=== PATIENT | male | born 1950 | race Caucasian/White ===

== ENCOUNTER → 2024-02-13 12:52 | Outpatient (REF) | payer MEDICARE, SELFPAY | LOC: HWRAD 12:52 | PROVIDERS: ATTENDING PHYSICIAN Internal Medicine Critical Care Medicine; FAMILY PHYSICIAN Physician Assistant Medical | DX: R06.02 Shortness of breath (principal); Z87.01 Personal history of pneumonia (recurrent) | CPT/HCPCS: 71046; 71250 ==

== ENCOUNTER 2024-04-10 10:10 | Emergency (ER) | payer MEDICARE, SELFPAY ==
[2024-04-10 10:17] VITALS: BP 142/91
[2024-04-10 12:10] VITALS: BP 127/88
[2024-04-10] MEDS: ADACEL 0.5 ML IM (12:16)
[2024-04-10] MEDS: ANCEF 5 IV (12:17)
--- NOTE | 2024-04-10 12:47 | ED.GENMED ---
History of Present Illness
General
Chief Complaint: Skin Surface Trauma
Source: patient
Exam Limitations: none
Time Seen by Provider: 04/10/24 10:26
Nursing documentation reviewed up to this point in time: agreed with
Travel History
Have you had any contact with someone who has COVID-19?: No
Do you have any symptoms of coronavirus? Fever > 100 degrees, chills, cough, shortness of breath, sore throat, loss of taste or smell, muscle aches, or headache?: No
History of Present Illness
History of Present Illness:
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 This was caused by a wood saw the
piece of wood that kicked back just prior to arrival injuring the distal fingers. Difficulty extending his left index finger since the event.
Past History
Past History
ED Past Medical History: CAD, Cancer (Myelodysplastic Syndrome), CHF, COPD, HTN, Hypercholesterolemia, [place] and Other (PNA)
ED Past Surgical History: Cardiac, Orthopedic (laminectomy) and Tonsilectomy
Social History
Tobacco: Former smoker
Alcohol: Occasional
Drug: None
Personal:
Living: alone
Employment: Employed
Review of Systems
Review of Systems
Allergies reviewed?: Yes
All Other Systems: ROS reviewed and negative except as documented in HPI and ROS
Phy Exam
Physical Exam
Physical Exam:
GENERAL: Alert , in no apparent distress
EYE: pupils equal and reactive
NECK: Supple, no significant adenopathy.
ENT: o/p clr, mmm.
CARDIAC: Regular rate and rhythm .
LUNGS: Clear breath sounds bilaterally, no acute respiratory distress, no wheezes/rales/rhonchi
ABDOMEN: Soft, without focal tenderness, no r/g, no cvat
NEUROLOGICAL: Alert and oriented, no focal neuro deficits
SKIN: Raised maceration of the distal left index finger and laceration just below the distal nailbed of the left middle finger. Unable to fully extend the distal left index finger.
MUSCULOSKELETAL: No edema, well perfused.
PSYCH: Normal and appropriate interaction.
Course
Orders/Labs/Results
Orders:
Orders
04/10/24 10:21
Hand, Left 3 View [CR Hand - Left Min 3 Views] Urgent
Comment:
Reason For Exam: pain injury
04/10/24 11:05
Tetanus/Diphth/Acelpertussis [Adacel] 0.5 ml IM .ONCE ONE
04/10/24 11:22
CeFAZolin 1 GRAM [Ancef] 1 gram in 5 ml IV NOW
Vital Signs
Initial and Last Documented VS:
Initial Vital Signs
Temp Pulse Resp BP Pulse Ox
97.8 F 66 16 142/91 97
04/10/24 10:17 04/10/24 10:17 04/10/24 10:17 04/10/24 10:17 04/10/24 10:17
Last Documented Vital Signs
Temp Pulse Resp BP Pulse Ox
97.8 F 66 16 142/91 97
04/10/24 10:17 04/10/24 10:17 04/10/24 10:17 04/10/24 10:17 04/10/24 10:17
Procedures
Laceration Closure
Left Second Finger:
Status of Wound: clean
Size of Wound in cm: 2.5
Description of Wound Edges: ragged, surrounded by abrasion and macerated
Preparation: cleaned with saline
Anesthesia: 2% Lidocaine and Digital-Regional
Revision/Debridement: extensive revision and irrigate-direct pressure
Wound exploration: explored to base- no FB (Unable to extend at the DIP of the left index finger)
Type of Closure: single layer closure
Skin Closure Material: 4-0 chromic gut
Number of sutures: 7
Additional information:
2 [id number] stitches needed to control bleeding 5 additional simple interrupted stitches such as needed
Left Distal Dorsal Third Finger:
Status of Wound: clean
Size of Wound in cm: 1
Description of Wound Edges: ragged, surrounded by abrasion and macerated
Preparation: cleaned with saline
Anesthesia: 2% Lidocaine and Digital-Regional
Revision/Debridement: minor revision
Wound exploration: explored to base- no FB and no tendon involvement
Type of Closure: single layer closure
Skin Closure Material: 4-0 chromic gut
Number of sutures: 3
MDM/Problems Addressed
MDM/Problems Addressed:
73-year-old male presenting to the emergency department today with concerns of an injury to his left index and middle finger distally from a kicked back from cutting a piece of wood with a wood saw. No foreign body seen clean thoroughly digital
blocks used there is macerated complex injury to the left index finger that was debrided and closed as able and also [id number] stitch as needed to control bleeding. He also has a distal tendon injury unable to extend his distal finger. Also
has a laceration just below the distal nailbed of the left middle finger this was closed with 3 stitches otherwise normal tendon function normal neurologically. Patient was placed in a splint. Case was discussed with orthopedics. Patient was
given an IV dose of Ancef due to likely open fracture with a distal fingertip avulsion. Was written for Keflex and advised for close outpatient follow-up with hand surgery.
*Critical Care Note
Total Time (30-74mins, 75-104mins- exclusive of procedures): Not Applicable
ED Attending Note
-
Portions of this chart may have been created with voice recognition software.� Occasional wrong word or��sound alike� substitutions may have occurred due to the inherent limitations of voice recognition software.
Discharge Plan
Departure
Patient Disposition: Home (Routine Discharge)
Date of Disposition: 04/10/24
Time of Disposition: 12:53
Patient with high blood pressure during this ER visit?: No
Condition: Good
Covid-19: Not Applicable
Discharge Problem:
Open fracture of finger, Finger laceration involving tendon, Finger laceration
Instructions: Wound Care (DC), Laceration Repair With Stitches (DC)
Prescriptions:
New
cephalexin 500 mg capsule
500 mg PO QID 5 Days Qty: 20 0RF
No Action
pantoprazole 40 MG tablet,delayed release (DR/EC)
40 mg PO DAILY Qty: 30 3RF
losartan 50 mg Tablet
50 mg PO DAILY
azacitidine [Vidaza] 100 mg Recon Soln
100 mg IV Q6W Qty: 0
Patient Comments:
on hold per patient
Rx Instructions:
7 days on, 21 days off (28 day cycle)
apixaban 5 mg Tablet
5 mg PO BID
Venclexta 100 mg Tablet
400 mg PO . DIRECTED
Hold Instructions: Resume on 10/15/22. Hold until you finish your antibiotics
Patient Comments:
on hold per patient
Rx Instructions:
14 days on and 14 days off (28 day cycle)
Trelegy Ellipta 100-62.5-25 mcg Blister With Device
1 inh INHALATION R DAILY
vitamin B complex Tablet Extended Release
1 tab PO DAILY
magnesium oxide 400 mg magnesium Tablet
400 mg PO DAILY
ascorbic acid (vitamin C) [Vitamin C] 1,000 mg Tablet
2,000 mg PO BID
rosuvastatin 10 MG tablet
10 mg PO DAILY
oxycodone 5 mg Tablet
5 mg PO QIDPRN PRN (Reason: moderate pain)
Patient Comments:
09/24/2023: last filled 08/25/23, 120 tabs for 30 days from [facility]#[id number]
ondansetron 4 mg Tablet,Disintegrating
4 mg PO DAILYPRN PRN (Reason: before vidaza)
acetaminophen 325 mg Tablet
650 mg PO Q4HPRN PRN (Reason: Mild Pain / Temp > 101) Qty: 30 0RF
ipratropium-albuterol 0.5 mg-3 mg(2.5 mg base)/3 mL Solution For Nebulization
3 ml inhalation R Q4HPRN PRN (Reason: Sob or wheezing) Qty: 180 0RF
budesonide 0.5 mg/2 mL Suspension For Nebulization
0.5 mg inhalation R BID Qty: 60 0RF
folic acid 1 mg Tablet
1 mg PO DAILY Qty: 30 0RF
prednisone 10 mg tablet
10 mg PO DAILY
thiamine HCl (vitamin B1) 100 mg tablet
100 mg PO DAILY
cefdinir 300 mg Capsule
300 mg PO Q12 Qty: 10 0RF
furosemide [Lasix] 40 mg tablet
40 mg PO DAILY Qty: 30 0RF
Referrals:
Edison Light PA-C [Family Provider] -
Yaakov Peters MD [Active] - Follow up in 2-3 days
Activity Restrictions/Additional Instructions:
You came to the emergency department today with concerns of extensive injury to your your left index and middle finger. Please take Keflex 4 times daily and keep the area clean and elevated. Please follow closely with the hand surgeon on Saturday.
Please call today to make an appointment. Return to the emergency department for any worsening, new or concerning symptoms.
Interventions
Interventions:
*Risk Screen - Suicide Last Done: 04/10/24 10:17
*Neglect/Abuse Screening Last Done: 04/10/24 10:17
*ED COVID-19 Vaccine History Last Done: 04/10/24 10:17
Discharge Date and Time
Print Language: SWEDISH
[2024-04-10 14:12] VITALS: BP 134/69
== END 2024-04-10 14:14 | disposition home or self-care (01) ==
LOC: EMR 10:10
PROVIDERS: EMERGENCY PHYSICIAN Emergency Medicine; FAMILY PHYSICIAN Physician Assistant Medical
DX: S62.631B Displaced fracture of distal phalanx of left index finger, initial encounter for open fracture (principal); S66.321A Laceration of extensor muscle, fascia and tendon of left index finger at wrist and hand level, initial encounter; W31.2XXA Contact with powered woodworking and forming machines, initial encounter; D46.9 Myelodysplastic syndrome, unspecified; I11.0 Hypertensive heart disease with heart failure; I50.9 Heart failure, unspecified; I25.10 Atherosclerotic heart disease of native coronary artery without angina pectoris; E78.00 Pure hypercholesterolemia, unspecified; I48.91 Unspecified atrial fibrillation; J44.9 Chronic obstructive pulmonary disease, unspecified; I25.2 Old myocardial infarction; Z87.01 Personal history of pneumonia (recurrent); Z87.891 Personal history of nicotine dependence; Z79.01 Long term (current) use of anticoagulants; Z88.1 Allergy status to other antibiotic agents; Z88.7 Allergy status to serum and vaccine; Z88.8 Allergy status to other drugs, medicaments and biological substances
CPT/HCPCS: 64450; 99284; 96374; 13131; 12001; 90471; 73130; 90715

== ENCOUNTER → 2024-07-31 13:30 | Outpatient (REF) | payer MEDICARE, SELFPAY | LOC: HWRAD 13:30 | PROVIDERS: ATTENDING PHYSICIAN Physician Assistant Medical | DX: S16.1XXA Strain of muscle, fascia and tendon at neck level, initial encounter (principal) | CPT/HCPCS: 72050 ==

== ENCOUNTER 2024-09-21 11:53 | Emergency (ER) | payer MEDICARE, SELFPAY ==
[2024-09-21 11:59] VITALS: BP 124/79
[2024-09-21 12:30] VITALS: BMI 24.5
--- NOTE | 2024-09-21 12:45 | ED.GENMED ---
History of Present Illness
<DORIS Lyons - Last Filed: 09/23/24 09:03>
General
Chief Complaint: Change in Mental Status
Source: patient
Exam Limitations: none
Time Seen by Provider: 09/21/24 12:32
Nursing documentation reviewed up to this point in time: agreed with
History of Present Illness
History of Present Illness:
73 yr old male presents to the ER for evaluation. Patient reports he was sent by his family doctor. He called his family doctor on to get an appointment and tells me he saw her today and has memory issues and cannot remember why initially
he went to the doctors. He is a very vague historian.
He does mention that she thought he had a right-sided droop and patient was called in by DR Edison Light with concerns for this however patient denies. Patient does report he has had off and on blurriness in his left eye since for the past month
since and has seen an eye/retina specialist for this. He reports the blurriness in his left eye is intermittent and he currently denies. He is also scheduled for an MRI.
Presently he has no complaints he denies any headache he denies any difficulty with speech she denies any upper or lower extremity weakness.
Past History
<DORIS Lyons - Last Filed: 09/23/24 09:03>
Past History
ED Past Medical History: CAD, Cancer (Myelodysplastic Syndrome), CHF, COPD, HTN, Hypercholesterolemia, [place] and Other (PNA)
ED Past Surgical History: Cardiac, Orthopedic (laminectomy) and Tonsilectomy
Social History
Tobacco: Former smoker
Alcohol: Occasional
Drug: None
Personal:
Living: alone
Employment: Employed
Review of Systems
<DORIS Lyons - Last Filed: 09/23/24 09:03>
Review of Systems
Allergies reviewed?: Yes
All Other Systems: ROS reviewed and negative except as documented in HPI and ROS
Constitutional: Denies fever, fatigue or chills
Respiratory: Reports no symptoms
Cardiac: Reports no symptoms; Denies chest pain, palpitations or syncope
ABD/GI: Reports no symptoms
: Reports no symptoms
Musculoskeletal: Reports no symptoms
Skin: Reports no symptoms
Neurological: Reports other (Family doctor was concern for right-sided facial droop)
Psychiatric: Reports no symptoms
Phy Exam
<DORIS Lyons - Last Filed: 09/23/24 09:03>
General Physical Exam
General Presentation: no apparent distress
General age: appears stated age
General Skin: warm and dry
General Habitus: normal
General Mental: alert
Cardiovascular Exam
Cardiovascular Exam: regular rate/rhythm, no murmur and normal peripheral pulses
Pulmonary Exam
Pulmonary Exam: lungs clear and no respiratory distress
Neurological Exam
Neurological Exam: alert, oriented x3, no motor deficits and no sensory deficits
NIH Stroke Score
Level of Consciousness: 0 - Alert
LOC questions: 0-Answers both correctly
LOC Commands: 0-Performs both correctly
Best Gaze: 0-Normal
Visual Fagan: 0=Normal, no visual loss
Facial palsy: 0=Normal, symmetrical
Motor - Right Arm: 0=No drift 10 seconds
Motor - Left Arm: 0=No drift 10 seconds
Motor - Right Le-No drift 5 seconds
Motor - Left Le-No drift 5 seconds
Limb Ataxia: 0-Absent
Sensation: 0-Normal
Best Language: 0-No aphasia
Dysarthria: 0-Normal
Extinction and Inattention: 0-No abnormality
Total Score:: 0
Cerebellar
Cerebellar Function: normal finger to nose and normal heel to barriga
Musculoskeletal Exam
Musculoskeletal Exam: full ROM
Skin Exam
Skin Exam: normal color and warm/dry
Psychiatric Exam
Psychiatric Exam: normal mood/affect
Course
<DORIS Lyons - Last Filed: 09/23/24 09:03>
Orders/Labs/Results
Orders:
Orders
09/21/24 12:02
Electrocardiogram (*1) Urgent
Reason for Study: Fatigue / Weakness
CT Head W/o Iv Contrast Urgent
Comment:
Reason For Exam: HUSAIN and pt having diff with short term memory
09/21/24 12:03
EKG- Treatment ONCE
09/21/24 12:37
Complete Blood Count/With Diff Urgent
Comprehensive Metabolic Panel Urgent
Manual Differential Urgent
Abnormal Lab Results
09/21/24
12:37
WBC 2.9 L 10^3/uL
(4.8-10.8)
RBC 3.05 L 10^6/uL
(4.70-6.10)
Hgb 11.0 L g/dL
(13.0-18.0)
Hct 32.8 L %
(39.0-52.0)
MCV 107.5 H fL
(80.0-94.0)
MCH 36.1 H pg
(27.0-31.0)
RDW 17.4 H %
(11.5-14.5)
Plt Count 120 L 10^3/uL
(130-400)
MPV 12.5 H fL
(7.4-10.4)
Band Neutrophils 8 H %
(0-3)
Monocytes (Manual) 15 H %
(2-9)
Sodium 146 H mmol/L
(135-145)
BUN 25 H mg/dl
(9-20)
09/21/24 12:37
09/21/24 12:37
Vital Signs
Initial and Last Documented VS:
Initial Vital Signs
Temp Pulse Resp BP Pulse Ox
98.0 F 72 16 124/79 98
09/21/24 11:59 09/21/24 11:59 09/21/24 11:59 09/21/24 11:59 09/21/24 11:59
Last Documented Vital Signs
Temp Pulse Resp BP Pulse Ox
98.0 F 72 16 109/71 96
09/21/24 11:59 09/21/24 15:11 09/21/24 15:11 09/21/24 15:11 09/21/24 14:00
Wastewater Treatment Operator consulted with Physician
Wastewater Treatment Operator consulted with physician?: Yes
Name of Physician Consulted: yvonne
<Magda Last, DO - Last Filed: 09/21/24 14:29>
Orders/Labs/Results
Orders:
Orders
09/21/24 12:02
Electrocardiogram (*1) Urgent
Reason for Study: Fatigue / Weakness
CT Head W/o Iv Contrast Urgent
Comment:
Reason For Exam: HUSAIN and pt having diff with short term memory
09/21/24 12:03
EKG- Treatment ONCE
09/21/24 12:37
Complete Blood Count/With Diff Urgent
Comprehensive Metabolic Panel Urgent
Manual Differential Urgent
Abnormal Lab Results
09/21/24
12:37
WBC 2.9 L 10^3/uL
(4.8-10.8)
RBC 3.05 L 10^6/uL
(4.70-6.10)
Hgb 11.0 L g/dL
(13.0-18.0)
Hct 32.8 L %
(39.0-52.0)
MCV 107.5 H fL
(80.0-94.0)
MCH 36.1 H pg
(27.0-31.0)
RDW 17.4 H %
(11.5-14.5)
Plt Count 120 L 10^3/uL
(130-400)
MPV 12.5 H fL
(7.4-10.4)
Band Neutrophils 8 H %
(0-3)
Monocytes (Manual) 15 H %
(2-9)
Sodium 146 H mmol/L
(135-145)
BUN 25 H mg/dl
(9-20)
09/21/24 12:37
09/21/24 12:37
Vital Signs
Initial and Last Documented VS:
Initial Vital Signs
Temp Pulse Resp BP Pulse Ox
98.0 F 72 16 124/79 98
09/21/24 11:59 09/21/24 11:59 09/21/24 11:59 09/21/24 11:59 09/21/24 11:59
Last Documented Vital Signs
Temp Pulse Resp BP Pulse Ox
98.0 F 72 16 109/71 96
09/21/24 11:59 09/21/24 15:11 09/21/24 15:11 09/21/24 15:11 09/21/24 14:00
<DORIS Lyons - Last Filed: 09/23/24 09:03>
MDM/Problems Addressed
MDM/Problems Addressed:
Patient saw his family doctor today who sent him in for concern for possible right-sided facial drooping intermittent blurry vision and balance issues. Patient drove himself to his primary care office but was driven here to the ER by a friend.
Patient presents awake alert no acute distress he reports he has had intermittent blurriness in his left eye but has been seen by retina specialist and is scheduled for an MRI. He has no headache. He denies any difficulty speaking he is clear
speech. No obvious facial droop he has no strength deficit or sensation deficit in either upper or lower extremities bilaterally. His CAT scan is negative. He denied any recent fever chills. Visual disturbance in his left eye is intermittent for
the past month again this been worked up and he has no symptoms now.
He does have MDS and reports he has chronic fatigue this is not new. His white count is 2.9 which is at baseline from his last blood count in 2022 his hemoglobin is 11.0 which is improved from 2022; his BUN is minimally elevated but there are no
other electrolyte abnormalities.
Patient has no complaints of chest pain there are nonspecific ST findings however no chest pain.
Patient seen and eval by ED physician who agrees there is no focal neurological acute deficit. Case discussed with neurology Dr. West will DC home with outpatient follow-up.
Patient did ambulate slow with a steady gait no acute distress here.
<DORIS Lyons - Last Filed: 09/23/24 09:03>
*Radiology
Radiology exam reviewed: radiology read reviewed
*Pulse Oximetry
Patient hypoxic: no
*EKG
Interpreted by ED Provider?: Yes
Heart Rate: 68
Rate: normal
Rhythm: sinus
Ischemia: non-specific ST changes
*Critical Care Note
Total Time (30-74mins, 75-104mins- exclusive of procedures): Not Applicable
ED Attending Note
<DORIS Lyons - Last Filed: 09/23/24 09:03>
-
Portions of this chart may have been created with voice recognition software.� Occasional wrong word or��sound alike� substitutions may have occurred due to the inherent limitations of voice recognition software.
<Magda Last DO - Last Filed: 09/21/24 14:29>
ED Attending Note
Patient seen and examined by attending physician: Yes
I performed the substantive portion of visit, reviewed & personally made and approve the management plan that is documented in note by myself or VJ.: Yes
I performed a history and physical exam of patient and discussed management with resident, I reviewed resident's note and agree with documented findings and plan of care.: Yes
ED Attending Note:
Patient seen and evaluated at bedside, 73-year-old male with multiple comorbidities including CHF, COPD, MDS, anemia, hypertension, hyperlipidemia presenting to the emergency department from his primary care office. Patient was seeing his doctor,
noted that he has been having intermittent blurred vision to the left eye, and primary care doctor was concern for a right facial droop. Patient himself does not feel that his face is off. Denies any weakness or numbness to his extremities. He
reports that he 'feels like he is having a bad day '. Denies chest pain or difficulty breathing. Regarding the visual changes, notes that he has been following with an eye doctor, had an eye exam that was reportedly normal and is supposed to see a
retinal specialist next week. He also notes that he scheduled to have an MRI in the next few weeks due to auditory issues. Vital signs on arrival are normal.
On exam patient is in no acute distress, nontoxic. Unremarkable neurologic exam, NIH stroke scale of 0. At this time do not suspect acute CVA, no obvious facial drooping. Given ocular symptoms with subjective concern for facial droop, decision
made to proceed with CT brain imaging and laboratory analysis. CT brain without acute intracranial abnormality and labs are thus far unremarkable. Will discuss with neurology with likely plan for continued outpatient follow-up. Patient ambulated
steadily.
Discharge Plan
Departure
Patient Disposition: Home (Routine Discharge)
Date of Disposition: 09/21/24
Time of Disposition: 14:50
Patient with high blood pressure during this ER visit?: No
Covid-19: Not Applicable
Discharge Problem:
Encounter for medical assessment
Prescriptions:
No Action
pantoprazole 40 MG tablet,delayed release (DR/EC)
40 mg PO DAILY Qty: 30 3RF
losartan 50 mg Tablet
50 mg PO DAILY
azacitidine [Vidaza] 100 mg Recon Soln
100 mg IV Q6W Qty: 0
Patient Comments:
on hold per patient
Rx Instructions:
7 days on, 21 days off (28 day cycle)
apixaban 5 mg Tablet
5 mg PO BID
Venclexta 100 mg Tablet
400 mg PO . DIRECTED
Patient Comments:
on hold per patient
Rx Instructions:
14 days on and 14 days off (28 day cycle)
Trelegy Ellipta 100-62.5-25 mcg Blister With Device
1 inh INHALATION R DAILY
vitamin B complex Tablet Extended Release
1 tab PO DAILY
magnesium oxide 400 mg magnesium Tablet
400 mg PO DAILY
ascorbic acid (vitamin C) [Vitamin C] 1,000 mg Tablet
2,000 mg PO BID
rosuvastatin 10 MG tablet
10 mg PO DAILY
oxycodone 5 mg Tablet
5 mg PO QIDPRN PRN (Reason: moderate pain)
Patient Comments:
09/24/2023: last filled 08/25/23, 120 tabs for 30 days from [facility]#[id number]
ondansetron 4 mg Tablet,Disintegrating
4 mg PO DAILYPRN PRN (Reason: before vidaza)
acetaminophen 325 mg Tablet
650 mg PO Q4HPRN PRN (Reason: Mild Pain / Temp > 101) Qty: 30 0RF
ipratropium-albuterol 0.5 mg-3 mg(2.5 mg base)/3 mL Solution For Nebulization
3 ml inhalation R Q4HPRN PRN (Reason: Sob or wheezing) Qty: 180 0RF
budesonide 0.5 mg/2 mL Suspension For Nebulization
0.5 mg inhalation R BID Qty: 60 0RF
folic acid 1 mg Tablet
1 mg PO DAILY Qty: 30 0RF
prednisone 10 mg tablet
10 mg PO DAILY
thiamine HCl (vitamin B1) 100 mg tablet
100 mg PO DAILY
cefdinir 300 mg Capsule
300 mg PO Q12 Qty: 10 0RF
furosemide [Lasix] 40 mg tablet
40 mg PO DAILY Qty: 30 0RF
cephalexin 500 mg capsule
500 mg PO QID 5 Days Qty: 20 0RF
Referrals:
Edison Light PA-C [Family Provider] -
Activity Restrictions/Additional Instructions:
Follow-up with your family doctor the next several days for reevaluation return if any worsening of symptoms follow-up with your outpatient MRI as discussed as previously recommended
Interventions
Interventions:
*Risk Screen - Suicide Last Done: 09/21/24 11:59
*Neglect/Abuse Screening Last Done: 09/21/24 11:59
*Nursing Disposition Last Done: 09/21/24 15:40
ED- Neurological Assessment Last Done: 09/21/24 12:30
Discharge Date and Time
Discharge Date/Time: 09/21/24 15:40
Print Language: CENTRAL AFRICAN
[2024-09-21 12:54] LABS: Hematocrit 32.8 % (39.0-52.0); Mean Corp Hgb Conc. 33.5 g/dL (33.0-37.0); Mean Corpuscular Hgb 36.1 pg (27.0-31.0); Mean Corpuscular Volume 107.5 fL (80.0-94.0); Mean Platelet Volume 12.5 fL (7.4-10.4); Platelet Count 120 10^3/uL (130-400); Red Blood Cell Count 3.05 10^6/uL (4.70-6.10); Red Cell Dist. Width 17.4 % (11.5-14.5); White Blood Cell Count 2.9 10^3/uL (4.8-10.8)
[2024-09-21 13:18] LABS: ALT (SGPT) 16 U/L (0-50); AST (SGOT) 53 U/L (17-59); Albumin 4.7 g/dl (3.5-5.0); Alkaline Phosphatase 54 U/L (38-126); Blood Urea Nitrogen 25 mg/dl (9-20); Calcium 9.3 mg/dl (8.4-10.2); Carbon Dioxide 27 mmol/L (22-30); Chloride 103 mmol/L (98-107); Estimated Creatinine Clearance 76 ml/min; Glucose 82 mg/dl (70-99); Potassium 4.2 mmol/L (3.5-5.1); Sodium 146 mmol/L (135-145); Total Bilirubin 0.8 mg/dl (0.2-1.3); Total Protein 7.3 g/dl (6.3-8.2); eGFR > 60.00
[2024-09-21 13:26] LABS: Absolute Neutrophils -Man Diff 1.5 10^3/uL (1.4-6.5); Band Neutrophils 8 % (0-3); Lymphocytes 28 % (20-51); Metamyelocytes 2 % (-); Monocytes 15 % (2-9); Myelocytes 2 % (-); Segmented Neutrophils 45 % (42-75)
[2024-09-21 13:27] LABS: Anisocytosis 1+; Normal RBC Morphology No; Platelets Checked Yes
[2024-09-21 13:28] LABS: Hypochromasia Slight; Ovalocytes 1+; Polychromasia Slight; Total Cells Counted 100
[2024-09-21 13:38] VITALS: BP 122/76
[2024-09-21 14:00] VITALS: BP 109/57
[2024-09-21 15:11] VITALS: BP 109/71
== END 2024-09-21 15:40 | disposition home or self-care (01) ==
LOC: EMR 11:53
PROVIDERS: Emergency Medicine; EMERGENCY PHYSICIAN Student in an Organized Health Care Education/Training Program; FAMILY PHYSICIAN Physician Assistant Medical
DX: Z00.00 Encounter for general adult medical examination without abnormal findings (principal); H53.8 Other visual disturbances; I11.0 Hypertensive heart disease with heart failure; I50.9 Heart failure, unspecified; E78.00 Pure hypercholesterolemia, unspecified; J44.9 Chronic obstructive pulmonary disease, unspecified; D46.9 Myelodysplastic syndrome, unspecified
CPT/HCPCS: 99285; 70450; 80053; 85025; 93005

== ENCOUNTER → 2024-09-30 19:15 | Outpatient (REF) | payer MEDICARE, SELFPAY | LOC: MRI 3T 19:15 | PROVIDERS: ATTENDING PHYSICIAN Physician Assistant; FAMILY PHYSICIAN Physician Assistant Medical; REFERRING PHYSICIAN Anesthesiology Pain Medicine | DX: H90.A21 Sensorineural hearing loss, unilateral, right ear, with restricted hearing on the contralateral side (principal) | CPT/HCPCS: 70553; 72148; A9575 ==

== ENCOUNTER → 2024-10-13 15:01 | Outpatient (REF) | payer MEDICARE, SELFPAY | LOC: RAD 15:01 | PROVIDERS: ATTENDING PHYSICIAN Ophthalmology; FAMILY PHYSICIAN Family Medicine | DX: G45.3 Amaurosis fugax (principal); H02.834 Dermatochalasis of left upper eyelid; H59.81 Chorioretinal scars after surgery for detachment; Z86.69 Personal history of other diseases of the nervous system and sense organs | CPT/HCPCS: 93880 ==

== ENCOUNTER → 2024-10-30 12:49 | Outpatient (REF) | payer MEDICARE, SELFPAY | LOC: RCS 12:49 | PROVIDERS: ATTENDING PHYSICIAN Internal Medicine; FAMILY PHYSICIAN Physician Assistant Medical | DX: I35.1 Nonrheumatic aortic (valve) insufficiency (principal); I34.0 Nonrheumatic mitral (valve) insufficiency; I50.32 Chronic diastolic (congestive) heart failure | CPT/HCPCS: 93306; 93356 ==

== ENCOUNTER 2024-11-07 15:00 | Inpatient (IN) | payer MEDICARE, SELFPAY ==
[2024-11-07] VITALS (13 sets, daily range): BP systolic 114–164; BP diastolic 71–92; BMI 26.5; BMI 25.6
--- NOTE | 2024-11-07 09:17 | ED.GENMED ---
History of Present Illness
General
Chief Complaint: Weakness
Source: patient
Exam Limitations: none
Time Seen by Provider: 11/07/24 09:16
Nursing documentation reviewed up to this point in time: agreed with
History of Present Illness
History of Present Illness:
The patient is a very pleasant 74-year-old man with past medical history of COPD, CHF, pulmonary fibrosis, A-fib and myelodysplastic syndrome who arrives with complaints of generalized weakness. Patient reports that he noticed yesterday that both
of his lower legs became swollen, which she states is unusual for him. He reports that the swelling has never been this bad before. Patient reports that he has had a worsening cough and shortness of breath. He denies chest pain and fever.
Patient reports that the only thing new going on is that he recently started back up with chemotherapy injections last week. He reports he had a total of 4 injections of chemotherapy last week but skipped his injection yesterday because he reports
he did not feel well. Patient reports he is still taking Eliquis twice a day. Patient states that at baseline he frequently does not need to use any oxygen but lately he has had to use 3 to 4 L of nasal oxygen
Past History
Past History
ED Past Medical History: Arrthythmia, CAD, Cancer (Myelodysplastic Syndrome), CHF, COPD, HTN, Hypercholesterolemia, OH and Other (PNA)
ED Past Surgical History: Cardiac, Orthopedic (laminectomy) and Tonsilectomy
Social History
Tobacco: Former smoker
Alcohol: Occasional
Drug: None
Personal:
Living: alone
Employment: Employed
Family History
Family History: Other
Review of Systems
Review of Systems
Allergies reviewed?: Yes
All Other Systems: ROS reviewed and negative except as documented in HPI and ROS
Constitutional: Reports fatigue
EENT: Reports no symptoms
Respiratory: Reports cough and trouble breathing
Cardiac: Reports no symptoms
ABD/GI: Reports no symptoms
: Reports no symptoms
Musculoskeletal: Reports edema
Skin: Reports no symptoms
Neurological: Reports no symptoms
Endocrine: Reports no symptoms
Hematologic/Lymphatic: Reports no symptoms
Psychiatric: Reports no symptoms
Phy Exam
Physical Exam
Physical Exam:
Physical Exam
General: Patient appears chronically ill but is conversational. Mildly short of breath when speaking
Neck: supple.
Heart: s1/s2 regular rate and rhythm,
Lungs: Mild tachypnea. Frequently coughing. Rhonchus breath sounds. Decreased breath sounds bilaterally
Abdomen: normal bowel sounds. not tender. no CVAT
Neuro: alert and oriented. no focal neurological deficits
Skin: no rash
Psychiatric: well kept. interactive and cooperative
Extremities: 3+ pitting edema in bilateral feet up to proximal lower legs. Negative Homans' sign bilaterally
Course
Orders/Labs/Results
Orders:
Orders
11/07/24 09:07
Electrocardiogram (*1) Urgent
Reason for Study: Fatigue / Weakness
EKG- Treatment ONCE
11/07/24 09:41
Oxycodone [Roxicodone] 10 mg PO NOW STA
11/07/24 09:48
Complete Blood Count/With Diff Urgent
Comprehensive Metabolic Panel Urgent
Manual Differential Urgent
NT-proBNP Urgent
Troponin I Urgent
11/07/24 10:51
CR Chest - 2 Views Urgent
Comment:
Reason For Exam: SOB
11/07/24 11:05
Furosemide [Lasix] 40 mg IV NOW STA
Abnormal Lab Results
11/07/24
09:48
WBC 11.0 H 10^3/uL
(4.8-10.8)
RBC 2.35 L 10^6/uL
(4.70-6.10)
Hgb 8.9 L g/dL
(13.0-18.0)
Hct 26.7 L %
(39.0-52.0)
MCV 113.6 H fL
(80.0-94.0)
MCH 37.9 H pg
(27.0-31.0)
RDW 15.5 H %
(11.5-14.5)
Plt Count 62 L 10^3/uL
(130-400)
MPV 12.5 H fL
(7.4-10.4)
Band Neutrophils 4 H %
(0-3)
Lymphocytes (Manual) 11 L %
(20-51)
Monocytes (Manual) 42 H %
(2-9)
BUN 65 H mg/dl
(9-20)
Creatinine 1.4 H mg/dL
(0.7-1.3)
AST 107 H U/L
(17-59)
Troponin I 1.980 H* ng/ml
11/07/24 09:48
11/07/24 09:48
Vital Signs
Initial and Last Documented VS:
Initial Vital Signs
Temp Pulse Resp BP Pulse Ox
97.8 F 84 16 122/80 87
11/07/24 09:02 11/07/24 09:02 11/07/24 09:02 11/07/24 09:02 11/07/24 09:02
Last Documented Vital Signs
Temp Pulse Resp BP Pulse Ox
97.8 F 69 16 114/71 97
11/07/24 09:02 11/07/24 12:02 11/07/24 11:45 11/07/24 11:40 11/07/24 12:02
MDM/Problems Addressed
Differential Diagnosis Includes:
Acute on chronic CHF, acute on chronic COPD, pneumonia, acute coronary syndrome
MDM/Problems Addressed:
Patient presents with acute bilateral lower leg edema and shortness of breath
Chronic conditions affecting care: Cardiomyopathy
Acute Exacerbation and/or Progression of Chronic Illness:
Patient likely has acute exacerbation of chronic CHF
*Radiology
Radiology exam reviewed: preliminary read by ED provider (Increased vascular congestion. Chest x-ray checked by me) and radiology read reviewed
*Pulse Oximetry
Patient hypoxic: no
Comment: On 4 L of nasal oxygen
*EKG
Interpreted by ED Provider?: Yes
Interpretation: abnormal
Comparison EKG: no changes
Rate: normal
Rhythm: sinus
[place]: normal axis
Interval: normal interval
QRS Pattern: normal QRS
Ischemia: non-specific ST changes
*Back Tender Interpretation
Rate: normal
Interpretation: normal
Rhythm: sinus
*Critical Care Note
Total Time (30-74mins, 75-104mins- exclusive of procedures): 45 minutes of critical ca
comment:
45 minutes of critical care given to the patient including reassessing him for any chest pain or worsening shortness of breath, as well as reviewing his chest x-ray, EKG and speaking to hospitalist and cardiology.
Data Reviewed
Review of Other/Old Records Reveals: Discharge Summary (Discharge summary reviewed from November 2023 when patient was admitted for left-sided pneumonia)
Source: patient
Patient Management
Social determinants of health affecting care: Living situation (Lives alone)
Discussion with other providers: Hospitalist and Other (Callender text sent to [facility] cardiology to let them know that patient did have an elevated troponin and they agreed to see the patient.)
Escalation/DeEscalation of care consider admission/obs:
Patient will be admitted for acute on chronic respiratory failure, elevated troponin, elevated proBNP and likely CHF exacerbation
Update Note
Update Note:
Patient adamantly denies chest pain, is not diaphoretic or in any significant acute distress. EKG does not show specific ischemic changes.
ED Attending Note
-
Portions of this chart may have been created with voice recognition software.� Occasional wrong word or��sound alike� substitutions may have occurred due to the inherent limitations of voice recognition software.
Discharge Plan
Departure
Patient Disposition: Admit
Date of Disposition: 11/07/24
Time of Disposition: 11:11
Admit to: Telemetry
Presentation/result/management discussed w/ accepting MD/DO: Hospitalist
Patient with high blood pressure during this ER visit?: Yes
Condition: Fair
Discharge Problem:
Acute and chronic respiratory failure, Acute on chronic CHF, Acute bilateral leg edema, Elevated troponin, Acute on chronic anemia
Prescriptions:
No Action
pantoprazole 40 MG tablet,delayed release (DR/EC)
40 mg PO DAILY Qty: 30 3RF
losartan 50 mg Tablet
50 mg PO DAILY
azacitidine [Vidaza] 100 mg Recon Soln
100 mg IV Q6W Qty: 0
Patient Comments:
on hold per patient
Rx Instructions:
7 days on, 21 days off (28 day cycle)
apixaban 5 mg Tablet
5 mg PO BID
vitamin B complex Tablet Extended Release
1 tab PO DAILY
magnesium oxide 400 mg magnesium Tablet
400 mg PO DAILY
ascorbic acid (vitamin C) [Vitamin C] 1,000 mg Tablet
1,000 mg PO BID
rosuvastatin 10 MG tablet
10 mg PO DAILY
ondansetron 4 mg Tablet,Disintegrating
4 mg PO DAILYPRN PRN (Reason: before vidaza)
acetaminophen 325 mg Tablet
650 mg PO Q4HPRN PRN (Reason: Mild Pain / Temp > 101) Qty: 30 0RF
ipratropium-albuterol 0.5 mg-3 mg(2.5 mg base)/3 mL Solution For Nebulization
3 ml inhalation R Q4HPRN PRN (Reason: Sob or wheezing) Qty: 180 0RF
budesonide 0.5 mg/2 mL Suspension For Nebulization
0.5 mg inhalation R BID Qty: 60 0RF
prednisone 10 mg tablet
10 mg PO DAILY
Patient Comments:
pt takes 10 mg once a day then alternates with 20mg once a day
thiamine HCl (vitamin B1) 100 mg tablet
100 mg PO DAILY
oxycodone 10 mg Tablet
10 mg TID PRN (Reason: pain )
furosemide [Lasix] 40 mg tablet
40 mg PO BID
Referrals:
UNKNOWN - PT NOT,INTERVIEWE [Family Provider] -
Interventions
Interventions:
*Risk Screen - Suicide Last Done: 11/07/24 09:06
*General Assessment Last Done: 11/07/24 10:27
*Neglect/Abuse Screening Last Done: 11/07/24 09:06
*ED COVID-19 Vaccine History Last Done: 11/07/24 09:06
ED- Cardiac Assessment Last Done: 11/07/24 09:26
ED- Neurological Assessment Last Done: 11/07/24 09:26
ED- Pulmonary Assessment Last Done: 11/07/24 09:26
Discharge Date and Time
Print Language: UKRAINIAN
[2024-11-07] MEDS: ROXICODONE 10 MG PO (10:03)
[2024-11-07 10:23] LABS: ALT (SGPT) 41 U/L (0-50); AST (SGOT) 107 U/L (17-59); Albumin 4.2 g/dl (3.5-5.0); Alkaline Phosphatase 73 U/L (38-126); Blood Urea Nitrogen 65 mg/dl (9-20); Calcium 9.3 mg/dl (8.4-10.2); Carbon Dioxide 28 mmol/L (22-30); Chloride 102 mmol/L (98-107); Estimated Creatinine Clearance 44 ml/min; Glucose 98 mg/dl (70-99); Potassium 3.9 mmol/L (3.5-5.1); Sodium 140 mmol/L (135-145); Total Bilirubin 0.5 mg/dl (0.2-1.3); Total Protein 6.3 g/dl (6.3-8.2); eGFR 52.41
[2024-11-07 10:32] LABS: NT-proBNP 12100 pg/ml
[2024-11-07 11:05] LABS: Hematocrit 26.7 % (39.0-52.0); Hemoglobin 8.9 g/dL (13.0-18.0); Mean Corp Hgb Conc. 33.3 g/dL (33.0-37.0); Mean Corpuscular Hgb 37.9 pg (27.0-31.0); Mean Corpuscular Volume 113.6 fL (80.0-94.0); Mean Platelet Volume 12.5 fL (7.4-10.4); Platelet Count 62 10^3/uL (130-400); Red Blood Cell Count 2.35 10^6/uL (4.70-6.10); Red Cell Dist. Width 15.5 % (11.5-14.5)
[2024-11-07] MEDS: LASIX 40 MG IV ×2 (11:07→20:42)
[2024-11-07 12:14] LABS: Absolute Neutrophils -Man Diff 5.1 10^3/uL (1.4-6.5); Band Neutrophils 4 % (0-3); Lymphocytes 11 % (20-51); Monocytes 42 % (2-9); Segmented Neutrophils 43 % (42-75)
[2024-11-07 12:15] LABS: Normal RBC Morphology No; Nucleated Red Blood Cells 1 (-); Platelets Checked YES
[2024-11-07 12:16] LABS: Hypochromasia Slight; Ovalocytes FEW; Stomatocytes FEW; Total Cells Counted 100
[2024-11-07] MEDS: ASPIRIN 325 MG PO (14:42)
--- NOTE | 2024-11-07 14:47 | HPS.HSE ---
Family Physician
-
Family Physician: INTERVIEWE UNKNOWN - PT NOT
Chief Complaint
-
weakness
History of Present Illness
74-year-old man with past medical history of COPD, pulmonary fibrosis intermittently uses 4 L oxygen, paroxysmal atrial fibrillation, CAD, CHF, myelodysplastic syndrome, hypertension, hypercholesterolemia, body cramping unknown etiology, presenting
with weakness and fatigue. Patient noticed symptoms yesterday along with associated lower extremity swelling which is unusual for him. Further associated symptoms include cough and shortness of breath, although no fevers or chest pain. Has
intermittently used 3 to 4 L nasal cannula now, although does not frequently use. Importantly, started back on chemotherapy last week but skipped his dose yesterday due to feeling unwell. Last echocardiogram was EF of 55 to 60%, severe pulmonary
hypertension. Pulse 65, respirate 17, blood pressure 123/75, saturating 100% on 4 L. Remains afebrile. White count 11, hemoglobin 8.9, platelets 62. Creatinine 1.4 (0.8 on 09/21/2024); troponin 1.98, proBNP 12,100. EKG with possible ST and T
wave abnormality although no chest pain. X-ray with possible fibrotic chronic changes, pulmonary vasculature top normal. Was given pain control and furosemide in the ED.
Medical History
Past Medical History
Past Medical History: Reports Other (COPD, pulmonary fibrosis intermittently uses 4 L oxygen, paroxysmal atrial fibrillation, CAD, CHF, myelodysplastic syndrome, hypertension, hypercholesterolemia, body cramping unknown etiology)
Past Surgical History: Reports Other (Cardiac, Orthopedic (laminectomy) and Tonsilectomy)
Social History
Tobacco: Former Smoker
Alcohol: Former
Drug: None
Family History
Family History: Not pertinent
Allergies / Home Medications
Allergies reflects when Allergies were last updated in [facility].
Home Medications with original date entered in [facility]
Allergy/Medication List:
Allergies
Allergy/AdvReac Type Severity Reaction Status Date / Time
amoxicillin Allergy Unknown Verified 09/21/24 12:01
carvedilol Allergy Hives Verified 09/21/24 12:01
clavulanic acid Allergy Unknown Verified 09/21/24 12:01
[From Augmentin]
diltiazem Allergy rash, all Verified 09/21/24 12:01
over body
itching
gabapentin Allergy Unknown Verified 09/21/24 12:01
propoxyphene Allergy Unknown Verified 09/21/24 12:01
[From Darvocet-N]
Tetanus Vaccines and Toxoid Allergy at age 4 Verified 09/21/24 12:01
[Tetanus] pt became
'sick with
fever'.
ALEXIS Inhibitors AdvReac Cough Verified 09/21/24 12:01
hydrochlorothiazide AdvReac Cramping Verified 09/21/24 12:01
Home Medications
pantoprazole 40 mg tablet,delayed release 40 mg PO DAILY #30 tabs 05/29/22
azacitidine 100 mg solution for injection (Vidaza) 100 mg IV Q6W Cancer ##0 07/19/22
losartan 50 mg tablet 50 mg PO DAILY Blood pressure 07/19/22
apixaban 5 mg tablet 5 mg PO BID Blood clot prevention/tx 09/22/22
magnesium oxide 400 mg PO DAILY Electrolyte Repletion 10/09/22
vitamin B complex 1 tab PO DAILY Supplement 10/09/22
ascorbic acid (vitamin C) 1,000 mg tablet (Vitamin C) 1,000 mg PO BID Supplement 11/19/22
rosuvastatin 10 mg tablet 10 mg PO QPM High cholesterol 11/19/22
ondansetron 4 mg disintegrating tablet 4 mg PO DAILYPRN PRN before vidaza 05/19/23
budesonide 0.5 mg/2 mL suspension for nebulization 0.5 mg (2 mL) inhalation R BID #60 mL 09/28/23
prednisone 10 mg tablet 10 mg PO Q48H Anti-Inflammatory 11/07/23
thiamine HCl (vitamin B1) 100 mg tablet 100 mg PO DAILY Supplement 11/07/23
furosemide 40 mg tablet (Lasix) 40 mg PO BID 11/07/24
gabapentin 300 mg capsule 300 mg PO BID 11/07/24
oxycodone-acetaminophen 10 mg-325 mg tablet 1 tab PO TID 11/07/24
prednisone 5 mg tablet 5 mg PO Q48H 11/07/24
tizanidine 2 mg tablet 2 mg PO DAILY 11/07/24
Review of Systems
-
History Source: Patient
A 12 point ROS was completed and negative except as noted: Yes
Physical Exam
Vital Signs
Vital Signs
Temp Pulse Resp BP Pulse Ox
97.8 F 65 17 123/75 100
11/07/24 09:02 11/07/24 14:00 11/07/24 14:00 11/07/24 14:00 11/07/24 13:45
Physical Exam
General: Well Developed, Well Nourished and No Apparent Distress
HEENT: NormoCephalic, Moist mucous membranes and Atraumatic
Respiratory: Clear
Cardiac: S1/S2, Regular Rhythm and Peripheral Edema; No Murmur or Rub
GI: Soft, Non Tender, Non Distended and Normal Bowel Sounds; No Organomegaly
Rectal: Deferred by Provider
Musculoskeletal: No Clubbing, No Cyanosis and No Edema (3+ pitting edema in bilateral feet up to proximal lower legs.)
Neuro: Nonfocal/grossly intact
Laboratory Results
-
11/07/24 09:48
11/07/24 09:48
Laboratory Results
Total Bilirubin 0.5 mg/dl (0.2-1.3) 11/07/24 09:48
AST 107 U/L (17-59) H 11/07/24 09:48
ALT 41 U/L (0-50) 11/07/24 09:48
Alkaline Phosphatase 73 U/L (38-126) 11/07/24 09:48
Troponin I 1.980 ng/ml H* 12/07/24 09:48
Data Reviewed
-
Diagnostic Radiology: Image Personally Visualized and interpreted and Report Reviewed by me
Lab Data: Labs Reviewed by me
Impression/Plan
-
IMPRESSION:
74-year-old man with past medical history of COPD, pulmonary fibrosis intermittently uses 4 L oxygen, paroxysmal atrial fibrillation, CAD, CHF, myelodysplastic syndrome, hypertension, hypercholesterolemia, body cramping unknown etiology, presenting
with weakness and fatigue. Patient noticed symptoms yesterday along with associated lower extremity swelling which is unusual for him. Patient elevated proBNP as well as elevated troponin.
PLAN:
#Elevated troponin/NSTEMI
#CHF, unknown type
� No chest pain
� May be secondary to chemotherapy
� Continue IV diuretics, 40 mg IV Lasix twice daily
� Trend troponins
� Start low-dose aspirin, 325 mg stat
� Transition Eliquis to heparin drip for possible intervention
� Follow-up echocardiogram
� Possible catheterization by cardiology
� Lipid panel, continue statin
#LEBRON
� I suspect cardiorenal
� Monitor with diuresis
� Follow-up urine analysis
�Hold losartan
#Weakness, lethargy
� Possibly secondary to underlying infectious etiology although not totally clear versus CHF
�Elevated leukocytosis for him
� Follow-up urinalysis
� Remains afebrile, panculture if spikes temperature
� Follow-up COVID, flu
#Anemia, chronic
#Thrombocytopenia, chronic
� Monitor
� No obvious bleeding
#Acute on chronic chronic HFpEF
#Lower extremity swelling
# Suspect combined HFpEF and HFrEF with elevated proBNP
� Continue to monitor with diuresis
� Monitor I's and O's, daily weights
� Follow-up BMP
#Paroxysmal atrial fibrillation
� Transition Eliquis to heparin drip for possible procedure
#History of pulmonary fibrosis on 4 L at nighttime/intermittently
#COPD
-Continue inhalers, budesonide
-Continue prednisone
Myelodysplastic syndrome
- Vidaza
Chronic thrombocytopenia secondary to MDS
Chronic anemia
-Hemoglobin stable
Essential hypertension
-Hold losartan due to LEBRON
Hypercholesterolemia
-Continue statin
Former alcohol use disorder
-No longer drinks alcohol
Former smoker
Full code
DVT prophylaxis�heparin drip
[2024-11-07 15:22] LABS: Urine Albumin Negative (Neg - Trace); Urine Bilirubin Negative (Negative); Urine Character Clear (Clear); Urine Color Straw; Urine Glucose Negative (Negative); Urine Ketone Negative (Negative); Urine Leukocyte Negative (Negative); Urine Nitrite Negative (Negative); Urine Occult Blood Negative (Negative); Urine Urobilinogen Negative (Neg - 1+); Urine pH 6.5 (5.0-9.0)
[2024-11-07 15:24] LABS: COVID-19 Antigen Negative (Negative)
[2024-11-07] MEDS: PULMICORT 0.5 MG INH (19:27)
[2024-11-07 20:16] LABS: Hematocrit 28.8 % (39.0-52.0); Hemoglobin 9.3 g/dL (13.0-18.0); Mean Corp Hgb Conc. 32.3 g/dL (33.0-37.0); Mean Corpuscular Hgb 37.2 pg (27.0-31.0); Mean Corpuscular Volume 115.2 fL (80.0-94.0); Mean Platelet Volume 13.1 fL (7.4-10.4); Platelet Count 74 10^3/uL (130-400); Red Cell Dist. Width 15.4 % (11.5-14.5)
[2024-11-07 20:18] LABS: APTT 50.9 Sec (23.4-35.0)
[2024-11-07] MEDS: CRESTOR 10 MG PO (20:42)
[2024-11-07] MEDS: VITAMIN C 1000 MG PO (20:43)
[2024-11-07] MEDS: HEPARIN 25000 UNITS/250 ML IV (21:27)
[2024-11-07] MEDS: PERCOCET 5/325 2 TABLET PO (21:34)
[2024-11-08] VITALS (8 sets, daily range): BP systolic 107–160; BP diastolic 63–92; PULSE 64–70; O2SAT 98–100; BMI 24.8
--- NOTE | 2024-11-08 01:07 | PTCARENOTE ---
Pt admitted to the floor from ER. Pt alert oriented X3, [place], in no distress. Pt denies chest pain, palpitations, but some dyspnea with exertion. Pt oriented to the room, call caceres within reach. Pt on NSR on telemonitor. SQ=316/92, HR=80,
T=98.4,SpO2=97% on 3L O2 NC. Pt complains about lower back and left shoulder pain, which is chronic. Baseline PTT, CBC, and Trop drawn. EKG shows ST and T wave abnormalities. Hep gtt started as per order at initial rate of 950 units (9.5mL/hr). Will
continue to monitor the pt.
[2024-11-08 04:33] LABS: APTT 81.3 Sec (23.4-35.0)
[2024-11-08 06:16] LABS: Hematocrit 26.3 % (39.0-52.0); Hemoglobin 8.5 g/dL (13.0-18.0); Mean Corp Hgb Conc. 32.3 g/dL (33.0-37.0); Mean Corpuscular Hgb 37.1 pg (27.0-31.0); Mean Corpuscular Volume 114.8 fL (80.0-94.0); Mean Platelet Volume 11.8 fL (7.4-10.4); Platelet Count 57 10^3/uL (130-400); Red Blood Cell Count 2.29 10^6/uL (4.70-6.10); Red Cell Dist. Width 15.3 % (11.5-14.5); White Blood Cell Count 5.4 10^3/uL (4.8-10.8)
[2024-11-08] MEDS: PULMICORT 0.5 MG INH ×2 (07:26→19:10)
[2024-11-08 08:00] LABS: ALT (SGPT) 32 U/L (0-50); AST (SGOT) 70 U/L (17-59); Albumin 3.7 g/dl (3.5-5.0); Alkaline Phosphatase 60 U/L (38-126); Blood Urea Nitrogen 50 mg/dl (9-20); Calcium 8.6 mg/dl (8.4-10.2); Carbon Dioxide 30 mmol/L (22-30); Chloride 104 mmol/L (98-107); Estimated Creatinine Clearance 62 ml/min; Glucose 85 mg/dl (70-99); HDL Cholesterol 63 mg/dl; LDL Cholesterol, Calculated 28 mg/dl; Magnesium 1.6 mg/dl (1.6-2.3); Potassium 3.2 mmol/L (3.5-5.1); Sodium 142 mmol/L (135-145); Total Bilirubin 0.6 mg/dl (0.2-1.3); Total Cholesterol 104 mg/dl (50-199); Total Protein 5.6 g/dl (6.3-8.2); Triglyceride 67 mg/dl (10-149); Very Low Density Lipoprotein 13 mg/dl (0-30); eGFR > 60.00
[2024-11-08] MEDS: ASPIR LOW (ENTERIC COATED) 81 MG PO (08:26)
[2024-11-08] MEDS: DELTASONE 10 MG PO (08:26)
[2024-11-08] MEDS: LASIX 40 MG IV ×2 (08:26→15:44)
[2024-11-08] MEDS: B COMPLEX w/VITAMIN C 1 CAPLET PO (08:26)
[2024-11-08] MEDS: VITAMIN B1 100 MG PO (08:27)
[2024-11-08] MEDS: VITAMIN C 1000 MG PO ×2 (08:27→20:04)
[2024-11-08] MEDS: MAGNESIUM OXIDE 500 MG PO (08:27)
[2024-11-08] MEDS: PROTONIX 40 MG PO (08:27)
[2024-11-08] MEDS: PERCOCET 5/325 2 TABLET PO ×3 (08:27→21:47)
[2024-11-08] MEDS: ZANAFLEX 2 MG PO (08:27)
[2024-11-08 08:29] LABS: TSH Reflex To Free T4 1.27 uIU/ml (0.47-4.68)
[2024-11-08] MEDS: KCL ELIXIR 40 MEQ PO (10:40)
[2024-11-08 10:53] LABS: APTT 89.2 Sec (23.4-35.0)
--- NOTE | 2024-11-08 12:09 | CON.CAR ---
Consultation
Consultation Request
Date/Time Consultation Requested: 11/07/2024
Date/Time Consultation Performed: 11/08/2024
Reason for Consultation: Troponin leak
Medical History
-
Chief Complaint: Weakness
History of Present Illness:
74-year-old man with past medical history of CAD s/p inferior STEMI 05/2022 unable to PCI RCA, med management, A-fib status post A-fib ablation on 11/19/2022 (True PVI), chronic HFpEF, mild/mod MR, mild AR, HTN, hyperlipidemia, COPD/pulmonary
fibrosis 4L NC oxygen, severe pulmonary hypertension, former smoker (quit 2005), and MDS with anemia, is admitted with history of shortness of breath.
.
Patient reports that he noticed yesterday that both of his lower legs became swollen, which she states is unusual for him. He reports that the swelling has never been this bad before. Patient reports that he has had a worsening cough and shortness
of breath. He denies chest pain and fever. Patient reports that the only thing new going on is that he recently started back up with chemotherapy injections last week. He reports he had a total of 4 injections of chemotherapy last week but
skipped his injection yesterday because he reports he did not feel well. Patient reports he is still taking Eliquis twice a day. Patient states that at baseline he frequently does not need to use any oxygen but lately he has had to use 3 to 4 L of
nasal oxygen
Patient is initial troponin was 1.98. Troponin peaked to 3.2 and has started coming down and 1.7 this morning.
Patient is EKG shows normal sinus rhythm with possible lateral ischemia.
Echo 10/30/2024:
Normal left ventricular size, wall thickness and systolic function.
Hypokinesis of the basal inferior wall. LV ejection fraction is 55-60% by
Renee's method of discs.
Dilated right ventricle with preserved systolic function.
Mild to moderate mitral regurgitation.
Mild to moderate aortic regurgitation.
Mild to moderate tricuspid regurgitation.
Severe pulmonary hypertension. Estimated pulmonary artery pressure of 70 mmHg,
assuming a right atrial pressure of 3 mmHg.
Compared to the prior images on 09/25/2023, the pulmonary pressure has
increased from 38 mmHg to 70 mmHg.
Past Medical History
Past Medical History: Arrhythmias (PAF status post PVI 2021.), CAD (CAD-unable to intervene RCA-medical management.), Cancer (MDS-recent chemotherapy started last week.), CHF (Severe right-sided heart failure with severe pulmonary hypertension),
COPD (Pulmonary fibrosis on oxygen with 4 L oxygen), HTN and Hypercholesterolemia
Past Surgical History: Cardiac
Social History
Tobacco: Former Smoker
Alcohol: Former
Drug: None
Family History
Family History: Reviewed & Not Pertinent
Allergies / Home Medications
Allergy/AdvReac Type Severity Reaction Status Date / Time
amoxicillin Allergy Unknown Verified 09/21/24 12:01
carvedilol Allergy Hives Verified 09/21/24 12:01
clavulanic acid Allergy Unknown Verified 09/21/24 12:01
[From Augmentin]
diltiazem Allergy rash, all Verified 09/21/24 12:01
over body
itching
gabapentin Allergy Unknown Verified 09/21/24 12:01
propoxyphene Allergy Unknown Verified 09/21/24 12:01
[From Darvocet-N]
Tetanus Vaccines and Toxoid Allergy at age 4 Verified 09/21/24 12:01
[Tetanus] pt became
'sick with
fever'.
ALEXIS Inhibitors AdvReac Cough Verified 09/21/24 12:01
hydrochlorothiazide AdvReac Cramping Verified 09/21/24 12:01
�Medication �Instructions �Recorded �Confirmed �Type
pantoprazole 40 mg tablet,delayed 40 mg PO DAILY #30 tabs 05/29/22 11/07/24 Rx
release
azacitidine 100 mg solution for 100 mg IV Q6W Cancer ##0 07/19/22 11/07/24 History
injection (Vidaza)
losartan 50 mg tablet 50 mg PO DAILY Blood pressure 07/19/22 11/07/24 History
apixaban 5 mg tablet 5 mg PO BID Blood clot 09/22/22 11/07/24 History
prevention/tx
magnesium oxide 400 mg PO DAILY Electrolyte 10/09/22 11/07/24 History
Repletion
vitamin B complex 1 tab PO DAILY Supplement 10/09/22 11/07/24 History
ascorbic acid (vitamin C) 1,000 mg 1,000 mg PO BID Supplement 11/19/22 11/07/24 History
tablet (Vitamin C)
rosuvastatin 10 mg tablet 10 mg PO QPM High cholesterol 11/19/22 11/07/24 History
ondansetron 4 mg disintegrating 4 mg PO DAILYPRN PRN before vidaza 05/19/23 11/07/24 History
tablet
budesonide 0.5 mg/2 mL suspension 0.5 mg (2 mL) inhalation R BID #60 09/28/23 11/07/24 Rx
for nebulization mL
prednisone 10 mg tablet 10 mg PO Q48H Anti-Inflammatory 11/07/23 11/07/24 History
thiamine HCl (vitamin B1) 100 mg 100 mg PO DAILY Supplement 11/07/23 11/07/24 History
tablet
furosemide 40 mg tablet (Lasix) 40 mg PO BID 11/07/24 11/07/24 History
gabapentin 300 mg capsule 300 mg PO BID 11/07/24 11/07/24 History
oxycodone-acetaminophen 10 mg-325 1 tab PO TID 11/07/24 11/07/24 History
mg tablet
prednisone 5 mg tablet 5 mg PO Q48H 11/07/24 11/07/24 History
tizanidine 2 mg tablet 2 mg PO DAILY 11/07/24 11/07/24 History
Review of Systems
-
All other systems: Negative unless noted
Physical Exam
Vital Signs
Temp Pulse Resp BP Pulse Ox
98 F 67 18 160/92 100
11/08/24 08:01 11/08/24 08:26 11/08/24 08:01 11/08/24 08:26 11/08/24 09:00
Lab Results
11/08/24 05:51
11/08/24 05:51
Troponin I 1.710 ng/ml H* 11/08/24 05:51
Hnf-N-Thqrghfxehl Pept 87141 pg/ml 11/07/24 09:48
Physical Exam
General: Well Developed, Well Nourished, No Apparent Distress and Other (Hard of hearing)
HEENT: Normocephalic and Anicteric
Respiratory: Rhonchi and Non Labored Respirations
Cardiac: S1/S2, Regular Rhythm and JVD; Negative Peripheral Edema
GI: Soft, Non Tender and Non Distended
Musculoskeletal: No Clubbing, No Cyanosis and No Edema
Skin: Warm and Dry
Neuro: Awake, Alert, Oriented and AO x 3
Psych: Calm
Impression / Plan
-
74-year-old man with past medical history of CAD s/p inferior STEMI 05/2022 unable to PCI RCA, med management, A-fib status post A-fib ablation on 11/19/2022 (True PVI), chronic HFpEF, mild/mod MR, mild AR, HTN, hyperlipidemia, COPD/pulmonary
fibrosis 4L NC oxygen, severe pulmonary hypertension, former smoker (quit 2005), and MDS with anemia, is admitted with history of shortness of breath and is noted to have troponin leak.
.
Troponin leak
-No sign of acute coronary syndrome.
-Chest pain-free. Troponin peaked at 3.2 at the time of admission with shortness of breath and severe pulm hypertension
-On aspirin and heparin.
-EKG shows inferolateral ischemia
-History of inferior STEMI in 2021 with unable to do PCI to RCA
-Medical management.
-Likely related to his severe pulmonary fibrosis and recent identification of severe pulmonary hypertension.
-Echo on 10/30/2024 shows PA pressure in the 70s mmHg.
-Patient received 5 out of 7 days of chemotherapy before starting shortness of breath
-Will continue to manage conservatively with aspirin and nitrates
- continue heparin till tomorrow. If no new wall motion abnormalities noted, we can discontinue heparin.
-Will obtain echo in a.m. to see for any significant wall motion abnormalities. Patient did have hypokinesis of the basal inferior wall consistent with his CAD.
-Continue medical management.
- Increase Crestor to 20 mg nightly
Pulmonary hypertension
- Continue oxygen, diuresis.
- Steroids as per primary team
- Will start Isordil 20 mg 3 times daily
-
CAD - stable w/o angina.
- s/p inferior STEMI 05/2022.
- unable to PCI RCA, med management. Did not tolerate metoprolol (extreme fatigue).
- Continue losartan 50mg daily.
-Patient was not on ASA since on Eliquis for A fib. With troponin leak, aspirin given in the ER.
-Continue baby aspirin for now.
Afib - paroxysmal.
- stable in NSR with PACs.
- CHADS2-VASC = 5. Continue Eliquis 5mg bid. If platelets trend below 50, we will hold.
MDS - s/p Venclexta and Vidaza.
- followed by Oncology: Anthony Gongora, also Dr Ramirez at [facility].
HFpEF - acute on chronic.
- last week had increased LE edema so called our office and Lasix was doubled (40mg BID) since Saturday with improvement of LE edema.
- BP soft this am, will hold Lasix this and monitor.
HTN -
Elevated.
Will start Isordil
HLD - stable on Crestor, continue.
Data Reviewed
-
EKG: Tracing Personally Visualized and interpreted
Radiology: Report Reviewed by me
CT Scan: Report Reviewed by me
Medical Tests (Nuc Med, Echo etc): Image Personally Visualized and interpreted
Labs: Discussed with Physician and Discussed with Patient
Old Records: Reviewed
Critical Care Time (in minutes): 80
--- NOTE | 2024-11-08 12:29 | W.PN.HOSP.TC ---
Today's Communication/Plan
-
Cont Diuresis
asa, statin
Hep ggt
Cards recs
ECHO
Assessment / Plan
Assessment / Plan
Physical Exam
General: Well Developed, Well Nourished and No Apparent Distress
HEENT: NormoCephalic, Moist mucous membranes and Atraumatic
Respiratory: Clear
Cardiac: S1/S2, Regular Rhythm and Peripheral Edema; No Murmur or Rub; Crackles b/l lower bases
GI: Soft, Non Tender, Non Distended and Normal Bowel Sounds; No Organomegaly
Rectal: Deferred by Provider
Musculoskeletal: No Clubbing, No Cyanosis and No Edema (3+ pitting edema in bilateral feet up to proximal lower legs.)
Neuro: Nonfocal/grossly intact
74-year-old man with past medical history of COPD, pulmonary fibrosis intermittently uses 4 L oxygen, paroxysmal atrial fibrillation, CAD, CHF, myelodysplastic syndrome, hypertension, hypercholesterolemia, body cramping unknown etiology, presenting
with weakness and fatigue. Patient noticed symptoms yesterday along with associated lower extremity swelling which is unusual for him. Patient elevated proBNP as well as elevated troponin.
PLAN:
#Elevated troponin/NSTEMI
-possibly 2/2 to CHF, unknown type
� No chest pain
� May be secondary to chemotherapy
� Trend troponins
� Start low-dose aspirin, 325 mg stat
� Transition Eliquis to heparin drip for possible intervention
� Follow-up echocardiogram
� Possible catheterization by cardiology
� Lipid panel, continue statin
#Acute on chronic HFpEF
#Lower extremity swelling
# Suspect combined HFpEF and HFrEF with elevated proBNP
� Continue to monitor with diuresis
� Monitor I's and O's, daily weights
� Follow-up BMP
-Anticipate will need to be on GDMT
#LEBRON ,improving
� I suspect cardiorenal
� Monitor with diuresis
-Monitor renal function with lasix
�Hold losartan
#Weakness, lethargy
� Possibly secondary to underlying infectious etiology although not totally clear versus CHF
�Elevated leukocytosis for him
�UA neg
-monitor fever curve, WBC
� Remains afebrile, panculture if spikes temperature
� Follow-up COVID, flu
#Anemia, chronic
#Thrombocytopenia, chronic
#Myelodysplastic syndrome
- Vidaza
� Monitor
� No obvious bleeding
#Hypokalemia
� Monitor replete
#Paroxysmal atrial fibrillation
� Transition Eliquis to heparin drip for possible procedure
#History of pulmonary fibrosis on 4 L at nighttime/intermittently
#COPD
-Continue inhalers, budesonide
-Continue prednisone
Chronic anemia
-Hemoglobin stable
Essential hypertension
-Hold losartan due to LEBRON - can restart soon if Scr stable
Hypercholesterolemia
-Continue statin
Former alcohol use disorder
-No longer drinks alcohol
Former smoker
Full code
DVT prophylaxis�heparin drip
Total time spent on today's encounter was 51 minutes which included time spent in counseling the patient/family regarding diagnosis and treatment plan as listed above, goals of care, and symptom management. Case was discussed with nursing staff,
specialists, and care coordinators/case management. All labs and imaging personally reviewed by me. Remainder the time spent in detailed review of previous records, lab data, imaging, and other medical provider documentation.
Anticipated Discharge: > 48 hours
Subjective/Interval History
-
Date of Service: November 08, 2024
No acute events overnight, peak troponin of 2.9, no chest pain
Objective Data
-
Labs:
Laboratory Results
11/08/24 11/08/24 11/08/24
03:48 05:51 10:23
WBC 5.4
Hgb 8.5 L
Hct 26.3 L
Plt Count 57 L D
APTT 81.3 H 89.2 H
Sodium 142
Potassium 3.2 L
Chloride 104
Carbon Dioxide 30
BUN 50 H
Creatinine 1.0
Glucose 85
Calcium 8.6
Total Bilirubin 0.6
AST 70 H
ALT 32
Alkaline Phosphatase 60
Vital Signs:
Vital Signs
Temp Pulse Resp BP Pulse Ox
97.7 F 59 18 107/67 98
11/08/24 12:23 11/08/24 12:23 11/08/24 12:23 11/08/24 12:23 11/08/24 12:23
I&O
11/07/24 11/08/24 11/09/24
06:59 06:59 06:59
Intake Total 74 / 74
Output Total 3300 / 3300 250 / 250
Balance -3226 / -3226 -250 / -250
Review of Systems
-
History Source: Patient
All other systems: Not reviewed unless documented
Data Reviewed
-
Diagnostic Radiology: Image personally visualized and interpreted and Report Reviewed by me
Medical Tests (Nuc Med, Echo etc): Report Reviewed by me (EKG)
Labs: Labs Reviewed by me
--- NOTE | 2024-11-08 13:04 | CM ---
Chart reviewed. Patient is here for elevated trops and NSTEMI. CM introduced self and role. Patient lives in an apt alone. It was a barn that was turn into a home. He has a loft bedroom. He is [place]. He drove himself to the hospital. He is
independent. Does not use or own any DME. He shared that he has 4L of oxygen at home, but doesn't use it often, until this incident. He is a FT [employer]. He has an active PCP and pharmacy. He denies any +SDOHs.
ANTICIPATED DISCHARGE PLAN: Will drive himself home, once he is medically discharged.
[2024-11-08] MEDS: SENOKOT-S 2 TABLET PO (15:44)
[2024-11-08] MEDS: CRESTOR 20 MG PO (18:33)
[2024-11-08] MEDS: ISORDIL 20 MG PO ×2 (18:33→21:45)
--- NOTE | 2024-11-08 19:07 | PTCARENOTE ---
Pt only able to void 50ml after receiving Lasix 40mg IV and having bladder distention and pain. Bladder scanned pt for > 1,000ml. Made Dr. Griggs aware and obtained order for straight cath. Completed a straight cath x 1 without difficulty, 1275ml
of clear yellow urine obtained from straight cath. Pt tolerated catheterization well, will monitor.
[2024-11-08] MEDS: MIRALAX 17 GRAMS PO (20:09)
[2024-11-08] MEDS: HEPARIN 25000 UNITS/250 ML IV (23:04)
[2024-11-09 03:29] VITALS: BP 121/70
--- NOTE | 2024-11-09 03:54 | PTCARENOTE ---
Pt continues having urinary retention. Bladder scan shows 1160cc. Pt was also incontinent of a large bowel movement. Pt was given Miralax last night for constipation. Pt was straight cath for 1200 cc of yellow clear urine. Urine analysis with reflex
to cx sent.
[2024-11-09 03:57] LABS: Urine Albumin Negative (Neg - Trace); Urine Bilirubin Negative (Negative); Urine Character Clear (Clear); Urine Color Yellow; Urine Glucose Negative (Negative); Urine Ketone Negative (Negative); Urine Leukocyte Negative (Negative); Urine Nitrite Negative (Negative); Urine Occult Blood Negative (Negative); Urine Specific Gravity 1.005 (<1.030); Urine Urobilinogen Negative (Neg - 1+); Urine pH 6.5 (5.0-9.0)
[2024-11-09 06:00] VITALS: BMI 24.1
[2024-11-09 06:57] LABS: APTT 74.2 Sec (23.4-35.0)
[2024-11-09 07:05] LABS: Hematocrit 25.4 % (39.0-52.0); Hemoglobin 8.4 g/dL (13.0-18.0); Mean Corp Hgb Conc. 33.1 g/dL (33.0-37.0); Mean Corpuscular Hgb 37.5 pg (27.0-31.0); Mean Corpuscular Volume 113.4 fL (80.0-94.0); Red Blood Cell Count 2.24 10^6/uL (4.70-6.10); Red Cell Dist. Width 15.1 % (11.5-14.5); White Blood Cell Count 7.4 10^3/uL (4.8-10.8)
[2024-11-09 07:08] VITALS: BP 134/74
[2024-11-09 07:27] LABS: ALT (SGPT) 26 U/L (0-50); AST (SGOT) 51 U/L (17-59); Albumin 3.7 g/dl (3.5-5.0); Alkaline Phosphatase 71 U/L (38-126); Blood Urea Nitrogen 35 mg/dl (9-20); Calcium 8.9 mg/dl (8.4-10.2); Carbon Dioxide 35 mmol/L (22-30); Chloride 98 mmol/L (98-107); Estimated Creatinine Clearance 62 ml/min; Glucose 106 mg/dl (70-99); Potassium 3.3 mmol/L (3.5-5.1); Sodium 140 mmol/L (135-145); Total Bilirubin 0.6 mg/dl (0.2-1.3); Total Protein 5.7 g/dl (6.3-8.2); eGFR > 60.00
[2024-11-09 07:59] LABS: Mean Platelet Volume 13.2 fL (7.4-10.4); Platelet Count 56 10^3/uL (130-400)
--- NOTE | 2024-11-09 07:59 | W.PN.HOSP.TC ---
Today's Communication/Plan
-
Await echocardiogram
Replete potassium
Check magnesium
Assessment / Plan
Assessment / Plan
Gen-AAOx3, NAD
HEENT-NC, AT, anicteric, clear oral mm
Neck-supple
CV-reg, no M, +S1/S2
Lungs-decreased breath sounds bilaterally with rhonchi
Abd-soft, NT, ND
Ext-bilateral lower extremity edema
Musculoskeletal-no cyanosis, clubbing
Skin-warm and dry
Neuro-grossly non-focal
Psych-calm, cooperative
Acute on chronic hypoxic respiratory failure -due to acute pulmonary edema due to acute on chronic heart failure exacerbation. Baseline uses 4 L nasal cannula oxygen at home at nighttime and intermittently during the day. Currently on 3 L nasal
cannula oxygen.
Elevated troponin -possible acute nonischemic myocardial injury.
-possibly 2/2 to CHF, unknown type
� No chest pain
� May be secondary to chemotherapy
� Troponin trending down. Await echocardiogram. Cardiology following. Continue IV heparin.
Acute on chronic HFpEF - Suspect combined HFpEF and HFrEF with elevated proBNP 12,100. Getting IV Lasix 40 mg twice daily. Weight down 7 kg since admission.
� Continue to monitor with diuresis
� Monitor I's and O's, daily weights
� Follow-up BMP
-Anticipate will need to be on GDMT
LEBRON ,improving
� I suspect cardiorenal
� Monitor with diuresis
-Monitor renal function with lasix
�Hold losartan
Weakness, lethargy -onset of symptoms after resuming Vidaza for myelodysplastic syndrome last week. He received 4 doses last week. Strong suspicion that Vidaza is causing most of his complaints that brought him to the hospital including weakness
fatigue and lower extremity swelling.
Anemia, chronic
#Thrombocytopenia, chronic
#Myelodysplastic syndrome
- Vidaza
� Monitor
� No obvious bleeding
Hypokalemia -continue repletion. Check magnesium.
Paroxysmal atrial fibrillation
� Transition Eliquis to heparin drip for possible procedure
#History of pulmonary fibrosis on 4 L at nighttime/intermittently
#COPD without exacerbation -does have a chronic cough.
-Continue inhalers, budesonide
-Continue prednisone
Chronic anemia
-Hemoglobin stable
Essential hypertension
-Hold losartan due to LEBRON - can restart soon if Scr stable
Hypercholesterolemia
-Continue statin
Former alcohol use disorder
-No longer drinks alcohol
Former smoker
Full code
DVT prophylaxis�heparin drip
Anticipated Discharge: > 48 hours
Subjective/Interval History
-
Date of Service: November 09, 2024
Patient seen and examined. No new complaints.
Objective Data
-
Labs:
Laboratory Results
11/09/24
06:17
WBC 7.4
Hgb 8.4 L
Hct 25.4 L
Plt Count Pending
APTT 74.2 H
Sodium 140
Potassium 3.3 L
Chloride 98
Carbon Dioxide 35 H
BUN 35 H
Creatinine 1.0
Glucose 106 H
Calcium 8.9
Total Bilirubin 0.6
AST 51
ALT 26
Alkaline Phosphatase 71
Vital Signs:
Vital Signs
Temp Pulse Resp BP Pulse Ox
99.2 F 69 21 134/74 97
11/09/24 07:08 11/09/24 07:08 11/09/24 07:08 11/09/24 07:08 11/09/24 07:08
I&O
11/08/24 11/09/24 11/10/24
06:59 06:59 06:59
Intake Total 74 / 74 768 / 768
Output Total 3300 / 3300 4875 / 4875
Balance -3226 / -3226 -4107 / -3702
Review of Systems
-
History Source: Patient
All other systems: Reviewed and negative
[2024-11-09] MEDS: PERCOCET 5/325 2 TABLET PO (08:00)
[2024-11-09] MEDS: PROTONIX 40 MG PO (08:00)
[2024-11-09] MEDS: MAGNESIUM OXIDE 500 MG PO (08:00)
[2024-11-09] MEDS: VITAMIN C 1000 MG PO ×2 (08:00→20:19)
[2024-11-09] MEDS: VITAMIN B1 100 MG PO (08:00)
[2024-11-09] MEDS: ASPIR LOW (ENTERIC COATED) 81 MG PO (08:00)
[2024-11-09] MEDS: ZANAFLEX 2 MG PO (08:01)
[2024-11-09] MEDS: FLUSH (NSS) 1 FLUSH IV ×2 (08:01→15:44)
[2024-11-09] MEDS: ISORDIL 20 MG PO (08:01)
[2024-11-09] MEDS: B COMPLEX w/VITAMIN C 1 CAPLET PO (08:01)
[2024-11-09] MEDS: LASIX 40 MG IV ×2 (08:01→15:44)
[2024-11-09] MEDS: PULMICORT 0.5 MG INH ×2 (08:02→19:51)
[2024-11-09 08:23] LABS: Magnesium 1.6 mg/dl (1.6-2.3)
[2024-11-09] MEDS: KCL ELIXIR 40 MEQ PO (09:54)
[2024-11-09] MEDS: DELTASONE 5 MG PO (09:54)
--- NOTE | 2024-11-09 10:32 | PTCARENOTE ---
Pt voided 100 ml clear yellow urine with dribbling; bladder scanned for [address] Seay notified; # 16 F Collins placed without difficulty; drained 800 ml clear yellow urine. Stat minda applied to Lt thigh. Will continue to monitor.
[2024-11-09 10:59] VITALS: BMI 24.1
[2024-11-09 11:41] VITALS: BP 111/72
[2024-11-09] MEDS: FLOMAX 0.4 MG PO (11:50)
--- NOTE | 2024-11-09 12:01 | W.PN.CD ---
Today's Communication / Plan
-
No new wall motion abnormalities on echo. Can stop treating for ACS.
Stop heparin.
Stop aspirin due to systemic anticoagulation.
Resume home Eliquis.
Start spironolactone for HFpEF and ask case management to [facility] SGLT2 inhibitors.
Impression / Plan
-
74-year-old man with past medical history of CAD s/p inferior STEMI 05/2022 unable to PCI RCA, med management, A-fib status post A-fib ablation on 11/19/2022 (True PVI), chronic HFpEF, mild/mod MR, mild AR, HTN, hyperlipidemia, COPD/pulmonary
fibrosis 4L NC oxygen, severe pulmonary hypertension, former smoker (quit 2005), and MDS with anemia, is admitted with history of shortness of breath and is noted to have troponin leak.
Troponin due to nonischemic myocardial injury vs. type II NSTEMI
-No sign of acute coronary syndrome. Denies chest pain.
-Troponin peaked at 3.2 at the time of admission. Possible demand in the setting of HF exacerbation, recent chemotherapy, tachycardic on admission
-Stable wall motion abnormalities on echo
-OK to stop heparin given low concern for ACS
-No ASA due to systemic anticoagulation; no BB due to extreme fatigue
-Continue Rosuvastatin 20mg qHS
Acute on chronic HFpEF
- last week had increased LE edema so called our office and Lasix was doubled (40mg BID) since Saturday with improvement of LE edema.
- proBNP elevated on admission
- Continue Lasix 40 mg IV twice daily. May be able to transition to p.o. tomorrow.
- Start spironolactone 25 mg daily
- Will ask case management to [facility] SGLT2 inhibitors
Pulmonary hypertension, type III, due to IPF
- Continue oxygen, diuresis.
- Steroids as per primary team
Afib - paroxysmal.
- stable in NSR with PACs.
- CHADS2-VASC = 5. Continue Eliquis 5mg bid. If platelets trend below 50, we will hold.
MDS - s/p Venclexta and Vidaza.
- followed by Oncology: Anthony Gongora, also Dr Ramirez at [place].
HTN -
Elevated.
Will start Spironolactone as above
HLD - stable on Crestor, continue.
Subjective: Patient complaining of musculoskeletal pain today. Denies chest pain. He received Lasix 40 mg IV twice daily yesterday. Creatinine today is 1.0. Weight is 71.7 kg from 73.9 kg.
Physical Exam
Vital Signs/Labs
Vital Signs
Temp Pulse Resp BP Pulse Ox
97.9 F 76 20 111/72 99
11/09/24 11:41 11/09/24 11:41 11/09/24 11:41 11/09/24 11:41 11/09/24 11:41
11/08/24 11/09/24 11/10/24
06:59 06:59 06:59
Actual Weight 73.936 kg 71.781 kg
11/09/24 06:17
11/09/24 06:17
APTT 74.2 Sec (23.4-35.0) H 11/09/24 06:17
Magnesium 1.6 mg/dl (1.6-2.3) 11/09/24 06:17
Triglycerides 67 mg/dl (10-149) 11/08/24 05:51
LDL Cholesterol, Calc 28 mg/dl 11/08/24 05:51
VLDL Cholesterol, Calc 13 mg/dl (0-30) 11/08/24 05:51
HDL Cholesterol 63 mg/dl 11/08/24 05:51
11/07/24
09:48
Ups-M-Jcycvslehmd Pept 03166
LAB Results
11/07/24 11/07/24 11/07/24
09:48 14:59 20:00
Troponin I 1.980 H* 3.240 H* D 2.940 H*
11/08/24 11/08/24
03:48 05:51
Troponin I 2.080 H* D 1.710 H*
Physical Exam
Constitutional: No acute distress and Comfortable
Cardiovascular: Rhythm & rate is regular, Pedal edema present, S1S2 is normal and Murmur/rub/gallop absent
Respiratory: Respiratory effort normal and Lungs clear to auscul.
Data Reviewed
-
Date of Service: November 09, 2024
Medical Decision Making: Reviewed Test Results, Independent Historian Assessment, Test Interpretation and Review of Case with other Provider
EKG: Tracing Personally Visualized and interpreted
Echo: Tracing Personally Visualized and interpreted
Labs: Labs Reviewed by me
[2024-11-09 15:25] VITALS: BP 141/76
--- NOTE | 2024-11-09 15:46 | PTCARENOTE ---
Pt AAO x3, [facility]; OOB to BR/BSC with assist x1, bairon well, sl unsteady w/OOB activity. VSS. Telemetry: NSR. On n c 3 lpm- pulse ox 96%, pt with (+) slight EVANS, denies SOB. Abd soft, rounded, bairon PO well. Incont at times small amts soft/loose brown
BM; also had formed BM x1. Collins P/I large amts clear yellow urine. Heparin drip @ 950 units hr (9.5 ml/hr) infusing via Lt forearm site without sx of infiltration. Resting in bed at present, no c/o. Will continue to monitor.
--- NOTE | 2024-11-09 17:01 | CM ---
requested [facility] which was $153.73.
Pt said he spoke with his pharmacist at home.
Pt said he does not want SNF nor VN . He said he will go back to work after dc.
Pt has home oxygen. POx 99% on 3 liter 99%.
Will continue to assess and assist.
PLAN Home no needs
[2024-11-09] MEDS: CRESTOR 20 MG PO (18:04)
[2024-11-09] MEDS: PERCOCET 5/325 1 TABLET PO (18:04)
--- NOTE | 2024-11-09 18:49 | PTCARENOTE ---
Heparin hammad dc'd; pt to start Eliquis @ 20:00.
[2024-11-09 19:28] VITALS: BP 125/72
[2024-11-09] MEDS: ELIQUIS 5 MG PO (20:19)
[2024-11-09 23:47] VITALS: BP 120/69
[2024-11-10] VITALS (7 sets, daily range): BP systolic 106–132; BP diastolic 66–80; PULSE 76; O2SAT 96; BMI 22.5
[2024-11-10] MEDS: PERCOCET 5/325 1 TABLET PO ×4 (05:44→20:54)
[2024-11-10 07:10] LABS: APTT 44.2 Sec (23.4-35.0)
[2024-11-10] MEDS: PULMICORT 0.5 MG INH ×2 (07:13→20:25)
[2024-11-10 07:24] LABS: Blood Urea Nitrogen 25 mg/dl (9-20); Calcium 9.4 mg/dl (8.4-10.2); Chloride 93 mmol/L (98-107); Estimated Creatinine Clearance 67 ml/min; Glucose 94 mg/dl (70-99); Potassium 3.6 mmol/L (3.5-5.1); Sodium 139 mmol/L (135-145); eGFR > 60.00
--- NOTE | 2024-11-10 07:34 | W.PN.HOSP.TC ---
Addendum entered and electronically signed by Christopher Seay DO 11/10/24 15:32:
I spoke with ruiz Montero for discharge today. Outpatient follow up.
Addendum entered and electronically signed by Christopher Seay DO 11/10/24 14:48:
Correction: Acute on chronic heart failure with preserved EF exacerbation.
Addendum entered and electronically signed by Christopher Seay DO 11/10/24 08:13:
Acute urinary retention -Collins catheter inserted 11/09. Continue tamsulosin. Follow-up with urology after discharge. Set up visiting nurse to assist with Collins management at home.
Original Note:
Today's Communication/Plan
-
Await cardiology input
Assessment / Plan
Assessment / Plan
Gen-AAOx3, NAD
HEENT-NC, AT, anicteric, clear oral mm
Neck-supple
CV-reg, no M, +S1/S2
Lungs-decreased breath sounds bilaterally with less rhonchi
Abd-soft, NT, ND
Ext-bilateral lower extremity edema
Musculoskeletal-no cyanosis, clubbing
Skin-warm and dry
Neuro-grossly non-focal
Psych-calm, cooperative
Acute on chronic hypoxic respiratory failure -due to acute pulmonary edema due to acute on chronic heart failure exacerbation. Baseline uses 4 L nasal cannula oxygen at home at nighttime and intermittently during the day. Currently on 3 L nasal
cannula oxygen.
Elevated troponin -possible acute nonischemic myocardial injury. Heparin discontinued by cardiology.
-possibly 2/2 to CHF, unknown type
� No chest pain
� May be secondary to chemotherapy
� Troponin trending down. Echocardiogram without significant change compared to previous. No new wall motion abnormalities according to cardiology.
Acute on chronic HFpEF - Suspect combined HFpEF and HFrEF with elevated proBNP 12,100. Getting IV Lasix 40 mg twice daily. Weight down 9 kg since admission.
� Continue to monitor with diuresis
� Monitor I's and O's, daily weights
� Follow-up BMP
-Anticipate will need to be on GDMT
LEBRON ,improving
� I suspect cardiorenal
� Monitor with diuresis
-Monitor renal function with lasix
�Hold losartan
Weakness, lethargy -onset of symptoms after resuming Vidaza for myelodysplastic syndrome last week. He received 4 doses last week. Strong suspicion that Vidaza is causing most of his complaints that brought him to the hospital including weakness
fatigue and lower extremity swelling.
Anemia, chronic
#Thrombocytopenia, chronic
#Myelodysplastic syndrome
- Vidaza
� Monitor
� No obvious bleeding
Hypokalemia -improved.
Paroxysmal atrial fibrillation -Eliquis resumed.
History of pulmonary fibrosis on 4 L at nighttime/intermittently
COPD without exacerbation -does have a chronic cough.
-Continue inhalers, budesonide
-Continue prednisone
Chronic anemia
-Hemoglobin stable
Essential hypertension
-Hold losartan due to LEBRON - can restart soon if Scr stable
Hypercholesterolemia
-Continue statin
Former alcohol use disorder
-No longer drinks alcohol
Former smoker
Full code
Dispo -possible discharge today if okay with cardiology. Outpatient follow-up.
Anticipated Discharge: Today
Subjective/Interval History
-
Date of Service: November 10, 2024
Patient seen and examined. Feeling better. No complaints.
Objective Data
-
Labs:
Laboratory Results
11/10/24
06:07
APTT 44.2 H
Sodium 139
Potassium 3.6
Chloride 93 L
Carbon Dioxide Pending
BUN 25 H
Creatinine 0.9
Glucose 94
Calcium 9.4
Vital Signs:
Vital Signs
Temp Pulse Resp BP Pulse Ox
98.5 F 86 18 108/80 97
11/10/24 03:08 12/10/24 07:19 11/10/24 07:19 11/10/24 03:08 11/10/24 07:19
I&O
11/09/24 11/10/24 11/11/24
06:59 06:59 06:59
Intake Total 768 / 768 1014 / 1014
Output Total 4875 / 4875 4350 / 4350
Balance -4107 / -4107 -3336 / -3336
Review of Systems
-
History Source: Patient
All other systems: Reviewed and negative
[2024-11-10 07:35] LABS: Carbon Dioxide 35 mmol/L (22-30)
[2024-11-10] MEDS: PROTONIX 40 MG PO (08:43)
[2024-11-10] MEDS: VITAMIN B1 100 MG PO (08:43)
[2024-11-10] MEDS: MAGNESIUM OXIDE 500 MG PO (08:43)
[2024-11-10] MEDS: VITAMIN C 1000 MG PO ×2 (08:43→20:47)
[2024-11-10] MEDS: KCL ELIXIR 40 MEQ PO (08:43)
[2024-11-10] MEDS: DELTASONE 10 MG PO (08:43)
[2024-11-10] MEDS: ZANAFLEX 2 MG PO (08:43)
[2024-11-10] MEDS: FLOMAX 0.4 MG PO (08:44)
[2024-11-10] MEDS: LASIX 40 MG IV ×2 (08:44→16:54)
[2024-11-10] MEDS: B COMPLEX w/VITAMIN C 1 CAPLET PO (08:44)
[2024-11-10] MEDS: ALDACTONE 25 MG PO (08:44)
[2024-11-10] MEDS: ELIQUIS 5 MG PO ×2 (08:44→20:47)
[2024-11-10] MEDS: FLUSH (NSS) 2 FLUSH IV ×2 (08:45→16:54)
--- NOTE | 2024-11-10 09:00 | W.PN.CD ---
Addendum entered and electronically signed by Travis Jin MD 11/10/24 09:10:
monitor potassium and supplementation closely with the trasition to oral diuretic and addition of spironolactone
Original Note:
Today's Communication / Plan
-
on O2 PRN at home. now on 4 liters . wean as tolerated
trasition to oral diuretic
.
Impression / Plan
-
74-year-old man with past medical history of CAD s/p inferior STEMI 05/2022 unable to PCI RCA, med management, A-fib status post A-fib ablation on 11/19/2022 (True PVI), chronic HFpEF, mild/mod MR, mild AR, HTN, hyperlipidemia, COPD/pulmonary
fibrosis 4L NC oxygen, severe pulmonary hypertension, former smoker (quit 2005), and MDS with anemia, is admitted with history of shortness of breath and is noted to have troponin leak.
Troponin due to nonischemic myocardial injury vs. type II NSTEMI (contributing factors, HF, anemia, chemo)
- Denies chest pain.
-Troponin peaked at 3.2 at the time of admission. Possible demand in the setting of HF exacerbation, recent chemotherapy, tachycardic on admission
-Stable wall motion abnormalities on echo
-OK to stop heparin given low concern for ACS
-No ASA, patient on Apixiban
-Continue Rosuvastatin 20mg qHS
Acute on chronic HFpEF
- last week had increased LE edema so called our office and Lasix was doubled (40mg BID) since Saturday with improvement of LE edema.
- proBNP elevated on admission
- Continue Lasix 40 mg IV twice daily. May be able to transition to p.o. tomorrow.
- spironolactone 25 mg daily started this admit
- Case management to [facility] SGLT2 inhibitors
Pulmonary hypertension, type III, due to IPF
- Continue oxygen, diuresis.
- Steroids as per primary team
- on O2 PRN at home. now on 4 liters . wean as tolerated
Afib - paroxysmal.
- stable in NSR with PACs.
- CHADS2-VASC = 5. Continue Eliquis 5mg bid. If platelets trend below 50, we will hold.
MDS - s/p Venclexta and Vidaza.
- followed by Oncology: Anthony Gongora, also Dr Ramirez at [place].
- monitor HB 8.4
HTN -monitor with addition of
Spironolactone as above
HLD - Crestor,
11/10/24 He had over ther counter pills for leg cramps in his bedding. he says he was goingto take but has not. Nursing at bedside as we made it clear heis not to take any meds that are not distributed by nursing.
Subjective:comfortable .denies SOB. 11/10/24 He had over ther counter pills for leg cramps in his bedding. he says he was goingto take but has not. Nursing at bedside as we made it clear heis not to take any meds that are not distributed by
nursing.
Physical Exam
Vital Signs/Labs
Vital Signs
Temp Pulse Resp BP Pulse Ox
99.3 F 86 18 126/75 97
11/10/24 07:15 11/10/24 07:19 11/10/24 07:19 11/10/24 07:15 11/10/24 07:19
11/09/24 11/10/24 11/11/24
06:59 06:59 06:59
Actual Weight 71.781 kg 67.245 kg
11/09/24 06:17
11/10/24 06:07
APTT 44.2 Sec (23.4-35.0) H 11/10/24 06:07
Magnesium 1.6 mg/dl (1.6-2.3) 11/09/24 06:17
Triglycerides 67 mg/dl (10-149) 11/08/24 05:51
LDL Cholesterol, Calc 28 mg/dl 11/08/24 05:51
VLDL Cholesterol, Calc 13 mg/dl (0-30) 11/08/24 05:51
HDL Cholesterol 63 mg/dl 11/08/24 05:51
11/07/24
09:48
[id number] Pept 18227
LAB Results
11/07/24 11/07/24 11/07/24
09:48 14:59 20:00
Troponin I 1.980 H* 3.240 H* D 2.940 H*
11/08/24 11/08/24
03:48 05:51
Troponin I 2.080 H* D 1.710 H*
Physical Exam
Constitutional: No acute distress
Cardiovascular: Rhythm & rate is regular
Respiratory: Other (fine crackles left base)
GI: Soft
Neuro/Psych: Alert
Data Reviewed
-
Date of Service: November 10, 2024
Medical Decision Making: Reviewed Test Results
Echo: Report Reviewed by me
Medical Tests (PFT, Pathology etc): Report Reviewed by me
Labs: Labs Reviewed by me
--- NOTE | 2024-11-10 11:40 | PN.CDI ---
CDI
- -
CDI:
Physician Documentation Request
Admit Date: 11/07/24 15:00
Dear Doctor Dawood,
Please review the following and provide your response in the progress notes.
Clinical Indicators:
Pt admitted with acute on chronic CHF exacerbation /LEBRON/ Acute on Chronic Hypoxic respiratory Failure
There is potentially conflicting documentation in the record regarding the type of CHF.
Documented per cardiology note 11/09,'Acute on chronic HFpEF...'
Progress note 11/10, ' Acute on chronic HFpEF - Suspect combined HFpEF and HFrEF with elevated proBNP 12,100. Getting IV Lasix 40 mg twice daily. Weight down 9 kg since admission....'
ECHO 11/09, ' LVEF 55-60%.....'
Please provide further specificity regarding the most likely type of CHF you are evaluating, treating or monitoring.
Acute on Chronic Diastolic CHF
Acute on Chronic combined CHF ( no change in documentation)
Other ( please specify)
Use of terms such as suspected, likely, concern for, or probable (associated with a specific diagnosis that is being evaluated, monitored, or treated as if it exists) are acceptable and can be coded in the inpatient setting, when documented at the
time of discharge.
Thank you,
Chela Mullins RN
CDI Specialist
[facility]
Please use your independent medical judgment in providing your response.
--- NOTE | 2024-11-10 15:36 | W.PN.UPDATE ---
Update Note
Progress Note Update
Patient safe to be discharged from a cardiovascular perspective. Discharge medication regimen is as follows:
Apixaban 5 mg twice daily
Furosemide 40 mg twice daily (dry weight 160-165 pounds)
Spironolactone 25 mg daily
Potassium 40 mEq daily
He should have BMP checked in 1 week for potassium monitoring. Our office will call him to schedule follow-up.
--- NOTE | 2024-11-10 15:58 | W.DS.TRANS ---
DC Summary - Snipper
-
Discharge Instructions:
Sleep Apnea Risk Intermediate
Discharge Diagnosis/Procedures Acute heart failure exacerbation, hypokalemia,
acute kidney injury
Diet Diabetic, Carb Controlled,2 Gram Sodium
Activity As tolerated
Driving Restrictions As prior to admission
Bathing Restrictions None
Blood Work CBC next week with your primary care doctor
Please get a BMP late this week or early next
week. A prescription has been provided.
Other Services [facility]
Instructions: *CBC Heart Failure Instructions
Stand-Alone Forms:
Changes to Home Medications: No
Discharge Medications:
DC Medications w/original date entered in [facility]
pantoprazole 40 mg tablet,delayed release 40 mg PO DAILY #30 tabs 05/29/22
apixaban 5 mg tablet 5 mg PO BID Blood clot prevention/tx 09/22/22
magnesium oxide 400 mg PO DAILY Electrolyte Repletion 10/09/22
vitamin B complex 1 tab PO DAILY Supplement 10/09/22
ascorbic acid (vitamin C) 1,000 mg tablet (Vitamin C) 1,000 mg PO BID Supplement 11/19/22
ondansetron 4 mg disintegrating tablet 4 mg PO DAILYPRN PRN before vidaza 05/19/23
budesonide 0.5 mg/2 mL suspension for nebulization 0.5 mg (2 mL) inhalation R BID #60 mL 09/28/23
prednisone 10 mg tablet 10 mg PO Q48H Anti-Inflammatory 11/07/23
thiamine HCl (vitamin B1) 100 mg tablet 100 mg PO DAILY Supplement 11/07/23
furosemide 40 mg tablet (Lasix) 40 mg PO BID 11/07/24
gabapentin 300 mg capsule 300 mg PO BID 11/07/24
prednisone 5 mg tablet 5 mg PO Q48H 11/07/24
tizanidine 2 mg tablet 2 mg PO DAILY 11/07/24
oxycodone-acetaminophen 5 mg-325 mg tablet 1 tab PO Q4HPRN PRN shoulder pain #0 tabs 11/10/24
polyethylene glycol 3350 17 gram oral powder packet 17 g PO DAILYPRN PRN constipation #0 ea 11/10/24
potassium chloride 20 mEq tablet,extended release 20 meq PO BID #20 tabs 11/10/24
rosuvastatin 20 mg tablet 20 mg PO QPM #30 tabs 11/10/24
spironolactone 25 mg tablet 25 mg PO DAILY #30 tabs 11/10/24
tamsulosin 0.4 mg capsule 0.4 mg PO DAILY #30 caps 11/10/24
Home Medication Changes
Pending Results: No
--- NOTE | 2024-11-10 16:28 | VNURNOTE ---
Home Health Liaison spoke with patient to discuss [facility] nurse/therapy, visits, schedule and homebound status. Patient is agreeable and understands that visits at home will be 2-3 x per week to assess and teach medical and stoner cath management.
Patient is aware that [facility] will contact them for start of care in 1-2 days after discharge from . [facility] referral completed in [facility].
[2024-11-10] MEDS: CRESTOR 20 MG PO (16:54)
--- NOTE | 2024-11-10 17:01 | CM ---
Pt is MD requested [facility] which was $153.73.
Pt said he spoke with his pharmacist at home.
Pt said he does not want SNF nor [facility] . He said he will go back to work after dc.
Pt has home oxygen. POx 99% on 3 liter 99%.
Will continue to assess and assist.
PLAN Home no needs
--- NOTE | 2024-11-10 17:06 | CM ---
Pt is to be discharge with a [facility]. Pt consented to [facility] at [facility] . Mary Gutierrez Liaison [facility] notified.
Pt has home oxygen with [employer]. Pt has portable oxygen in his truck. POx 97% on 1 liter.
Pt said he will find someone to drive him home tomorrow.
PLAN Home with [facility] and [facility]
[2024-11-11 03:55] VITALS: BP 145/73
[2024-11-11] MEDS: PERCOCET 5/325 1 TABLET PO ×2 (05:25→10:01)
[2024-11-11 06:00] VITALS: BMI 22.3
[2024-11-11 07:17] VITALS: BP 114/69; BP 133/76
[2024-11-11 07:37] LABS: Hematocrit 30.9 % (39.0-52.0); Hemoglobin 10.4 g/dL (13.0-18.0); Mean Corp Hgb Conc. 33.7 g/dL (33.0-37.0); Mean Corpuscular Volume 112.8 fL (80.0-94.0); Platelet Count 61 10^3/uL (130-400); Red Blood Cell Count 2.74 10^6/uL (4.70-6.10); Red Cell Dist. Width 15.1 % (11.5-14.5); White Blood Cell Count 10.3 10^3/uL (4.8-10.8)
[2024-11-11 07:50] LABS: Blood Urea Nitrogen 25 mg/dl (9-20); Calcium 9.5 mg/dl (8.4-10.2); Carbon Dioxide 37 mmol/L (22-30); Chloride 92 mmol/L (98-107); Estimated Creatinine Clearance 75 ml/min; Glucose 104 mg/dl (70-99); Potassium 3.7 mmol/L (3.5-5.1); Sodium 137 mmol/L (135-145); eGFR > 60.00
[2024-11-11] MEDS: PULMICORT 0.5 MG INH (07:54)
[2024-11-11] MEDS: VITAMIN C 1000 MG PO (08:53)
[2024-11-11] MEDS: ALDACTONE 25 MG PO (08:53)
[2024-11-11] MEDS: MAGNESIUM OXIDE 500 MG PO (08:53)
[2024-11-11] MEDS: B COMPLEX w/VITAMIN C 1 CAPLET PO (08:53)
[2024-11-11] MEDS: KCL ELIXIR 40 MEQ PO (08:53)
[2024-11-11] MEDS: ELIQUIS 5 MG PO (08:53)
[2024-11-11] MEDS: LASIX 40 MG PO (08:53)
[2024-11-11] MEDS: ZANAFLEX 2 MG PO (08:54)
[2024-11-11] MEDS: DELTASONE 5 MG PO (08:54)
[2024-11-11] MEDS: FLOMAX 0.4 MG PO (08:54)
--- NOTE | 2024-11-11 09:37 | CM ---
entered order for discharge.
Pt is to be discharge with a [facility].
[facility] up by [facility]
Pt has home oxygen with [employer]. Pt has portable oxygen in his truck.
POx 96% on 2 liter.
Pt said he will find someone to drive him home.
PLAN Home with [facility] with [facility]
[2024-11-11] MEDS: VITAMIN B1 100 MG PO (10:20)
[2024-11-11] MEDS: PROTONIX 40 MG PO (10:21)
[2024-11-11 11:53] VITALS: BP 113/82
--- NOTE | 2024-11-11 12:26 | W.PN.HOSP.TC ---
Today's Communication/Plan
-
Discharge
Assessment / Plan
Assessment / Plan
Gen-AAOx3, NAD
HEENT-NC, AT, anicteric, clear oral mm
Neck-supple
CV-reg, no M, +S1/S2
Lungs-decreased breath sounds bilaterally with less rhonchi
Abd-soft, NT, ND
Ext-bilateral lower extremity edema
Musculoskeletal-no cyanosis, clubbing
Skin-warm and dry
Neuro-grossly non-focal
Psych-calm, cooperative
Acute on chronic hypoxic respiratory failure -due to acute pulmonary edema due to acute on chronic heart failure exacerbation. Baseline uses 4 L nasal cannula oxygen at home at nighttime and intermittently during the day. Currently on 3 L nasal
cannula oxygen.
Elevated troponin -possible acute nonischemic myocardial injury. Heparin discontinued by cardiology.
-possibly 2/2 to CHF, unknown type
� No chest pain
� May be secondary to chemotherapy
� Troponin trending down. Echocardiogram without significant change compared to previous. No new wall motion abnormalities according to cardiology.
Acute on chronic HFpEF - Suspect combined HFpEF and HFrEF with elevated proBNP 12,100. Getting IV Lasix 40 mg twice daily. Weight down 9 kg since admission.
� Continue to monitor with diuresis
� Monitor I's and O's, daily weights
� Follow-up BMP
-Anticipate will need to be on GDMT
LEBRON ,improving
� I suspect cardiorenal
� Monitor with diuresis
-Monitor renal function with lasix
�Hold losartan
Weakness, lethargy -onset of symptoms after resuming Vidaza for myelodysplastic syndrome last week. He received 4 doses last week. Strong suspicion that Vidaza is causing most of his complaints that brought him to the hospital including weakness
fatigue and lower extremity swelling.
Anemia, chronic
#Thrombocytopenia, chronic
#Myelodysplastic syndrome
- Vidaza
� Monitor
� No obvious bleeding
Hypokalemia -improved.
Paroxysmal atrial fibrillation -Eliquis resumed.
History of pulmonary fibrosis on 4 L at nighttime/intermittently
COPD without exacerbation -does have a chronic cough.
-Continue inhalers, budesonide
-Continue prednisone
Chronic anemia
-Hemoglobin stable
Essential hypertension
-Hold losartan due to LEBRON - can restart soon if Scr stable
Hypercholesterolemia
-Continue statin
Former alcohol use disorder
-No longer drinks alcohol
Former smoker
Full code
Dispo -medically stable for discharge. Outpatient follow-up.
Anticipated Discharge: Today
Subjective/Interval History
-
Date of Service: November 11, 2024
Patient seen and examined. No complaints.
Objective Data
-
Labs:
Laboratory Results
11/11/24
06:58
WBC 10.3
Hgb 10.4 L D
Hct 30.9 L
Plt Count 61 L
Sodium 137
Potassium 3.7
Chloride 92 L
Carbon Dioxide 37 H
BUN 25 H
Creatinine 0.8
Glucose 104 H
Calcium 9.5
Vital Signs:
Vital Signs
Temp Pulse Resp BP Pulse Ox
98.8 F 91 20 113/82 96
11/11/24 11:53 11/11/24 11:53 11/11/24 11:53 11/11/24 11:53 11/11/24 11:53
I&O
11/10/24 11/11/24 11/12/24
06:59 06:59 06:59
Intake Total 1014 / 1014 1380 / 1380
Output Total 4350 / 4350 3125 / 3125
Balance -3336 / -3336 -1745 / -1745
Review of Systems
-
History Source: Patient
All other systems: Reviewed and negative
--- NOTE | 2024-11-12 10:21 | W.HF.CON ---
Heart Failure
- LV Function
Left ventricular function study result: LV Ejection fraction >/= 50%
Ejection Fraction Percentage: 55-60
- ARNI
Patient already on ARNI: No
Heart Failure ARNI Not Indicated: LV Ejection Fraction >/= 40%
- ACEI/ARB
Patient already on ACEI/ARB: No
Heart Failure ACEI/ARB Not Indicated: LV Ejection Fraction > 40%
- Beta Lavelle
Patient already on Evidence Based Beta Lavelle: No
Heart Failure Evidence Based Beta Lavelle Not Indicated: LV Ejection Fraction > 40%
- Mineralocorticord Receptor Antagonist
Patient already on MRA: Yes
- SGLT-2 Inhibitor
Patient already on SGLT-2 Inhibitor: No
Heart Failure SGLT-2 Inhibitor Contraindication: Patient Refusal
- Afib Anticoagulation
Patient already on Anticoagulation for Afib: Yes
- NYHA CHF Classification
NYHA CHF Classification Level: Class III - Symptoms w/ min exertion, interferes w/ nml daily activity (COPD, uses home oxygen PRN)
- ACC/AHA Stage
ACC/AHA Stage: Stage C: Symptomatic Heart Failure
== END 2024-11-11 14:09 | disposition home health service (06) | DRG 291 ==
LOC: 4 EAST ACU 15:00
PROVIDERS: Nurse Practitioner Gerontology; ADMITTING PHYSICIAN Internal Medicine; ATTENDING PHYSICIAN Hospitalist; CONSULT PHYSICIAN Internal Medicine Cardiovascular Disease; EMERGENCY PHYSICIAN Emergency Medicine
DX: I11.0 Hypertensive heart disease with heart failure (principal); I50.33 Acute on chronic diastolic (congestive) heart failure; J96.21 Acute and chronic respiratory failure with hypoxia; N17.9 Acute kidney failure, unspecified; I25.10 Atherosclerotic heart disease of native coronary artery without angina pectoris; I48.0 Paroxysmal atrial fibrillation; I5A Non-ischemic myocardial injury (non-traumatic); D46.9 Myelodysplastic syndrome, unspecified; D69.59 Other secondary thrombocytopenia; E78.00 Pure hypercholesterolemia, unspecified; I25.2 Old myocardial infarction; I27.29 Other secondary pulmonary hypertension; D63.8 Anemia in other chronic diseases classified elsewhere; I08.3 Combined rheumatic disorders of mitral, aortic and tricuspid valves; J44.9 Chronic obstructive pulmonary disease, unspecified; J84.10 Pulmonary fibrosis, unspecified; E87.6 Hypokalemia; R33.8 Other retention of urine; Z88.0 Allergy status to penicillin; Z79.01 Long term (current) use of anticoagulants; Z79.51 Long term (current) use of inhaled steroids; Z79.52 Long term (current) use of systemic steroids; Z79.899 Other long term (current) drug therapy; Z99.81 Dependence on supplemental oxygen; Z87.891 Personal history of nicotine dependence; Z11.52 Encounter for screening for COVID-19
CPT/HCPCS: 93308; 71046; 80048; 80053; 80061; 81003; 83735; 83880; 84443; 84484; 85025; 85027; 85730; 87502; 87811; 93005; 93321; 93325; 94640; 96374; 97163; 97167; 97530; 99291

== ENCOUNTER 2025-03-22 19:53 | Inpatient (IN) | payer MEDICARE, SELFPAY ==
[2025-03-22] VITALS (10 sets, daily range): BP systolic 107–181; BP diastolic 75–120; BMI 26.0; BMI 24.2
[2025-03-22 15:08] LABS: Hematocrit 23.7 % (39.0-52.0); Hemoglobin 7.6 g/dL (13.0-18.0); Mean Corp Hgb Conc. 32.1 g/dL (33.0-37.0); Mean Corpuscular Hgb 34.2 pg (27.0-31.0); Mean Corpuscular Volume 106.8 fL (80.0-94.0); Mean Platelet Volume 12.6 fL (7.4-10.4); Platelet Count 65 10^3/uL (130-400); Red Blood Cell Count 2.22 10^6/uL (4.70-6.10); Red Cell Dist. Width 16.4 % (11.5-14.5); White Blood Cell Count 5.6 10^3/uL (4.8-10.8)
[2025-03-22 15:25] LABS: ALT (SGPT) 28 U/L (0-50); AST (SGOT) 69 U/L (17-59); Albumin 4.1 g/dl (3.5-5.0); Alkaline Phosphatase 137 U/L (38-126); Blood Urea Nitrogen 26 mg/dl (9-20); Calcium 9.1 mg/dl (8.4-10.2); Carbon Dioxide 30 mmol/L (22-30); Chloride 99 mmol/L (98-107); Glucose 111 mg/dl (70-99); Potassium 3.8 mmol/L (3.5-5.1); Sodium 138 mmol/L (135-145); Total Bilirubin 0.9 mg/dl (0.2-1.3); Total Protein 6.6 g/dl (6.3-8.2); eGFR > 60.00
[2025-03-22 15:32] LABS: NT-proBNP 15800 pg/ml
[2025-03-22 16:07] LABS: Absolute Neutrophils -Man Diff 2.6 10^3/uL (1.4-6.5); Anisocytosis 1+; Band Neutrophils 1 % (0-3); Lymphocytes 15 % (20-51); Macrocytosis 1+; Monocytes 37 % (2-9); Normal RBC Morphology No; Platelets Checked Yes; Segmented Neutrophils 47 % (42-75)
[2025-03-22 16:08] LABS: Hypochromasia 3+; Total Cells Counted 100
--- NOTE | 2025-03-22 16:52 | ED.GENMED ---
History of Present Illness
General
Chief Complaint: Breathing Problem
Source: patient and records
Exam Limitations: none
Time Seen by Provider: 03/22/25 16:23
Nursing documentation reviewed up to this point in time: agreed with
History of Present Illness
History of Present Illness:
Very pleasant 74-year-old male multiple chronic medical conditions CAD PAF followed by Dr. Toussaint he is on anticoagulation, MDS no chemo for 5 years recently restart[facility] also chronic lung disease, unclear if he is on oxygen chronically
referred to the ER by his oncologist due to increased shortness of breath leg edema despite furosemide twice daily is also anemic denies any rectal bleeding or hematuria no fever has had lower extremity edema
Past History
Past History
ED Past Medical History: Arrthythmia, CAD, Cancer (Myelodysplastic Syndrome), CHF, COPD, HTN, Hypercholesterolemia, AR and Other (PNA)
ED Past Surgical History: Cardiac, Orthopedic (laminectomy) and Tonsilectomy
Social History
Tobacco: Former smoker
Alcohol: Occasional
Drug: None
Personal:
Living: alone
Employment: Employed
Family History
Family History: Other
Review of Systems
Review of Systems
All Other Systems: Not applicable
Constitutional: Reports weight gain and fatigue; Denies fever
Respiratory: Reports cough and trouble breathing
Cardiac: Denies chest pain
ABD/GI: Denies bloody stools or black stools
: Denies bleeding
Musculoskeletal: Reports edema
Neurological: Reports weakness
Endocrine: Reports no symptoms
Hematologic/Lymphatic: Denies bleeding or bruising
Psychiatric: Reports no symptoms
Phy Exam
Physical Exam
Physical Exam:
Physical Exam
General: 74-year-old male dyspneic appearing
Neck: No jaundice
Heart: Regular
Lungs: Tachypneic with crackeles
Abdomen: Nontender
Neuro: alert and oriented. no focal neurological deficits
Skin: no rash
Psychiatric: well kept. interactive and cooperative
Extremities: 2-3 edema
Scores
Heart Failure Risk
Heart Failure Risk Score: Yes
History of Stroke or TIA: No
History of intubation for respiratory distress: No
Heart rate on ED arrival >/= 110: No
SaO2 <90% on arrival on room air: Yes
HR >/=110 during 3min walk test (or too ill to perform test): Yes
ECG has acute ischemic changes: No
Urea >/=12mmol/L (BUN 33.6mg/dL): No
Serum CO2>/=35mmol/L: No
Troponin I or T elevated to AR Level (0.4mg/dL): No
NT-proBNP >/=5,000ng/L (5,000pg/ml): Yes
HF Risk Score: 4
Admission Status: HIGH RISK 26.1% Consider SNF treatment or admission to hospital
Course
Orders/Labs/Results
Orders:
Orders
03/22/25 14:34
Electrocardiogram (*1) Urgent
Reason for Study: Shortness of Breath
03/22/25 14:35
EKG- Treatment ONCE
03/22/25 14:56
Complete Blood Count/With Diff Urgent
Comprehensive Metabolic Panel Urgent
Manual Differential Urgent
NT-proBNP Urgent
Troponin I Urgent
03/22/25 Dinner
Cholesterol Lowering
At Your Request: Full Participation
Does patient need a safe tray?: No
Cholesterol Lowering: Sodium, 2 Gram
03/22/25 16:23
CR Chest Portable - 1 View Urgent
Comment:
Reason For Exam: SOB [place]
Reason Study Needs to be Portable: Patient Unstable
03/22/25 16:58
Furosemide [Lasix] 60 mg IV NOW STA
03/22/25 17:04
Type+Screen Urgent
03/22/25 18:42
Admit/Transfer Patient As Directed
Co-Sign Provider:
Level of Care: Inpatient admission
Assign to:: Telemetry
Physician / Group: Jer Aj
Diagnosis: acute on chronic CHF, hypoxic respiratory insufficiency
Reason for Telemetry: Acute Heart Failure
Date to Stop Telemetry: 03/25/25
Time to Stop Telemetry: 11:00
Reason for Hospitalization: acute on chronic CHF, hypoxic respiratory insufficiency
Expected length of stay greater than two midnights?: Yes
ELOS- Estimated Length of Stay in days: 3
I certify the patient meets the requirements for IP care: Yes
PRN Pain Medication Management As Directed
May give lesser potent ordered pain med per pt: Yes
preference::
Protocol:: Medication orders for pain may be administered in a
manner that supports deferring to patient preference
when the pt is:
- Requesting an ordered lesser potent pain medication.
Least to most potent pain medications are defined
as: acetaminophen < NSAID < tramadol < opioids
(morphine, oxycodone, hydromorphone).
- Requesting a lesser dose of the same medication IF
ORDERED.
- Requesting a less intrusive route of administration
if both routes are prescribed by the provider (PO <
IV).
03/22/25 18:44
Code Status As Directed
Resuscitation Status: Full Code
03/22/25 21:27
Troponin I Q6H
Comment: at admission & every 6 hours x 2 (3 total), ECG to be done with each level
Apixaban [Eliquis] 5 mg PO BID
Potassium Chloride [KCl] 20 meq PO BID
03/22/25 21:27
CARDIOLOGY CONSULT Routine
Consulting Provider: Travis Jin
Was physician already notified: Yes
Reason for consult: CHF
HF DIETARY CONSULT Routine
HF EDUCATOR CONSULT Routine
Comment:
Activity As Directed
Activity Level: Out of Bed-Early Mobility
Collins Catheter [Catheter- Indwelling] As Directed
Reason for insertion: Chronic Collins on Admit
Intake/ Output As Directed
Frequency: Per unit guidelines
Patient Education As Directed
Type: CHF folder
Comment: give on admission. Document in Interdisciplinary Education record
Sleep Apnea Assessment by RN As Directed
Comment:
Physician Instructions:
Vital Signs As Directed
Frequency: Other
Additional Instructions:: Q12 or per unit guidelines if more frequent.
Weight As Directed
Frequency: Daily
Type of Scale: Standing Scale
Comment: Daily morning weight. If unable to stand, use balanced bed scale.
Weight As Directed
Frequency: Once
Type of Scale: Standing Scale
Comment: Upon Admission. If unable to stand, use balanced bed scale.
O2 Therapy [RESP] Routine
Titrate/Wean O2 to maintain O2 sat greater than (%): 93
Special Instructions: wean as tolerated
Pulse Ox/cont/shift [RESP] Routine
Quantity: 1
Special Instructions: Daily pulse oximetry at rest. If greater than 92% at rest also obtain pulse oximetry
while ambulating as tolerated.
Pt Eval And Treat Routine
Activity Level: Out of Bed-Early Mobility
03/22/25 22:00
Docusate W/Senna [Senokot-S] 1 tablet PO HS
Gabapentin [Neurontin] 300 mg PO TID
03/23/25 03:27
Troponin I Q6H
Comment: at admission & every 6 hours x 2 (3 total), ECG to be done with each level
03/23/25 06:00
B12 [Vitamin B12] IN AM
Basic Metabolic Panel IN AM
Cardiovascular Evaluation IN AM
Complete Blood Count/No Diff IN AM
Ferritin IN AM
Folate IN AM
Iron IN AM
Magnesium IN AM
Total Iron Binding IN AM
03/23/25 08:00
Budesonide [Pulmicort] 0.5 mg INH R DAILY
Furosemide [Lasix] 40 mg PO BID AT 0800,1600
Ipratropium/Albuterol Sulfate [Duoneb] 3 ml INH R DAILY
Oxycodone [Roxicodone] 10 mg PO TID
Pantoprazole [Protonix] 40 mg PO DAILY
Polyethylene Glycol Powder [Miralax] 17 grams PO DAILY
Rosuvastatin Calcium [Crestor] 20 mg PO DAILY
Tamsulosin [Flomax] 0.4 mg PO DAILY
Thiamine HCl [Vitamin B1] 100 mg PO DAILY
03/23/25 09:27
Troponin I Q6H
Comment: at admission & every 6 hours x 2 (3 total), ECG to be done with each level
03/24/25 06:00
Basic Metabolic Panel IN AM
03/25/25 06:00
Basic Metabolic Panel IN AM
03/25/25 11:00
DC Protocol for Telemetry ONCE
Abnormal Lab Results
03/22/25
14:56
RBC 2.22 L 10^6/uL
(4.70-6.10)
Hgb 7.6 L g/dL
(13.0-18.0)
Hct 23.7 L %
(39.0-52.0)
MCV 106.8 H fL
(80.0-94.0)
MCH 34.2 H pg
(27.0-31.0)
MCHC 32.1 L g/dL
(33.0-37.0)
RDW 16.4 H %
(11.5-14.5)
Plt Count 65 L 10^3/uL
(130-400)
MPV 12.6 H fL
(7.4-10.4)
Lymphocytes (Manual) 15 L %
(20-51)
Monocytes (Manual) 37 H %
(2-9)
BUN 26 H mg/dl
(9-20)
Glucose 111 H mg/dl
(70-99)
AST 69 H U/L
(17-59)
Alkaline Phosphatase 137 H U/L
(38-126)
Troponin I 0.100 H* ng/ml
03/22/25 14:56
03/22/25 14:56
Vital Signs
Initial and Last Documented VS:
Initial Vital Signs
Temp Pulse Resp BP Pulse Ox
97.7 F 71 20 181/78 95
03/22/25 14:31 03/22/25 14:31 03/22/25 14:31 03/22/25 14:31 03/22/25 14:31
Last Documented Vital Signs
Temp Pulse Resp BP Pulse Ox
97.8 F 78 18 139/84 97
03/22/25 21:44 03/22/25 21:44 03/22/25 21:44 03/22/25 21:44 03/22/25 21:44
MDM/Problems Addressed
Differential Diagnosis Includes:
Congestive heart failure interstitial fibrosis high-output heart failure symptomatic anemia
MDM/Problems Addressed:
Shortness of breath anemia heart failure
Chronic conditions affecting care:
Anemia heart failure ACS arrhythmia anticoagulation
Chronic conditions affecting care: CAD, Cardiomyopathy, COPD and Cancer
Acute Exacerbation and/or Progression of Chronic Illness: CAD, Cardiomyopathy, COPD and Cancer
*Radiology
Radiology exam reviewed: preliminary read by ED provider
*Pulse Oximetry
Patient hypoxic: yes
Comment: 88
*Critical Care Note
Total Time (30-74mins, 75-104mins- exclusive of procedures): Not Applicable
Update Note
Update Note:
Update labs noted proBNP noted exams with volume overloaded chest x-ray noted
Plan will be supplemental oxygen diuretics admission consideration for transfusion specialty consulted
ED Attending Note
-
Portions of this chart may have been created with voice recognition software.� Occasional wrong word or��sound alike� substitutions may have occurred due to the inherent limitations of voice recognition software.
Discharge Plan
Departure
Patient Disposition: Admit
Date of Disposition: 03/22/25
Time of Disposition: 16:57
Admit to: Telemetry
Presentation/result/management discussed w/ accepting MD/DO: Hospitalist
Patient with high blood pressure during this ER visit?: Yes
Condition: Fair
Covid-19: Not Applicable
Discharge Problem:
Myelodysplastic disease, Pulmonary fibrosis, Chronic heart failure with preserved ejection fraction (HFpEF), Interstitial pulmonary fibrosis, COPD (chronic obstructive pulmonary disease), Acute on chronic anemia, Hypertensive heart disease with
heart failure, Acute and chronic respiratory failure with hypoxia, Diastolic CHF
Interventions
Interventions:
*Risk Screen - Suicide Last Done: 03/22/25 16:28
*General Assessment Last Done: 03/22/25 14:31
*Neglect/Abuse Screening Last Done: 03/22/25 16:28
*ED- Fall Risk Assessment Last Done: 03/22/25 16:28
*ED COVID-19 Vaccine History Last Done: 03/22/25 16:28
*Nursing Disposition Last Done: 03/22/25 21:15
ED- Cardiac Assessment Last Done: 03/22/25 16:28
ED- Pulmonary Assessment Last Done: 03/22/25 16:28
Discharge Date and Time
Discharge Date/Time: 03/22/25 21:15
[2025-03-22] MEDS: LASIX 60 MG IV (17:43)
--- NOTE | 2025-03-22 17:51 | HPS.HSE ---
Family Physician
-
Family Physician: Edison Light PA-C
Chief Complaint
-
shortness of breath and bilateral leg edema
History of Present Illness
Patient is a 74-year-old male with past medical history significant for hypertension, hypercholesterolemia, paroxysmal atrial fibrillation, HFpEF, MDS and COPD who presented to [facility] ED for evaluation of shortness of breath and bilateral leg edema at
recommendation of oncology. Patient states that he started chemo again for MDS last week for first time in several years, he reports that he has been feeling fatigued and shortness of breath since about Saturday. He reports oxygen at home PRN and this
is first time he has needed it in a while. He had an appointment for labs at [facility] today following chemo and nurse was concerned with breathing and noticed he was hypoxic in low 80s, reviewed with doctor and recommended he go to ED for evaluation
and treatment. Patient reports taking daily weights and they have been consistent within 5 pounds consistently. Denies any chest pains, bleeding, diaphoresis, nausea, vomiting, constipation or diarrhea.
Medical History
Past Medical History
Past Medical History: Reports Other
Additional Past Medical History:
COPD
pulmonary fibrosis intermittently uses 4 L oxygen
paroxysmal atrial fibrillation
CAD
CHF
myelodysplastic syndrome
hypertension
hypercholesterolemia
body cramping unknown etiology
Past Surgical History: Reports Other
Additional Past Surgical History:
Cardiac
laminectomy
Tonsillectomy
Social History
Tobacco: Former Smoker (has approximately 59 pack year history, quit 19 years ago)
Alcohol: Former
Drug: None
Living: Alone
Employment: Employed
Family History
Family History: Not pertinent
Allergies / Home Medications
Allergies reflects when Allergies were last updated in [facility].
Home Medications with original date entered in Cycle
Allergy/Medication List:
Allergies
Allergy/AdvReac Type Severity Reaction Status Date / Time
amoxicillin Allergy Unknown Verified 04/21/25 14:30
carvedilol Allergy Hives Verified 03/22/25 14:30
clavulanic acid Allergy Unknown Verified 03/22/25 14:30
[From Augmentin]
diltiazem Allergy rash, all Verified 03/22/25 14:30
over body
itching
gabapentin Allergy Unknown Verified 03/22/25 14:30
propoxyphene Allergy Unknown Verified 03/22/25 14:30
[From Darvocet-N]
Tetanus Vaccines and Toxoid Allergy at age 4 Verified 03/22/25 14:30
[Tetanus] pt became
'sick with
fever'.
ALEXIS Inhibitors AdvReac Cough Verified 03/22/25 14:30
hydrochlorothiazide AdvReac Cramping Verified 03/22/25 14:30
Home Medications
pantoprazole 40 mg tablet,delayed release 40 mg PO DAILY #30 tabs 05/29/22
apixaban 5 mg tablet 5 mg PO BID Blood clot prevention/tx 09/22/22
ascorbic acid (vitamin C) 1,000 mg tablet (Vitamin C) 1,000 mg PO DAILY Supplement 11/19/22
thiamine HCl (vitamin B1) 100 mg tablet 100 mg PO DAILY Supplement 11/07/23
gabapentin 300 mg capsule 300 mg PO TID 11/07/24
potassium chloride 20 mEq tablet,extended release 20 meq PO BID #20 tabs 11/10/24
tamsulosin 0.4 mg capsule 0.4 mg PO DAILY #30 caps 11/10/24
budesonide 0.5 mg/2 mL suspension for nebulization 0.5 mg inhalation R DAILY 03/22/25
ipratropium 0.5 mg-albuterol 3 mg (2.5 mg base)/3 mL nebulization soln 3 ml inhalation R DAILY 03/22/25
ondansetron HCl 8 mg tablet 8 mg PO [id number] PRN take before treatment 03/22/25
oxycodone-acetaminophen 10 mg-325 mg tablet 1 tab PO TID 03/22/25
polyethylene glycol 3350 17 gram oral powder packet 17 g PO DAILY 03/22/25
rosuvastatin 20 mg tablet 20 mg PO DAILY 03/22/25
sennosides 8.6 mg-docusate sodium 50 mg tablet (Senna-S) 1 tab-cap PO HS 03/22/25
torsemide 20 mg tablet 40 mg PO BID 03/22/25
Review of Systems
-
History Source: Patient
Constitutional: Reports Fatigue
EENT: Reports No Symptoms
Respiratory: Reports Trouble Breathing (shortness of breath )
Cardiac: Reports No Symptoms
Abdomen/GI: Reports No Symptoms
: Reports No Symptoms
Musculoskeletal: Reports No Symptoms
Skin: Reports No Symptoms
Neurological: Reports No Symptoms
Endocrine: Reports No Symptoms
Hematologic/Lymphatic: Reports No Symptoms
Psych: Reports No Symptoms
Physical Exam
Vital Signs
Vital Signs
Temp Pulse Resp BP Pulse Ox
97.6 F 70 20 134/120 99
03/22/25 16:28 03/22/25 17:43 03/22/25 16:45 03/22/25 17:43 03/22/25 17:01
Physical Exam
General: Well Developed, Well Nourished, No Apparent Distress and Conversant
HEENT: NormoCephalic, Moist mucous membranes, Atraumatic, [place] Conjunctivae, Nose Appears Normal and Ears Appear Normal
Respiratory: Clear and Non Labored Respirations
Cardiac: S1/S2 and Regular Rhythm
Breast: Deferred by me
GI: Soft, Non Tender, Non Distended and Normal Bowel Sounds; No Organomegaly
Rectal: Deferred by Provider
Genito-urinary: Clear Urine and Collins
Musculoskeletal: No Clubbing, No Cyanosis, Edema, Left Lower Extremity and Edema, Right Lower Extremity
Skin: Warm and IV/Catheter Site
Neuro: Awake, Alert, AO x 3 and Nonfocal/grossly intact
Psych: Calm and Intact Judgment/Insight
Laboratory Results
-
03/22/25 14:56
03/22/25 14:56
Laboratory Results
Total Bilirubin 0.9 mg/dl (0.2-1.3) 03/22/25 14:56
AST 69 U/L (17-59) H 03/22/25 14:56
ALT 28 U/L (0-50) 03/22/25 14:56
Alkaline Phosphatase 137 U/L (38-126) H 03/22/25 14:56
Troponin I 0.100 ng/ml H* 03/22/25 14:56
Data Reviewed
-
Diagnostic Radiology: Report Reviewed by me (CXR: 1. MODERATE COMBINED EMPHYSEMA and INTERSTITIAL PULMONARY FIBROSIS. 2. Severe calcific atherosclerotic plaque in the coronary arteries and thoracic aorta. 3. Severe bilateral osteoarthritis of
the glenohumeral joints.)
Medical Tests (Nuc Med, Echo, EKG etc): Report Reviewed by me (EKG: NORMAL SINUS RHYTHM ST and T WAVE ABNORMALITY, CONSIDER INFERIOR ISCHEMIA ST and T WAVE ABNORMALITY, CONSIDER ANTEROLATERAL ISCHEMIA)
Lab Data: Labs Reviewed by me (hgb 7.6, hct 23.7, trop 0.100, BNP 13737)
Impression/Plan
-
IMPRESSION/PLAN:
#acute on chronic HFpEF
BNP 24460
Trop 0.100 (appears to be nonischemic myocardial injury)
CXR: 1. MODERATE COMBINED EMPHYSEMA and INTERSTITIAL PULMONARY FIBROSIS.
2. Severe calcific atherosclerotic plaque in the coronary arteries and thoracic aorta.
3. 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
EKG: NORMAL SINUS RHYTHM
ST and T WAVE ABNORMALITY, CONSIDER INFERIOR ISCHEMIA
ST and T WAVE ABNORMALITY, CONSIDER ANTEROLATERAL ISCHEMIA
ECHO (11/09/2024): Normal left ventricular size and systolic function. LVEF 55-60%.
Hypokinesis of the inferior, inferoseptal, and inferolateral gallegos.
Mildly enlarged right ventricle with mildly reduced systolic function.
Top normal pulmonary artery pressures (PASP 36 mmHg).
Compared to prior echocardiogram on 10/30/2024, the endocardium is not as well-visualized on today's study, however on [id number] comparison wall motion
appears relatively stable. Degree of valvular regurgitation has decreased.
PASP has decreased from 70 mmHg to 36 mmHg.
- Admit to telemetry
- Consult Cardiology
- trend troponin
- IV Lasix 40mg BID
#anemia
hgb 7.6, hct 23.7
patient denies any bleeding
- trend h/h
- transfuse for hgb <7.0
- iron studies
#hypertension
- hold torsemide
- IV Lasix 40mg BID
#hypercholesterolemia
- continue rosuvastatin
#paroxysmal atrial fibrillation
- continue apixaban
#BPH
chronic Collins in place for retention
- continue tamsulosin
#MDS
just restarted chemo after 5 years, following with [facility]
- continue to follow up out patient
#COPD
- continue budesonide and DuoNeb
Code status: full code
DVT Prophylaxis: apixaban
--- NOTE | 2025-03-22 18:53 | W.PN.UPDATE ---
Update Note
Progress Note Update
This is an addendum to the H&P written by Alena Poole on 03/22/2025. Patient seen and examined independently with [facility].
74-year-old male past medical history of chronic HFpEF, paroxysmal atrial fibrillation on Eliquis, hypertension, hypercholesteremia, pulmonary fibrosis on 4 L oxygen, COPD, anemia, thrombocytopenia, myelodysplastic syndrome, former alcohol use,
former smoker, presenting with increased shortness of breath, leg edema.
Vital signs normal.
Chest x-ray shows moderate combined emphysema and additional pulmonary fibrosis.
Cardiac BNP of 15,000. Troponin of 0.1.
Hemoglobin of 7.6. Macrocytic anemia.
Presentation consistent with acute CHF exacerbation with nonischemic myocardial injury. Also with worsening anemia secondary to myelodysplastic syndrome/chemotherapy.
40 IV twice daily Lasix. Trend troponins. Cardiology consulted. Check iron studies, B12 and folate.
[2025-03-22] MEDS: ROXICODONE 10 MG PO (20:58)
[2025-03-22] MEDS: ELIQUIS 5 MG PO (22:08)
[2025-03-22] MEDS: NEURONTIN 300 MG PO (22:08)
[2025-03-22] MEDS: SENOKOT-S 1 TABLET PO (22:08)
[2025-03-22] MEDS: KCL 20 MEQ PO (22:08)
[2025-03-22 22:59] LABS: Troponin I 0.067 ng/ml
--- NOTE | 2025-03-23 02:09 | PTCARENOTE ---
Rec'd pt from ER at 2200. transferred to bed. placed on telemetry. Complains of chronic back and left shoulder pain, Rec'd pain medication and hour prior to arrival to unit. Reviewed home medications. troponin and ekg performed per order. Pt aware
that he will have another blood draw at 0330. Chronic Collins in place. oriented to room. Call caceres in reach.
[2025-03-23 03:30] VITALS: BP 114/72
[2025-03-23] MEDS: ROXICODONE 10 MG PO ×4 (04:05→21:41)
[2025-03-23 04:18] LABS: Hemoglobin 8.4 g/dL (13.0-18.0); Mean Corp Hgb Conc. 33.6 g/dL (33.0-37.0); Mean Corpuscular Hgb 34.3 pg (27.0-31.0); Platelet Count 62 10^3/uL (130-400); Red Blood Cell Count 2.45 10^6/uL (4.70-6.10); Red Cell Dist. Width 15.9 % (11.5-14.5); White Blood Cell Count 5.3 10^3/uL (4.8-10.8)
[2025-03-23 04:26] LABS: Blood Urea Nitrogen 24 mg/dl (9-20); Carbon Dioxide 29 mmol/L (22-30); Chloride 101 mmol/L (98-107); Estimated Creatinine Clearance 54 ml/min; Glucose 88 mg/dl (70-99); Magnesium 1.8 mg/dl (1.6-2.3); Potassium 3.3 mmol/L (3.5-5.1); Sodium 138 mmol/L (135-145); eGFR > 60.00
[2025-03-23 04:28] LABS: HDL Cholesterol 84 mg/dl; Iron 53 ug/dl (49-181); LDL Cholesterol, Calculated 24 mg/dl; Total Cholesterol 122 mg/dl (50-199); Triglyceride 72 mg/dl (10-149); Very Low Density Lipoprotein 14 mg/dl (0-30)
[2025-03-23 04:33] LABS: Troponin I 0.076 ng/ml
[2025-03-23 04:37] LABS: Percent Saturation 12 % (20-50); Total Iron Binding Capacity 408 ug/dl (261-462)
[2025-03-23 05:05] LABS: Ferritin 74.4 ng/ml (17.9-464.0)
[2025-03-23 05:37] LABS: Folate > 20.0 ng/ml (2.76-20); Vitamin B12 963 pg/ml (239-931)
[2025-03-23 06:00] VITALS: BMI 23.9
[2025-03-23 07:00] VITALS: BP 113/69
[2025-03-23] MEDS: DUONEB 3 ML INH (07:39)
[2025-03-23] MEDS: PULMICORT 0.5 MG INH (07:39)
[2025-03-23 09:33] VITALS: BMI 24.2
[2025-03-23] MEDS: LASIX 40 MG IV ×2 (09:42→17:05)
[2025-03-23] MEDS: MIRALAX 17 GRAMS PO (09:42)
[2025-03-23] MEDS: VITAMIN B1 100 MG PO (09:51)
[2025-03-23] MEDS: NEURONTIN 300 MG PO ×3 (09:51→20:07)
[2025-03-23] MEDS: PROTONIX 40 MG PO (09:51)
[2025-03-23] MEDS: FLOMAX 0.4 MG PO (09:52)
[2025-03-23] MEDS: TYLENOL 325 MG PO ×3 (09:52→20:07)
[2025-03-23] MEDS: CRESTOR 20 MG PO (09:52)
[2025-03-23] MEDS: ELIQUIS 5 MG PO ×2 (09:53→20:07)
[2025-03-23] MEDS: KCL 20 MEQ PO ×2 (09:54→20:07)
[2025-03-23 09:56] LABS: Troponin I 0.078 ng/ml
--- NOTE | 2025-03-23 09:56 | CON.CAR ---
Addendum entered and electronically signed by El Perez MD 03/23/25 16:51:
I saw and examined the patient.
The DIGITAL MEDIA COORDINATOR's note was reviewed and I agree with the note.
Comment: 74-year-old man (known to Dr. Toussaint, his primary drain technician), with CAD s/p inferior STEMI 05/2022 unable to PCI RCA (med management), paroxysmal atrial fibrillation status post ablation (2021), chronic HFpEF, mild/mod MR, mild AR,
HTN, hyperlipidemia, COPD/pulmonary fibrosis 4L NC oxygen, severe pulmonary hypertension, former smoker (quit 2005), and MDS with chronic anemia, is admitted with history of shortness of breath.
- IV diuresis likely PO tomorrow
Original Note:
Consultation
Consultation Request
Date/Time Consultation Requested: 03/22/2025 21:30
Date/Time Consultation Performed: 03/23/2025 08:45
Requesting Provider: DORIS Nguyen
Performing Provider: DORIS Smith for Dr. Perez
Reason for Consultation: Acute on chronic HF
Medical History
-
Chief Complaint: Weakness
History of Present Illness:
Hunter Hernandez is a 74-year-old man (known to Dr. Toussaint, his primary drain technician), with CAD s/p inferior STEMI 05/2022 unable to PCI RCA (med management), paroxysmal atrial fibrillation status post ablation (2021), chronic HFpEF, mild/mod
MR, mild AR, HTN, hyperlipidemia, COPD/pulmonary fibrosis 4L NC oxygen, severe pulmonary hypertension, former smoker (quit 2005), and MDS with chronic anemia, is admitted with history of shortness of breath. He endorses associated bilateral lower
extremity edema. He was referred to the emergency department after having outpatient hematology/oncology evaluation. He was found to be tachypneic and hypoxic. He reports his weight has been fairly stable but on 03/19/2025 it 'shot up'. He
thinks he is up approximately 5 pounds. He denies chest pain.
Past Medical History
Past Medical History: Arrhythmias (Paroxysmal atrial fibrillation [PVI 2021]), CAD (CAD-unable to intervene RCA-medical management.), Cancer (MDS), CHF (Severe right-sided heart failure with severe pulmonary hypertension), COPD (With pulmonary
fibrosis on oxygen), HTN, Hypercholesterolemia, Valvular Disease (MR, AR) and Other (Severe pulmonary hypertension)
Past Surgical History: Cardiac
Social History
Tobacco: Former Smoker
Alcohol: Former
Drug: None
Employment: Retired
Family History
Family History: Reviewed & Not Pertinent
Allergies / Home Medications
Allergy/AdvReac Type Severity Reaction Status Date / Time
ALEXIS Inhibitors Allergy Cough Verified 03/22/25 20:46
amoxicillin Allergy Unknown Verified 03/22/25 14:30
carvedilol Allergy Hives Verified 03/22/25 14:30
clavulanic acid Allergy Unknown Verified 03/22/25 14:30
[From Augmentin]
diltiazem Allergy rash, all Verified 03/22/25 14:30
over body
itching
gabapentin Allergy Unknown Verified 03/22/25 14:30
hydrochlorothiazide Allergy Cramping Verified 03/22/25 20:46
propoxyphene Allergy Unknown Verified 03/22/25 14:30
[From Darvocet-N]
Tetanus Vaccines and Toxoid Allergy at age 4 Verified 03/22/25 14:30
[Tetanus] pt became
'sick with
fever'.
�Medication �Instructions �Recorded �Confirmed �Type
pantoprazole 40 mg tablet,delayed 40 mg PO DAILY #30 tabs 05/29/22 03/22/25 Rx
release
apixaban 5 mg tablet 5 mg PO BID Blood clot 09/22/22 03/22/25 History
prevention/tx
ascorbic acid (vitamin C) 1,000 mg 1,000 mg PO DAILY Supplement 11/19/22 03/22/25 History
tablet (Vitamin C)
thiamine HCl (vitamin B1) 100 mg 100 mg PO DAILY Supplement 11/07/23 03/22/25 History
tablet
gabapentin 300 mg capsule 300 mg PO TID Neurological 11/07/24 03/22/25 History
Condition
potassium chloride 20 mEq 20 meq PO BID #20 tabs 11/10/24 03/22/25 Rx
tablet,extended release
tamsulosin 0.4 mg capsule 0.4 mg PO DAILY #30 caps 11/10/24 03/22/25 Rx
budesonide 0.5 mg/2 mL suspension 0.5 mg inhalation R DAILY 03/22/25 03/22/25 History
for nebulization
ipratropium 0.5 mg-albuterol 3 mg 3 ml inhalation R DAILY 03/22/25 03/22/25 History
(2.5 mg base)/3 mL nebulization Lung/Breathing Issues
soln
ondansetron HCl 8 mg tablet 8 mg PO [id number] PRN take before 03/22/25 03/22/25 History
treatment
oxycodone-acetaminophen 10 mg-325 1 tab PO TID Pain 03/22/25 03/22/25 History
mg tablet
polyethylene glycol 3350 17 gram 17 g PO DAILY Constipation 03/22/25 03/22/25 History
oral powder packet
rosuvastatin 20 mg tablet 20 mg PO DAILY High Cholesterol 03/22/25 03/22/25 History
sennosides 8.6 mg-docusate sodium 1 tab-cap PO HS Constipation 03/22/25 03/22/25 History
50 mg tablet (Senna-S)
torsemide 20 mg tablet 40 mg PO BID Fluid 03/22/25 03/22/25 History
Retention/Swelling
Review of Systems
-
History Source: Patient
All other systems: Negative unless noted
Constitutional: Weight Gain
EENT: No Symptoms
Respiratory: Trouble Breathing
Cardiac: No Symptoms
Abdomen/GI: No Symptoms
: No Symptoms
Musculoskeletal: Edema
Skin: No Symptoms
Neurological: No Symptoms
Endocrine: No Symptoms
Hematologic/Lymphatic: No Symptoms
Physical Exam
Vital Signs
Temp Pulse Resp BP Pulse Ox
98.3 F 70 16 113/69 97
03/23/25 07:00 03/23/25 07:40 03/23/25 07:40 03/23/25 07:00 03/23/25 07:40
Lab Results
03/23/25 03:55
03/23/25 03:55
Troponin I 0.076 ng/ml H* 03/23/25 03:55
Xqw-L-Cbsfekfaxsl Pept 52578 pg/ml 03/22/25 14:56
Physical Exam
General: Well Developed, Well Nourished, No Apparent Distress and Comfortable
HEENT: Normocephalic, Anicteric and Moist Mucous Membranes
Respiratory: Crackles and Rhonchi
Cardiac: S1/S2, Regular Rhythm and Peripheral Edema (+2 BL LE)
Breast: Deferred by me
GI: Soft, Non Tender, Non Distended and Normal Bowel Sounds
Rectal: Deferred by Provider
Genito-urinary: No Costovertebral Tender
Musculoskeletal: No Clubbing and No Cyanosis
Skin: Warm and Dry
Neuro: AO x 3
Hematologic/Lymphatic: No Lymphadenopathy
Psych: Calm
Impression / Plan
-
I/P: 74M with CAD s/p inferior STEMI 05/2022 unable to PCI RCA (med management), paroxysmal atrial fibrillation status post ablation (True, 2021), chronic HFpEF, mild/mod MR, mild AR, HTN, hyperlipidemia, COPD/pulmonary fibrosis 4L NC oxygen,
severe pulmonary hypertension, former smoker (quit 2005), and MDS with chronic anemia, is admitted with history of shortness of breath.
Outpatient drain technician: Dr. Toussaint
HFpEF, acute on chronic, severe requiring hospitalization
- Diuresed well with furosemide 60 mg IV (3 L) in ER, start furosemide 40 mg IV twice daily, this requires intensive monitoring
- Orthopnea and lower extremity edema are improving
- He was started on spironolactone during his last admission in November, he self discontinued, consider resumption and stopping potassium supplementation
- SGLT2 because prohibitive
- Trend daily weight, I/O, and BMP with diuresis - will determine new dry weight
- Follow up TTE to re-assess LVEF
- Heart failure education
Abnormal troponin, likely nonischemic myocardial injury in the setting of acute on chronic heart failure
- Peak 0.100 on arrival, now flat
- Chest pain-free
CAD
- Stable without chest pain
- Inferior STEMI 05/2022, unable to PCI RCA, medical management
- Not on ASA, on apixaban for paroxysmal atrial fibrillation
Paroxysmal atrial fibrillation
- In sinus rhythm on telemetry
- Oral anticoagulation: Apixaban 5 mg twice daily, will hold if platelets trend below 50
- [id number] score of 5
MDS, on Venclexta and Vidaza, followed by [facility] and Dr. Ramirez ([place])
Anemia of chronic disease
Pulmonary hypertension, type III, due to IPF, on continuous oxygen
COPD
Former smoker
Dyslipidemia, on rosuvastatin
SUBJECTIVE:
As above.
DATA:
Transthoracic echocardiogram, 11/09/2024:
CONCLUSIONS
Normal left ventricular size and systolic function. LVEF 55-60%.
Hypokinesis of the inferior, inferoseptal, and inferolateral gallegos.
Mildly enlarged right ventricle with mildly reduced systolic function.
Top normal pulmonary artery pressures (PASP 36 mmHg).
Compared to prior echocardiogram on 10/30/2024, the endocardium is not as well-
visualized on today's study, however on [id number]-ga-[id number] comparison wall motion
appears relatively stable. Degree of valvular regurgitation has decreased.
PASP has decreased from 70 mmHg to 36 mmHg.
Data Reviewed
-
EKG: Report Reviewed by me
Radiology: Report Reviewed by me
Medical Tests (Nuc Med, Echo etc): Report Reviewed by me
Labs: Labs Reviewed by me
Old Records: Reviewed
[2025-03-23 11:00] VITALS: BP 117/69
--- NOTE | 2025-03-23 12:01 | CM ---
Patient seen bedside, initial assessment completed. Patient is a 74-year-old male with past medical history significant for hypertension, hypercholesterolemia, paroxysmal atrial fibrillation, HFpEF, MDS and COPD who presented to [facility] ED for
evaluation of shortness of breath and bilateral leg edema at recommendation of oncology.
Patient reports that he resides alone in an apartment attached to a barn- 24 steps to get to apartment. Patient is independent w/ ambulating, no device required. Independent w/ ADLs. Patient has home O2 and concentrator. Patient stated he doesn't
use O2 and hasn't needed it until last week. Patient shared he sees weight loss sales consultant regularly. Denies SNF/HC hx.
Address, points of contact and insurance verified. Patient's physical address is [address], [place] [address]. Only [address] is listed
PCP: [facility]
Pharmacy: [facility] [place]
PT eval ordered, will watch for recommendations
Plan: CM will cont to follow for d/c planning
[2025-03-23 15:15] VITALS: BP 116/72
--- NOTE | 2025-03-23 15:47 | W.PN.HOSP.TC ---
Today's Communication/Plan
-
Continue IV diuresis
Wean off oxygen to baseline
Assessment / Plan
Assessment / Plan
Impression
Acute on chronic hypoxic respiratory failure secondary to
Acute CHF preserved EF.
Non-OR troponin elevation
Other conditions
CAD.
Paroxysmal atrial fibrillation
Anticoagulation with apixaban
MDS currently on Vidaza previously on Venclexta
Pulmonary hypertension
IPF.
COPD.
Former smoker
Dyslipidemia
Chronic pain syndrome with opiate dependence
Plan:
Acute CHF preserved EF
Updated echo 03/23/2025 LVEF 55-60%. Mild MR, mild AR. Pulmonary artery pressure 39 mmHg. No significant changes since 08/25
Patient reported recently initiated on the Vidaza potentially precipitating CHF
Continue diuresis with Lasix 40 mg twice daily monitor creatinine.
Acute on chronic respiratory failure/hypoxia
Patient is on home O2 prior to presentation
This is likely multifactorial due to decompensated CHF as well as underlying pulmonary hypertension/IPF/COPD
Non-OR troponin elevation.
Chest pain-free.
ECG with no ischemia.
CAD with history of STEMI 05/23.
Echo as above.
Continue medical management.
Paroxysmal atrial fibrillation.
Not on AVN or arrhythmics
Currently in sinus rhythm.
Continue anticoagulation with apixaban
MDS
Followed by caustic loader at [facility].
Currently on Vidaza.
Has chronic macrocytic anemia and thrombocytopenia
Follow CBC
Chronic pain with opiate dependency
Continue oxycodone/Neurontin
Bowel regimen
Anticipated Discharge: 24 - 48 hours
Subjective/Interval History
-
Date of Service: March 23, 2025
Objective Data
-
Labs:
Laboratory Results
03/23/25
03:55
WBC 5.3
Hgb 8.4 L
Hct 25.0 L
Plt Count 62 L
Sodium 138
Potassium 3.3 L
Chloride 101
Carbon Dioxide 29
BUN 24 H
Creatinine 1.1
Glucose 88
Calcium 9.0
Vital Signs:
Vital Signs
Temp Pulse Resp BP Pulse Ox
98.3 F 72 18 117/69 98
03/23/25 11:00 03/23/25 11:00 03/23/25 11:00 03/23/25 11:00 03/23/25 11:00
I&O
03/22/25 03/23/25 03/24/25
06:59 06:59 06:59
Intake Total 480 / 480
Output Total 3500 / 3500
Balance -3020 / -3020
Physical Exam
-
General: Well Developed and No Apparent Distress
HEENT: Normocephalic, Atraumatic and Moist Mucous Membranes
Respiratory: Clear to Auscultation
Cardiac: Regular Rhythm and S1/S2; Negative Murmur, Rub or Gallop
GI: Soft, Nontender, Nondistended and Normal Bowel Sounds; Negative Organomegaly
Rectal: Deferred by Provider
Musculoskeletal: No Clubbing, No Cyanosis and No Edema
Skin: Negative Rash
Neuro: Nonfocal/Grossly Intact
[2025-03-23 19:45] VITALS: BP 97/62
[2025-03-23] MEDS: SENOKOT-S 2 TABLET PO (20:07)
--- NOTE | 2025-03-23 23:00 | PTCARENOTE ---
Received pt on RA sating 97%. When asleep pt o2 78%. Placed 4LNC now 95%
[2025-03-23 23:08] VITALS: BP 99/56
[2025-03-24 02:56] VITALS: BP 126/61
[2025-03-24 06:00] VITALS: BMI 23.6
[2025-03-24 07:00] VITALS: BP 105/71
[2025-03-24 07:07] LABS: % Basophils 0.4 % (0-2); % Eosinophils 0.4 % (0-6); % Immature Granulocytes 1.8 % (0-0.5); % Lymphocytes 16.2 % (20.5-51.1); % Monocytes 42.1 % (1.7-9.3); % Neutrophils 39.1 % (42.2-75.2); Absolute Immature Granulocytes 0.1 10^3/uL (0-0.05); Absolute Lymphocytes 0.8 10^3/uL (1.2-3.4); Absolute Monocytes 2.1 10^3/uL (0.1-0.6); Hematocrit 25.5 % (39.0-52.0); Hemoglobin 8.3 g/dL (13.0-18.0); Mean Corp Hgb Conc. 32.5 g/dL (33.0-37.0); Mean Corpuscular Hgb 33.9 pg (27.0-31.0); Mean Corpuscular Volume 104.1 fL (80.0-94.0); Mean Platelet Volume 11.7 fL (7.4-10.4); Nucleated Red Blood Cells % 0 % (-); Platelet Count 54 10^3/uL (130-400); Red Blood Cell Count 2.45 10^6/uL (4.70-6.10); Red Cell Dist. Width 16.2 % (11.5-14.5)
[2025-03-24] MEDS: DUONEB 3 ML INH (07:11)
[2025-03-24] MEDS: PULMICORT 0.5 MG INH (07:11)
[2025-03-24 07:21] LABS: Troponin I 0.046 ng/ml
[2025-03-24 07:55] LABS: Absolute Neutrophils -Man Diff 2.6 10^3/uL (1.4-6.5); Anisocytosis 1+; Band Neutrophils 0 % (0-3); Eosinophils 2 % (0-6); Lymphocytes 22 % (20-51); Macrocytosis Slight; Monocytes 24 % (2-9); Normal RBC Morphology No; Platelets Checked Yes; Segmented Neutrophils 52 % (42-75); Total Cells Counted 100
[2025-03-24] MEDS: KCL 20 MEQ PO (07:59)
[2025-03-24] MEDS: VITAMIN B1 100 MG PO (07:59)
[2025-03-24] MEDS: CRESTOR 20 MG PO (08:00)
[2025-03-24] MEDS: NEURONTIN 300 MG PO (08:00)
[2025-03-24] MEDS: MIRALAX 17 GRAMS PO (08:00)
[2025-03-24] MEDS: FLOMAX 0.4 MG PO (08:00)
[2025-03-24] MEDS: ROXICODONE 10 MG PO (08:00)
[2025-03-24] MEDS: ELIQUIS 5 MG PO (08:00)
[2025-03-24] MEDS: PROTONIX 40 MG PO (08:00)
[2025-03-24] MEDS: TYLENOL 325 MG PO (08:00)
[2025-03-24 08:12] LABS: Blood Urea Nitrogen 19 mg/dl (9-20); Carbon Dioxide 36 mmol/L (22-30); Chloride 94 mmol/L (98-107); Estimated Creatinine Clearance 60 ml/min; Glucose 98 mg/dl (70-99); Potassium 3.5 mmol/L (3.5-5.1); Sodium 136 mmol/L (135-145); eGFR > 60.00
--- NOTE | 2025-03-24 08:31 | W.PN.CD ---
Today's Communication / Plan
-
Replete K
Safe for discharge today from CV perspective
Resume spironolactone
Continue torsemide 40 mg twice daily
Exacerbation seems to be triggered by chemo. He is due for chemo again in 3 weeks. I advised him to monitor his weight closely around that time and call us if it is increasing. No change to daily diuretics.
Impression / Plan
-
I/P: 74M with CAD s/p inferior STEMI 05/2022 unable to PCI RCA (med management), paroxysmal atrial fibrillation status post ablation (True, 2021), chronic HFpEF, mild/mod MR, mild AR, HTN, hyperlipidemia, COPD/pulmonary fibrosis 4L NC oxygen,
severe pulmonary hypertension, former smoker (quit 2005), and MDS with chronic anemia, is admitted with history of shortness of breath.
Outpatient body press operator: Dr. Toussaint
HFpEF, acute on chronic, severe requiring hospitalization
- TTE unchanged this admission
- Now euvolemic after IV diuresis. Dry weight today is 150 pounds. Resume torsemide 40 mg twice daily.
- Exacerbation seems to be triggered by chemo. He is due for chemo again in 3 weeks. I advised him to monitor his weight closely around that time and call us if it is increasing. No change to daily diuretics.
- Resume spironolactone
- SGLT2 is cost prohibitive
- Heart failure education
Abnormal troponin, likely nonischemic myocardial injury in the setting of acute on chronic heart failure
- Peak 0.100 on arrival, now flat
- Chest pain-free
CAD
- Stable without chest pain
- Inferior STEMI 05/2022, unable to PCI RCA, medical management
- Not on ASA, on apixaban for paroxysmal atrial fibrillation
Paroxysmal atrial fibrillation
- In sinus rhythm on telemetry
- Oral anticoagulation: Apixaban 5 mg twice daily, will hold if platelets trend below 50
- [id number] score of 5
MDS, on Venclexta and Vidaza, followed by [facility] and Dr. Ramirez ([place])
Anemia of chronic disease
Pulmonary hypertension, type III, due to IPF, on continuous oxygen
COPD
Former smoker
Dyslipidemia, on rosuvastatin
SUBJECTIVE:
Has some pain this morning, but ankle edema and shortness of breath vastly improved.
Telemetry: [facility]
DATA:
Transthoracic echocardiogram, 11/09/2024:
CONCLUSIONS
Normal left ventricular size and systolic function. LVEF 55-60%.
Hypokinesis of the inferior, inferoseptal, and inferolateral gallegos.
Mildly enlarged right ventricle with mildly reduced systolic function.
Top normal pulmonary artery pressures (PASP 36 mmHg).
Compared to prior echocardiogram on 10/30/2024, the endocardium is not as well-
visualized on today's study, however on ehjt-ds-hkmk comparison wall motion
appears relatively stable. Degree of valvular regurgitation has decreased.
PASP has decreased from 70 mmHg to 36 mmHg.
Physical Exam
Vital Signs/Labs
Vital Signs
Temp Pulse Resp BP Pulse Ox
98.5 F 72 16 126/61 97
03/24/25 02:56 03/24/25 07:11 03/24/25 07:11 03/24/25 02:56 03/24/25 07:11
03/23/25 03/24/25 03/25/25
06:59 06:59 06:59
Actual Weight 152 lb 6 oz 150 lb 4 oz
03/24/25 06:42
03/24/25 06:42
Magnesium 1.8 mg/dl (1.6-2.3) 03/23/25 03:55
Triglycerides Cancelled 03/23/25 03:55
LDL Cholesterol, Calc Cancelled 03/23/25 03:55
VLDL Cholesterol, Calc Cancelled 03/23/25 03:55
HDL Cholesterol Cancelled 03/23/25 03:55
03/22/25
14:56
Ioh-Z-Abfdsuynfny Pept 51020
LAB Results
03/22/25 03/22/25 03/23/25
14:56 22:25 03:55
Troponin I 0.100 H* 0.067 H* D 0.076 H*
03/23/25 03/24/25
09:18 06:42
Troponin I 0.078 H* 0.046 H*
Physical Exam
Constitutional: No acute distress and Comfortable
Cardiovascular: Rhythm & rate is regular, Pedal edema is absent, S1S2 is normal and Murmur/rub/gallop absent
Respiratory: Respiratory effort normal and Lungs clear to auscul.
Neuro/Psych: AO x 3
Data Reviewed
-
Date of Service: March 24, 2025
Medical Decision Making: Reviewed Test Results, Independent Historian Assessment, Test Interpretation and Review of Case with other Provider
EKG: Tracing Personally Visualized and interpreted
Echo: Report Reviewed by me
X-Ray/CT/US/MRI/NUC/PET: Report Reviewed by me
Labs: Labs Reviewed by me
[2025-03-24 08:50] VITALS: BP 102/71; PULSE 80; O2SAT 98
[2025-03-24] MEDS: ALDACTONE 25 MG PO (10:12)
[2025-03-24 11:00] VITALS: BP 107/69
--- NOTE | 2025-03-24 12:46 | W.DS.TRANS ---
DC Summary - Transitional Nurse
-
Discharge Instructions:
Sleep Apnea Risk Intermediate
Discharge Diagnosis/Procedures Acute CHF
Diet 2 Gram Sodium
Instructions: *[facility] Heart Failure Instructions
Stand-Alone Forms:
Changes to Home Medications: Yes
Discharge Medications:
DC Medications w/original date entered in [facility]
pantoprazole 40 mg tablet,delayed release 40 mg PO DAILY #30 tabs 05/29/22
apixaban 5 mg tablet 5 mg PO BID Blood clot prevention/tx 09/22/22
ascorbic acid (vitamin C) 1,000 mg tablet (Vitamin C) 1,000 mg PO DAILY Supplement 11/19/22
thiamine HCl (vitamin B1) 100 mg tablet 100 mg PO DAILY Supplement 11/07/23
gabapentin 300 mg capsule 300 mg PO TID Neurological Condition 11/07/24
potassium chloride 20 mEq tablet,extended release 20 meq PO BID #20 tabs 11/10/24
tamsulosin 0.4 mg capsule 0.4 mg PO DAILY #30 caps 11/10/24
budesonide 0.5 mg/2 mL suspension for nebulization 0.5 mg inhalation R DAILY 03/22/25
ipratropium 0.5 mg-albuterol 3 mg (2.5 mg base)/3 mL nebulization soln 3 ml inhalation R DAILY Lung/Breathing Issues 03/22/25
ondansetron HCl 8 mg tablet 8 mg PO [id number] PRN take before treatment 03/22/25
oxycodone-acetaminophen 10 mg-325 mg tablet 1 tab PO TID Pain 03/22/25
polyethylene glycol 3350 17 gram oral powder packet 17 g PO DAILY Constipation 03/22/25
rosuvastatin 20 mg tablet 20 mg PO DAILY High Cholesterol 03/22/25
sennosides 8.6 mg-docusate sodium 50 mg tablet (Senna-S) 1 tab-cap PO HS Constipation 03/22/25
torsemide 20 mg tablet 40 mg PO BID Fluid Retention/Swelling 03/22/25
spironolactone 25 mg tablet 25 mg PO DAILY #30 tabs 03/24/25
Home Medication Changes
Aldactone initiated
Pending Results: No
--- NOTE | 2025-03-24 13:19 | CM ---
Patient is stable for d/c today.
Therapy assessed- recommending home PT likely. Discussed w/ patient who shared he doesn't want this service right now, shared he wants to get settled and will follow up w/ his PCP to set this up. Patient shared he was looking into home therapy prior
to hospitalization because he agrees that he needs it.
Patient stated he drove himself to hospital and is comfortable driving home.
IMM verbally reviewed, patient declined copy, copy placed on chart
Plan: Home; no needs
[2025-03-24 15:18] VITALS: BP 105/61
--- NOTE | 2025-03-25 10:01 | PN.CDI ---
CDI
- -
CDI:
Physician Documentation Request
Admit Date: 03/22/25 19:53
Dear Doctor Isaak,
Patient admitted with heart failure. History of pulmonary fibrosis.
H&P states patient intermittently uses 4L oxygen
03/23 progress note includes 'Acute on chronic hypoxic respiratory failure ...patient is on home o2 prior to presentation'
Documented vital signs show patient anywhere from 4 to 2 L of oxygen use during hospitalization.
Please clarify the patients respiratory status:
Hypoxia -On 4 L intermittently
Acute on Chronic hypoxia respiratory failure - patient uses ___ L at home continuously and this use was increased during hospitalization.
Chronic hypoxic respiratory failure- pt uses ____ liters at home continuously, no increase use since hospitalization
Other
Use of terms such as suspected, likely, concern for, or probable (associated with a specific diagnosis that is being evaluated, monitored, or treated as if it exists) are acceptable and can be coded in the inpatient setting, when documented at the
time of discharge.
Thank you,
Alayna Rodriguez RN, BSN
CDI Specialist
tiger text
Please use your independent medical judgment in providing your response.
--- NOTE | 2025-03-25 10:22 | PN.CDI ---
CDI
- -
CDI:
Physician Documentation Request
Admit Date: 03/22/25 19:53
Dear Doctor Isaak,
Patient admitted for management of heart failure.
Troponin noted to be elevated.
Hospitalist note states 'Non-ME troponin elevation'
Cardiology note states 'Abnormal troponin, likely nonischemic myocardial injury in the setting of acute on chronic heart failure'
In an attempt to clarify potentially conflicting documentation, please clarify the diagnosis associated with the elevated troponin:
non ischemic myocardial injury
Non-myocardial infarction troponin elevation.
Other
Use of terms such as suspected, likely, concern for, or probable (associated with a specific diagnosis that is being evaluated, monitored, or treated as if it exists) are acceptable and can be coded in the inpatient setting, when documented at the
time of discharge.
Thank you,
Alayna Rodriguez RN, BSN
CDI Specialist
tiger text
Please use your independent medical judgment in providing your response.
--- NOTE | 2025-03-26 10:22 | W.HF.CON ---
Heart Failure
- LV Function
Left ventricular function study result: LV Ejection fraction >/= 50%
Ejection Fraction Percentage: 55-60
- ARNI
Patient already on ARNI: No
Heart Failure ARNI Not Indicated: LV Ejection Fraction >/= 40%
- ACEI/ARB
Patient already on ACEI/ARB: No
Heart Failure ACEI/ARB Not Indicated: LV Ejection Fraction > 40%
- Beta Lavelle
Patient already on Evidence Based Beta Lavelle: No
Heart Failure Evidence Based Beta Lavelle Not Indicated: LV Ejection Fraction > 40%
- Mineralocorticord Receptor Antagonist
Patient already on MRA: Yes
- SGLT-2 Inhibitor
Patient already on SGLT-2 Inhibitor: No
Heart Failure SGLT-2 Inhibitor Contraindication: Patient Refusal
- Afib Anticoagulation
Patient already on Anticoagulation for Afib: Yes
- NYHA CHF Classification
NYHA CHF Classification Level: Class III - Symptoms w/ min exertion, interferes w/ nml daily activity
- ACC/AHA Stage
ACC/AHA Stage: Stage C: Symptomatic Heart Failure
--- NOTE | 2025-03-30 14:58 | HFEDUCATE ---
Pt had F/U appt on 03/25/25 at 1:[address] Domo Ni MD.
== END 2025-03-24 16:42 | disposition home or self-care (01) | DRG 291 ==
LOC: 4 WEST ACU 19:53
PROVIDERS: Emergency Medicine; Nurse Practitioner Family; ADMITTING PHYSICIAN Hospitalist; ATTENDING PHYSICIAN Internal Medicine; CONSULT PHYSICIAN Internal Medicine Cardiovascular Disease; EMERGENCY PHYSICIAN Emergency Medicine; FAMILY PHYSICIAN Physician Assistant Medical
DX: I11.0 Hypertensive heart disease with heart failure (principal); I50.33 Acute on chronic diastolic (congestive) heart failure; J96.21 Acute and chronic respiratory failure with hypoxia; F11.20 Opioid dependence, uncomplicated; I25.10 Atherosclerotic heart disease of native coronary artery without angina pectoris; I48.0 Paroxysmal atrial fibrillation; D46.9 Myelodysplastic syndrome, unspecified; I27.29 Other secondary pulmonary hypertension; J84.112 Idiopathic pulmonary fibrosis; G89.4 Chronic pain syndrome; J44.9 Chronic obstructive pulmonary disease, unspecified; Z87.891 Personal history of nicotine dependence; Z79.51 Long term (current) use of inhaled steroids; Z79.01 Long term (current) use of anticoagulants
CPT/HCPCS: 93308; 71045; 80048; 80053; 80061; 82607; 82728; 82746; 83540; 83550; 83735; 83880; 84484; 85025; 85027; 86850; 86900; 86901; 93005; 94640; 96374; 97163; 99285

== ENCOUNTER 2025-05-07 10:18 | Emergency (ER) | payer MEDICARE, SELFPAY ==
[2025-05-07 10:20] VITALS: BP 112/71
[2025-05-07 11:09] VITALS: BMI 25.1
[2025-05-07 11:17] LABS: Hematocrit 23.6 % (39.0-52.0); Hemoglobin 7.6 g/dL (13.0-18.0); Mean Corp Hgb Conc. 32.2 g/dL (33.0-37.0); Mean Corpuscular Hgb 32.6 pg (27.0-31.0); Mean Corpuscular Volume 101.3 fL (80.0-94.0); Red Blood Cell Count 2.33 10^6/uL (4.70-6.10); Red Cell Dist. Width 16.8 % (11.5-14.5); White Blood Cell Count 3.7 10^3/uL (4.8-10.8)
[2025-05-07 11:41] LABS: Troponin I 0.019 ng/ml
--- NOTE | 2025-05-07 11:44 | ED.GENMED ---
History of Present Illness
General
Chief Complaint: Abnormal Lab Value
Source: patient
Exam Limitations: none
Time Seen by Provider: 05/07/25 10:48
Nursing documentation reviewed up to this point in time: agreed with
History of Present Illness
History of Present Illness:
Patient with history of myelodysplastic syndrome, with ongoing anemia, who has required blood transfusion in the past, presents to ED after outpatient blood work ordered by his primary care physician 2 days ago revealed recurrent anemia. Patient
states that he did receive a new medication via injection at [facility] office on Saturday, to boost his anemia. Since then he feels as though he feels a bit improved overall. However, patient does still report intermittent episodes of fatigue and
weakness. Denies shortness of breath. Denies fever or chills. Denies chest pain. Denies headache or dizziness. Denies nausea or vomiting. Denies increased weight gain. Denies recent change in diet.
Past History
Past History
ED Past Medical History: Arrthythmia, CAD, Cancer (Myelodysplastic Syndrome), CHF, COPD, HTN, Hypercholesterolemia, [place] and Other (PNA)
ED Past Surgical History: Cardiac, Orthopedic (laminectomy) and Tonsilectomy
Social History
Tobacco: Former smoker
Alcohol: Occasional
Drug: None
Personal:
Living: alone
Employment: Employed
Family History
Family History: Other
Review of Systems
Review of Systems
Allergies reviewed?: Yes
All Other Systems: ROS reviewed and negative except as documented in HPI and ROS
Constitutional: Reports fatigue; Denies fever
Respiratory: Reports no symptoms; Denies trouble breathing
Cardiac: Reports no symptoms; Denies chest pain
ABD/GI: Reports no symptoms
Musculoskeletal: Reports no symptoms; Denies edema
Skin: Reports no symptoms
Neurological: Reports weakness; Denies dizzy or headache
Phy Exam
Physical Exam
Physical Exam:
Physical Exam
General: no apparent distress, not acutely ill. afebrile. weak appearing
Head: nc/at. eomi
Neck: supple. no meningeal signs.
Lungs: no acute respiratory distress. mild crackles bilaterally
Abdomen: normal bowel sounds. not tender.
Neuro: alert and oriented x 3. no focal neurological deficits
Skin: no rash
Psychiatric: well kept. interactive and cooperative
Extremities: no edema. no calf tenderness.
Course
Orders/Labs/Results
Orders:
Orders
05/07/25 10:50
IV Insert/Care/Rem.- Treatment PRN
05/07/25 11:05
Type+Screen Urgent
Basic Metabolic Panel Urgent
Complete Blood Count/With Diff Urgent
Manual Differential Urgent
05/07/25 11:06
Electrocardiogram (*1) Urgent
Reason for Study: Chest Pain
EKG- Treatment ONCE
05/07/25 11:07
Troponin I Urgent
05/07/25 12:12
Furosemide [Lasix] 20 mg IV NOW STA
05/07/25 12:13
* Blood Bank Products Urgent
Blood Bank Products: *Packed RBC Leuko(PRBC's)
Quantity: 1
Transfuse Today: Yes
Reason: Anemia
IV Insert/Care/Rem.- Treatment PRN
05/07/25 13:20
Oxycodone [Roxicodone] 10 mg PO NOW STA
Abnormal Lab Results
05/07/25
11:05
WBC 3.7 L 10^3/uL
(4.8-10.8)
RBC 2.33 L 10^6/uL
(4.70-6.10)
Hgb 7.6 L g/dL
(13.0-18.0)
Hct 23.6 L %
(39.0-52.0)
MCV 101.3 H fL
(80.0-94.0)
MCH 32.6 H pg
(27.0-31.0)
MCHC 32.2 L g/dL
(33.0-37.0)
RDW 16.8 H %
(11.5-14.5)
Plt Count 64 L 10^3/uL
(130-400)
Lymphocytes (Manual) 12 L %
(20-51)
Monocytes (Manual) 32 H %
(2-9)
BUN 37 H mg/dl
(9-20)
Glucose 106 H mg/dl
(70-99)
Crossmatch IS Only See Detail
05/07/25 11:05
05/07/25 11:05
Vital Signs
Initial and Last Documented VS:
Initial Vital Signs
Temp Pulse Resp BP Pulse Ox
98.4 F 77 16 112/71 98
05/07/25 10:20 05/07/25 10:20 05/07/25 10:20 05/07/25 10:20 05/07/25 10:20
Last Documented Vital Signs
Temp Pulse Resp BP Pulse Ox
98.2 F 61 15 122/77 93
05/07/25 15:35 05/07/25 15:35 05/07/25 15:35 05/07/25 15:35 05/07/25 15:35
MDM/Problems Addressed
MDM/Problems Addressed:
Blood work reviewed, significant for recurrent anemia. After discussion with patient, decision made to offer blood transfusion. Afterwards, patient will follow-up with his equity research associate at [facility] for continual evaluation and treatment.
In light of patient's congestive heart failure history along with crackles noted on exam, patient will be given 20 mg Lasix IV prior to blood transfusion.
1 L of urine output noted prior to initiation of blood transfusion.
Blood transfusion consent on the chart. Patient tolerated blood transfusion without any complications. Patient remains hemodynamically stable.
*EKG
EKG Intrepretation Date: 05/07/25
Heart Rate: 64
Rate: normal
Rhythm: sinus and sinus arrhythmia
[place]: normal axis
Interval: normal interval
*Critical Care Note
Total Time (30-74mins, 75-104mins- exclusive of procedures): Not Applicable
ED Attending Note
-
Portions of this chart may have been created with voice recognition software.� Occasional wrong word or��sound alike� substitutions may have occurred due to the inherent limitations of voice recognition software.
Discharge Plan
Departure
Patient Disposition: Home (Routine Discharge)
Date of Disposition: 05/07/25
Time of Disposition: 15:13
Patient with high blood pressure during this ER visit?: No
Condition: Good
Discharge Problem:
Anemia
Instructions: Myelodysplastic syndromes (MDS)
Prescriptions:
No Action
pantoprazole 40 MG tablet,delayed release (DR/EC)
40 mg PO DAILY Qty: 30 3RF
apixaban 5 mg Tablet
5 mg PO BID
ascorbic acid (vitamin C) [Vitamin C] 1,000 mg Tablet
1,000 mg PO DAILY
thiamine HCl (vitamin B1) 100 mg tablet
100 mg PO DAILY
gabapentin 300 mg Capsule
300 mg PO TID
potassium chloride 20 mEq tablet extended release
20 meq PO BID Qty: 20 0RF
torsemide 20 mg Tablet
40 mg PO BID
oxycodone-acetaminophen 10-325 mg Tablet
1 tab PO TID
polyethylene glycol 3350 17 gram powder in packet
17 g PO DAILY
budesonide 0.5 mg/2 mL suspension for nebulization
0.5 mg inhalation R DAILY
rosuvastatin 20 mg tablet
20 mg PO DAILY
sennosides-docusate sodium [Senna-S] 8.6-50 mg Tablet
1 tab-cap PO HS
ipratropium-albuterol 0.5 mg-3 mg(2.5 mg base)/3 mL Solution For Nebulization
3 ml INHALATION R DAILY
ondansetron HCl 8 mg Tablet
8 mg PO [id number] PRN (Reason: take before treatment)
spironolactone 25 mg Tablet
25 mg PO DAILY Qty: 30 0RF
tamsulosin 0.4 mg Capsule
0.4 mg PO DAILY Qty: 30 0RF
Referrals:
Edison Light PA-C [Family Provider, Family Practice]
Activity Restrictions/Additional Instructions:
As discussed, please follow-up with your equity research associate for continual evaluation and treatment. In ED, you received 20 mg Lasix IV, followed by 1 unit of blood transfusion, secondary to worsening anemia with intermittent fatigue and weakness.
Interventions
Interventions:
*Risk Screen - Suicide Last Done: 05/07/25 10:20
*Neglect/Abuse Screening Last Done: 05/07/25 10:20
*Nursing Disposition Last Done: 05/07/25 16:01
Discharge Date and Time
Discharge Date/Time: 05/07/25 16:02
Print Language: CZECH
[2025-05-07 11:46] LABS: Blood Urea Nitrogen 37 mg/dl (9-20); Calcium 9.1 mg/dl (8.4-10.2); Carbon Dioxide 27 mmol/L (22-30); Chloride 99 mmol/L (98-107); Estimated Creatinine Clearance 52 ml/min; Glucose 106 mg/dl (70-99); Potassium 3.7 mmol/L (3.5-5.1); Sodium 135 mmol/L (135-145); eGFR > 60.00
[2025-05-07 12:10] LABS: Platelet Count 64 10^3/uL (130-400)
[2025-05-07 12:11] LABS: Band Neutrophils 2 % (0-3); Lymphocytes 12 % (20-51); Monocytes 32 % (2-9); Normal RBC Morphology Yes; Platelets Checked Yes; Segmented Neutrophils 54 % (42-75); Total Cells Counted 100
[2025-05-07] MEDS: LASIX 20 MG IV (12:16)
[2025-05-07 13:08] VITALS: BP 117/72
[2025-05-07 13:25] VITALS: BP 112/67
[2025-05-07] MEDS: ROXICODONE 10 MG PO (13:29)
[2025-05-07 15:35] VITALS: BP 122/77
== END 2025-05-07 16:02 | disposition home or self-care (01) ==
LOC: EMR 10:18
PROVIDERS: EMERGENCY PHYSICIAN Emergency Medicine; FAMILY PHYSICIAN Physician Assistant Medical
DX: D46.9 Myelodysplastic syndrome, unspecified (principal); I25.10 Atherosclerotic heart disease of native coronary artery without angina pectoris; E78.00 Pure hypercholesterolemia, unspecified; I11.0 Hypertensive heart disease with heart failure; I50.9 Heart failure, unspecified; J44.9 Chronic obstructive pulmonary disease, unspecified; Z87.01 Personal history of pneumonia (recurrent); Z87.891 Personal history of nicotine dependence
CPT/HCPCS: 99283; 36430; 96374; 80048; 84484; 85025; 86850; 86900; 86901; 86920; 93005; P9016

== ENCOUNTER 2025-08-07 14:11 | Inpatient (IN) | payer MEDICARE, SELFPAY ==
[2025-08-07] VITALS (11 sets, daily range): BP systolic 90–125; BP diastolic 59–95; PULSE 70–74; O2SAT 91
--- NOTE | 2025-08-07 09:09 | ED.GENMED ---
History of Present Illness
General
Chief Complaint: Weakness
Source: patient
Exam Limitations: none
Time Seen by Provider: 08/07/25 08:53
History of Present Illness
History of Present Illness:
74yoM with a history of atrial fibrillation, coronary artery disease, CHF, COPD, hypertension, hyperlipidemia, myelodysplastic syndrome, chronic pain on oxycodone, and chronic Collins catheter presenting for evaluation of generalized weakness.
Patient reports a gradual decline in health over the past month or so. He has 24 steps to get into his apartment and is now having to take a break while going up the steps. He has lost approximately 12 pounds throughout the past month. He also
reports some blurry vision and feels that something is 'clouding his vitreous.' He has been seen by his rules examiner for this and eye exam was reportedly normal. He reports that his dyspnea is mildly worse than normal. He was at the grocery
store yesterday and had to sit down due to feeling weak and off balance. He denies any dizziness, syncope, falls, chest pain, fevers, vomiting, diarrhea. He lives alone in an apartment and ambulates independently. 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
Past History
Past History
ED Past Medical History: Arrthythmia, CAD, Cancer (Myelodysplastic Syndrome), CHF, COPD, HTN, Hypercholesterolemia, [place] and Other (PNA)
ED Past Surgical History: Cardiac, Orthopedic (laminectomy) and Tonsilectomy
Social History
Tobacco: Former smoker
Alcohol: Occasional
Drug: None
Personal:
Living: alone
Employment: Employed
Family History
Family History: Other
Phy Exam
General Physical Exam
General Presentation: well appearing and no apparent distress
General Skin: warm and dry
General Habitus: elderly and frail
General Mental: alert
ENT Exam
ENT Exam: normocephalic
Cardiovascular Exam
Cardiovascular Exam: regular rate/rhythm, no edema and systolic murmur
Pulmonary Exam
Pulmonary Exam: no respiratory distress, no crackles, no stridor and other (Scant wheezes and cough noted. No signs of respiratory distress. )
Gastrointestinal Exam
Gastrointestinal Exam: non tender, soft and non distended
Genitourinary Exam Male
Exam Male: other (Collins catheter draining clear yellow urine)
Neurological Exam
Neurological Exam: alert
[place] Coma Scale
Eye Opening: Spontaneous
Verbal Response: Oriented
Motor Response: Obeys Commands
GCS Total Score: 15
Skin Exam
Skin Exam: normal color and warm/dry
Psychiatric Exam
Psychiatric Exam: normal mood/affect
Course
Orders/Labs/Results
Orders:
Orders
08/07/25 08:51
EKG [Electrocardiogram (*1)] Urgent
Reason for Study: Chest Pain
EKG- Treatment ONCE
08/07/25 09:09
CT Head W/o Iv Contrast Urgent
Comment:
Reason For Exam: balance problems
CR Chest - 2 Views Urgent
Comment:
Reason For Exam: SOB
08/07/25 09:13
Comprehensive Metabolic Panel Urgent
08/07/25 09:14
Complete Blood Count/With Diff Urgent
Manual Differential Urgent
NT-proBNP Urgent
TSH Reflex To Free T4 Urgent
Troponin I Urgent
08/07/25 10:39
0.9% Sodium Chloride 500 ml [Nss] 500 ml IV BOLUS
Potassium Chloride [KCl] 40 meq PO NOW STA
08/07/25 11:38
Case Management Consult ONCE
Case Management Consult: Discharge Planning
Pt Eval And Treat Urgent
Treatment: eval for rehab needs
Activity Level: Out of Bed- Ad Shira
08/07/25 11:45
OT Consult [Ot Eval And Treat] Urgent
08/07/25 13:07
Oxycodone/Acetaminophen [Percocet 5/325] 2 tablet PO NOW STA
08/07/25 13:33
Admit/Transfer Patient As Directed
Co-Sign Provider:
Level of Care: Inpatient admission
Assign to:: Telemetry
Physician / Group: adam
Diagnosis: hypovolemia , le[place]
Reason for Telemetry: Arrhythmia
Date to Stop Telemetry: 08/10/25
Time to Stop Telemetry: 11:00
Reason for Hospitalization: hypovolemia, lebron
Expected length of stay greater than two midnights?: Yes
ELOS- Estimated Length of Stay in days: 2
I certify the patient meets the requirements for IP care: Yes
PRN Pain Medication Management As Directed
May give lesser potent ordered pain med per pt: Yes
preference::
Protocol:: Medication orders for pain may be administered in a
manner that supports deferring to patient preference
when the pt is:
- Requesting an ordered lesser potent pain medication.
Least to most potent pain medications are defined
as: acetaminophen < NSAID < tramadol < opioids
(morphine, oxycodone, hydromorphone).
- Requesting a lesser dose of the same medication IF
ORDERED.
- Requesting a less intrusive route of administration
if both routes are prescribed by the provider (PO <
IV).
08/07/25 13:34
Code Status As Directed
Resuscitation Status: Full Code
08/07/25 13:45
Magnesium Routine
08/07/25 Dinner
Cholesterol Lowering
At Your Request: Limited Participation
Does patient need a safe tray?: No
Cholesterol Lowering: Sodium, 2 Gram
08/07/25 15:32
0.9% Sodium Chloride 1000 ml [Nss] 1,000 ml IV 100 mls/hr
Ipratropium/Albuterol Sulfate [Duoneb] 3 ml INH R Q4HPRN PRN
08/07/25 15:32
VTE Contraindication Routine
VTE Mechanical Device Contraindication: Medical Contraindication
Pharmocologic Contraindication: Medical Contraindication
Urinalysis Reflex To Culture Routine
Activity As Directed
Activity Level: As Tolerated
Vital Signs As Directed
Frequency: Per unit guidelines
08/08/25 06:00
Complete Blood Count/With Diff IN AM
Comprehensive Metabolic Panel IN AM
08/10/25 11:00
DC Protocol for Telemetry ONCE
Abnormal Lab Results
08/07/25 08/07/25
09:13 09:14
WBC 4.3 L 10^3/uL
(4.8-10.8)
RBC 2.40 L 10^6/uL
(4.70-6.10)
Hgb 8.3 L g/dL
(13.0-18.0)
Hct 26.4 L %
(39.0-52.0)
MCV 110.0 H fL
(80.0-94.0)
MCH 34.6 H pg
(27.0-31.0)
MCHC 31.4 L g/dL
(33.0-37.0)
RDW 21.9 H %
(11.5-14.5)
Plt Count 54 L 10^3/uL
(130-400)
MPV 12.5 H fL
(7.4-10.4)
Band Neutrophils 6 H %
(0-3)
Lymphocytes (Manual) 14 L %
(20-51)
Monocytes (Manual) 31 H %
(2-9)
Potassium 3.3 L mmol/L
(3.5-5.1)
Chloride 95 L mmol/L
(98-107)
Carbon Dioxide 32 H mmol/L
(22-30)
BUN 36 H mg/dl
(9-20)
Creatinine 1.5 H mg/dL
(0.7-1.3)
Glucose 104 H mg/dl
(70-99)
08/07/25 09:14
08/07/25 09:13
Vital Signs
Initial and Last Documented VS:
Initial Vital Signs
Temp Pulse Resp Pulse Ox
97.6 F 75 18 94
08/07/25 08:36 08/07/25 08:36 08/07/25 08:36 08/07/25 08:36
Last Documented Vital Signs
Temp Pulse Resp BP Pulse Ox
97.6 F 77 16 92/66 96
08/07/25 15:25 08/07/25 15:25 08/07/25 15:25 08/07/25 15:25 08/07/25 15:25
MDM/Problems Addressed
Differential Diagnosis Includes:
74yoM here with a gradual decline in health x 1-2 months with malaise, weight loss, and difficulty ambulating. Multiple medical comorbidities including COPD, MDS, CHF. VSS. He is frail on exam but non-toxic. Differential diagnosis includes but is
not limited to: failure to thrive, LEBRON, electrolyte abnormality, symptomatic anemia
Initial ED plan: Check cardiac labs, TSH, EKG, CXR, and CT head.
*Pulse Oximetry
SaO2: 94
Patient hypoxic: no (94%)
*EKG
Interpreted by ED Provider?: Yes
EKG Intrepretation Date: 08/07/25
Heart Rate: 66
Rate: normal
Rhythm: sinus
[place]: normal axis
Interval: normal interval
QRS Pattern: normal QRS
Ischemia: no ischemia
*Critical Care Note
Total Time (30-74mins, 75-104mins- exclusive of procedures): Not Applicable
Update Note
Update Note:
Labs reveal a creatinine of 1.5, up from baseline around 1. Potassium 3.3 which was replaced. Pancytopenia noted which is consistent with prior labs. EKG shows normal sinus rhythm without ischemic changes and both troponin and BNP are within
normal limits. Chest x-ray clear and CT head negative for acute findings. Patient was evaluated by physical therapy. He did become orthostatic during the PT session and blood pressure dropped to 90/59 while standing. Oxygen saturations 86 to 88%
with ambulation for PT although are normal while resting. PT recommending SNF. 500cc IV fluid bolus ordered and patient admitted for further management.
ED Attending Note
-
Portions of this chart may have been created with voice recognition software.� Occasional wrong word or��sound alike� substitutions may have occurred due to the inherent limitations of voice recognition software.
Discharge Plan
Departure
Patient Disposition: Admit
Date of Disposition: 08/07/25
Time of Disposition: 13:11
Presentation/result/management discussed w/ accepting MD/DO: Hospitalist
Discharge Problem:
Ambulatory dysfunction, Acute kidney injury
Interventions
Interventions:
*Risk Screen - Suicide Last Done: 08/07/25 08:37
*General Assessment Last Done: 08/07/25 10:00
*Neglect/Abuse Screening Last Done: 08/07/25 10:00
*ED- Fall Risk Assessment Last Done: 08/07/25 10:00
*ED COVID-19 Vaccine History Last Done: 08/07/25 15:51
*Nursing Disposition Last Done: 08/07/25 15:28
ED- Cardiac Assessment Last Done: 08/07/25 10:00
ED- Neurological Assessment Last Done: 08/07/25 10:00
ED- Pulmonary Assessment Last Done: 08/07/25 10:00
Discharge Date and Time
Discharge Date/Time: 08/07/25 15:28
[2025-08-07 10:35] LABS: Hematocrit 26.4 % (39.0-52.0); Hemoglobin 8.3 g/dL (13.0-18.0); Mean Corp Hgb Conc. 31.4 g/dL (33.0-37.0); Mean Corpuscular Volume 110.0 fL (80.0-94.0); Platelet Count 54 10^3/uL (130-400); Red Cell Dist. Width 21.9 % (11.5-14.5)
[2025-08-07 10:36] LABS: ALT (SGPT) < 10 U/L (0-50); AST (SGOT) 28 U/L (17-59); Albumin 4.4 g/dl (3.5-5.0); Alkaline Phosphatase 72 U/L (38-126); Blood Urea Nitrogen 36 mg/dl (9-20); Calcium 9.0 mg/dl (8.4-10.2); Carbon Dioxide 32 mmol/L (22-30); Chloride 95 mmol/L (98-107); Glucose 104 mg/dl (70-99); Potassium 3.3 mmol/L (3.5-5.1); Sodium 136 mmol/L (135-145); Total Protein 7.1 g/dl (6.3-8.2); eGFR 48.25
[2025-08-07 10:40] LABS: Troponin I 0.030 ng/ml
[2025-08-07] MEDS: NSS 500 IV (11:41)
[2025-08-07] MEDS: KCL 40 MEQ PO (11:47)
[2025-08-07 11:59] LABS: Absolute Neutrophils -Man Diff 2.2 10^3/uL (1.4-6.5)
[2025-08-07 12:00] LABS: Platelets Checked YES
[2025-08-07 12:01] LABS: Normal RBC Morphology No
[2025-08-07 12:02] LABS: Anisocytosis +1; Macrocytosis +1
[2025-08-07 12:03] LABS: Target Cells FEW
[2025-08-07 12:04] LABS: Microcytosis Slight
[2025-08-07 12:05] LABS: Total Cells Counted 100
--- NOTE | 2025-08-07 12:31 | CM ---
CM received consult, reviewed chart and met with pt bedside in ED. Pt lives alone in second floor apartment, 24 steps to enter.
Independent in ADLs, personal care and ambulation at baseline. No assistive devices.
Still drives, he drove to the hospital. 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
Pt has home O2 he uses as needed, has been wearing 3L over past several days.
He does have a friend (Veronica) who assists him, no local family, sister lives in [facility].
hx VN in past, no hx SNF, home PT was recommended during last admission in March but he declined.
PCP: Celia Archer
Pharmacy: [facility]
CM will continue to follow for all discharge planning needs.
[2025-08-07] MEDS: PERCOCET 5/325 2 TABLET PO ×3 (13:15→21:04)
--- NOTE | 2025-08-07 13:36 | HPS.HSE ---
Family Physician
-
Family Physician: Celia Jewell
Chief Complaint
-
weakness
History of Present Illness
74-year-old male past medical history of CAD, paroxysmal atrial fibrillation on Eliquis, CHF, myelodysplastic syndrome on Vidaza, pulmonary hypertension, idiopathic pulmonary fibrosis, COPD, former smoker, hyperlipidemia, chronic pain with opiate
dependence, chronic Collins catheter presenting with generalized weakness. He has had a gradual decline in health over the past month. He has to take a break while going up the steps with shortness of breath worse than normal. He has lost 12 pounds
in the past month. Also has blurry vision. He has seen his fur comber and eye exam was normal. Denies dizziness syncope, falls, chest pain, fever vomiting or diarrhea. He was working as [employer] until 1 to 2 months ago. He lives in his
apartment on his own.
He was recently started on dapagliflozin 5 days ago. Torsemide was increased a month ago.
His cough is worse than normal because he has not been using his nebulizer in the morning. He has been using oxygen for the past few days.
He is a former smoker. He denies alcohol use.
Medical History
Past Medical History
Past Medical History: Reports Other ( CAD, paroxysmal atrial fibrillation on Eliquis, CHF, myelodysplastic syndrome on Vidaza, pulmonary hypertension, idiopathic pulmonary fibrosis, COPD, former smoker, hyperlipidemia, chronic pain with opiate
dependence, chronic Collins catheter )
Past Surgical History: Reports None
Social History
Tobacco: Former Smoker
Alcohol: None
Drug: None
Family History
Family History: Not pertinent
Allergies / Home Medications
Allergies reflects when Allergies were last updated in [facility].
Home Medications with original date entered in [facility]
Allergy/Medication List:
Allergies
Allergy/AdvReac Type Severity Reaction Status Date / Time
ALEXIS Inhibitors Allergy Cough Verified 05/07/25 10:22
amoxicillin Allergy Unknown Verified 05/07/25 10:22
carvedilol Allergy Hives Verified 05/07/25 10:22
clavulanic acid (From Allergy Unknown Verified 05/07/25 10:22
Augmentin)
diltiazem Allergy rash, all Verified 05/07/25 10:22
over body
itching
gabapentin Allergy Unknown Verified 05/07/25 10:22
hydrochlorothiazide Allergy Cramping Verified 05/07/25 10:22
propoxyphene (From Allergy Unknown Verified 05/07/25 10:22
Darvocet-N)
Tetanus Vaccines and Toxoid Allergy at age 4 Verified 05/07/25 10:22
(Tetanus) pt became
'sick with
fever'.
Home Medications
pantoprazole 40 mg tablet,delayed release 40 mg PO DAILY #30 tabs 05/29/22
apixaban 5 mg tablet 5 mg PO BID Blood clot prevention/tx 09/22/22
ascorbic acid (vitamin C) 1,000 mg tablet (Vitamin C) 1,000 mg PO DAILY Supplement 11/19/22
thiamine HCl (vitamin B1) 100 mg tablet 100 mg PO DAILY Supplement 11/07/23
gabapentin 300 mg capsule 300 mg PO TID Neurological Condition 11/07/24
potassium chloride 20 mEq tablet,extended release 20 meq PO BID #20 tabs 11/10/24
budesonide 0.5 mg/2 mL suspension for nebulization 0.5 mg inhalation R DAILY 03/22/25
ipratropium 0.5 mg-albuterol 3 mg (2.5 mg base)/3 mL nebulization soln 3 ml inhalation R DAILY Lung/Breathing Issues 03/22/25
ondansetron HCl 8 mg tablet 8 mg PO [id number] PRN take before treatment 03/22/25
oxycodone-acetaminophen 10 mg-325 mg tablet 1 tab PO TID Pain 03/22/25
polyethylene glycol 3350 17 gram oral powder packet 17 g PO DAILY Constipation 03/22/25
rosuvastatin 20 mg tablet 20 mg PO DAILY High Cholesterol 03/22/25
sennosides 8.6 mg-docusate sodium 50 mg tablet (Senna-S) 1 tab-cap PO HS Constipation 03/22/25
torsemide 20 mg tablet 40 mg PO BID Fluid Retention/Swelling 03/22/25
spironolactone 25 mg tablet 25 mg PO DAILY #30 tabs 03/24/25
tamsulosin 0.4 mg capsule 0.4 mg PO DAILY #30 caps 03/24/25
Review of Systems
-
History Source: Patient
A 12 point ROS was completed and negative except as noted: Yes
Constitutional: Reports No Symptoms
EENT: Reports No Symptoms
Respiratory: Reports See HPI
Cardiac: Reports See HPI
Abdomen/GI: Reports No Symptoms
: Reports No Symptoms
Musculoskeletal: Reports No Symptoms
Skin: Reports No Symptoms
Neurological: Reports No Symptoms
Endocrine: Reports No Symptoms
Hematologic/Lymphatic: Reports No Symptoms
Psych: Reports No Symptoms
Physical Exam
Vital Signs
Vital Signs
Temp Pulse Resp BP Pulse Ox
97.6 F 71 18 124/74 91
08/07/25 08:36 08/07/25 12:15 08/07/25 12:15 08/07/25 12:00 08/07/25 12:15
Physical Exam
General: Well Developed, Well Nourished and No Apparent Distress
HEENT: NormoCephalic, Moist mucous membranes and Atraumatic
Respiratory: Rhonchi (left lung )
Cardiac: S1/S2 and Regular Rhythm; No Murmur or Rub
GI: Soft, Non Tender, Non Distended and Normal Bowel Sounds; No Organomegaly
Rectal: Deferred by Provider
Musculoskeletal: No Clubbing, No Cyanosis and No Edema
Skin: No Rash
Neuro: Nonfocal/grossly intact
Laboratory Results
-
08/07/25 09:14
08/07/25 09:13
Laboratory Results
Total Bilirubin 0.6 mg/dl (0.2-1.3) 08/07/25 09:13
AST 28 U/L (17-59) 08/07/25 09:13
ALT < 10 U/L (0-50) 08/07/25 09:13
Alkaline Phosphatase 72 U/L (38-126) 08/07/25 09:13
Troponin I 0.030 ng/ml 08/07/25 09:14
Data Reviewed
-
Lab Data: Labs Reviewed by me
Old Records: Reviewed
Impression/Plan
-
IMPRESSION:
PLAN:
# Orthostatic hypotension likely from overdiuresis and addition of dapagliflozin
- Blood pressure dropped to 90/58 sitting up
- CT head shows no acute abnormality
# Acute kidney injury likely from overdiuresis
- Creatinine 1.5 from baseline 1
- IV fluids
- Hold spironolactone
# Hypokalemia secondary to torsemide
- Replete potassium
- Check magnesium
# Dyspnea/hypoxemia with exertion secondary to noncompliance with inhaler/underlying pulmonary fibrosis/COPD
-Increased rhonchi of left lung
-Desaturating to 86 to 88% with ambulation
- Cardiac BNP 370 from 15,000 in March
- Chest x-ray shows no acute pulmonary process, interstitial pulmonary fibrosis and emphysema similar to previously
- DuoNebs every 6 hours PRN
- Hold off steroids for now
# Elevated bands
- Check urinalysis
- No difficulties with Collins catheter, supposed to be exchanged this week
CAD
- Continue statin
Paroxysmal atrial fibrillation
- Continue Eliquis
Chronic heart failure
- Not currently in heart failure
Myelodysplastic syndrome
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
- Counts are stable
Pulmonary hypertension
Idiopathic pulmonary fibrosis
COPD
- Continue inhalers, budesonide
Former smoker
Hyperlipidemia
Chronic pain with opiate dependence
- Continue Percocet
Chronic Collins catheter
- Hold tamsulosin
Full code
DVT prophylaxis�Eliquis
Cardiac diet
[2025-08-07 14:21] LABS: Magnesium 1.9 mg/dl (1.6-2.3)
--- NOTE | 2025-08-07 16:00 | PTCARENOTE ---
Received patient from ED via stretcher. AAOX3. Ambulated to bed with x2 assist. Unsteady gait. Assessed and oriented to room. IVF initiated as ordered. laboratory monitor reading NSR. Call caceres in close reach.
[2025-08-07] MEDS: NSS 1000 IV (16:20)
[2025-08-07] MEDS: NEURONTIN 300 MG PO ×2 (17:10→21:03)
[2025-08-07 18:15] LABS: Urine Character Clear (Clear)
[2025-08-07 18:28] LABS: Urine Red Blood Cell 0-2 /HPF (0-2); Urine Squamous Cell 0-2 /LPF (Few)
[2025-08-07 18:29] LABS: Urine White Cell 21-25 /HPF (0-5)
[2025-08-07] MEDS: VITAMIN C 1000 MG PO (19:44)
[2025-08-07] MEDS: KCL 20 MEQ PO (19:44)
[2025-08-07] MEDS: ELIQUIS 5 MG PO (19:44)
[2025-08-07] MEDS: SENOKOT-S 2 TABLET PO (21:03)
[2025-08-08] VITALS (13 sets, daily range): BP systolic 84–160; BP diastolic 58–89; BMI 20.4
[2025-08-08] MEDS: NSS 1000 IV (01:30)
[2025-08-08] MEDS: ELIQUIS 5 MG PO (07:25)
[2025-08-08] MEDS: PERCOCET 5/325 2 TABLET PO ×3 (07:25→21:02)
[2025-08-08] MEDS: KCL 20 MEQ PO ×2 (07:25→21:03)
[2025-08-08] MEDS: VITAMIN C 1000 MG PO ×2 (07:25→21:03)
[2025-08-08] MEDS: MIRALAX PO (07:25)
[2025-08-08] MEDS: NEURONTIN 300 MG PO ×3 (07:25→21:03)
[2025-08-08] MEDS: PROTONIX 40 MG PO (07:25)
[2025-08-08] MEDS: CRESTOR 20 MG PO (07:25)
[2025-08-08] MEDS: PULMICORT 0.5 MG INH (07:44)
[2025-08-08] MEDS: DUONEB 3 ML INH ×2 (07:44→19:50)
--- NOTE | 2025-08-08 08:37 | W.PN.HOSP.TC ---
Addendum entered and electronically signed by Terence Cleveland MD 08/08/25 18:04:
addendum
Discussed with cardiology, recommend to transfuse 1 unit of blood transfusion to help with hypotension and treat anemia. Consent signed
End
Original Note:
Today's Communication/Plan
-
.
Assessment / Plan
Assessment / Plan
Physical exam:
General: not in distress
HEENT-NC, AT, anicteric, clear oral mm. Hard hearing
Neck-supple, no JVD
CV-reg, no M, +S1/S2
Lungs-decreased breath sounds bilaterally. I did not hear basal rales.
Abd-soft, NT, ND
Ext- no ankle edema.
Musculoskeletal-no cyanosis, clubbing
Skin-warm and dry
Neuro-grossly non-focal. AAOX3.
Psych-calm, cooperative
A/P:
# Exertional SOB
History of pulmonary fibrosis
COPD without exacerbation -chronic cough.
Dyspnea/hypoxemia with exertion secondary to noncompliance with inhaler/underlying pulmonary fibrosis/COPD
No hypoxia while resting
Chest x-ray shows no acute pulmonary process, interstitial pulmonary fibrosis and emphysema similar to previously
- Add DuoNeb . c/w Pulmicort
-Stop IVF
- Hold off steroids for now
No fever, no leukocytosis.
Consulted pulmonary
# Orthostatic hypotension likely from overdiuresis and addition of dapagliflozin
-Blood pressure still soft but no symptoms while resting
- CT head shows no acute abnormality
Will consult cardiology as it seems pt's has known complex volume status and starting newly on Farxiga. Exam not c/w volume overload
# Acute kidney injury likely from overdiuresis, possible use of Farxiga
- Creatinine 1.5 from baseline 1
- can stop IV fluids
- Hold spironolactone and Torsemide/ Farxiga
chronic HFpEF -
Hypokalemia, replace
History of Weakness, lethargy -
Seems recurrent issue
PT/OT
Anemia, chronic
#Thrombocytopenia, chronic
#Myelodysplastic syndrome
- Vidaza
� Monitor
� No obvious bleeding
#Paroxysmal atrial fibrillation -Eliquis resumed.
Essential hypertension
Hypercholesterolemia
Former alcohol use disorder
-No longer drinks alcohol
Former smoker
Full code
Total time spent to see the patient, examine the patient, review data and lab result, discuss treatment plan with patient, nursing staff around 55 minutes
Anticipated Discharge: > 48 hours
Subjective/Interval History
-
Date of Service: August 08, 2025
He denies chest pain
Objective Data
-
Labs:
Laboratory Results
08/08/25
06:07
WBC Pending
Hgb Pending
Hct Pending
Plt Count Pending
Sodium Pending
Potassium Pending
Chloride Pending
Carbon Dioxide Pending
BUN Pending
Creatinine Pending
Glucose Pending
Calcium Pending
Total Bilirubin Pending
AST Pending
ALT Pending
Alkaline Phosphatase Pending
Vital Signs:
Vital Signs
Temp Pulse Resp BP Pulse Ox
98.7 F 74 15 89/61 100
08/08/25 03:27 08/08/25 07:45 08/08/25 07:45 08/08/25 03:27 08/08/25 07:45
I&O
08/07/25 08/08/25 08/09/25
06:59 06:59 06:59
Intake Total 1340 / 1340
Output Total 2975 / 2975
Balance -1635 / -1635
[2025-08-08 08:45] LABS: ALT (SGPT) < 10 U/L (0-50); AST (SGOT) 25 U/L (17-59); Albumin 3.6 g/dl (3.5-5.0); Alkaline Phosphatase 65 U/L (38-126); Blood Urea Nitrogen 22 mg/dl (9-20); Calcium 8.4 mg/dl (8.4-10.2); Carbon Dioxide 29 mmol/L (22-30); Chloride 102 mmol/L (98-107); Estimated Creatinine Clearance 55 ml/min; Glucose 86 mg/dl (70-99); Potassium 4.0 mmol/L (3.5-5.1); Sodium 136 mmol/L (135-145); Total Protein 5.9 g/dl (6.3-8.2); eGFR > 60.00
--- NOTE | 2025-08-08 09:21 | CON.CAR ---
Addendum entered and electronically signed by Jorge Muniz MD 08/08/25 14:02:
I saw and evaluated the patient with the resident. I was present for the bates portions of the history and exam and personally performed the MDM, including reviewing labs, assessing data, and directing management plan. I agree with the residents note
with my comments/adjustments below:
74-year-old gentleman with past medical history of PAF on Eliquis, CAD that is medically managed after MN in 22, HFpEF, hypertension, COPD, IPF, and MDS who presents for progressive shortness of breath with exertion. Patient was recently seen in
the office by Dr. Toussaint and had diuretics transitioned from furosemide to torsemide. Farxiga was also started. He has been compliant with these medications and his lower extremity edema improved. Unfortunately, he is unable to tolerate
chemotherapy for his MDS and has struggled with some anemia. Recently received 1 pack of red blood cells 1 month ago and 5 iron infusions. He denies any chest pain or pressure. He does have some phlegm at times. On exam, he is well-appearing in
no apparent distress with a regular rate and rhythm normal S1-S2, lungs had diffuse end expiratory wheeze and rhonchi. Abdomen was soft nontender nondistended. Lower extremities were without any swelling cyanosis or edema.
Data:
EKG tracing showed sinus rhythm. Pertinent labs are platelets 42 hemoglobin 7.9 initial creatinine on admission was 1.5 now 1.0 after IV fluid resuscitation.
Impression and plan:
Shortness of breath: Multifactorial likely COPD exacerbation/IPF and anemia. He does not appear volume overloaded in fact presented with findings concerning for volume depletion. Treatment as per pulmonary medicine. Likely would feel better with
1 more unit of PRBCs given his history of heart failure, medically managed CAD and COPD.
HFpEF: Hypovolemic on arrival, continue holding torsemide, spironolactone given LEBRON and Farxiga given LEBRON. Monitor for improvement and add back as able.
PAF: On chronic Eliquis however platelets now less than 50 would hold Eliquis. Continue to monitor on telemetry.
LEBRON: Seems to have been prerenal he mediated, improved with IV fluids and holding spironolactone, torsemide and Farxiga. Will add back as able.
CAD: No chest pain thankfully
MDS: Thrombocytopenic and anemic, no signs of symptoms of active bleeding. As per medicine.
IPF/COPD: As per medicine and pulmonary
Will follow
Original Note:
Consultation
Consultation Request
Date/Time Consultation Requested: 08/08/2025, 0653
Date/Time Consultation Performed: 08/08/2025, 10
Requesting Provider: Dr. Cleveland
Performing Provider: Dr. Muniz, Dr. La
Reason for Consultation: Dyspnea
Medical History
-
Chief Complaint: Shortness of breath
History of Present Illness:
74-year-old male, Mr. Hernandez with paroxysmal A-fib on Eliquis s/p PVI 11/2022, coronary artery disease on medical management, s/p inferior STEMI 05/2022 (unable to PCI RCA), chronic HFpEF, hypertension hyperlipidemia, COPD, idiopathic pulmonary
fibrosis, mild�moderate MR, mild AR, MDS with anemia s/p chemotherapy with Vidaza/Venclexta, s/p IV iron and 1 PRBC.
Patient reports having dyspnea NYHA class III and generalized weakness from the past few months which has worsened since 3 days. He since 3 days. Also started being on 3 L oxygen at night. Patient was seen by Dr. Toussaint on 07/27/2025, had lower
extremity edema at that time, he he was transitioned to torsemide 40 mg twice daily from Lasix, was started on dapagliflozin 10 mg. He reports that his swelling has improved a lot after being started on torsemide, but it did not help with his
dyspnea. Patient does not report any orthopnea, chest pain, palpitations, lightheadedness.
Patient reports that he received 1 PRBC a month ago and 5 IV iron infusions for his anemia.
In the ER, hemoglobin�8.3, no elevated white count, platelets 54, potassium�3.3, BUN/creatinine�36/1.5 patient was found to be in LEBRON, was started on fluids, spironolactone/ dapagliflozin/torsemide were held. EKG with NSR, chest x-ray with
pulmonary fibrosis/emphysema, no interstitial edema.
Past Medical History
Past Medical History: Arrhythmias, CAD, COPD, HTN, Hypercholesterolemia and Other (MDS, chronic anemia)
Social History
Tobacco: Former Smoker (Creatinine 2005)
Alcohol: None
Drug: None
Personal: Single
Living: Alone
Family History
Family History: Reviewed & Not Pertinent
Allergies / Home Medications
Allergy/AdvReac Type Severity Reaction Status Date / Time
ALEXIS Inhibitors Allergy Cough Verified 05/07/25 10:22
amoxicillin Allergy Unknown Verified 05/07/25 10:22
carvedilol Allergy Hives Verified 05/07/25 10:22
clavulanic acid (From Allergy Unknown Verified 05/07/25 10:22
Augmentin)
diltiazem Allergy rash, all Verified 05/07/25 10:22
over body
itching
gabapentin Allergy Unknown Verified 05/07/25 10:22
hydrochlorothiazide Allergy Cramping Verified 05/07/25 10:22
propoxyphene (From Allergy Unknown Verified 05/07/25 10:22
Darvocet-N)
Tetanus Vaccines and Toxoid Allergy at age 4 Verified 05/07/25 10:22
(Tetanus) pt became
'sick with
fever'.
�Medication �Instructions �Recorded �Confirmed �Type
apixaban 5 mg tablet 5 mg PO BID Blood clot 09/22/22 08/07/25 History
prevention/tx
ascorbic acid (vitamin C) 1,000 mg 1,000 mg PO BID Supplement 11/19/22 08/07/25 History
tablet (Vitamin C)
gabapentin 300 mg capsule 300 mg PO TID Neurological 11/07/24 08/07/25 History
Condition
budesonide 0.5 mg/2 mL suspension 0.5 mg inhalation R DAILY 03/22/25 08/07/25 History
for nebulization Lung/Breathing Issues
ipratropium 0.5 mg-albuterol 3 mg 3 ml inhalation R DAILY 03/22/25 08/07/25 History
(2.5 mg base)/3 mL nebulization Lung/Breathing Issues
soln
oxycodone-acetaminophen 10 mg-325 1 tab PO TID Pain 03/22/25 08/07/25 History
mg tablet
polyethylene glycol 3350 17 gram 17 g PO DAILY Constipation 03/22/25 08/07/25 History
oral powder packet
rosuvastatin 20 mg tablet 20 mg PO DAILY High Cholesterol 03/22/25 08/07/25 History
sennosides 8.6 mg-docusate sodium 3 tab-cap PO HS Constipation 03/22/25 08/07/25 History
50 mg tablet (Senna-S)
torsemide 20 mg tablet 40 mg PO BID Fluid 03/22/25 08/07/25 History
Retention/Swelling
albuterol sulfate 90 mcg/actuation 2 puff inhalation R Q4HPRN PRN sob 08/07/25 08/07/25 History
aerosol inhaler
dapagliflozin propanediol 10 mg 10 mg PO DAILY Heart Failure 08/07/25 08/07/25 History
tablet (Farxiga)
pantoprazole 40 mg tablet,delayed 40 mg PO DAILY Gastrointestinal 08/07/25 08/07/25 History
release Issue
potassium chloride 20 mEq 20 meq PO BID Supplement 08/07/25 08/07/25 History
tablet,extended release
spironolactone 25 mg tablet 25 mg PO DAILY Heart Failure 08/07/25 08/07/25 History
tamsulosin 0.4 mg capsule 0.4 mg PO DAILY Urinary Issue 08/07/25 08/07/25 History
Review of Systems
-
All other systems: Negative unless noted
Physical Exam
Vital Signs
Temp Pulse Resp BP Pulse Ox
98.8 F 74 15 98/62 100
08/08/25 06:54 08/08/25 07:45 08/08/25 07:45 08/08/25 06:54 08/08/25 07:45
Lab Results
08/08/25 06:07
Troponin I 0.030 ng/ml 08/07/25 09:14
Xgn-A-Ockcmyapeum Pept 371 pg/ml 08/07/25 09:14
Physical Exam
General: No Apparent Distress and Other (Appears frail)
Respiratory: Rhonchi
Cardiac: S1/S2 and Regular Rhythm; Negative Peripheral Edema or JVD
GI: Soft, Non Tender, Non Distended and Normal Bowel Sounds
Genito-urinary: Other (Collins)
Skin: Warm and Dry
Neuro: Awake, Alert, Oriented and AO x 3
Impression / Plan
-
Impression
74-year-old with paroxysmal A-fib on Eliquis s/p PVI 11/2022, coronary artery disease on medical management, s/p inferior STEMI 05/2022 (unable to PCI RCA), chronic HFpEF, hypertension hyperlipidemia, COPD, idiopathic pulmonary fibrosis,
mild�moderate MR, mild AR, MDS with anemia s/p chemotherapy with Vidaza/Venclexta, s/p IV iron and 1 PRBC presenting to the ER with shortness of breath.
Plan
#Dyspnea on exertion
Multifactorial�likely secondary to chronic anemia due to MDS versus pulmonary fibrosis versus COPD exacerbation
Hemoglobin 8.4 > 7.9
chest x-ray with pulmonary fibrosis/emphysema, no interstitial edema.
Patient is s/p 1 PRBC 1 month ago, IV iron infusions.
Recommend 1 PRBC transfusion
Patient was not compliant with his home inhalers
Continue DuoNebs
#HFpEF
Patient appears euvolemic
BNP�370 (patient was admitted in March, for CHF exacerbation with BNP�15,800)
chest x-ray with pulmonary fibrosis/emphysema, no interstitial edema.
Latest echo on 03/2024 with EF of 50 to 60%.
Patient is having soft blood pressures
Spironolactone, torsemide, Farxiga were held at admission due to LEBRON
Will continue holding the medications
Patient has been feeding well.
Will restart when able
Monitor I/os, weights, electrolytes.
#Paroxysmal A-fib
Patient is in sinus rhythm
EKG with NSR
Telemetry reviewed
Avinash Vas score�5
Eliquis to be held as platelets dropped down to 42 from 54.
Monitor telemetry
#CAD
No symptoms
Continue Crestor
Continue other chronic condition management per the primary team.
[2025-08-08 10:40] LABS: Hematocrit 24.7 % (39.0-52.0); Hemoglobin 7.9 g/dL (13.0-18.0); Mean Corp Hgb Conc. 32.0 g/dL (33.0-37.0); Mean Corpuscular Volume 111.8 fL (80.0-94.0); Platelet Count 42 10^3/uL (130-400); Red Cell Dist. Width 21.1 % (11.5-14.5)
[2025-08-08 10:42] LABS: Absolute Neutrophils -Man Diff 1.6 10^3/uL (1.4-6.5)
[2025-08-08 10:47] LABS: Normal RBC Morphology No; Platelets Checked YES
[2025-08-08 10:49] LABS: Anisocytosis +1; Hypochromasia +1; Macrocytosis FEW
[2025-08-08 10:50] LABS: Target Cells FEW
[2025-08-08 10:51] LABS: Stomatocytes FEW; Total Cells Counted 100
--- NOTE | 2025-08-08 11:16 | CON.PUL ---
Consultation
Consultation Request
Date/Time Consultation Requested: 08/08/2025-7:30 AM
Date/Time Consultation Performed: 08/08/2025-8:30 AM
Requesting Provider: Hospitalist
Performing Provider: Dr. Yo
Reason for Consultation: Shortness of breath
Medical History
-
Chief Complaint: Shortness of breath
History of Present Illness:
74-year-old former smoking male with a history of COPD, pulmonary fibrosis, CAD, PAF on Eliquis, CHF, myelodysplastic syndrome on Vidaza who has chronic pain with opioid dependence who is noticed progressive dyspnea and presented with orthostatic
hypotension and LEBRON-pulmonary consulted for shortness of breath 08/08/2025. Patient has had progressive dyspnea on exertion. There may be some noncompliance with his inhalers. He denies any chest pain, chest tightness, chest congestion, productive
cough, fevers, chills, pleurisy, hemoptysis, abdominal pain, nausea, or focal weakness or leg swelling.
Past Medical History
Past Medical History: None (CAD. CHF. Hypertension. PAF/Eliquis. COPD/pulmonary fibrosis overlap. Pulmonary hypertension. Myelodysplasia on Vidaza. Hyperlipidemia. Chronic pain/opioid dependence. Chronic Collins catheter. Cataract.
Laminectomy. Tonsillectomy. Cardiac ablation 2021.)
Social History
Tobacco: Former Smoker ([id number] smoker quit 19 years ago)
Alcohol: None
Drug: None
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
Environmental Exposures: No known tuberculosis exposure
Family History
Family History: Reviewed & Not Pertinent (Father-dissecting aorta. Mother-COPD. Siblings hypertension.)
Allergies / Home Medications
Allergies
Allergy/AdvReac Type Severity Reaction Status Date / Time
ALEXIS Inhibitors Allergy Cough Verified 05/07/25 10:22
amoxicillin Allergy Unknown Verified 05/07/25 10:22
carvedilol Allergy Hives Verified 05/07/25 10:22
clavulanic acid (From Allergy Unknown Verified 05/07/25 10:22
Augmentin)
diltiazem Allergy rash, all Verified 05/07/25 10:22
over body
itching
gabapentin Allergy Unknown Verified 05/07/25 10:22
hydrochlorothiazide Allergy Cramping Verified 05/07/25 10:22
propoxyphene (From Allergy Unknown Verified 05/07/25 10:22
Darvocet-N)
Tetanus Vaccines and Toxoid Allergy at age 4 Verified 05/07/25 10:22
(Tetanus) pt became
'sick with
fever'.
Home Medications
�Medication �Instructions �Recorded �Confirmed �Last Taken �Type
apixaban 5 mg tablet 5 mg PO BID Blood clot 09/22/22 08/07/25 08/07/25 History
prevention/tx
ascorbic acid (vitamin C) 1,000 mg 1,000 mg PO BID Supplement 11/19/22 08/07/25 08/07/25 History
tablet (Vitamin C)
gabapentin 300 mg capsule 300 mg PO TID Neurological 11/07/24 08/07/25 08/07/25 History
Condition
budesonide 0.5 mg/2 mL suspension 0.5 mg inhalation R DAILY 03/22/25 08/07/25 03/22/25 History
for nebulization Lung/Breathing Issues
ipratropium 0.5 mg-albuterol 3 mg 3 ml inhalation R DAILY 03/22/25 08/07/25 03/22/25 History
(2.5 mg base)/3 mL nebulization Lung/Breathing Issues
soln
oxycodone-acetaminophen 10 mg-325 1 tab PO TID Pain 03/22/25 08/07/25 08/07/25 History
mg tablet
polyethylene glycol 3350 17 gram 17 g PO DAILY Constipation 03/22/25 08/07/25 08/07/25 History
oral powder packet
rosuvastatin 20 mg tablet 20 mg PO DAILY High Cholesterol 03/22/25 08/07/25 08/07/25 History
sennosides 8.6 mg-docusate sodium 3 tab-cap PO HS Constipation 03/22/25 08/07/25 08/06/25 History
50 mg tablet (Senna-S)
torsemide 20 mg tablet 40 mg PO BID Fluid 03/22/25 08/07/25 08/07/25 History
Retention/Swelling
albuterol sulfate 90 mcg/actuation 2 puff inhalation R Q4HPRN PRN sob 08/07/25 08/07/25 08/06/25 History
aerosol inhaler
dapagliflozin propanediol 10 mg 10 mg PO DAILY Heart Failure 08/07/25 08/07/25 08/07/25 History
tablet (Farxiga)
pantoprazole 40 mg tablet,delayed 40 mg PO DAILY Gastrointestinal 08/07/25 08/07/25 08/07/25 History
release Issue
potassium chloride 20 mEq 20 meq PO BID Supplement 08/07/25 08/07/25 08/07/25 History
tablet,extended release
spironolactone 25 mg tablet 25 mg PO DAILY Heart Failure 08/07/25 08/07/25 08/07/25 History
tamsulosin 0.4 mg capsule 0.4 mg PO DAILY Urinary Issue 08/07/25 08/07/25 08/07/25 History
Review of Systems
-
Unable to Obtain full review of systems at this time due to: Other (Per HPI)
Vitals / Labs / Diagnostic Testing
Vital Signs
Temp Pulse Resp BP Pulse Ox
98.8 F 74 15 98/62 100
08/08/25 06:54 08/08/25 07:45 08/08/25 07:45 08/08/25 06:54 08/08/25 07:45
Lab Data
08/08/25 06:07
08/08/25 06:07
Diagnostic Testing:
Physical Exam
-
Exam:
Well-nourished and well-developed in no apparent distress
HEENT-atraumatic, normocephalic
Neck-supple, no JVD, no bruit
Heart irregular with murmur
Chest with diminished breath sounds, prolonged expiratory time, no wheezes and rare basilar crackles
Back-no tenderness
Abdomen-soft, nontender, nondistended, no hepatosplenomegaly
Extremities-no cyanosis, clubbing, edema and good peripheral pulses
Integument-intact, no rashes, lesions or ecchymosis
Neurology-alert and oriented, nonfocal motor and sensory exam
Assessment
-
74-year-old former smoking male with a history of COPD, pulmonary fibrosis, CAD, PAF on Eliquis, CHF, myelodysplastic syndrome on Vidaza who has chronic pain with opioid dependence who is noticed progressive dyspnea and presented with orthostatic
hypotension and LEBRON-pulmonary consulted for shortness of breath 08/08/2025.
Shortness of breath multifactorial-do not believe significant COPD exacerbation
COPD/pulmonary fibrosis overlap without acute exacerbation
Orthostatic hypotension likely from overdiuresis
LEBRON
Leukopenia/anemia/thrombocytopenia from myelodysplasia
Conditions present prior to admission:
CAD.
CHF.
Hypertension.
PAF/Eliquis.
COPD/pulmonary fibrosis overlap-was maintained on Trelegy and recently changed to DuoNebs and Pulmicort nebulizers in addition to prednisone 5 mg daily
Mediastinal lymphadenopathy status post bronchoscopy which was negative, PET scan borderline SUV 2.8 and 3.3
Recurrent pneumonia
Significant decreased diffusing capacity
Pulmonary hypertension.
History of pulmonary nodule
Myelodysplasia on Vidaza.
Hyperlipidemia.
Chronic pain/opioid dependence.
Chronic Collins catheter.
GERD
Weight loss-unintentional
Cataract. Laminectomy. Tonsillectomy. Cardiac ablation 2021.
Plan
History, exam, and office records as well as chest x-ray, CTs of the chest, PET scan, CT head, echocardiogram, cardiac catheterization, stress test, and PFT data were personally reviewed and summarized below
Patient was last seen in June in the pulmonary office and he was changed from Trelegy to DuoNebs and Pulmicort-unclear if he was doing this consistently
Shortness of breath is likely multifactorial including cardiac, anemia, and pulmonary issues
Supplemental oxygen as needed
Assess discharge supplemental oxygen needs prior to discharge
Hold on steroid initiation
Continue DuoNebs
Continue Pulmicort nebulizers
Aspiration precautions
Cardiology evaluation ongoing-correspondence reviewed
Diuresis on hold
Monitor renal function, electrolytes, intake/output, lower extremity edema and weight
Replace electrolytes as needed
DVT prophylaxis recommended
Nutrition
Early mobilization
The patient was last seen by Dr. Toledo on 06/23/2025 and has an appointment 09/22/2025 at 3:30 PM
Reviewed with nursing
Diagnostic data:
Chest x-ray/-combined COPD and pulmonary fibrosis
Chest x-ray 08/07/2025-NAD, interstitial fibrosis and emphysema similar to prior
CT head 08/07/2025-no acute intracranial abnormalities
CT chest PE study 02/26/23: No PE. Mild to moderate centrilobular emphysema. Scattered enlarged mediastinal lymph nodes are noted measuring up to 2.1 cm in the precarinal region, increased from prior. Bilateral lower lobe dependent atelectasis.
Probable component of pneumonia in the left lower lobe.
CT chest 11/07/23: negative PE but there is motion artifact and mild interstitial changes. There is consolidation of the left upper lobe and left lower lobe consistent with pneumonia. There is mediastinal adenopathy, stable.
Echocardiogram 03/23/25: normal biventricular function, mild MR/AR, PA pressure 39.� Stable
LHC 05/26/22: unsuccessful attempted PCI of RCA lesion
Stress test 03/30/22: abnormal, inferior/inferolateral ischemia
PFT 11/29/23: FVC 2.64/73%, FEV1 1.36/52%, ratio 52. There is a 16% improvement in FEV1 which is likely significant. TLC 4.68/74%, DLCO 2.43/11%. Moderate obstruction, mild restriction and severe gas exchange defect with bronchodilator response.
Compared to 2021, this has worsened
PFT 12/01/24: FVC 3.25/93%, FEV1 1.96/79%, ratio 60.� There is an 11% improvement in FEV1 following bronchodilator.� TLC 4.69/75%, DLCO 6.34/28%.� Mild obstruction, restriction and severe gas exchange defect. C/t prior study, FEV1 has improved, TLC
and DLCO is stable
6MWT 03/09/25: Patient ambulated 1050 feet, stopped after the fourth minute because of back pain.� 90% on room air, heart rate 106, dyspnea scale 2/10.� Resting saturation pre-ambulation 97%
6MWT 02/12/24: Ambulated 900 feet, desaturated to 85% on room air, heart rate 103, dyspnea scale 3/10. Required 2 L of oxygen to maintain saturation 90%, heart rate 111, dyspnea scale 2.5/10
Data Reviewed
-
PFT: Report reviewed by me
EKG: Report reviewed by me
Radiology: Report reviewed by me
CT Scan: Report reviewed by me
Medical Tests (Nuc Med, Echo etc): Report reviewed by me
Labs: Labs reviewed by me
Old Records: Reviewed
Total Time Spent with Patient (in minutes): 65
[2025-08-08] MEDS: NSS IV (11:52)
[2025-08-08] MEDS: SENOKOT-S 2 TABLET PO (21:02)
[2025-08-09] VITALS (7 sets, daily range): BP systolic 96–127; BP diastolic 65–75; PULSE 72–78; O2SAT 95; BMI 21.3
[2025-08-09] MEDS: PULMICORT 0.5 MG INH ×2 (07:40→19:22)
[2025-08-09] MEDS: DUONEB 3 ML INH ×2 (07:40→19:22)
[2025-08-09] MEDS: VITAMIN C 1000 MG PO ×2 (08:07→21:00)
[2025-08-09] MEDS: NEURONTIN 300 MG PO ×3 (08:07→21:11)
[2025-08-09] MEDS: KCL 20 MEQ PO ×2 (08:07→21:00)
[2025-08-09] MEDS: PERCOCET 5/325 2 TABLET PO ×3 (08:07→21:11)
[2025-08-09] MEDS: PROTONIX 40 MG PO (08:07)
[2025-08-09] MEDS: CRESTOR 20 MG PO (08:08)
[2025-08-09] MEDS: MIRALAX PO (08:10)
[2025-08-09 08:21] LABS: Hematocrit 30.0 % (39.0-52.0); Hemoglobin 9.7 g/dL (13.0-18.0); Mean Corp Hgb Conc. 32.3 g/dL (33.0-37.0); Mean Corpuscular Volume 106.0 fL (80.0-94.0); Platelet Count 40 10^3/uL (130-400); Red Cell Dist. Width 22.5 % (11.5-14.5)
--- NOTE | 2025-08-09 08:40 | W.PN.CD ---
Addendum entered and electronically signed by El Perez MD 08/09/25 12:04:
I saw and examined the patient.
The resident's note was reviewed and I agree with the note. I saw and evaluated the patient, and I provided the substantive portion of the medical decision making.
I personally performed the medical decision making of the this encounter and my assessment and plan is below:
Labs are improved.
Restart farxiga
Torsemide tomorrow --> home wihgt he tells em is about 150 lbs
Eliquis resume once safe from Plt perspective typically > 50
Original Note:
Today's Communication / Plan
-
Farxiga restarted
Eliquis on hold, resume if platelets >50
Torsemide on hold for today, restart tomorrow
Impression / Plan
-
Impression
74-year-old with paroxysmal A-fib on Eliquis s/p PVI 11/2022, coronary artery disease on medical management, s/p inferior STEMI 05/2022 (unable to PCI RCA), chronic HFpEF, hypertension hyperlipidemia, COPD, idiopathic pulmonary fibrosis,
mild�moderate MR, mild AR, MDS with anemia s/p chemotherapy with Vidaza/Venclexta, s/p IV iron and 1 PRBC presenting to the ER with shortness of breath.
Plan
#Dyspnea on exertion
Multifactorial�likely secondary to chronic anemia due to MDS versus pulmonary fibrosis versus COPD exacerbation
chest x-ray with pulmonary fibrosis/emphysema, no interstitial edema.
Patient is s/p 1 PRBC 08/08/2025
Hemoglobin 8.4 > 7.9 >9.7
Continue DuoNebs
Wean oxygen as tolerated
#HFpEF
Patient appears euvolemic
BNP�370 (patient was admitted in March, for CHF exacerbation with BNP�15,800)
chest x-ray with pulmonary fibrosis/emphysema, no interstitial edema.
Latest echo on 03/2024 with EF of 50 to 60%.
Hemoglobin�9.7 s/p 1 PRBC on 08/08/2025
Spironolactone, torsemide, Farxiga were held at admission due to LEBRON
LEBRON resolved, good renal function�creatinine 0.8
Blood pressures look good
Will restart Farxiga today
Plan on starting torsemide 40 mg daily, from tomorrow pending labs.
Plan to start spironolactone as outpatient after cardiology follow-up.
Monitor I/os, weights, electrolytes.
#Paroxysmal A-fib
Patient is in sinus rhythm on telemetry
EKG with NSR
Telemetry reviewed
Avinash Vas score�5
Eliquis to be held as platelets dropped down to 40, resume if platelets >50
Not on any rate control meds
Monitor telemetry
#CAD
No symptoms
Continue Crestor
Continue other chronic condition management per the primary team.
Physical Exam
Vital Signs/Labs
Vital Signs
Temp Pulse Resp BP Pulse Ox
98.2 F 73 16 127/74 97
08/09/25 03:00 08/09/25 07:44 08/09/25 07:44 08/09/25 03:00 08/09/25 07:44
08/08/25 08/09/25 08/10/25
06:59 06:59 06:59
Actual Weight 134 lb 7 oz 140 lb 2 oz
08/09/25 08:02
Magnesium 1.9 mg/dl (1.6-2.3) 08/07/25 13:45
08/07/25
09:14
Gwq-P-Fkiyhrmanrz Pept 371
LAB Results
08/07/25
09:14
Troponin I 0.030
Physical Exam
Constitutional: No acute distress
Cardiovascular: Rhythm & rate is regular and Pedal edema is absent
Respiratory: Rhonchi Present
GI: Soft, Distention absent, Non tender and Normal bowel sounds
Neuro/Psych: Alert, Oriented and AO x 3
Data Reviewed
-
Date of Service: August 09, 2025
[2025-08-09 10:21] LABS: Blood Urea Nitrogen 17 mg/dl (9-20); Calcium 8.7 mg/dl (8.4-10.2); Carbon Dioxide 24 mmol/L (22-30); Chloride 104 mmol/L (98-107); Estimated Creatinine Clearance 72 ml/min; Glucose 124 mg/dl (70-99); Potassium 4.5 mmol/L (3.5-5.1); Sodium 133 mmol/L (135-145); eGFR > 60.00
[2025-08-09] MEDS: FARXIGA 10 MG PO (10:21)
--- NOTE | 2025-08-09 13:39 | CM ---
Spoke with patient bedside.
PT recommending skilled rehab.
Patient lives alone.
Referrals sent.
Patient would prefer outpatient therapy, said HC is not an option.
Patient drives and works.
Plan: skilled rehab once bed found, will require insurance auth.
[facility] does not accept insurance.
--- NOTE | 2025-08-09 15:24 | W.PN.HOSP.TC ---
Today's Communication/Plan
-
Monitor hemoglobin.
Increase activity/PT evaluation.
Plan is to restart diuretics in AM.
Monitor for recurrent orthostasis.
[facility]
Assessment / Plan
Assessment / Plan
Impression
Presented with exertional dyspnea likely multifactorial.
MDS with pancytopenia�anemia chronic and worsening anemia requiring transfusion
LEBRON likely secondary to anemia and loop diuretics
Hypokalemia improved
Orthostatic hypotension in settings of low volume/dehydration and anemia
Other conditions
CAD.
Chronic CHF preserved EF.
Essential hypertension
Paroxysmal atrial fibrillation baseline anticoagulation with Eliquis.
COPD
ILD/pulmonary fibrosis
Chronic mediastinal lymphadenopathy.
Prior history of pneumonia
Chronic pain syndrome with opiate dependence
Chronic bladder outlet obstruction with indwelling Collins catheter
GERD
History of alcohol use disorder
Plan:
Exertional dyspnea likely multifactorial in the settings of overall deconditioning, worsening anemia
While presenting with dehydration and LEBRON has no evidence of decompensated heart failure. No evidence of COPD/pulmonary fibrosis flareup.
Overall improved with transfusion.
COPD/ILD/pulmonary fibrosis
Chest x-ray with no acute cardiopulmonary process. Chronic changes consistent with interstitial pulmonary fibrosis and emphysema similar to prior findings.
Stable respiratory status with no requirements for supplemental oxygen.
Continue nebulizers.
Continue Pulmicort
Cardiovascular
Chronic CHF preserved EF
Paroxysmal atrial fibrillation
With improved renal function, plan is to resume torsemide on 08/10.
Continue Farxiga
Not on any AV steve blocking agents prior to presentation.
MDS
On Vidaza
Noted with chronic pancytopenia and worsening anemia requiring transfusion
Follow CBC baseline transfuse if hemoglobin falls consistently below 8�8.5
Chronic bladder outlet obstruction
Collins in place baseline
With consider not to resume tamsulosin given soft BP
Anticipated Discharge: 24 - 48 hours
Subjective/Interval History
-
Date of Service: August 09, 2025
Objective Data
-
Labs:
Laboratory Results
08/09/25 08/09/25
08:02 08:59
WBC 4.1 L
Hgb 9.7 L D
Hct 30.0 L
Plt Count 40 L
Sodium Cancelled 133 L
Potassium Cancelled 4.5
Chloride Cancelled 104
Carbon Dioxide Cancelled 24
BUN Cancelled 17
Creatinine Cancelled 0.8
Glucose Cancelled 124 H
Calcium Cancelled 8.7
Vital Signs:
Vital Signs
Temp Pulse Resp BP Pulse Ox
98.4 F 78 16 96/73 95
08/09/25 15:23 08/09/25 15:23 08/09/25 15:23 08/09/25 15:23 08/09/25 15:23
I&O
08/08/25 08/09/25 08/10/25
06:59 06:59 06:59
Intake Total 1340 / 1340 1280 / 1280
Output Total 2975 / 2975 2250 / 2250
Balance -1635 / -1635 -970 / -970
Physical Exam
-
General: Well Developed and No Apparent Distress
HEENT: Normocephalic, Atraumatic and Moist Mucous Membranes
Respiratory: Clear to Auscultation; Negative Wheezes
Cardiac: Regular Rhythm and S1/S2; Negative Murmur, Rub or Gallop
GI: Soft, Nontender, Nondistended and Normal Bowel Sounds; Negative Organomegaly
Rectal: Deferred by Provider
Genito-urinary: Collins
Musculoskeletal: No Clubbing, No Cyanosis and No Edema
Skin: Negative Rash
Neuro: Nonfocal/Grossly Intact
--- NOTE | 2025-08-09 16:02 | W.PN.PUL3 ---
Today's Communication / Plan
-
- Pulmonary process appears to be at baseline
- Continue DuoNeb, change Pulmicort to twice a day
- Discharge planning per primary team
- No indication for steroids or antibiotics
- Assess for home oxygen need prior to discharge
Assessment
-
74-year-old former smoking male with a history of COPD, pulmonary fibrosis, CAD, PAF on Eliquis, CHF, myelodysplastic syndrome on Vidaza who has chronic pain with opioid dependence who is noticed progressive dyspnea and presented with orthostatic
hypotension and LEBRON-pulmonary consulted for shortness of breath 08/08/2025.
Shortness of breath multifactorial-do not believe significant COPD exacerbation
COPD/pulmonary fibrosis overlap without acute exacerbation
Orthostatic hypotension likely from overdiuresis
LEBRON
Leukopenia/anemia/thrombocytopenia from myelodysplasia
Conditions present prior to admission:
CAD.
CHF.
Hypertension.
PAF/Eliquis.
COPD/pulmonary fibrosis overlap-was maintained on Trelegy and recently changed to DuoNebs and Pulmicort nebulizers in addition to prednisone 5 mg daily
Mediastinal lymphadenopathy status post bronchoscopy which was negative, PET scan borderline SUV 2.8 and 3.3
Recurrent pneumonia
Significant decreased diffusing capacity
Pulmonary hypertension.
History of pulmonary nodule
Myelodysplasia on Vidaza.
Hyperlipidemia.
Chronic pain/opioid dependence.
Chronic Collins catheter.
GERD
Weight loss-unintentional
Cataract. Laminectomy. Tonsillectomy. Cardiac ablation 2021.
Plan
History, exam, and office records as well as chest x-ray, CTs of the chest, PET scan, CT head, echocardiogram, cardiac catheterization, stress test, and PFT data were personally reviewed and summarized below
Patient was last seen in June in the pulmonary office and he was changed from Trelegy to DuoNebs and Pulmicort-unclear if he was doing this consistently
Shortness of breath is likely multifactorial including cardiac, anemia, and pulmonary issues
Supplemental oxygen as needed
Assess discharge supplemental oxygen needs prior to discharge
Hold on steroid initiation
Continue DuoNebs
Continue Pulmicort nebulizers, switch to twice daily. Current presentation not suggestive of COPD exacerbation
Aspiration precautions
Cardiology evaluation ongoing-correspondence reviewed
Monitor renal function, electrolytes, intake/output, lower extremity edema and weight
Replace electrolytes as needed
DVT prophylaxis recommended
Nutrition
Early mobilization
The patient was last seen by Dr. Toledo on 06/23/2025 and has an appointment 09/22/2025 at 3:30 PM
Diagnostic data:
Chest x-ray-combined COPD and pulmonary fibrosis
Chest x-ray 08/07/2025-NAD, interstitial fibrosis and emphysema similar to prior
CT head 08/07/2025-no acute intracranial abnormalities
CT chest PE study 02/26/23: No PE. Mild to moderate centrilobular emphysema. Scattered enlarged mediastinal lymph nodes are noted measuring up to 2.1 cm in the precarinal region, increased from prior. Bilateral lower lobe dependent atelectasis.
Probable component of pneumonia in the left lower lobe.
CT chest 11/07/23: negative PE but there is motion artifact and mild interstitial changes. There is consolidation of the left upper lobe and left lower lobe consistent with pneumonia. There is mediastinal adenopathy, stable.
Echocardiogram 03/23/25: normal biventricular function, mild MR/AR, PA pressure 39.� Stable
LHC 05/26/22: unsuccessful attempted PCI of RCA lesion
Stress test 03/30/22: abnormal, inferior/inferolateral ischemia
PFT 11/29/23: FVC 2.64/73%, FEV1 1.36/52%, ratio 52. There is a 16% improvement in FEV1 which is likely significant. TLC 4.68/74%, DLCO 2.43/11%. Moderate obstruction, mild restriction and severe gas exchange defect with bronchodilator response.
Compared to 2021, this has worsened
PFT 12/01/24: FVC 3.25/93%, FEV1 1.96/79%, ratio 60.� There is an 11% improvement in FEV1 following bronchodilator.� TLC 4.69/75%, DLCO 6.34/28%.� Mild obstruction, restriction and severe gas exchange defect. C/t prior study, FEV1 has improved, TLC
and DLCO is stable
6MWT 03/09/25: Patient ambulated 1050 feet, stopped after the fourth minute because of back pain.� 90% on room air, heart rate 106, dyspnea scale 2/10.� Resting saturation pre-ambulation 97%
6MWT 02/12/24: Ambulated 900 feet, desaturated to 85% on room air, heart rate 103, dyspnea scale 3/10. Required 2 L of oxygen to maintain saturation 90%, heart rate 111, dyspnea scale 2.5/10
Subjective Data
-
Date of Service:
Date of Service: August 09, 2025
Subjective:
Patient comfortably sitting in bed in no acute distress. No cough or congestion.
Review of Systems
Genitourinary: Other (No new pulmonary symptoms reported.)
Objective Data
Data Reviewed
Vital Signs / I&O / Oxygen:
Vital Signs
Temp Pulse Resp BP Pulse Ox
98.4 F 78 16 96/73 95
08/09/25 15:23 08/09/25 15:23 08/09/25 15:23 08/09/25 15:23 08/09/25 15:23
Intake and Output
08/08/25 08/09/25 08/10/25
06:59 06:59 06:59
Intake Total 1340 / 1340 1280 / 1280
Output Total 2975 / 2975 2250 / 2250
Balance -1635 / -1635 -970 / -970
SaO2 95
Physical Exam
General: Comfortable
HEENT: Normocephalic and Other (Pale conjunctiva)
Cardiovascular: S1-S2
Respiratory: Clear and Non-Labored Respirations
GI: Soft and Non Distended
Neurology: Awake and Alert
Skin: Warm
Labs/Micro/Reports
Lab Data
08/09/25 08:02
08/09/25 08:59
Microbiology
08/07/25 18:04 Urine Urine Culture - Preliminary
[2025-08-09] MEDS: SENOKOT-S 2 TABLET PO (21:11)
[2025-08-10] VITALS (20 sets, daily range): BP systolic 60–142; BP diastolic 45–83; PULSE 96; O2SAT 91; BMI 21.6; BMI 21.1
[2025-08-10] MEDS: DUONEB 3 ML INH ×2 (08:04→20:14)
[2025-08-10] MEDS: PULMICORT 0.5 MG INH ×2 (08:04→20:14)
[2025-08-10] MEDS: CRESTOR 20 MG PO (09:06)
[2025-08-10] MEDS: PROTONIX 40 MG PO (09:06)
[2025-08-10] MEDS: VITAMIN C 1000 MG PO ×2 (09:06→21:27)
[2025-08-10] MEDS: MIRALAX PO (09:06)
[2025-08-10] MEDS: FARXIGA 10 MG PO (09:06)
[2025-08-10] MEDS: KCL 20 MEQ PO (09:07)
[2025-08-10] MEDS: NEURONTIN 300 MG PO ×3 (09:07→21:27)
[2025-08-10] MEDS: PERCOCET 5/325 2 TABLET PO ×3 (09:07→21:27)
--- NOTE | 2025-08-10 09:37 | W.PN.CD ---
Today's Communication / Plan
-
farxiga resumed 08/09
resume torsemide 40mg once daily (reduced dose) today, and trend Cr
will plan to hold aldactone, and re-assess as outpatient
continue to hold eliquis as long as plts remain under 50
Impression / Plan
-
Impression
74-year-old with paroxysmal A-fib on Eliquis s/p PVI 11/2022, coronary artery disease on medical management, s/p inferior STEMI 05/2022 (unable to PCI RCA), chronic HFpEF, hypertension hyperlipidemia, COPD, idiopathic pulmonary fibrosis,
mild�moderate MR, mild AR, MDS with anemia s/p chemotherapy with Vidaza/Venclexta, s/p IV iron and 1 PRBC presenting to the ER with shortness of breath.
Plan
#Dyspnea on exertion
-Multifactorial�likely secondary to chronic anemia due to MDS versus pulmonary fibrosis versus COPD exacerbation
-does not appear to be acute HF, and presentation was consistent with pre-renal LEBRON
-Patient is s/p 1 PRBC 08/08/2025
#HFpEF, chronic
-Patient appears euvolemic
-Latest echo on 03/2025 with EF of 50 to 60%, mild AR
-Spironolactone, torsemide 40mg bid, Farxiga were held at admission due to LEBRON
-farxiga resumed 08/09
-resume torsemide 40mg once daily (reduced dose) today, and trend Cr
-high risk situation with LEBRON on admission
-will plan to hold aldactone, and re-assess as outpatient
#Paroxysmal A-fib
Patient is in sinus rhythm on telemetry
EKG with NSR
Telemetry reviewed
Avinash Vas score�5
Eliquis held for plt <50; resume when >50
Not on any rate control meds
Monitor telemetry
#CAD
No symptoms
Continue Crestor
Physical Exam
Vital Signs/Labs
Vital Signs
Temp Pulse Resp BP Pulse Ox
98.1 F 73 16 110/65 94
08/10/25 07:25 08/10/25 08:08 08/10/25 08:08 08/10/25 07:25 08/10/25 08:08
08/09/25 08/10/25 08/11/25
06:59 06:59 06:59
Actual Weight 63.56 kg 64.41 kg
Magnesium 1.9 mg/dl (1.6-2.3) 08/07/25 13:45
08/07/25
09:14
Ofy-[id number] Pept 371
LAB Results
08/07/25
09:14
Troponin I 0.030
Physical Exam
Constitutional: No acute distress and Comfortable
EENT: Moist mucous membranes
Cardiovascular: Rhythm & rate is regular, Pedal edema is absent, JVD pressure is normal and Systolic murmur absent
Respiratory: Respiratory effort normal and Lungs clear to auscul.
Neuro/Psych: AO x 3
Data Reviewed
-
Date of Service: August 10, 2025
EKG: Other (Tele: SR 60s, brief SVT)
Labs: Labs Reviewed by me
[2025-08-10 09:56] LABS: Hematocrit 27.9 % (39.0-52.0); Hemoglobin 8.9 g/dL (13.0-18.0); Mean Corp Hgb Conc. 31.9 g/dL (33.0-37.0); Mean Corpuscular Volume 108.6 fL (80.0-94.0); Platelet Count 44 10^3/uL (130-400); Red Cell Dist. Width 22.1 % (11.5-14.5)
[2025-08-10] MEDS: DEMADEX 40 MG PO (10:34)
[2025-08-10 10:51] LABS: Blood Urea Nitrogen 15 mg/dl (9-20); Calcium 8.3 mg/dl (8.4-10.2); Carbon Dioxide 21 mmol/L (22-30); Chloride 108 mmol/L (98-107); Estimated Creatinine Clearance 73 ml/min; Glucose 110 mg/dl (70-99); Potassium 4.6 mmol/L (3.5-5.1); Sodium 135 mmol/L (135-145); eGFR > 60.00
--- NOTE | 2025-08-10 11:37 | CM ---
Per hospitalist, patient is stable for d/c. PT rec SNF due to weakness, fatigue and patient's home set up. Patient prefers to go home, per chart, refuses HC services.
Spoke w/ patient bedside, informed that [facility] accepted and hospitalist is deeming him stable. Patient requesting to see PT again today as he would like to go home and stating this this hospitalization is better than his previous ones so he feels
confident to be able to go home. Patient agreed that if PT cont to rec SNF today, he will go
CM reached out to therapy asking if patient can be seen per his request
Updated hospitalist
--- NOTE | 2025-08-10 12:31 | W.PN.PUL3 ---
Today's Communication / Plan
-
- Continue Pulmicort and budesonide at discharge
- Assess for home oxygen need prior to discharge
- No indication for steroids or antibiotics from pulmonary standpoint
- Pulmonary team will sign off, please call as needed. Outpatient follow-up with [facility] clinic
Assessment
-
74-year-old former smoking male with a history of COPD, pulmonary fibrosis, CAD, PAF on Eliquis, CHF, myelodysplastic syndrome on Vidaza who has chronic pain with opioid dependence who is noticed progressive dyspnea and presented with orthostatic
hypotension and LEBRON-pulmonary consulted for shortness of breath 08/08/2025.
Shortness of breath multifactorial-do not believe significant COPD exacerbation
COPD/pulmonary fibrosis overlap without acute exacerbation
Orthostatic hypotension likely from overdiuresis
LEBRON
Leukopenia/anemia/thrombocytopenia from myelodysplasia
Conditions present prior to admission:
CAD.
CHF.
Hypertension.
PAF/Eliquis.
COPD/pulmonary fibrosis overlap-was maintained on Trelegy and recently changed to DuoNebs and Pulmicort nebulizers in addition to prednisone 5 mg daily
Mediastinal lymphadenopathy status post bronchoscopy which was negative, PET scan borderline SUV 2.8 and 3.3
Recurrent pneumonia
Significant decreased diffusing capacity
Pulmonary hypertension.
History of pulmonary nodule
Myelodysplasia on Vidaza.
Hyperlipidemia.
Chronic pain/opioid dependence.
Chronic Collins catheter.
GERD
Weight loss-unintentional
Cataract. Laminectomy. Tonsillectomy. Cardiac ablation 2021.
Plan
History, exam, and office records as well as chest x-ray, CTs of the chest, PET scan, CT head, echocardiogram, cardiac catheterization, stress test, and PFT data were personally reviewed and summarized below
Patient was last seen in June in the pulmonary office and he was changed from Trelegy to DuoNebs and Pulmicort-unclear if he was doing this consistently
Shortness of breath is likely multifactorial including cardiac, anemia, and pulmonary issues
Supplemental oxygen as needed
Assess discharge supplemental oxygen needs prior to discharge
Hold on steroid initiation
Continue DuoNebs
Continue Pulmicort nebulizers, switched to twice daily. Current presentation not suggestive of COPD exacerbation
Aspiration precautions
Pulmonary team will sign off, resume DuoNeb and Pulmicort at discharge. Will arrange outpatient follow-up.
The patient was last seen by Dr. Toledo on 06/23/2025 and has an appointment 09/22/2025 at 3:30 PM
Diagnostic data:
Chest x-ray/-combined COPD and pulmonary fibrosis
Chest x-ray 08/07/2025-NAD, interstitial fibrosis and emphysema similar to prior
CT head 08/07/2025-no acute intracranial abnormalities
CT chest PE study 02/26/23: No PE. Mild to moderate centrilobular emphysema. Scattered enlarged mediastinal lymph nodes are noted measuring up to 2.1 cm in the precarinal region, increased from prior. Bilateral lower lobe dependent atelectasis.
Probable component of pneumonia in the left lower lobe.
CT chest 11/07/23: negative PE but there is motion artifact and mild interstitial changes. There is consolidation of the left upper lobe and left lower lobe consistent with pneumonia. There is mediastinal adenopathy, stable.
Echocardiogram 03/23/25: normal biventricular function, mild MR/AR, PA pressure 39.� Stable
LHC 05/26/22: unsuccessful attempted PCI of RCA lesion
Stress test 03/30/22: abnormal, inferior/inferolateral ischemia
PFT 11/29/23: FVC 2.64/73%, FEV1 1.36/52%, ratio 52. There is a 16% improvement in FEV1 which is likely significant. TLC 4.68/74%, DLCO 2.43/11%. Moderate obstruction, mild restriction and severe gas exchange defect with bronchodilator response.
Compared to 2021, this has worsened
PFT 12/01/24: FVC 3.25/93%, FEV1 1.96/79%, ratio 60.� There is an 11% improvement in FEV1 following bronchodilator.� TLC 4.69/75%, DLCO 6.34/28%.� Mild obstruction, restriction and severe gas exchange defect. C/t prior study, FEV1 has improved, TLC
and DLCO is stable
6MWT 03/09/25: Patient ambulated 1050 feet, stopped after the fourth minute because of back pain.� 90% on room air, heart rate 106, dyspnea scale 2/10.� Resting saturation pre-ambulation 97%
6MWT 02/12/24: Ambulated 900 feet, desaturated to 85% on room air, heart rate 103, dyspnea scale 3/10. Required 2 L of oxygen to maintain saturation 90%, heart rate 111, dyspnea scale 2.5/10
Subjective Data
-
Date of Service:
Date of Service: August 10, 2025
Subjective:
Comfortably sitting in bed in no acute distress. No new pulmonary symptoms.
Review of Systems
Genitourinary: Other (No new pulmonary symptoms reported)
Objective Data
Data Reviewed
Vital Signs / I&O / Oxygen:
Vital Signs
Temp Pulse Resp BP Pulse Ox
98.1 F 73 16 110/65 94
08/10/25 07:25 08/10/25 08:08 08/10/25 08:08 08/10/25 07:25 08/10/25 08:08
Intake and Output
08/09/25 08/10/25 08/11/25
06:59 06:59 06:59
Intake Total 1280 / 1280 480 / 480
Output Total 2250 / 2250 1625 / 1625
Balance -970 / -970 -1145 / -1145
SaO2 94
Physical Exam
General: Comfortable
HEENT: Normocephalic and Other (Pale conjunctiva)
Cardiovascular: S1-S2
Respiratory: Clear and Non-Labored Respirations
GI: Soft and Non Distended
Neurology: Awake and Alert
Skin: Warm
Labs/Micro/Reports
Lab Data
08/10/25 08:17
08/10/25 08:17
Microbiology
08/07/25 18:04 Urine Urine Culture - Preliminary
Gram negative bacilli
Escherichia coli
[2025-08-10 13:03] LABS: Platelets Checked Yes
[2025-08-10 13:04] LABS: Anisocytosis 1+; Microcytosis Slight; Normal RBC Morphology No; Total Cells Counted 100
[2025-08-10 13:06] LABS: Absolute Neutrophils -Man Diff 0.9 10^3/uL (1.4-6.5)
--- NOTE | 2025-08-10 15:02 | W.PN.HOSP.TC ---
Today's Communication/Plan
-
Basically optimized for discharge
Seen by PT with SNF recommendation, although declined and requesting additional evaluation leaning for home discharge.
Assessment / Plan
Assessment / Plan
Impression
Presented with exertional dyspnea likely multifactorial.
MDS with pancytopenia�anemia chronic and worsening anemia requiring transfusion
LEBRON likely secondary to anemia and loop diuretics
Hypokalemia improved
Orthostatic hypotension in settings of low volume/dehydration and anemia
Other conditions
CAD.
Chronic CHF preserved EF.
Essential hypertension
Paroxysmal atrial fibrillation baseline anticoagulation with Eliquis.
COPD
ILD/pulmonary fibrosis
Chronic mediastinal lymphadenopathy.
Prior history of pneumonia
Chronic pain syndrome with opiate dependence
Chronic bladder outlet obstruction with indwelling Collins catheter
GERD
History of alcohol use disorder
Plan:
Exertional dyspnea likely multifactorial in the settings of overall deconditioning, worsening anemia
While presenting with dehydration and LEBRON has no evidence of decompensated heart failure. No evidence of COPD/pulmonary fibrosis flareup.
Overall improved with transfusion.
COPD/ILD/pulmonary fibrosis
Chest x-ray with no acute cardiopulmonary process. Chronic changes consistent with interstitial pulmonary fibrosis and emphysema similar to prior findings.
Stable respiratory status with no requirements for supplemental oxygen.
Continue nebulizers.
Continue Pulmicort
Cardiovascular
Chronic CHF preserved EF
Paroxysmal atrial fibrillation
With improved renal function, plan is to resume torsemide on 08/10.
Continue Farxiga
Not on any AV steve blocking agents prior to presentation.
MDS
On Vidaza
Noted with chronic pancytopenia and worsening anemia requiring transfusion
Follow CBC baseline transfuse if hemoglobin falls consistently below 8�8.5
Chronic bladder outlet obstruction
Collins in place baseline
With consider not to resume tamsulosin given soft BP
Anticipated Discharge: Within 24 hours
Subjective/Interval History
-
Date of Service: August 10, 2025
Objective Data
-
Labs:
Laboratory Results
08/10/25
08:17
WBC 3.6 L
Hgb 8.9 L
Hct 27.9 L
Plt Count 44 L
Sodium 135
Potassium 4.6
Chloride 108 H
Carbon Dioxide 21 L
BUN 15
Creatinine 0.8
Glucose 110 H
Calcium 8.3 L
Vital Signs:
Vital Signs
Temp Pulse Resp BP Pulse Ox
98.1 F 67 18 107/66 94
08/10/25 11:15 08/10/25 11:15 08/10/25 11:15 08/10/25 11:15 08/10/25 11:15
I&O
08/09/25 08/10/25 08/11/25
06:59 06:59 06:59
Intake Total 1280 / 1280 480 / 480
Output Total 2250 / 2250 1625 / 1625
Balance -970 / -970 -1145 / -1145
Physical Exam
-
General: Well Developed and No Apparent Distress
HEENT: Normocephalic, Atraumatic and Moist Mucous Membranes
Respiratory: Clear to Auscultation; Negative Wheezes
Cardiac: Regular Rhythm and S1/S2; Negative Murmur, Rub or Gallop
GI: Soft, Nontender, Nondistended and Normal Bowel Sounds; Negative Organomegaly
Rectal: Deferred by Provider
Genito-urinary: Collins
Musculoskeletal: No Clubbing, No Cyanosis and No Edema
Skin: Negative Rash
Neuro: Nonfocal/Grossly Intact
[2025-08-10] MEDS: LOPRESSOR 5 MG IV ×2 (16:06→16:26)
[2025-08-10 16:18] LABS: Glucose - Point of Care 100 mg/dl (70-99)
[2025-08-10 16:55] LABS: Hematocrit 37.5 % (39.0-52.0); Hemoglobin 11.7 g/dL (13.0-18.0); Mean Corp Hgb Conc. 31.2 g/dL (33.0-37.0); Mean Corpuscular Volume 110.0 fL (80.0-94.0); Platelet Count 72 10^3/uL (130-400); Red Cell Dist. Width 22.5 % (11.5-14.5)
[2025-08-10 17:05] LABS: Troponin I < 0.012 ng/ml
[2025-08-10 17:13] LABS: Glucose - Point of Care 80 mg/dl (70-99)
--- NOTE | 2025-08-10 17:21 | PTCARENOTE ---
1540 Pt went into AFIB with RVR. HR range 130-160. DrMichoacano B/P 120-140 range systolic and 60-80 range diastolic. Pt given Lopressor 5mg IV as ordered. HR dropped to 130. Pt's pulse OX 88 % on RA. Pulse 94 on O-2 L via N/C. Pt then became very SOB. Pulse
ox dropped in to the 60's. O2 increased to 3 L. Pulse ox increased to 70's. Simple mask placed. sat 94%. 1615 Rapid response called. Pt then transferred to ICU. Report called to Elina.
[2025-08-10] MEDS: LASIX 40 MG IV (17:29)
--- NOTE | 2025-08-10 17:29 | RR ---
1610 A Rapid Response was called on this patient, please see Rapid Response form.
--- NOTE | 2025-08-10 17:43 | W.PN.UPDATE ---
Update Note
Progress Note Update
Called to the patient bedside along with rapid response team.
Patient found to be in rapid A-fib with heart rate around 170s, normotensive and hypoxic requiring oxygen supplementation via simple mask up to 10-12 L
ECG with rapid A-fib.
Attempted to control rate with IV Lopressor with some improvement rates down to 110.
Attempted to treat acute hypoxia with IV Lasix.
Oral Lopressor ordered to 25 mg every 6 hours (not on any AV steve blocking agents or arrhythmics for paroxysmal A-fib prior to presentation
Later patient complained of severe chills and rigors and found to be febrile
Remains hemodynamically stable.
Follow-up lab work relevant for now increased white count at 12.9 (3.6 earlier today). Hemoglobin up to 11.7 likely hemoconcentrated with from recent diuresis including oral torsemide
Lactic acidosis lactic acid level 5.9
Suspect evolving sepsis.
Transferred to ICU.
Exchange Collins catheter and send UA and cultures.
Blood cultures.
Chest x-ray.
Empiric antibiotics: Cefepime.
Hold further diuretics.
Isotonic solution ordered with concern for evolving sepsis and anticipating hypotension
Discussed with ICU team
[2025-08-10] MEDS: LR 1000 IV (17:55)
[2025-08-10] MEDS: MAXIPIME 1000 MG IV (17:56)
[2025-08-10] MEDS: STERILE WATER FOR INJECTION 10 ML IV (17:56)
[2025-08-10 18:14] LABS: Urine Character Clear (Clear)
[2025-08-10 18:19] LABS: APTT 32.4 Sec (23.4-35.0); INR 1.29; PT 16.4 Sec (11.4-14.6)
[2025-08-10 18:24] LABS: Blood Urea Nitrogen 24 mg/dl (9-20); Calcium 9.3 mg/dl (8.4-10.2); Carbon Dioxide 28 mmol/L (22-30); Chloride 99 mmol/L (98-107); Estimated Creatinine Clearance 52 ml/min; Glucose 90 mg/dl (70-99); Potassium 4.9 mmol/L (3.5-5.1); Sodium 138 mmol/L (135-145); eGFR > 60.00
[2025-08-10] MEDS: OFIRMEV 65 MG IV (18:24)
[2025-08-10 18:30] LABS: Magnesium 1.6 mg/dl (1.6-2.3)
[2025-08-10] MEDS: LEVOPHED 250 IV (18:38)
[2025-08-10 18:54] LABS: Urine White Cell 0-2 /HPF (0-5)
--- NOTE | 2025-08-10 19:48 | PTCARENOTE ---
Rec'd patient from 4E s/p rapid response around 1700. Patient confused. Anxious and restless in bed. Tachypneic. RR in the 30-40's. Labored breathing. Shallow, diminished/coarse throughout. Pulse ox 97-99% on NRB. HR in the 120-130's; ST. BP
120-140/60-80's. Axillary temp 102.9. Orders for rectal Tylenol obtained. Chronic stoner interchanged per MD order. 16Fr indwelling stoner placed. UA sent. Blood cx's, coags and BMP sent. Lactic 5.9. Radiology Technologist notified. Repeat lactic due at 2029.
ABX administered as ordered. IV access limited; #20 in right thumb. Peripheral site placed in left wrist. IVFs initiated. Patient above max dose of Acetaminophen. Pharmacist notified. 650mg Ofirmev ordered and administered. Tmax 104.5 (core).
Around 1830, patient resting calmly. Back to baseline mentation. NSR on tele. Rate in the 80-90's. Hypotension worsening. Levophed initiated for MAP>65. Weaned off NRB to 10L MF. Pulse ox 98%.
--- NOTE | 2025-08-10 20:34 | PTCARENOTE ---
on assessment pt AAOx3, c/o chronic pain, SR on the monitor, BP soft started on levo gtt, 10L midflow, chol lowering diet, chronic stoner, call caceres in reach
--- NOTE | 2025-08-10 20:35 | PTCARENOTE ---
LEVO and LR gtt running through IV in L forearm, on assessment appeared to be infiltrated, medication was placed on hold, HVAC TECH, pharmacy, and VAT team notified, pt states no pain or discomfort to that IV site at this time, call caceres in reach
[2025-08-10] MEDS: SENOKOT-S PO (21:28)
[2025-08-11] VITALS (94 sets, daily range): BP systolic 77–120; BP diastolic 53–96; BMI 21.1
[2025-08-11] MEDS: STERILE WATER FOR INJECTION 10 ML IV ×4 (00:33→19:32)
[2025-08-11] MEDS: MAXIPIME 1000 MG IV ×4 (00:33→19:32)
[2025-08-11] MEDS: LR 1000 IV (03:44)
[2025-08-11] MEDS: LEVOPHED 250 IV ×3 (03:47→22:41)
--- NOTE | 2025-08-11 04:01 | PTCARENOTE ---
VAT team placed RUE PICC last evening, levo and IVF continued per orders, pt AAOx3, denies pain and SOB at this time, call caceres in reach
[2025-08-11 04:08] LABS: Hematocrit 29.2 % (39.0-52.0); Hemoglobin 9.4 g/dL (13.0-18.0); Mean Corp Hgb Conc. 32.2 g/dL (33.0-37.0); Mean Corpuscular Volume 107.7 fL (80.0-94.0); Platelet Count 66 10^3/uL (130-400); Red Cell Dist. Width 21.4 % (11.5-14.5)
[2025-08-11 04:14] LABS: Blood Urea Nitrogen 31 mg/dl (9-20); Calcium 8.7 mg/dl (8.4-10.2); Carbon Dioxide 26 mmol/L (22-30); Chloride 100 mmol/L (98-107); Estimated Creatinine Clearance 47 ml/min; Glucose 116 mg/dl (70-99); Potassium 4.2 mmol/L (3.5-5.1); Sodium 133 mmol/L (135-145); eGFR > 60.00
[2025-08-11 06:16] LABS: Hematocrit 29.1 % (39.0-52.0); Hemoglobin 9.2 g/dL (13.0-18.0); Mean Corp Hgb Conc. 31.6 g/dL (33.0-37.0); Mean Corpuscular Volume 107.8 fL (80.0-94.0); Platelet Count 68 10^3/uL (130-400); Red Cell Dist. Width 21.4 % (11.5-14.5)
[2025-08-11 06:58] LABS: Absolute Neutrophils -Man Diff 35.1 10^3/uL (1.4-6.5); Normal RBC Morphology No; Platelets Checked Yes
[2025-08-11 06:59] LABS: Anisocytosis 2+; Macrocytosis 3+; Total Cells Counted 100
[2025-08-11] MEDS: PULMICORT 0.5 MG INH ×2 (07:32→19:20)
[2025-08-11] MEDS: DUONEB 3 ML INH ×2 (07:32→19:21)
--- NOTE | 2025-08-11 08:00 | PTCARENOTE ---
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 patient is pleasant and cooperative, AAOx4, extremely hard of hearing. He is on 10L midflow at 100%. Patient is on levophed gtt for MAP>65. He is ordered cholesterol lowering diet. Has chronic stoner , draining
yellow urine. Will review orders, full shift assessment as charted.
--- NOTE | 2025-08-11 08:56 | CON.ONC ---
Consultation
-
Date Consultation Requested: 08/11/25
Date Consultation Performed: 08/11/25
Requesting Provider: Isaak
Performing Provider: YOVANY
Reason for Consultation: MDS
Impression
Impression
MDS
Leukemoid reaction
A. Fib RVR - resolved
Multifactorial dyspnea
weakness/anemia
Plan
Plan
Patient for discharge.
WBC smear reviewed.
Elevated WBC c/w leukemoid reaction.
Follows with Dr. Galvan with frequent CBC testing.
Follow up scheduled 08/20 with [facility] and will have CBC then.
Patient History
History of Present Illness
CC: weakness, dyspnea
HPI:
74-year-old male with MDS follows with [facility] ([facility] in [place]) past medical history of CAD, paroxysmal atrial fibrillation on Eliquis, CHF, myelodysplastic syndrome on luspatercept & Retacrit, s/p IV iron recently, pulmonary hypertension,
idiopathic pulmonary fibrosis, COPD, former smoker, hyperlipidemia, chronic pain with opiate dependence, chronic Collins catheter presenting with generalized weakness and multifactorial dyspnea. He has had a gradual decline in health over the past
month. Went into rapid A. Fib. Had dramatic leukocytosis propting heme consuult. Likely a leukomoid reaction.
Past-Medical/Surgical History
Myelodysplastic syndrome, unspecified on luspatercept & Retacrit
Vitamin B12 deficiency anemia due to intrinsic factor deficiency
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
Malignant neoplasm of lymphoid, hematopoietic and related tissue, unspecified
Iron deficiency anemia, unspecified
Refractory anemia with excess of blasts, unspecified
Agranulocytosis secondary to cancer chemotherapy
CAD
paroxysmal atrial fibrillation on Eliquis
CHF
pulmonary hypertension
idiopathic pulmonary fibrosis
COPD
Surgical History
No relevant surgeries.
Social History
Former Smoker. Year Quit 2005. Approximate years smoked 38.
Patient advises social use of alcohol. beer. Patient reports on average 4-6 drinks per week. Denies any illicit drug use.
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
Patient has not had any occupational exposure.
Marital Status: Patient is with no children.
Patient Medication
�Medication �Instructions �Recorded �Confirmed �Last Taken �Type
apixaban 5 mg tablet 5 mg PO BID Blood clot 09/22/22 08/07/25 08/07/25 History
prevention/tx
ascorbic acid (vitamin C) 1,000 mg 1,000 mg PO BID Supplement 11/19/22 08/07/25 08/07/25 History
tablet (Vitamin C)
gabapentin 300 mg capsule 300 mg PO TID Neurological 11/07/24 08/07/25 08/07/25 History
Condition
budesonide 0.5 mg/2 mL suspension 0.5 mg inhalation R DAILY 03/22/25 08/07/25 03/22/25 History
for nebulization Lung/Breathing Issues
ipratropium 0.5 mg-albuterol 3 mg 3 ml inhalation R DAILY 03/22/25 08/07/25 03/22/25 History
(2.5 mg base)/3 mL nebulization Lung/Breathing Issues
soln
oxycodone-acetaminophen 10 mg-325 1 tab PO TID Pain 03/22/25 08/07/25 08/07/25 History
mg tablet
polyethylene glycol 3350 17 gram 17 g PO DAILY Constipation 03/22/25 08/07/25 08/07/25 History
oral powder packet
rosuvastatin 20 mg tablet 20 mg PO DAILY High Cholesterol 03/22/25 08/07/25 08/07/25 History
sennosides 8.6 mg-docusate sodium 3 tab-cap PO HS Constipation 03/22/25 08/07/25 08/06/25 History
50 mg tablet (Senna-S)
torsemide 20 mg tablet 40 mg PO BID Fluid 03/22/25 08/07/25 08/07/25 History
Retention/Swelling
albuterol sulfate 90 mcg/actuation 2 puff inhalation R Q4HPRN PRN sob 08/07/25 08/07/25 08/06/25 History
aerosol inhaler
dapagliflozin propanediol 10 mg 10 mg PO DAILY Heart Failure 08/07/25 08/07/25 08/07/25 History
tablet (Farxiga)
pantoprazole 40 mg tablet,delayed 40 mg PO DAILY Gastrointestinal 08/07/25 08/07/25 08/07/25 History
release Issue
potassium chloride 20 mEq 20 meq PO BID Supplement 08/07/25 08/07/25 08/07/25 History
tablet,extended release
spironolactone 25 mg tablet 25 mg PO DAILY Heart Failure 08/07/25 08/07/25 08/07/25 History
tamsulosin 0.4 mg capsule 0.4 mg PO DAILY Urinary Issue 08/07/25 08/07/25 08/07/25 History
nitroglycerin 0.4 mg sublingual 0.4 mg sublingual Q5-15M PRN chest 08/10/25 08/10/25 Unknown History
tablet pain
Active Medications
Generic Name Dose Route Start Last Admin
Trade Name Freq PRN Reason Stop Dose Admin
Albuterol/Ipratropium 3 ml 08/07/25 15:32 08/08/25 07:44
Ipratropium 0.5/Albuterol 3 Mg (3 Ml Ampul) INH 3 ml
R Q4HPRN PRN Administration
Wheezing/SOB
Protocol
Albuterol/Ipratropium 3 ml 08/08/25 20:00 08/11/25 07:32
Ipratropium 0.5/Albuterol 3 Mg (3 Ml Ampul) INH 3 ml
R BID WILIAM Administration
Protocol
Apixaban 5 mg 08/07/25 20:00 08/08/25 07:25
Apixaban (Eliquis) 5 Mg Tablet PO 09/04/25 19:59 5 mg
On Hold: 08/08/25 11:17 BID WILIAM Administration
Ascorbic Acid 1,000 mg 08/07/25 20:00 08/10/25 21:27
Ascorbic Acid 500 Mg Tablet PO 09/04/25 19:59 1,000 mg
BID WILIAM Administration
Budesonide 0.5 mg 08/09/25 20:00 08/11/25 07:32
Budesonide (Pulmicort Respules) 0.5 Mg/2 Ml INH 0.5 mg
R BID WILIAM Administration
Protocol
Cefepime HCl 1,000 mg 08/10/25 18:00 08/11/25 05:37
Cefepime Hcl 1,000 Mg/11.3 Ml Vial IV 1,000 mg
Q6 WILIAM Administration
Dapagliflozin 10 mg 08/09/25 09:30 08/10/25 09:06
Dapagliflozin (Farxiga) 10 Mg Tablet PO 09/06/25 09:29 10 mg
DAILY WILIAM Administration
Gabapentin 300 mg 08/07/25 16:00 08/10/25 21:27
Gabapentin 300 Mg Capsule PO 09/04/25 15:59 300 mg
TID WILIAM Administration
Lactated Ringer's 1,000 mls @ 100 mls/hr 08/10/25 18:00 08/11/25 03:44
Lr IV 1,000 mls
.Q10H WILIAM Administration
Norepinephrine Bitartrate 4 mg in 250 mls @ 0 mls/hr 08/10/25 18:15 08/11/25 03:47
Levophed IV 250 mls
PER PROTOCOL WILIAM Administration
Protocol
Per Protocol
Metoprolol Tartrate 5 mg 08/10/25 15:53 08/10/25 16:26
Metoprolol 5 Mg/5 Ml Vial IV 09/07/25 15:52 5 mg
Q4HPRN PRN Administration
Hr>120
Metoprolol Tartrate 25 mg 08/10/25 18:00 08/11/25 05:15
Metoprolol 25 Mg Regular Release Tablet PO 09/07/25 17:59 Not Given
Q6 WILIAM
Oxycodone/Acetaminophen 2 tablet 08/07/25 22:00 08/10/25 21:27
Oxycodone 5 Mg/Apap 325 Mg (Percocet) PO 08/21/25 21:59 2 tablet
TID WILIAM Administration
Pantoprazole Sodium 40 mg 08/08/25 08:00 08/10/25 09:06
Pantoprazole 40 Mg Delayed Release Tablet PO 09/05/25 07:59 40 mg
DAILY WILIAM Administration
Polyethylene Glycol 17 grams 08/08/25 08:00 08/10/25 09:06
Polyethylene Glycol Powder 17 Grams Packet PO 09/05/25 07:59 Not Given
DAILY WILIAM
Potassium Chloride 20 meq 08/07/25 20:00 08/10/25 09:07
Potassium Chloride 20 Meq Extended Release Tablet PO 09/04/25 19:59 20 meq
On Hold: 08/10/25 19:18 BID WILIAM Administration
Rosuvastatin Calcium 20 mg 08/08/25 08:00 08/10/25 09:06
Rosuvastatin (Crestor) 20 Mg Tablet PO 09/05/25 07:59 20 mg
DAILY WILIAM Administration
Senna/Docusate Sodium 2 tablet 08/07/25 22:00 08/10/25 21:28
Docusate W/Senna (Luz Elena-Colace) Tablet PO 09/04/25 21:59 Not Given
HS WILIAM
Sodium Chloride 0 flush 08/07/25 17:00
Sodium Chloride 0.9% (Flush) Syringe IV 09/04/25 16:59
PER PROTOCOL WILIAM
Sterile Water 10 ml 08/10/25 18:00 08/11/25 05:37
Sterile Water For Injection 10 Ml Vial IV 09/07/25 17:59 10 ml
Q6 WILIAM Administration
Torsemide 40 mg 08/10/25 10:00 08/10/25 10:34
Torsemide 20 Mg Tablet PO 09/07/25 09:59 40 mg
On Hold: 08/10/25 17:49 DAILY WILIAM Administration
Physical Exam
-
General: Well Developed, Well Nourished and No Apparent Distress
HEENT: Other (hearing loss)
Cardiology: S1 and S2
Pulmonary: Clear
GI: Soft
Musculoskeletal: No Edema
Extremities: No C/C/E
Neurology: Non Focal
Labs
Lab Results
WBC 46.5 10^3/uL (4.8-10.8) H* 08/11/25 05:24
RBC 2.70 10^6/uL (4.70-6.10) L 08/11/25 05:24
Hgb 9.2 g/dL (13.0-18.0) L 08/11/25 05:24
Hct 29.1 % (39.0-52.0) L 08/11/25 05:24
MCV 107.8 fL (80.0-94.0) H 08/11/25 05:24
MCH 34.1 pg (27.0-31.0) H 08/11/25 05:24
MCHC 31.6 g/dL (33.0-37.0) L 08/11/25 05:24
RDW 21.4 % (11.5-14.5) H 08/11/25 05:24
Plt Count 68 10^3/uL (130-400) L 08/11/25 05:24
MPV 12.8 fL (7.4-10.4) H 08/11/25 05:24
Creatinine 1.2 mg/dL (0.7-1.3) 08/11/25 03:43
Vital Signs
Vital Signs
Temp Pulse Resp BP Pulse Ox
99.3 F 71 21 99/61 100
08/11/25 07:16 08/11/25 07:34 08/11/25 07:34 08/11/25 06:30 08/11/25 07:34
[2025-08-11] MEDS: CRESTOR 20 MG PO (09:08)
[2025-08-11] MEDS: PROTONIX 40 MG PO (09:08)
[2025-08-11] MEDS: PERCOCET 5/325 2 TABLET PO ×3 (09:09→21:02)
[2025-08-11] MEDS: FARXIGA 10 MG PO (09:09)
[2025-08-11] MEDS: NEURONTIN 300 MG PO ×3 (09:09→21:02)
[2025-08-11] MEDS: VITAMIN C 1000 MG PO ×2 (09:09→19:33)
[2025-08-11] MEDS: MIRALAX PO (09:16)
--- NOTE | 2025-08-11 09:29 | W.PN.INTV ---
Today's Communication / Plan
Recommendations
Plan reviewed with attending.
Wean pressors.
Continue cefepime. BC pending.
Assessment
-
74-year-old former smoking male with a history of COPD, pulmonary fibrosis, CAD, PAF on Eliquis, CHF, myelodysplastic syndrome on Vidaza who has chronic pain with opioid dependence who is noticed progressive dyspnea and presented with orthostatic
hypotension and LEBRON-pulmonary consulted for shortness of breath 08/08/2025 doing well yesterday with acute change in AMS, afib RVR, sepsis in the afternoon.
Pt became hypotensive requiring pressors Tmax 104. Leukocytosis to 46.5 bands 9. On NC 8L. Lactic 5.9 down to 1.6. This morning, pt is feeling significantly better with no SOB, abdominal pain. Alert and oriented.
Shortness of breath multifactorial-do not believe significant COPD exacerbation
COPD/pulmonary fibrosis overlap without acute exacerbation
Orthostatic hypotension likely from overdiuresis
LEBRON
Leukopenia/anemia/thrombocytopenia from myelodysplasia
Conditions present prior to admission:
CAD.
CHF.
Hypertension.
PAF/Eliquis.
COPD/pulmonary fibrosis overlap-was maintained on Trelegy and recently changed to DuoNebs and Pulmicort nebulizers in addition to prednisone 5 mg daily
Mediastinal lymphadenopathy status post bronchoscopy which was negative, PET scan borderline SUV 2.8 and 3.3
Recurrent pneumonia
Significant decreased diffusing capacity
Pulmonary hypertension.
History of pulmonary nodule
Myelodysplasia on Vidaza.
Hyperlipidemia.
Chronic pain/opioid dependence.
Chronic Collins catheter.
GERD
Weight loss-unintentional
Cataract. Laminectomy. Tonsillectomy. Cardiac ablation 2021.
Plan
Neuro:
Alert and oriented this morning.
Continue to monitor for changes,
Pulm:
Supplemental oxygen as needed
Hold on steroid initiation in setting of sepsis.
Continue DuoNebs
Continue Pulmicort nebulizers, switched to twice daily. Current presentation not suggestive of COPD exacerbation
Aspiration precautions
Cardio:
Afib with RVR on presentation to ICU resolved. PAF on eliquis at baseline
Continue home eliquis, spironolactone, statin, SGLT2
Wean pressors as tolerated.
GI:
Regular diet. If tolerating PO, plan to stop IVF.
PPI. Bowel regimen
:
Urine grew klebsiella, e coli, gram negative bacilli.
ID:
Urine grew klebsiella, e coli, gram negative bacilli.
BC pending.
Continue cefepime
Endo:
No hx DM or thyroid dx
Heme/onc:
Oncology following.
Home Vidaza was stopped by outpt provider for CHF exacerbation in July. Takes luspatercept at home for increasing Hgb.
DVT prophylaxis: SCDs
Diet: regular
pain: home percoset
Subjective Dataa
Subjective Data
Date of Service:
Date of Service: August 11, 2025
Subjective:
74yoM PMH COPD, pulmonary fibrosis, CAD, PAF on eliquis, CHF, MDS on vidaza presented with dyspnea and orthostatic hypotension about to be sent home yesterday with acute change in mental status, afib RVR, and fever. Pt begna having extreme chills
and spiked a fever Tmax 104.
This morning, pt reports feeling a lot better. He had poor recollection of the events that brought him to the ICU. Denies SOB, pain, swelling.
Objective Data
Data Reviewed
Vital Signs / I&O / Oxygen:
Vital Signs
Temp Pulse Resp BP Pulse Ox
99.3 F 79 24 110/78 93
08/11/25 07:16 08/11/25 09:20 08/11/25 09:20 08/11/25 09:15 08/11/25 09:10
Intake and Output
08/10/25 08/11/25 08/12/25
06:59 06:59 06:59
Intake Total 480 / 480 1646.3 / 1783.8 465.0 / 465.0
Output Total 1625 / 1625 975 / 1150 350 / 350
Balance -1145 / -1145 671.3 / 633.8 115.0 / 115.0
SaO2 93
Nasal Cannula flow liters per 10
minute
Physical Exam
General: Comfortable and T Max (104)
HEENT: Normocephalic, Anicteric and Moist Mucous Membranes
Cardiovascular: S1-S2 and Regular Rhythm
Respiratory: Clear
GI: Soft, Non Distended and Non Tender
Neurology: AO x 3 and No Motor Deficits (stable, reduced L arm mobility secondary to shoulder pain)
Skin: Warm and Dry
Labs/Micro/Reports
Lab Data
08/11/25 05:24
08/11/25 03:43
Laboratory Results
08/10/25
17:39
PT 16.4 H
INR 1.29
APTT 32.4
Microbiology
08/07/25 18:04 Urine Urine Culture - Final
Klebsiella oxytoca
Escherichia coli
Gram negative bacilli
--- NOTE | 2025-08-11 10:57 | W.PN.CD ---
Today's Communication / Plan
-
monitor tele
hold GDMT
wean levophed as able
eval for septic shock underway
CCT 31min
Impression / Plan
-
Impression
74-year-old with paroxysmal A-fib on Eliquis s/p PVI 11/2022, coronary artery disease on medical management, s/p inferior STEMI 05/2022 (unable to PCI RCA), chronic HFpEF, hypertension hyperlipidemia, COPD, idiopathic pulmonary fibrosis,
mild�moderate MR, mild AR, MDS with anemia s/p chemotherapy with Vidaza/Venclexta, s/p IV iron and 1 PRBC presenting to the ER with shortness of breath.
# Septic shock
-source under evaluation
-care per medicine and Energy Derivatives Trader
-wean levophed as able, keep MAP>65
#Paroxysmal A-fib
Patient is in sinus rhythm on telemetry, episode of rvr 08/10/25 with hypotension
self limiting
Telemetry reviewed
Avinash Vas score�5
Eliquis held for plt <50; will resume as >50
Not on any rate control meds, continue off given hypotension
Monitor telemetry
#Dyspnea on exertion
-Multifactorial�likely secondary to chronic anemia due to MDS versus pulmonary fibrosis versus COPD exacerbation
-sounds quite rhocherous today
-does not appear to be acute HF, and presentation was consistent with pre-renal LEBRON
-Patient is s/p 1 PRBC 08/08/2025
#HFpEF, chronic
-Patient appears euvolemic
-Latest echo on 03/2025 with EF of 50 to 60%, mild AR
-Spironolactone, torsemide 40mg bid, Farxiga were held at admission due to LEBRON, holding again for hypostension requiring vasopressor
-plan to eventually resume torsemide 40mg once daily (reduced dose) today, and trend Cr
-high risk situation with LEBRON on admission, now septic shock
-will plan to hold aldactone, and re-assess as outpatient
#CAD
No symptoms
Continue Crestor
Physical Exam
Vital Signs/Labs
Vital Signs
Temp Pulse Resp BP Pulse Ox
99.3 F 79 24 110/78 93
08/11/25 07:16 08/11/25 09:20 08/11/25 09:20 08/11/25 09:15 08/11/25 09:10
08/10/25 08/11/25 08/12/25
06:59 06:59 06:59
Actual Weight 142 lb 138 lb 10.732 oz
08/11/25 05:24
08/11/25 03:43
PT 16.4 Sec (11.4-14.6) H 08/10/25 17:39
INR 1.29 08/10/25 17:39
APTT 32.4 Sec (23.4-35.0) 08/10/25 17:39
Magnesium 1.6 mg/dl (1.6-2.3) 08/10/25 17:34
08/07/25 08/10/25
09:14 16:30
Dbj-W-Tddcyxuvinz Pept 371 582
LAB Results
08/10/25
16:30
Troponin I < 0.012
Physical Exam
Constitutional: No acute distress
Cardiovascular: Rhythm & rate is regular, Pedal edema is absent, JVD pressure is normal, Systolic murmur absent and Diastolic murmur absent
Respiratory: Respiratory effort normal, Rhonchi Present and Other (junky cough with deep breaths)
Neuro/Psych: AO x 3
Data Reviewed
-
Date of Service: August 11, 2025
Medical Decision Making: Review of Case with other Provider (Dr Mulilgan, afib developed with fever and chills quickly to follow, he doesn't think hypotension was due to rvr rather sepsis)
--- NOTE | 2025-08-11 12:00 | PTCARENOTE ---
ongoing care, all systems reviewed.
--- NOTE | 2025-08-11 15:04 | W.PN.HOSP.TC ---
Today's Communication/Plan
-
Antibiotics pending cultures
Wean off norepinephrine
Wean off IV fluids
Hold Lasix
Back to sinus rhythm, no need for beta-blockers
Resume Eliquis
Follow CBC
Assessment / Plan
Assessment / Plan
Impression
Presented with exertional dyspnea likely multifactorial.
MDS with pancytopenia�anemia chronic and worsening anemia requiring transfusion
LEBRON likely secondary to anemia and loop diuretics
Hypokalemia improved
Orthostatic hypotension in settings of low volume/dehydration and anemia
SIRS/sepsis with concern for complicated UTI developed on 08/10
Other conditions
CAD.
Chronic CHF preserved EF.
Essential hypertension
Paroxysmal atrial fibrillation baseline anticoagulation with Eliquis.
COPD
ILD/pulmonary fibrosis
Chronic mediastinal lymphadenopathy.
Prior history of pneumonia
Chronic pain syndrome with opiate dependence
Chronic bladder outlet obstruction with indwelling Collins catheter
GERD
History of alcohol use disorder
Plan:
SIRS
Sepsis with septic shock/hypotension requiring vasopressors
Patient developed severe tachycardia, chills and rigors on 08/10 PM.
Further workup was consistent with lactic acidosis.
Transferred to ICU.
Collins catheter exchanged (preadmission cultures from the catheter consistent with multiple gram-negative bacteria at that time likely contaminant)
Empiric antibiotics initiated: Cefepime
Blood cultures pending
Later hypotensive with shock responded to IV fluids initiated on norepinephrine
Exertional dyspnea likely multifactorial in the settings of overall deconditioning, worsening anemia
While presenting with dehydration and LEBRON has no evidence of decompensated heart failure. No evidence of COPD/pulmonary fibrosis flareup.
Overall improved with transfusion.
COPD/ILD/pulmonary fibrosis
Chest x-ray with no acute cardiopulmonary process. Chronic changes consistent with interstitial pulmonary fibrosis and emphysema similar to prior findings.
Stable respiratory status with no requirements for supplemental oxygen.
Continue nebulizers.
Continue Pulmicort
Cardiovascular
Chronic CHF preserved EF
Paroxysmal atrial fibrillation
With improved renal function, plan is to resume torsemide on 08/10.
On Farxiga
Not on any AV steve blocking agents prior to presentation.
Resume Eliquis
MDS
On Vidaza
Noted with chronic pancytopenia and worsening anemia requiring transfusion
Follow CBC baseline transfuse if hemoglobin falls consistently below 8�8.5
Leukemoid reaction with white count up to 40k
Chronic bladder outlet obstruction
Collins in place baseline
With consider not to resume tamsulosin given soft BP
Anticipated Discharge: 24 - 48 hours
Subjective/Interval History
-
Date of Service: August 11, 2025
Objective Data
-
Labs:
Laboratory Results
08/11/25 08/11/25
03:43 05:24
WBC 45.7 H* 46.5 H*
Hgb 9.4 L 9.2 L
Hct 29.2 L 29.1 L
Plt Count 66 L 68 L
Sodium 133 L
Potassium 4.2
Chloride 100
Carbon Dioxide 26
BUN 31 H
Creatinine 1.2
Glucose 116 H
Calcium 8.7
Vital Signs:
Vital Signs
Temp Pulse Resp BP Pulse Ox
99.9 F 75 21 100/68 98
08/11/25 11:22 08/11/25 13:40 08/11/25 13:40 08/11/25 13:30 08/11/25 13:40
I&O
08/10/25 08/11/25 08/12/25
06:59 06:59 06:59
Intake Total 480 / 480 1646.3 / 1783.8 855.0 / 855.0
Output Total 1625 / 1625 975 / 1150 495 / 495
Balance -1145 / -1145 671.3 / 633.8 360.0 / 360.0
Physical Exam
-
General: Well Developed and No Apparent Distress
HEENT: Normocephalic, Atraumatic and Moist Mucous Membranes
Respiratory: Clear to Auscultation; Negative Wheezes
Cardiac: Regular Rhythm and S1/S2; Negative Murmur, Rub or Gallop
GI: Soft, Nontender, Nondistended and Normal Bowel Sounds; Negative Organomegaly
Rectal: Deferred by Provider
Genito-urinary: Collins
Musculoskeletal: No Clubbing, No Cyanosis and No Edema
Skin: Negative Rash
Neuro: Nonfocal/Grossly Intact
[2025-08-11] MEDS: LR IV (15:29)
--- NOTE | 2025-08-11 16:09 | CM ---
Transferred to ICU 07/10/25. IV/cefepime. Discharge POC: SNF. [facility] accepted pending bed availability. Needs auth.
--- NOTE | 2025-08-11 16:45 | PTCARENOTE ---
No changes in patient's assessment. continuing to wean levophed, currently on 4mcgs.
--- NOTE | 2025-08-11 19:07 | PTCARENOTE ---
on assessment pt AAOx3, c/o chronic pain, SR on the monitor, BP soft but weaning down on levo gtt, 6L midflow, chol lowering diet, chronic stoner, bed alarm on and call caceres in reach
[2025-08-11] MEDS: TYLENOL 650 MG PO (19:32)
[2025-08-11] MEDS: ELIQUIS 5 MG PO (19:32)
[2025-08-11] MEDS: SENOKOT-S PO (21:02)
[2025-08-12] VITALS (49 sets, daily range): BP systolic 80–146; BP diastolic 55–106; BMI 21.8
--- NOTE | 2025-08-12 03:11 | PTCARENOTE ---
no changes from prior assessment, bed alarm on and call caceres in reach
[2025-08-12] MEDS: MAXIPIME 1000 MG IV (04:13)
[2025-08-12] MEDS: STERILE WATER FOR INJECTION 10 ML IV (04:13)
[2025-08-12 04:22] LABS: Hematocrit 26.1 % (39.0-52.0); Hemoglobin 8.4 g/dL (13.0-18.0); Mean Corp Hgb Conc. 32.2 g/dL (33.0-37.0); Mean Corpuscular Volume 107.0 fL (80.0-94.0); Platelet Count 50 10^3/uL (130-400); Red Cell Dist. Width 20.3 % (11.5-14.5)
[2025-08-12 04:49] LABS: Absolute Neutrophils -Man Diff 19.7 10^3/uL (1.4-6.5); Anisocytosis 1+; Normal RBC Morphology No; Platelets Checked Yes
[2025-08-12 04:50] LABS: Macrocytosis Slight; Polychromasia Slight; Total Cells Counted 100
[2025-08-12 05:10] LABS: ALT (SGPT) < 10 U/L (0-50); AST (SGOT) 24 U/L (17-59); Albumin 3.1 g/dl (3.5-5.0); Alkaline Phosphatase 58 U/L (38-126); Blood Urea Nitrogen 25 mg/dl (9-20); Calcium 8.5 mg/dl (8.4-10.2); Carbon Dioxide 28 mmol/L (22-30); Chloride 103 mmol/L (98-107); Estimated Creatinine Clearance 63 ml/min; Glucose 115 mg/dl (70-99); Magnesium 1.6 mg/dl (1.6-2.3); Potassium 3.9 mmol/L (3.5-5.1); Sodium 136 mmol/L (135-145); Total Protein 5.5 g/dl (6.3-8.2); eGFR > 60.00
[2025-08-12 07:45] LABS: Glycohemoglobin (HgbA1c) 4.7 % (4.0-5.6)
[2025-08-12] MEDS: DUONEB 3 ML INH ×2 (07:52→20:25)
[2025-08-12] MEDS: PULMICORT 0.5 MG INH ×2 (07:52→20:25)
--- NOTE | 2025-08-12 08:00 | PTCARENOTE ---
Pt rec'd from night RN, AOx3 very pleasant and conversant, 100% breakfast eaten, sat 100% on 10L-weaned to 6L then 2L by RT shortly after, sa02 maintaining high 90s. Pt states he has 02 concentrator at home and wears 3L PRN and had been for a few
days prior to admission. Pt remains off levo since 0600, BPs remains soft but stable with MAPs >65. Plan of care reviewed, see worklist for futher documentation.
--- NOTE | 2025-08-12 08:10 | W.PN.CD ---
Today's Communication / Plan
-
-Levophed discontinued this morning; blood pressure is still soft.
-Continue Eliquis; continue to monitor thrombocytopenia and for any active signs of bleeding.
-Continue to hold spironolactone, torsemide, and Farxiga due to LEBRON and hypotension.
Impression / Plan
-
Impression
74-year-old with paroxysmal A-fib on Eliquis s/p PVI 11/2022, coronary artery disease on medical management, s/p inferior STEMI 05/2022 (unable to PCI RCA), chronic HFpEF, hypertension hyperlipidemia, COPD, idiopathic pulmonary fibrosis,
mild�moderate MR, mild AR, MDS with anemia s/p chemotherapy with Vidaza/Venclexta, s/p IV iron and 1 PRBC presenting to the ER with shortness of breath.
# Septic shock
- Source under evaluation; possible UTI.
- Continue care per medicine and [employer]
- Levophed discontinued this morning; blood pressure is still soft.
#Paroxysmal A-fib
Patient remains in sinus rhythm on telemetry, episode of rvr 08/10/25 with hypotension
Avinash Vas score�5
-Continue Eliquis; continue to monitor thrombocytopenia and for any active signs of bleeding.
No rate-control meds, given hypotension
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
#Dyspnea on exertion
-Multifactorial�likely secondary to chronic anemia due to MDS versus pulmonary fibrosis versus COPD exacerbation
-No clinical signs of acute HF; initial presentation was consistent with pre-renal LEBRON.
-Patient is s/p 1 PRBC 08/08/2025
#HFpEF, chronic
-Patient appears euvolemic/compensated on examination.
-Holding cardiac medications secondary to hypotension and LEBRON.
-Latest echo on 03/2025 with EF of 50 to 60%, mild AR
-Continue to hold spironolactone, torsemide, and Farxiga due to LEBRON and hypotension.
-high risk situation with LEBRON on admission, now septic shock
#CAD
Relatively stable.
Continue Crestor
Physical Exam
Vital Signs/Labs
Vital Signs
Temp Pulse Resp BP Pulse Ox
100.1 F 93 18 101/64 99
08/12/25 03:10 08/12/25 07:54 08/12/25 07:54 08/12/25 06:15 08/12/25 07:56
08/11/25 08/12/25 08/13/25
06:59 06:59 06:59
Actual Weight 62.9 kg 65 kg
08/12/25 03:57
08/12/25 03:57
PT 16.4 Sec (11.4-14.6) H 08/10/25 17:39
INR 1.29 08/10/25 17:39
APTT 32.4 Sec (23.4-35.0) 08/10/25 17:39
Magnesium 1.6 mg/dl (1.6-2.3) 08/12/25 03:57
08/07/25 08/10/25
09:14 16:30
Opi-E-Ltsnhbzkuhy Pept [id number]
LAB Results
08/10/25
16:30
Troponin I < 0.012
Physical Exam
Constitutional: No acute distress and Comfortable
EENT: Anicteric
Cardiovascular: Rhythm & rate is regular, Pedal edema is absent, Systolic murmur present (/6) and S1S2 is normal
Respiratory: Respiratory effort normal and Lungs clear to auscul.
GI: Soft
Neuro/Psych: AO x 3
Other: Skin (Warm, dry, intact)
Data Reviewed
-
Date of Service: August 12, 2025
EKG: Tracing Personally Visualized and interpreted (Telemetry: Sinus rhythm)
Labs: Labs Reviewed by me
Critical Care Time (in minutes): 33
[2025-08-12] MEDS: PERCOCET 5/325 2 TABLET PO ×2 (08:29→16:24)
[2025-08-12] MEDS: NEURONTIN 300 MG PO ×3 (08:29→20:51)
[2025-08-12] MEDS: CRESTOR 20 MG PO (08:29)
[2025-08-12] MEDS: MIRALAX PO (08:31)
[2025-08-12] MEDS: ELIQUIS 5 MG PO ×2 (08:31→20:51)
[2025-08-12] MEDS: VITAMIN C 1000 MG PO ×2 (08:31→20:51)
[2025-08-12] MEDS: PROTONIX 40 MG PO (08:32)
--- NOTE | 2025-08-12 09:19 | W.PN.INTV ---
Addendum entered and electronically signed by Rodrigo Whitaker MD 08/12/25 19:29:
Total time spent today was 57 minutes for this encounter. Time includes reviewing laboratory test/imaging results, reviewing pertinent medical records, obtaining and reviewing medical history, performing an appropriate exam, ordering medications,
tests and procedures. Time also includes documentation of this encounter, coordinating patient care and communicating with other healthcare professionals. Total time does not include separately billed tests performed on this date of service.
Original Note:
Today's Communication / Plan
Recommendations
plan reviewed with attending
Assessment
-
74-year-old former smoking male with a history of COPD, pulmonary fibrosis, CAD, PAF on Eliquis, CHF, myelodysplastic syndrome on Vidaza who has chronic pain with opioid dependence who is noticed progressive dyspnea and presented with orthostatic
hypotension and LEBRON found to be septic 08/10 with leukocytosis, fever, and hypotension.
Now on abx pressors are off, Tmax 102.2. Leukocytosis improving 26 bands 12. On room air. Home oxygen PRN. This morning, pt is feeling significantly better with no SOB, abdominal pain but a new cough. Alert and oriented.
Shortness of breath multifactorial-do not believe significant COPD exacerbation
COPD/pulmonary fibrosis overlap without acute exacerbation
Orthostatic hypotension likely from overdiuresis
LEBRON
Leukopenia/anemia/thrombocytopenia from myelodysplasia
Conditions present prior to admission:
CAD.
CHF.
Hypertension.
PAF/Eliquis.
COPD/pulmonary fibrosis overlap-was maintained on Trelegy and recently changed to DuoNebs and Pulmicort nebulizers in addition to prednisone 5 mg daily
Mediastinal lymphadenopathy status post bronchoscopy which was negative, PET scan borderline SUV 2.8 and 3.3
Recurrent pneumonia
Significant decreased diffusing capacity
Pulmonary hypertension.
History of pulmonary nodule
Myelodysplasia on Vidaza.
Hyperlipidemia.
Chronic pain/opioid dependence.
Chronic Stoner catheter.
GERD
Weight loss-unintentional
Cataract. Laminectomy. Tonsillectomy. Cardiac ablation 2021.
Plan
Neuro:
Alert and oriented this morning.
Continue to monitor for changes
Pulm:
Supplemental oxygen as needed. Currently on room air.
Hold on steroid initiation
Continue DuoNebs
Continue Pulmicort nebulizers, switched to twice daily. Current presentation not suggestive of COPD exacerbation
Aspiration precautions
Monitor for worsening cough, trouble swallowing. Increased cough today.
Cardio:
Afib with RVR on presentation to ICU resolved. PAF on eliquis at baseline
Continue home eliquis, spironolactone, statin, SGLT2
Off pressors.
GI:
Regular diet. If tolerating PO, plan to stop IVF.
PPI. Bowel regimen
:
Urine grew klebsiella, e coli, gram negative bacilli.
Chronic stoner
ID:
Urine grew klebsiella, e coli, gram negative bacilli.
BC preliminarily grew H. Flu.
Continue cefepime
Endo:
No hx DM or thyroid dx
Heme/onc:
Oncology following.
Home Vidaza was stopped by outpt provider for CHF exacerbation in July. Takes luspatercept at home for increasing Hgb.
Plt dropping.
DVT prophylaxis: SCDs
Diet: regular
pain: home percoset
Disposition: downgrade off pressors
Subjective Dataa
Subjective Data
Date of Service:
Date of Service: August 12, 2025
Subjective:
Pt reports feeling well today, complaining most about his chronic shoulder pain. He kristin report a new, worsened cough. Denies trouble breathing, swallowing, SOB. He reports feeling cold still.
Objective Data
Data Reviewed
Vital Signs / I&O / Oxygen:
Vital Signs
Temp Pulse Resp BP Pulse Ox
101.8 F H 87 23 94/61 100
08/12/25 08:00 08/12/25 08:00 08/12/25 08:00 08/12/25 08:00 08/12/25 08:00
Intake and Output
08/11/25 08/12/25 08/13/25
06:59 06:59 06:59
Intake Total 1646.3 / 1783.8 1645.0 / 1885.0 240 / 240
Output Total 975 / 1150 3005 / 3005
Balance 671.3 / 633.8 -1360.0 / -1120.0 240 / 240
SaO2 100
Nasal Cannula flow liters per 2
minute
Physical Exam
General: Comfortable and T Max (102.2)
HEENT: Normocephalic, Anicteric and Moist Mucous Membranes
Cardiovascular: S1-S2 and Regular Rhythm
Respiratory: Wheeze, Crackles and Non-Labored Respirations
GI: Soft, Non Distended and Non Tender
Neurology: AO x 3 and No Motor Deficits (stable, reduced L arm mobility secondary to shoulder pain)
Skin: Warm and Dry
Labs/Micro/Reports
Lab Data
08/12/25 03:57
08/12/25 03:57
Microbiology
08/10/25 17:39 Blood/Venous Blood Culture - Preliminary
Haemophilus influenzae
08/10/25 17:39 Blood/Venous Gram Stain - Preliminary
08/10/25 17:34 Blood/Venous Blood Culture - Preliminary
Positive culture in progress
08/10/25 17:34 Blood/Venous Gram Stain - Preliminary
08/07/25 18:04 Urine Urine Culture - Final
Klebsiella oxytoca
Escherichia coli
Gram negative bacilli
--- NOTE | 2025-08-12 09:54 | PTCARENOTE ---
Pt sleeping s/p med administration this am including Percocet, was unable to administer PRN Tylenol for fever due to the fact that it would exceed total dosing limit of 4g of acetaminophen in 24 hours. Pt was shivering and c/o feeling cold, blanket
provided. Pt maintaining sa02 of 91% on room air at this time, declined to get oob earlier and wants to rest in bed. BP remains soft but maintaining MAP >65.
--- NOTE | 2025-08-12 10:01 | W.PN.ONC2 ---
Today's Communication / Plan
-
.
Impression
Impression
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
KAILA completed a course if venofer July 2025
Leukocytosis c/w Leukemoid reaction, not neutropenic
Blood culture 08/10 Haemophilus influenzae
Ucx 08/07 w Kleb oxytoca, E. Coli
A. Fib RVR
Multifactorial dyspnea -COPD, ILD, pulmonary fibrosis, CHF
weakness
thrombocytopenia -OP baseline >50,000, may be below baseline in the setting infection
Plan
Plan
WBC improving, continue to trend
caution NSAIDS, antiplatelet, and anticoagulation for platelet count <50,000
transfuse Hgb <7 or as needed for sxs anemia
check B12
abx per primary service
Has Lucpatercept, labs, and Dr. Galvan scheduled 08/19, however, pt should call to reschedule if remains hospitalized or requires SNF at discharge
Subjective/Objective
Subjective
no new complaints
chronic arthritis pain
denies bleeding
Vital Signs:
Vital Signs
Temp Pulse Resp BP Pulse Ox
101.8 F H 87 23 94/61 100
08/12/25 08:00 08/12/25 08:00 08/12/25 08:00 08/12/25 08:00 08/12/25 08:00
Lab Results:
Laboratory Data
WBC 26.0 10^3/uL (4.8-10.8) H 08/12/25 03:57
Hgb 8.4 g/dL (13.0-18.0) L 08/12/25 03:57
Plt Count 50 10^3/uL (130-400) L D 08/12/25 03:57
PT 16.4 Sec (11.4-14.6) H 08/10/25 17:39
INR 1.29 08/10/25 17:39
APTT 32.4 Sec (23.4-35.0) 08/10/25 17:39
eGFR > 60.00 08/12/25 03:57
Physical Exam
HEENT: Moist Mucous Membranes; No Jaundice
Pulmonary: Other (unlabored)
Extremities: Pulses Present
Neuro: Non Focal
--- NOTE | 2025-08-12 11:14 | PN.CDI ---
CDI
- -
CDI:
Physician Documentation Request
Admit Date: 08/07/25 14:11
Dear Doctor Isaak,
Clinical Indicators:
08/10 RR for rapid AF & hypoxia; Lactic acid level 5.9; transferred to ICU for suspected evolving sepsis/shock.
08/10 (19:48) RN note, 'Patient confused. Anxious and restless in bed...Around 1830, patient resting calmly. Back to baseline mentation.
Based on the above, could you clarify which, if any of the following, is the most likely etiology of the confusion/altered mental status.
Acute Metabolic Encephalopathy
Confusion without encephalopathy
Other, please specify
Use of terms such as suspected, likely, concern for, or probable (associated with a specific diagnosis that is being evaluated, monitored, or treated as if it exists) are acceptable and can be coded in the inpatient setting, when documented at the
time of discharge.
Thank you,
LIZETH Blakely RN
CDI Specialist
available via tiger text
Please use your independent medical judgment in providing your response.
[2025-08-12] MEDS: MAXIPIME IV (12:43)
[2025-08-12] MEDS: STERILE WATER FOR INJECTION IV (12:44)
--- NOTE | 2025-08-12 13:08 | CON.ID ---
Consultation
-
Date/Time Consultation Requested: 08/12/25 11:10
Date/Time Consultation Performed: 08/12/25 13:10
Requesting Provider: Dr Mulligan
Performing Provider: Dr Herzog
Reason for Consultation: H flu bacteremia
Chief Complaint / Past History
Chief Complaint
weakness
History of Present Illness
Mr Hernandez is a 74-year-old male past medical history of myelodysplastic syndrome on Vidaza, pulmonary hypertension, idiopathic pulmonary fibrosis, COPD, CHF, chronic pain with opiate dependence, chronic Collins catheter presenting with generalized
weakness. Reports progressive dyspnea and weakness over about 1 month. Going up a flight of stairs required him to take breaks. Not using his nebulizer in the AM. Several days ago started using O2 again.
He denies any chest pain, chest tightness, chest congestion, productive cough, fevers, chills, pleurisy, hemoptysis, abdominal pain, nausea, or focal weakness or leg swelling. He was working as [employer] until 1 to 2 months ago.
Since arrival here he was initially afebrile, then began spiking fevers to 104 on 08/10 hospital day 3. Found to be orthostatic and to have developed LEBRON and afib with RVR. Initially pancytopenia then on 08/11 developed leukemoid reaction which
resolved today. Hbg 8.4 plt 50. L shift persists. Lactic acid 08/10 5.9 now 1.9. UA 08/07 with 21-25 WBCs, repeat UA 08/10 without pyuria. 08/07 urine culture 100K Klebsiella and 100K E coli 08/07 and 08/10 CXR: possible LLL pneumonia. 08/10 blood cultures x2
H flu beta lactamase positive. ID is consulted for assistance with management. Has developed a new cough, shortness of breath has resolved. 'I feel better.'
Past History
Additional Past Medical History:
CAD, paroxysmal atrial fibrillation on Eliquis, CHF, myelodysplastic syndrome on Vidaza, pulmonary hypertension, idiopathic pulmonary fibrosis, COPD, former smoker, hyperlipidemia, chronic pain with opiate dependence, chronic Collins catheter
Past Surgical History: None
Allergy History:
ALEXIS Inhibitors Allergy (Verified 05/07/25 10:22)
Cough
amoxicillin Allergy (Verified 05/07/25 10:22)
Unknown
carvedilol Allergy (Verified 05/07/25 10:22)
Hives
clavulanic acid (From Augmentin) Allergy (Verified 05/07/25 10:22)
Unknown
diltiazem Allergy (Verified 05/07/25 10:22)
rash, all over body itching
gabapentin Allergy (Verified 05/07/25 10:22)
Unknown
hydrochlorothiazide Allergy (Verified 05/07/25 10:22)
Cramping
propoxyphene (From Darvocet-N) Allergy (Verified 05/07/25 10:22)
Unknown
Tetanus Vaccines and Toxoid (Tetanus) Allergy (Verified 05/07/25 10:22)
at age 4 pt became 'sick with fever'.
Medications Reviewed: Yes
Social History
Tobacco: Former Smoker
Alcohol: None
Drug: None
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
Family History
Family History: Not Pertinent
Review of Systems
Review of Systems
A 12 point ROS was completed and negative except as noted above
Vital Signs
Temp Pulse Resp BP Pulse Ox
101.2 F H 81 21 89/61 97
08/12/25 11:48 08/12/25 12:00 08/12/25 12:00 08/12/25 12:00 08/12/25 12:00
Physical Exam
Physical Exam
Constitutional: No Acute Distress and Chronically Ill
Cardiovascular: Regular Rate and S1/S2; Negative Murmur or Rub
Pulmonary: Clear and Symmetric; Negative Wheezes, Rales or Rhonchi
Gastrointestinal: Soft, Non Tender, Non Distended and Normal Bowel Sounds
Skin: Warm and Dry; Negative Rash or Jaundice
Lab / Diagnostic Study Results
08/12/25 03:57
08/12/25 03:57
Total Counted 100 08/12/25 03:57
Abs Neuts (Manual) 19.7 10^3/uL (1.4-6.5) H 08/12/25 03:57
Segmented Neutrophils 64 % (42-75) 08/12/25 03:57
Band Neutrophils 12 % (0-3) H 08/12/25 03:57
Lymphocytes (Manual) 3 % (20-51) L 08/12/25 03:57
PT 16.4 Sec (11.4-14.6) H 08/10/25 17:39
INR 1.29 08/10/25 17:39
Lactic Acid 1.6 mmol/L (0.7-2.0) 08/10/25 21:47
Urine WBC 0-2 /HPF (0-5) 08/10/25 17:41
Ur Squamous Epith Cells 3-5 /LPF (Few) 08/10/25 17:41
Microbiology Results
Micro:
08/10/25 17:39 Blood Culture - Preliminary
Blood/Venous Haemophilus influenzae
Gram Stain - Preliminary
08/10/25 17:34 Blood Culture - Preliminary
Blood/Venous Haemophilus influenzae
Gram Stain - Preliminary
08/11/25 22:38 Blood Culture - Pending
Blood/Venous
08/07/25 18:04 Urine Culture - Final
Urine Klebsiella oxytoca
Escherichia coli
Gram negative bacilli
Assessment / Plan
H Flu Bacteremia - beta lactamase positive
Pneumonia due to H Flu
MDS
Resolved Leukemoid Reaction
Stated allergy to Augmentin - unknown
- agree with ceftriaxone at 2 gm dosage, day 3 of effective therapy; for eventual deescalation to oral therapy, would plan a 10 day course
- continue to follow up with oncology
[2025-08-12] MEDS: ROCEPHIN 2000 MG IV (14:13)
[2025-08-12] MEDS: STERILE WATER FOR INJECTION 20 ML IV (14:13)
--- NOTE | 2025-08-12 14:21 | PTCARENOTE ---
Pt again in afib -rate controlled, 110 bpm, BP remains soft but stable 92/67. No complaints. 2L nasal cannula with sa02 94% . Pt with ready bed on 4th floor.
[2025-08-12] MEDS: TYLENOL 650 MG PO (14:58)
--- NOTE | 2025-08-12 15:29 | W.PN.HOSP.TC ---
Today's Communication/Plan
-
Off pressors.
Stable respiratory status.
Antibiotic narrowed to ceftriaxone.
Transfer to [facility]
Telemetry monitoring for recurrent A-fib
Assessment / Plan
Assessment / Plan
Impression
Presented with exertional dyspnea likely multifactorial.
MDS with pancytopenia�anemia chronic and worsening anemia requiring transfusion
LEBRON likely secondary to anemia and loop diuretics
Hypokalemia improved
Orthostatic hypotension in settings of low volume/dehydration and anemia
Sepsis with haemophilus influenza bacteremia.
Left lower lobe pneumonia
Transient toxic metabolic encephalopathy in the settings of sepsis with hemodynamic instability
Other conditions
CAD.
Chronic CHF preserved EF.
Essential hypertension
Paroxysmal atrial fibrillation baseline anticoagulation with Eliquis.
COPD
ILD/pulmonary fibrosis
Chronic mediastinal lymphadenopathy.
Prior history of pneumonia
Chronic pain syndrome with opiate dependence
Chronic bladder outlet obstruction with indwelling Collins catheter
GERD
History of alcohol use disorder
Plan:
Sepsis with haemophilus influenza bacteremia.
Follow-up chest x-ray with chronic interstitial changes and likely left lower lobe consolidation/pneumonia.
Empiric antibiotics cefepime narrowed to ceftriaxone (allergic to Augmentin). Plan is for total of 10 days of therapy.
Initial concern for catheter associated UTI ruled out
Collins catheter exchanged on 08/10
Septic shock requiring vasopressors. BP improved, off pressors.
Toxic metabolic encephalopathy in the settings of sepsis and hemodynamic instability/fever improved.
Exertional dyspnea likely multifactorial in the settings of overall deconditioning, worsening anemia
While presenting with dehydration and LEBRON has no evidence of decompensated heart failure. No evidence of COPD/pulmonary fibrosis flareup.
Overall improved with transfusion.
COPD/ILD/pulmonary fibrosis
Chest x-ray with no acute cardiopulmonary process. Chronic changes consistent with interstitial pulmonary fibrosis and emphysema similar to prior findings.
Stable respiratory status with no requirements for supplemental oxygen.
Continue nebulizers.
Continue Pulmicort
Cardiovascular
Chronic CHF preserved EF
Paroxysmal atrial fibrillation
With improved renal function, plan is to resume torsemide on 08/10.
On Farxiga
Not on any AV steve blocking agents prior to presentation.
Resume Eliquis
MDS
On Vidaza
Noted with chronic pancytopenia and worsening anemia requiring transfusion
Follow CBC baseline transfuse if hemoglobin falls consistently below 8�8.5
Leukemoid reaction with white count up to 40k
Chronic bladder outlet obstruction
Collins in place baseline
With consider not to resume tamsulosin given soft BP
Anticipated Discharge: 24 - 48 hours
Subjective/Interval History
-
Date of Service: August 12, 2025
Objective Data
-
Labs:
Laboratory Results
08/12/25
03:57
WBC 26.0 H
Hgb 8.4 L
Hct 26.1 L
Plt Count 50 L D
Sodium 136
Potassium 3.9
Chloride 103
Carbon Dioxide 28
BUN 25 H
Creatinine 0.9
Glucose 115 H
Calcium 8.5
Total Bilirubin 0.6
AST 24
ALT < 10
Alkaline Phosphatase 58
Vital Signs:
Vital Signs
Temp Pulse Resp BP Pulse Ox
101.2 F H 104 21 92/67 94
08/12/25 11:48 08/12/25 14:20 08/12/25 14:00 08/12/25 14:20 08/12/25 14:20
I&O
08/11/25 08/12/25 08/13/25
06:59 06:59 06:59
Intake Total 1646.3 / 1783.8 1645.0 / 1885.0 2160 / 2160
Output Total 975 / 1150 3005 / 3005 500 / 500
Balance 671.3 / 633.8 -1360.0 / -1120.0 1660 / 1660
Physical Exam
-
General: Well Developed and No Apparent Distress
HEENT: Normocephalic, Atraumatic and Moist Mucous Membranes
Respiratory: Clear to Auscultation; Negative Wheezes
Cardiac: Regular Rhythm and S1/S2; Negative Murmur, Rub or Gallop
GI: Soft, Nontender, Nondistended and Normal Bowel Sounds; Negative Organomegaly
Rectal: Deferred by Provider
Genito-urinary: Collins
Musculoskeletal: No Clubbing, No Cyanosis and No Edema
Skin: Negative Rash
Neuro: Nonfocal/Grossly Intact
[2025-08-12] MEDS: KCL 20 MEQ PO (20:51)
[2025-08-12] MEDS: SENOKOT-S PO (20:54)
--- NOTE | 2025-08-12 21:23 | W.PN.UPDATE ---
Update Note
Progress Note Update
Midodrine and tylenol, and recheck bp.
[2025-08-12] MEDS: TYLENOL 1000 MG PO (21:49)
[2025-08-13] VITALS (8 sets, daily range): BP systolic 83–106; BP diastolic 54–77; PULSE 96–139; BMI 20.6
[2025-08-13] MEDS: LIDOCAINE 4% PATCH 2 PATCH TOPICAL (00:33)
[2025-08-13] MEDS: PERCOCET 5/325 2 TABLET PO ×4 (00:51→16:26)
[2025-08-13 05:41] LABS: Hematocrit 27.5 % (39.0-52.0); Hemoglobin 8.6 g/dL (13.0-18.0); Mean Corp Hgb Conc. 31.3 g/dL (33.0-37.0); Mean Corpuscular Volume 106.2 fL (80.0-94.0); Platelet Count 45 10^3/uL (130-400); Red Cell Dist. Width 19.8 % (11.5-14.5)
[2025-08-13 06:10] LABS: Blood Urea Nitrogen 22 mg/dl (9-20); Calcium 8.0 mg/dl (8.4-10.2); Carbon Dioxide 24 mmol/L (22-30); Chloride 104 mmol/L (98-107); Estimated Creatinine Clearance 62 ml/min; Glucose 100 mg/dl (70-99); Potassium 4.3 mmol/L (3.5-5.1); Sodium 133 mmol/L (135-145); eGFR > 60.00
[2025-08-13 07:02] LABS: Absolute Neutrophils -Man Diff 5.5 10^3/uL (1.4-6.5)
[2025-08-13 07:03] LABS: Normal RBC Morphology No; Platelets Checked Yes
[2025-08-13 07:04] LABS: Anisocytosis Slight; Macrocytosis Slight; Polychromasia Slight
[2025-08-13 07:05] LABS: Total Cells Counted 100
[2025-08-13 07:42] LABS: Folate 7.0 ng/ml (2.76-20); Vitamin B12 928 pg/ml (239-931)
[2025-08-13] MEDS: FARXIGA 10 MG PO (07:54)
[2025-08-13] MEDS: NEURONTIN 300 MG PO ×3 (07:54→21:46)
[2025-08-13] MEDS: KCL 20 MEQ PO ×2 (07:54→20:20)
[2025-08-13] MEDS: PROTONIX 40 MG PO (07:55)
[2025-08-13] MEDS: VITAMIN C 1000 MG PO ×2 (07:55→20:20)
[2025-08-13] MEDS: CRESTOR 20 MG PO (07:56)
[2025-08-13] MEDS: ELIQUIS 5 MG PO ×2 (07:56→20:19)
[2025-08-13] MEDS: PULMICORT 0.5 MG INH ×2 (07:59→19:36)
[2025-08-13] MEDS: DUONEB 3 ML INH ×2 (07:59→19:36)
[2025-08-13] MEDS: MIRALAX PO (07:59)
--- NOTE | 2025-08-13 08:11 | VATNOTE ---
TigerText sent to requesting evaluation of need for PICC line. acknowledged, will continue to follow.
--- NOTE | 2025-08-13 09:05 | W.PN.ONC2 ---
Today's Communication / Plan
-
.
Impression
Impression
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
KAILA completed a course if venofer July 2025
Leukocytosis c/w Leukemoid reaction, not neutropenic -resolved
sepsis -Blood culture 08/10 Haemophilus influenzae, Ucx 08/07 w Kleb oxytoca, E. Coli, LLL PNA
A. Fib RVR
Multifactorial dyspnea -COPD, ILD, pulmonary fibrosis, CHF
thrombocytopenia -OP baseline >50,000, no B12 or folate deficency -may be below baseline in the setting infection
Plan
Plan
caution NSAIDS, antiplatelet, and anticoagulation for platelet count <50,000
transfuse Hgb <7 or as needed for sxs anemia
abx per ID
Has Lucpatercept, labs, and Dr. Galvan scheduled 08/19, however, pt should call to reschedule if remains hospitalized or requires SNF at discharge
Subjective/Objective
Subjective
no new complaints
Vital Signs:
Vital Signs
Temp Pulse Resp BP Pulse Ox
98.5 F 110 16 93/66 94
08/13/25 07:17 08/13/25 07:59 08/13/25 07:59 08/13/25 07:17 08/13/25 07:59
Lab Results:
Laboratory Data
WBC 9.8 10^3/uL (4.8-10.8) 08/13/25 04:52
Hgb 8.6 g/dL (13.0-18.0) L 08/13/25 04:52
Plt Count 45 10^3/uL (130-400) L 08/13/25 04:52
PT 16.4 Sec (11.4-14.6) H 08/10/25 17:39
INR 1.29 08/10/25 17:39
APTT 32.4 Sec (23.4-35.0) 08/10/25 17:39
eGFR > 60.00 08/13/25 04:52
Physical Exam
HEENT: Moist Mucous Membranes; No Jaundice
Pulmonary: Rhonchi and Other (unlabored)
GI: Soft
Extremities: Pulses Present
Orders
Orders
Orders From Last 24 Hours
08/13/25 04:52
B12 [Vitamin B12] IN AM
Folate IN AM
--- NOTE | 2025-08-13 11:11 | W.PN.ID1 ---
Date of Service
Date of Service: August 13, 2025
Today's Communication
- agree with ceftriaxone, day 4 of effective therapy; for eventual deescalation to oral therapy, would plan a 10 day course
Assessment / Plan
H Flu Bacteremia - beta lactamase positive
Pneumonia due to H Flu
MDS
Resolved Leukemoid Reaction
Stated allergy to Augmentin - unknown
- agree with ceftriaxone, day 4 of effective therapy; for eventual deescalation to oral therapy, would plan a 10 day course
- continue to follow up with oncology
Chief Complaint
-: Fever and Bacteremia
Subjective / Review of Systems
fever may be improving
BP soft, midodrine was discontinued
afib overnight
appears tired
Vital Signs / Physical Exam
Vital Signs
Vital Signs
Temp Pulse Resp BP Pulse Ox
98.5 F 110 16 93/66 94
08/13/25 07:17 08/13/25 07:59 08/13/25 07:59 08/13/25 07:17 08/13/25 10:47
Physical Exam
Constitutional: No Acute Distress and Chronically Ill
Cardiovascular: Regular Rate and S1/S2; Negative Murmur or Rub
Pulmonary: Clear and Symmetric; Negative Wheezes or Rales
Gastrointestinal: Soft, Non Tender, Non Distended and Normal Bowel Sounds
Skin: Warm and Dry; Negative Rash or Jaundice
Objective Data
Lab Data
Lab Results
08/13/25 04:52
08/13/25 04:52
PT 16.4 Sec (11.4-14.6) H 08/10/25 17:39
INR 1.29 08/10/25 17:39
APTT 32.4 Sec (23.4-35.0) 08/10/25 17:39
Estimated Creat Clear 62 ml/min 08/13/25 04:52
Lactic Acid 1.6 mmol/L (0.7-2.0) 08/10/25 21:47
Total Bilirubin 0.6 mg/dl (0.2-1.3) 08/12/25 03:57
AST 24 U/L (17-59) 08/12/25 03:57
ALT < 10 U/L (0-50) 08/12/25 03:57
Alkaline Phosphatase 58 U/L (38-126) 08/12/25 03:57
Most recent labs reviewed.
Micro Results:
08/11/25 22:38 Blood Culture - Preliminary
Blood/Venous No Growth in 24 hours- Final report to follow
08/10/25 17:39 Blood Culture - Preliminary
Blood/Venous Haemophilus influenzae
Gram Stain - Preliminary
08/10/25 17:34 Blood Culture - Preliminary
Blood/Venous Haemophilus influenzae
Gram Stain - Preliminary
08/07/25 18:04 Urine Culture - Final
Urine Klebsiella oxytoca
Escherichia coli
Gram negative bacilli
--- NOTE | 2025-08-13 11:39 | CM ---
Addendum entered by Kathleen Olson 08/13/25 14:08:
[facility] Thornton
Dr. Becerra
Please call [facility] [phone] if stable for d/c and auth approved
[facility]
Report: [phone]

Original Note:
CM reviewed chart, patient seen bedside. CM began discussing therapy recommendations of SNF, at this time, [facility] can offer patient a bed pending bed availability. Patient requesting CM return as he was sleeping and would like to wake up before
continuing this conversation. CM will return at a later time.
Plan; SNF, will require [facility] can accept pending bed availability/day of discharge
--- NOTE | 2025-08-13 12:10 | W.PN.CD ---
Today's Communication / Plan
-
back in A fib: start IV amiodarone
continue eliquis, but may need to hold if plts remain under 50
resume torsemide
Impression / Plan
-
Impression
74-year-old with paroxysmal A-fib on Eliquis s/p PVI 11/2022, coronary artery disease on medical management, s/p inferior STEMI 05/2022 (unable to PCI RCA), chronic HFpEF, hypertension hyperlipidemia, COPD, idiopathic pulmonary fibrosis,
mild�moderate MR, mild AR, MDS with anemia s/p chemotherapy with Vidaza/Venclexta, s/p IV iron and 1 PRBC presenting to the ER with shortness of breath.
# PNA, septic shock
-now improved
-continues on IV Abx, and back on tele unit
#Paroxysmal A-fib. with recurrence with A fib/RVR
-episode of rvr 08/10/25 with hypotension; then went back into A fib 08/12 around 2pm
-Avinash Vas score�5
-Continue Eliquis 5mg bid
-will need to hold if plts remains under 50
-Not on rate-control meds given hypotension
-will use IV amiodarone for rate/rhythm control, and transition to PO tomorrow for 30 day course (has had many med side effects, so will do 200mg daily)
-high risk med: requires monitoring on tele
#HFpEF, chronic
-Patient appears euvolemic/compensated on examination at 61-62 kg.
- Latest echo on 03/2025 with EF of 50 to 60%, mild AR
-diuretics were held due to LEBRON, hypotension
-farxiga has been resumed
-resume torsemide 40mg daily today
-remain off of aldactone until outpatient f/u
#CAD
Relatively stable.
Continue Crestor
#Dispo
-cardiology f/u is in d/c doc
Physical Exam
Vital Signs/Labs
Vital Signs
Temp Pulse Resp BP Pulse Ox
98.1 F 110 18 98/73 97
08/13/25 11:21 08/13/25 11:21 08/13/25 11:21 08/13/25 11:21 08/13/25 11:21
08/12/25 08/13/25 08/14/25
06:59 06:59 06:59
Actual Weight 65 kg 61.32 kg
08/13/25 04:52
08/13/25 04:52
PT 16.4 Sec (11.4-14.6) H 08/10/25 17:39
INR 1.29 08/10/25 17:39
APTT 32.4 Sec (23.4-35.0) 08/10/25 17:39
Magnesium 1.6 mg/dl (1.6-2.3) 08/12/25 03:57
08/07/25 08/10/25
09:14 16:30
Lpt-B-Yhbidwbkhxk Pept 371 [id number]
LAB Results
08/10/25
16:30
Troponin I < 0.012
Physical Exam
Constitutional: No acute distress and Comfortable
EENT: Moist mucous membranes
Cardiovascular: Pedal edema is absent, JVD pressure is normal, Systolic murmur absent and Rhythm/rate is irregular
Respiratory: Respiratory effort normal and Lungs clear to auscul.
Neuro/Psych: AO x 3
Data Reviewed
-
Date of Service: August 13, 2025
EKG: Other (Tele: sinus--> A fib rates 100-105)
Labs: Labs Reviewed by me
[2025-08-13] MEDS: DEMADEX 40 MG PO (12:34)
[2025-08-13] MEDS: CORDARONE 518 MG IV (12:44)
--- NOTE | 2025-08-13 13:00 | PTCARENOTE ---
Pt ordered Percocet 2 tabs on pts schedule 3x/day. Time to give was after 1000, around 1250. When Percocet scanned, warning given that pt was over the amount of Tylenol by 250 mg in a [address] notified that pt was over Tylenol amount and
pharmacy placed and override so dose could be administered. Dose was given as ordered.
[2025-08-13] MEDS: REMOVE LIDOCAINE PATCH 2 PATCH REMOVE (13:16)
[2025-08-13] MEDS: STERILE WATER FOR INJECTION 20 ML IV (13:17)
[2025-08-13] MEDS: ROCEPHIN 2000 MG IV (13:17)
--- NOTE | 2025-08-13 16:31 | W.PN.HOSP.TC ---
Today's Communication/Plan
-
Continue ceftriaxone.
Monitor platelet count while on Eliquis. Consider to hold if consistently below 50.
Assessment / Plan
Assessment / Plan
Impression
Presented with exertional dyspnea likely multifactorial.
MDS with pancytopenia�anemia chronic and worsening anemia requiring transfusion
LEBRON likely secondary to anemia and loop diuretics
Hypokalemia improved
Orthostatic hypotension in settings of low volume/dehydration and anemia
Sepsis with haemophilus influenza bacteremia.
Left lower lobe pneumonia
Transient toxic metabolic encephalopathy in the settings of sepsis with hemodynamic instability
Other conditions
CAD.
Chronic CHF preserved EF.
Essential hypertension
Paroxysmal atrial fibrillation baseline anticoagulation with Eliquis.
COPD
ILD/pulmonary fibrosis
Chronic mediastinal lymphadenopathy.
Prior history of pneumonia
Chronic pain syndrome with opiate dependence
Chronic bladder outlet obstruction with indwelling Collins catheter
GERD
History of alcohol use disorder
Plan:
Sepsis with haemophilus influenza bacteremia.
Follow-up chest x-ray with chronic interstitial changes and likely left lower lobe consolidation/pneumonia.
Empiric antibiotics cefepime narrowed to ceftriaxone (allergic to Augmentin). Plan is for total of 10 days of appropriate antibiotic therapy.
Initial concern for catheter associated UTI ruled out
Collins catheter exchanged on 08/10
Septic shock requiring vasopressors. BP improved, off pressors.
Toxic metabolic encephalopathy in the settings of sepsis and hemodynamic instability/fever improved.
Exertional dyspnea likely multifactorial in the settings of overall deconditioning, worsening anemia
While presenting with dehydration and LEBRON has no evidence of decompensated heart failure. No evidence of COPD/pulmonary fibrosis flareup.
Overall improved with transfusion.
COPD/ILD/pulmonary fibrosis
Chest x-ray with no acute cardiopulmonary process. Chronic changes consistent with interstitial pulmonary fibrosis and emphysema similar to prior findings.
Stable respiratory status with no requirements for supplemental oxygen.
Continue nebulizers.
Continue Pulmicort
Cardiovascular
Chronic CHF preserved EF
Paroxysmal atrial fibrillation
With improved renal function, plan is to resume torsemide on 08/10.
On Farxiga
Not on any AV steve blocking agents prior to presentation.
Resume Eliquis, although monitor platelet count closely. Consider to hold again if consistently below 50
MDS
On Vidaza
Noted with chronic pancytopenia and worsening anemia requiring transfusion
Follow CBC baseline transfuse if hemoglobin falls consistently below 8�8.5
Leukemoid reaction with white count up to 40k
Chronic bladder outlet obstruction
Collins in place baseline
With consider not to resume tamsulosin given soft BP
Anticipated Discharge: 24 - 48 hours
Subjective/Interval History
-
Date of Service: August 13, 2025
Objective Data
-
Labs:
Laboratory Results
08/13/25
04:52
WBC 9.8
Hgb 8.6 L
Hct 27.5 L
Plt Count 45 L
Sodium 133 L
Potassium 4.3
Chloride 104
Carbon Dioxide 24
BUN 22 H
Creatinine 0.9
Glucose 100 H
Calcium 8.0 L
Vital Signs:
Vital Signs
Temp Pulse Resp BP Pulse Ox
97.7 F 106 18 106/75 93
08/13/25 15:18 08/13/25 15:18 08/13/25 15:18 08/13/25 15:18 08/13/25 15:18
I&O
08/12/25 08/13/25 08/14/25
06:59 06:59 06:59
Intake Total 1645.0 / 1885.0 2640 / 2640 490 / 490
Output Total 3005 / 3005 1700 / 1700 2500 / 2500
Balance -1360.0 / -1120.0 940 / 940 -2009 /
Physical Exam
-
General: Well Developed and No Apparent Distress
HEENT: Normocephalic, Atraumatic and Moist Mucous Membranes
Respiratory: Clear to Auscultation; Negative Wheezes
Cardiac: Regular Rhythm and S1/S2; Negative Murmur, Rub or Gallop
GI: Soft, Nontender, Nondistended and Normal Bowel Sounds; Negative Organomegaly
Rectal: Deferred by Provider
Genito-urinary: Collins
Musculoskeletal: No Clubbing, No Cyanosis and No Edema
Skin: Negative Rash
Neuro: Nonfocal/Grossly Intact
[2025-08-13] MEDS: SENOKOT-S 2 TABLET PO (20:19)
[2025-08-14 04:26] VITALS: BP 94/64
[2025-08-14 06:00] VITALS: BMI 21.9
[2025-08-14] MEDS: PERCOCET 5/325 2 TABLET PO ×3 (06:08→14:52)
[2025-08-14 06:15] LABS: Blood Urea Nitrogen 29 mg/dl (9-20); Calcium 8.5 mg/dl (8.4-10.2); Carbon Dioxide 28 mmol/L (22-30); Chloride 100 mmol/L (98-107); Estimated Creatinine Clearance 62 ml/min; Glucose 92 mg/dl (70-99); Potassium 5.0 mmol/L (3.5-5.1); Sodium 134 mmol/L (135-145); eGFR > 60.00
[2025-08-14 06:30] LABS: Hematocrit 26.0 % (39.0-52.0); Hemoglobin 8.5 g/dL (13.0-18.0); Mean Corp Hgb Conc. 32.7 g/dL (33.0-37.0); Mean Corpuscular Volume 106.1 fL (80.0-94.0); Platelet Count 54 10^3/uL (130-400); Red Cell Dist. Width 19.3 % (11.5-14.5)
[2025-08-14 06:56] LABS: Absolute Neutrophils -Man Diff 3.7 10^3/uL (1.4-6.5)
[2025-08-14 06:57] LABS: Macrocytosis 3+; Normal RBC Morphology No; Platelets Checked Yes; Total Cells Counted 100
[2025-08-14 07:00] VITALS: BP 93/57
[2025-08-14] MEDS: DUONEB 3 ML INH ×2 (07:19→19:43)
[2025-08-14] MEDS: PULMICORT 0.5 MG INH ×2 (07:19→19:43)
[2025-08-14] MEDS: CRESTOR 20 MG PO (08:22)
[2025-08-14] MEDS: FARXIGA 10 MG PO (08:22)
[2025-08-14] MEDS: NEURONTIN 300 MG PO ×3 (08:22→21:45)
[2025-08-14] MEDS: DEMADEX 40 MG PO (08:23)
[2025-08-14] MEDS: PROTONIX 40 MG PO (08:23)
[2025-08-14] MEDS: ELIQUIS 5 MG PO ×2 (08:23→20:28)
[2025-08-14] MEDS: VITAMIN C 1000 MG PO ×2 (08:23→20:29)
[2025-08-14] MEDS: KCL 20 MEQ PO ×2 (08:24→20:29)
[2025-08-14] MEDS: MIRALAX PO (08:27)
[2025-08-14 11:00] VITALS: BP 101/62
--- NOTE | 2025-08-14 11:10 | W.PN.CD ---
Addendum entered and electronically signed by El Perez MD 08/14/25 13:09:
I saw and evaluated the patient, and I provided the substantive portion of the medical decision making.
I reviewed and agree with the note by Ms Live and it accurately reflects our care.
I personally performed the medical decision making of the this encounter and my assessment and plan is below:
Agree with below
Original Note:
Today's Communication / Plan
-
re-weigh pt.
d/c IV amio, start amiodarone 200mg daily.
Impression / Plan
-
Impression
74-year-old with paroxysmal A-fib on Eliquis s/p PVI 11/2022, coronary artery disease on medical management, s/p inferior STEMI 05/2022 (unable to PCI RCA), chronic HFpEF, hypertension hyperlipidemia, COPD, idiopathic pulmonary fibrosis,
mild�moderate MR, mild AR, MDS with anemia s/p chemotherapy with Vidaza/Venclexta, s/p IV iron and 1 PRBC presenting to the ER with shortness of breath.
# PNA, septic shock
-now improved
-continues on IV Abx, and back on tele unit
#Paroxysmal A-fib. with recurrence with A fib/RVR
-episode of rvr 08/10/25 with hypotension; then went back into A fib 08/12 around 2pm, placed on Amiodarone drip-now NSR
-Avinash Vas score�5
-Continue Eliquis 5mg bid
-will need to hold if plts remains under 50
-Not on rate-control meds given hypotension
- transition to PO kasie for 30 day course (has had many med side effects, so will do 200mg daily)
-high risk med: requires monitoring on tele
#HFpEF, chronic
-Patient appears euvolemic/compensated on examination at 61-62 kg.
- Latest echo on 03/2025 with EF of 50 to 60%, mild AR
-diuretics were held due to LEBRON, hypotension
-farxiga has been resumed
-torsemide 40mg daily resumed
-remain off of aldactone until outpatient f/u
- weight up today , will ask nursing to re-weigh
#CAD
Relatively stable.
Continue Crestor
#Dispo
-cardiology f/u is in d/c doc
Subjective: Pt feels breathing has improved. Denies CP, or palpitations.
Physical Exam
Vital Signs/Labs
Vital Signs
Temp Pulse Resp BP Pulse Ox
98.7 F 80 20 93/57 92
08/14/25 07:00 08/14/25 07:00 08/14/25 07:00 08/14/25 07:00 08/14/25 07:00
08/13/25 08/14/25 08/15/25
06:59 06:59 06:59
Actual Weight 61.32 kg 65.317 kg
08/14/25 05:41
08/14/25 05:41
PT 16.4 Sec (11.4-14.6) H 08/10/25 17:39
INR 1.29 08/10/25 17:39
APTT 32.4 Sec (23.4-35.0) 08/10/25 17:39
Magnesium 1.6 mg/dl (1.6-2.3) 08/12/25 03:57
08/07/25 08/10/25
:14 16:30
Gho-T-Qixdporttab Pept [id number]
Physical Exam
Constitutional: No acute distress and Comfortable
Cardiovascular: Rhythm & rate is regular and Pedal edema is absent
Respiratory: Respiratory effort normal and Lungs clear to auscul. (decreased )
GI: Soft and Normal bowel sounds
Neuro/Psych: AO x 3
Data Reviewed
-
Date of Service: August 14, 2025
EKG: Other (Tele: NSR 60)
Labs: Labs Reviewed by me
[2025-08-14] MEDS: PACERONE 200 MG PO (11:21)
--- NOTE | 2025-08-14 12:33 | W.PN.HOSP.TC ---
Today's Communication/Plan
-
Monitor vital signs see plan
Continue with antibiotic
Monitor hemoglobin and platelet
Continue Amio
Assessment / Plan
Assessment / Plan
Impression
Presented with exertional dyspnea likely multifactorial.
MDS with pancytopenia�anemia chronic and worsening anemia requiring transfusion
LEBRON likely secondary to anemia and loop diuretics
Hypokalemia improved
Orthostatic hypotension in settings of low volume/dehydration and anemia
Sepsis with haemophilus influenza bacteremia.
Left lower lobe pneumonia
Transient toxic metabolic encephalopathy in the settings of sepsis with hemodynamic instability
Paroxysmal atrial fibrillation with recurrence with A-fib with RVR
Hyponatremia
Other conditions
CAD.
Chronic CHF preserved EF.
Essential hypertension
Paroxysmal atrial fibrillation baseline anticoagulation with Eliquis.
COPD
ILD/pulmonary fibrosis
Chronic mediastinal lymphadenopathy.
Prior history of pneumonia
Chronic pain syndrome with opiate dependence
Chronic bladder outlet obstruction with indwelling Collins catheter
GERD
History of alcohol use disorder
Plan:
Sepsis with haemophilus influenza bacteremia.
Follow-up chest x-ray with chronic interstitial changes and likely left lower lobe consolidation/pneumonia.
Empiric antibiotics cefepime narrowed to ceftriaxone (allergic to Augmentin). Plan is for total of 10 days of appropriate antibiotic therapy.
Initial concern for catheter associated UTI ruled out
Collins catheter exchanged on 08/10
Septic shock requiring vasopressors. BP improved, off pressors.
Toxic metabolic encephalopathy in the settings of sepsis and hemodynamic instability/fever improved.
Exertional dyspnea likely multifactorial in the settings of overall deconditioning, worsening anemia
While presenting with dehydration and LEBRON has no evidence of decompensated heart failure. No evidence of COPD/pulmonary fibrosis flareup.
Overall improved with transfusion.
COPD/ILD/pulmonary fibrosis
Chest x-ray with no acute cardiopulmonary process. Chronic changes consistent with interstitial pulmonary fibrosis and emphysema similar to prior findings.
Stable respiratory status with no requirements for supplemental oxygen.
Continue nebulizers.
Continue Pulmicort
Cardiovascular
Chronic CHF preserved EF
Paroxysmal atrial fibrillation
With improved renal function
On Farxiga, started back on torsemide
Not on any AV steve blocking agents prior to presentation.
Resume Eliquis, although monitor platelet count closely. Consider to hold again if consistently below 50
Given A-fib, started on IV amiodarone, now transitioned to p.o.
MDS
On Vidaza
Noted with chronic pancytopenia and worsening anemia requiring transfusion
Follow CBC baseline transfuse if hemoglobin falls consistently below 8�8.5
Leukemoid reaction with white count up to 40k
Chronic bladder outlet obstruction
Collisn in place baseline
With consider not to resume tamsulosin given soft BP
General: Well Developed and No Apparent Distress
HEENT: Normocephalic, Atraumatic
Respiratory: Clear to Auscultation; Negative Wheezes
Cardiac: Regular Rhythm and S1/S2
GI: Soft, Nontender, Nondistended and Normal Bowel Sounds
Musculoskeletal: No Edema
Neuro: Nonfocal/Grossly Intact
Anticipated Discharge: > 48 hours
Subjective/Interval History
-
Date of Service: August 14, 2025
denies nausea
Objective Data
-
Labs:
Laboratory Results
08/14/25
05:41
WBC 6.4
Hgb 8.5 L
Hct 26.0 L
Plt Count 54 L
Sodium 134 L
Potassium 5.0
Chloride 100
Carbon Dioxide 28
BUN 29 H
Creatinine 0.9
Glucose 92
Calcium 8.5
Vital Signs:
Vital Signs
Temp Pulse Resp BP Pulse Ox
98.7 F 80 20 93/57 92
08/14/25 07:00 08/14/25 07:00 08/14/25 07:00 08/14/25 07:00 08/14/25 07:00
I&O
08/13/25 08/14/25 08/15/25
06:59 06:59 06:59
Intake Total 2640 / 2640 930 / 930
Output Total 1700 / 1700 4550 / 4550
Balance 940 / 940 -3620 / -3620
--- NOTE | 2025-08-14 13:20 | W.PN.ID1 ---
Date of Service
Date of Service: August 14, 2025
Today's Communication
- start cefdinir, stop ceftriaxone, day 5 of effective therapy; for a 10 day course
- continue to follow up with oncology
Assessment / Plan
H Flu Bacteremia - beta lactamase positive
Pneumonia due to H Flu
MDS
Resolved Leukemoid Reaction
Stated allergy to Augmentin - unknown
- start cefdinir, stop ceftriaxone, day 5 of effective therapy; for a 10 day course
- continue to follow up with oncology
Chief Complaint
-: Fever and Bacteremia
Subjective / Review of Systems
now afebrile
bp stable
tolerating current therapies
Vital Signs / Physical Exam
Vital Signs
Vital Signs
Temp Pulse Resp BP Pulse Ox
98.2 F 67 18 101/62 96
08/14/25 11:00 08/14/25 11:00 08/14/25 11:00 08/14/25 11:00 08/14/25 11:00
Physical Exam
Constitutional: No Acute Distress and Chronically Ill
Cardiovascular: Regular Rate and S1/S2; Negative Murmur or Rub
Pulmonary: Clear and Symmetric; Negative Wheezes or Rales
Gastrointestinal: Soft, Non Tender, Non Distended and Normal Bowel Sounds
Skin: Warm and Dry; Negative Rash or Jaundice
Objective Data
Lab Data
Lab Results
08/14/25 05:41
08/14/25 05:41
PT 16.4 Sec (11.4-14.6) H 08/10/25 17:39
INR 1.29 08/10/25 17:39
APTT 32.4 Sec (23.4-35.0) 08/10/25 17:39
Estimated Creat Clear 62 ml/min 08/14/25 05:41
Lactic Acid 1.6 mmol/L (0.7-2.0) 08/10/25 21:47
Total Bilirubin 0.6 mg/dl (0.2-1.3) 08/12/25 03:57
AST 24 U/L (17-59) 08/12/25 03:57
ALT < 10 U/L (0-50) 08/12/25 03:57
Alkaline Phosphatase 58 U/L (38-126) 08/12/25 03:57
Most recent labs reviewed.
Micro Results:
08/11/25 22:38 Blood Culture - Preliminary
Blood/Venous No Growth in 48 hours- Final report to follow
08/10/25 17:39 Blood Culture - Preliminary
Blood/Venous Haemophilus influenzae
Gram Stain - Preliminary
08/10/25 17:34 Blood Culture - Preliminary
Blood/Venous Haemophilus influenzae
Gram Stain - Preliminary
08/07/25 18:04 Urine Culture - Final
Urine Klebsiella oxytoca
Escherichia coli
Gram negative bacilli
[2025-08-14] MEDS: ROCEPHIN IV (14:58)
[2025-08-14] MEDS: STERILE WATER FOR INJECTION IV (14:58)
[2025-08-14 15:00] VITALS: BP 113/65
[2025-08-14 15:44] VITALS: BMI 21.6
[2025-08-14 19:32] VITALS: BP 105/65
[2025-08-14] MEDS: OMNICEF 300 MG PO (20:29)
[2025-08-14] MEDS: SENOKOT-S PO (21:46)
[2025-08-14 23:17] VITALS: BP 99/64
[2025-08-15 03:05] VITALS: BP 105/73
[2025-08-15] MEDS: PERCOCET 5/325 2 TABLET PO ×3 (05:57→16:13)
[2025-08-15 06:00] VITALS: BMI 21.6
[2025-08-15 07:00] VITALS: BP 100/61
[2025-08-15] MEDS: PULMICORT 0.5 MG INH ×2 (07:32→19:16)
[2025-08-15] MEDS: DUONEB 3 ML INH ×2 (07:32→19:16)
[2025-08-15] MEDS: PROTONIX 40 MG PO (08:44)
[2025-08-15] MEDS: MIRALAX 17 GRAMS PO (08:44)
[2025-08-15] MEDS: NEURONTIN 300 MG PO ×3 (08:45→21:35)
[2025-08-15] MEDS: VITAMIN C 1000 MG PO ×2 (08:45→20:20)
[2025-08-15] MEDS: KCL 20 MEQ PO ×2 (08:45→20:20)
[2025-08-15] MEDS: CRESTOR 20 MG PO (08:45)
[2025-08-15] MEDS: FARXIGA 10 MG PO (08:45)
[2025-08-15] MEDS: PACERONE 200 MG PO (08:46)
[2025-08-15] MEDS: OMNICEF 300 MG PO ×2 (08:46→20:20)
[2025-08-15] MEDS: ELIQUIS 5 MG PO ×2 (08:46→20:20)
[2025-08-15] MEDS: DEMADEX 40 MG PO (08:47)
[2025-08-15 09:07] LABS: Hematocrit 27.4 % (39.0-52.0); Hemoglobin 8.6 g/dL (13.0-18.0); Mean Corp Hgb Conc. 31.4 g/dL (33.0-37.0); Mean Corpuscular Volume 105.8 fL (80.0-94.0); Platelet Count 58 10^3/uL (130-400); Red Cell Dist. Width 19.7 % (11.5-14.5)
[2025-08-15 09:21] LABS: Blood Urea Nitrogen 26 mg/dl (9-20); Calcium 8.4 mg/dl (8.4-10.2); Carbon Dioxide 29 mmol/L (22-30); Chloride 97 mmol/L (98-107); Estimated Creatinine Clearance 65 ml/min; Glucose 112 mg/dl (70-99); Potassium 4.5 mmol/L (3.5-5.1); Sodium 135 mmol/L (135-145); eGFR > 60.00
--- NOTE | 2025-08-15 09:58 | W.PN.ID1 ---
Date of Service
Date of Service: August 15, 2025
Today's Communication
- c/w cefdinir day 6 of effective therapy; for a 10 day course
Assessment / Plan
H Flu Bacteremia - beta lactamase positive
Pneumonia due to H Flu
MDS
Resolved Leukemoid Reaction
Stated allergy to Augmentin - unknown
- c/w cefdinir day 6 of effective therapy; for a 10 day course
- continue to follow up with oncology
Chief Complaint
-: Fever and Bacteremia
Subjective / Review of Systems
afebrile
bp stable
no events overnight
Vital Signs / Physical Exam
Vital Signs
Vital Signs
Temp Pulse Resp BP Pulse Ox
98.6 F 78 17 100/61 94
08/15/25 07:00 08/15/25 08:46 08/15/25 07:33 08/15/25 08:46 08/15/25 07:33
Physical Exam
Constitutional: No Acute Distress
Cardiovascular: Regular Rate and S1/S2; Negative Murmur or Rub
Pulmonary: Clear and Symmetric; Negative Wheezes or Rales
Gastrointestinal: Soft, Non Tender, Non Distended and Normal Bowel Sounds
Skin: Warm and Dry; Negative Rash or Jaundice
Objective Data
Lab Data
Lab Results
08/15/25 07:47
08/15/25 07:47
PT 16.4 Sec (11.4-14.6) H 08/10/25 17:39
INR 1.29 08/10/25 17:39
APTT 32.4 Sec (23.4-35.0) 08/10/25 17:39
Estimated Creat Clear 65 ml/min 08/15/25 07:47
Lactic Acid 1.6 mmol/L (0.7-2.0) 08/10/25 21:47
Total Bilirubin 0.6 mg/dl (0.2-1.3) 08/12/25 03:57
AST 24 U/L (17-59) 08/12/25 03:57
ALT < 10 U/L (0-50) 08/12/25 03:57
Alkaline Phosphatase 58 U/L (38-126) 08/12/25 03:57
Most recent labs reviewed.
Micro Results:
08/11/25 22:38 Blood Culture - Preliminary
Blood/Venous No Growth in 72 hours- Final report to follow
08/10/25 17:39 Blood Culture - Preliminary
Blood/Venous Haemophilus influenzae
Gram Stain - Preliminary
08/10/25 17:34 Blood Culture - Preliminary
Blood/Venous Haemophilus influenzae
Gram Stain - Preliminary
08/07/25 18:04 Urine Culture - Final
Urine Klebsiella oxytoca
Escherichia coli
Gram negative bacilli
[2025-08-15 10:03] LABS: Absolute Neutrophils -Man Diff 3.3 10^3/uL (1.4-6.5)
[2025-08-15 10:04] LABS: Anisocytosis 1+; Hypochromasia 1+; Macrocytosis Slight; Normal RBC Morphology No; Platelets Checked Yes; Polychromasia Slight; Total Cells Counted 100
[2025-08-15 11:00] VITALS: BP 117/84
--- NOTE | 2025-08-15 12:19 | W.PN.CD ---
Today's Communication / Plan
-
Cont current meds
OK to d/c from CV perspective
Impression / Plan
-
Impression
74-year-old with paroxysmal A-fib on Eliquis s/p PVI 11/2022, coronary artery disease on medical management, s/p inferior STEMI 05/2022 (unable to PCI RCA), chronic HFpEF, hypertension hyperlipidemia, COPD, idiopathic pulmonary fibrosis,
mild�moderate MR, mild AR, MDS with anemia s/p chemotherapy with Vidaza/Venclexta, s/p IV iron and 1 PRBC presenting to the ER with shortness of breath.
# PNA, septic shock
-now improved
-continues on IV Abx, and back on tele unit
#Paroxysmal A-fib. with recurrence with A fib/RVR
-episode of rvr 08/10/25 with hypotension; then went back into A fib 08/12 around 2pm, placed on Amiodarone drip-now NSR
-Avinash Vas score�5
-Continue Eliquis 5mg bid
-will need to hold if plts remains under 50
-Not on rate-control meds given hypotension
- transition to PO amio for 30 day course (has had many med side effects, so will do 200mg daily)
-high risk med: requires monitoring on tele
#HFpEF, chronic
-Patient appears euvolemic/compensated on examination at 61-62 kg.
- Latest echo on 03/2025 with EF of 50 to 60%, mild AR
-diuretics were held due to LEBRON, hypotension
-farxiga has been resumed
-torsemide 40mg daily resumed
-remain off of aldactone until outpatient f/u
- weight up today , will ask nursing to re-weigh
#CAD
Relatively stable.
Continue Crestor
#Dispo
-cardiology f/u is in d/c doc
Subjective: Pt continues to feel improved; nagging cough
Physical Exam
Vital Signs/Labs
Vital Signs
Temp Pulse Resp BP Pulse Ox
98.6 F 78 17 100/61 94
08/15/25 07:00 08/15/25 08:46 08/15/25 07:33 08/15/25 08:46 08/15/25 07:33
08/14/25 08/15/25 08/16/25
06:59 06:59 06:59
Actual Weight 144 lb 142 lb 2 oz
08/15/25 07:47
08/15/25 07:47
PT 16.4 Sec (11.4-14.6) H 08/10/25 17:39
INR 1.29 08/10/25 17:39
APTT 32.4 Sec (23.4-35.0) 08/10/25 17:39
Magnesium 1.6 mg/dl (1.6-2.3) 08/12/25 03:57
08/07/25 08/10/25
09:14 16:30
Koz-T-Scdftesnods Pept 371 582
Physical Exam
Constitutional: No acute distress and Comfortable
EENT: Anicteric
Cardiovascular: Rhythm & rate is regular
Respiratory: Respiratory effort normal and Rhonchi Present
GI: Soft
Neuro/Psych: AO x 3
Data Reviewed
-
Date of Service: August 15, 2025
EKG: Tracing Personally Visualized and interpreted (sr)
Echo: Report Reviewed by me
Labs: Labs Reviewed by me
--- NOTE | 2025-08-15 12:56 | W.PN.HOSP.TC ---
Today's Communication/Plan
-
Monitor vitals
See plan
Continue with antibiotic
Continue Amio
Discharge planning
lidocaine cream
Assessment / Plan
Assessment / Plan
Impression
Presented with exertional dyspnea likely multifactorial.
MDS with pancytopenia�anemia chronic and worsening anemia requiring transfusion
LEBRON likely secondary to anemia and loop diuretics
Hypokalemia improved
Orthostatic hypotension in settings of low volume/dehydration and anemia
Sepsis with haemophilus influenza bacteremia.
Left lower lobe pneumonia
Transient toxic metabolic encephalopathy in the settings of sepsis with hemodynamic instability
Paroxysmal atrial fibrillation with recurrence with A-fib with RVR
Hyponatremia
Other conditions
CAD.
Chronic CHF preserved EF.
Essential hypertension
Paroxysmal atrial fibrillation baseline anticoagulation with Eliquis.
COPD
ILD/pulmonary fibrosis
Chronic mediastinal lymphadenopathy.
Prior history of pneumonia
Chronic pain syndrome with opiate dependence
Chronic bladder outlet obstruction with indwelling Collins catheter
GERD
History of alcohol use disorder
Plan:
Sepsis with haemophilus influenza bacteremia.
Follow-up chest x-ray with chronic interstitial changes and likely left lower lobe consolidation/pneumonia.
Empiric antibiotics cefepime narrowed to ceftriaxone (allergic to Augmentin). Now switched to p.o. cefdinir. Plan is for total of 10 days of appropriate antibiotic therapy.
Initial concern for catheter associated UTI ruled out
Collins catheter exchanged on 08/10
Septic shock requiring vasopressors. BP improved, off pressors.
Toxic metabolic encephalopathy in the settings of sepsis and hemodynamic instability/fever improved.
Exertional dyspnea likely multifactorial in the settings of overall deconditioning, worsening anemia
While presenting with dehydration and LEBRON has no evidence of decompensated heart failure. No evidence of COPD/pulmonary fibrosis flareup.
Overall improved with transfusion.
COPD/ILD/pulmonary fibrosis
Chest x-ray with no acute cardiopulmonary process. Chronic changes consistent with interstitial pulmonary fibrosis and emphysema similar to prior findings.
Stable respiratory status with no requirements for supplemental oxygen.
Continue nebulizers.
Continue Pulmicort
Cardiovascular
Chronic CHF preserved EF
Paroxysmal atrial fibrillation
With improved renal function
On Farxiga, started back on torsemide
Not on any AV steve blocking agents prior to presentation.
Resume Eliquis, although monitor platelet count closely. Consider to hold again if consistently below 50. plts 58 today
Given A-fib, started on IV amiodarone, now transitioned to p.o.
MDS
On Vidaza
Noted with chronic pancytopenia and worsening anemia requiring transfusion
Follow CBC baseline transfuse if hemoglobin falls consistently below 8�8.5
Leukemoid reaction with white count up to 40k
Chronic bladder outlet obstruction
Collins in place baseline
With consider not to resume tamsulosin given soft BP
General: Well Developed and No Apparent Distress
HEENT: Normocephalic, Atraumatic
Respiratory: Clear to Auscultation; Negative Wheezes
Cardiac: Regular Rhythm and S1/S2
GI: Soft, Nontender, Nondistended and Normal Bowel Sounds
Musculoskeletal: No Edema
Neuro: Nonfocal/Grossly Intact
Anticipated Discharge: Within 24 hours
Subjective/Interval History
-
Date of Service: August 15, 2025
denies nausea
Objective Data
-
Labs:
Laboratory Results
08/15/25
07:47
WBC 5.7
Hgb 8.6 L
Hct 27.4 L
Plt Count 58 L
Sodium 135
Potassium 4.5
Chloride 97 L
Carbon Dioxide 29
BUN 26 H
Creatinine 0.9
Glucose 112 H
Calcium 8.4
Vital Signs:
Vital Signs
Temp Pulse Resp BP Pulse Ox
98.1 F 74 18 117/84 94
08/15/25 11:00 08/15/25 11:00 08/15/25 11:00 08/15/25 11:00 08/15/25 11:00
I&O
08/14/25 08/15/25 08/16/25
06:59 06:59 06:59
Intake Total 930 / 930 2400 / 2400
Output Total 4550 / 4550 3750 / 3750
Balance -3620 / -3620 -1350 / -1350
[2025-08-15] MEDS: LMX 4 1 APPLIC TOPICAL (14:34)
[2025-08-15 15:00] VITALS: BP 113/67
[2025-08-15 19:28] VITALS: BP 100/61
[2025-08-15] MEDS: SENOKOT-S PO (21:35)
[2025-08-15] MEDS: LIDOCAINE 4% PATCH 1 PATCH TOPICAL (21:51)
[2025-08-15 23:28] VITALS: BP 103/69
[2025-08-16] VITALS (7 sets, daily range): BP systolic 95–110; BP diastolic 61–74; O2SAT 95–97; BMI 21.5
[2025-08-16] MEDS: TYLENOL 650 MG PO (02:04)
[2025-08-16] MEDS: PERCOCET 5/325 2 TABLET PO ×3 (05:00→14:58)
[2025-08-16] MEDS: PULMICORT 0.5 MG INH ×2 (07:13→19:06)
[2025-08-16] MEDS: DUONEB 3 ML INH ×2 (07:13→19:06)
--- NOTE | 2025-08-16 08:39 | W.PN.CD ---
Today's Communication / Plan
-
Eliquis 5mg bid
amiodarone 200mg daily (new)
farxiga 10mg daily
torsemide 40mg daily (reduced from twice daily)
remain off of aldactone until outpatient f/u
stable from cardiac perspective for discharge planning: f/u in chart
please call us with additional questions
Impression / Plan
-
Impression
74-year-old with paroxysmal A-fib on Eliquis s/p PVI 11/2022, coronary artery disease on medical management, s/p inferior STEMI 05/2022 (unable to PCI RCA), chronic HFpEF, hypertension hyperlipidemia, COPD, idiopathic pulmonary fibrosis,
mild�moderate MR, mild AR, MDS with anemia s/p chemotherapy with Vidaza/Venclexta, s/p IV iron and 1 PRBC presenting to the ER with shortness of breath.
# PNA, septic shock
-now improved
#Paroxysmal A-fib. with recurrence with A fib/RVR
-episode of rvr 08/10/25 with hypotension; then went back into A fib 08/12 around 2pm, placed on Amiodarone drip-now NSR
-Avinash Vas score�5
-Continue Eliquis 5mg bid
-will need to hold if plts under 50
-Not on rate-control meds given hypotension
- transition to PO amio for 30 day course (has had many med side effects, so will do 200mg daily): amiodarone 200mg daily
#HFpEF, chronic
-Patient appears euvolemic/compensated at 64 kg
- Latest echo on 03/2025 with EF of 50 to 60%, mild AR
-diuretics were held due to LEBRON, hypotension
-farxiga has been resumed
-torsemide 40mg daily resumed (reduced from twice daily)
-remain off of aldactone until outpatient f/u
#CAD
stable.
Continue Crestor
#Dispo
-cardiology f/u is in d/c doc
Physical Exam
Vital Signs/Labs
Vital Signs
Temp Pulse Resp BP Pulse Ox
98.2 F 73 18 110/68 99
08/16/25 07:55 08/16/25 07:55 08/16/25 07:55 08/16/25 07:55 08/16/25 07:55
08/15/25 08/16/25 08/17/25
06:59 06:59 06:59
Actual Weight 64.467 kg 64.07 kg
08/15/25 07:47
PT 16.4 Sec (11.4-14.6) H 08/10/25 17:39
INR 1.29 08/10/25 17:39
APTT 32.4 Sec (23.4-35.0) 08/10/25 17:39
Magnesium 1.6 mg/dl (1.6-2.3) 08/12/25 03:57
08/07/25 08/10/25
09:14 16:30
[id number] Pept [id number]
Physical Exam
Constitutional: No acute distress and Comfortable
EENT: Moist mucous membranes
Cardiovascular: Rhythm & rate is regular, Pedal edema is absent, JVD pressure is normal and Systolic murmur absent
Respiratory: Respiratory effort normal and Lungs clear to auscul.
Neuro/Psych: Alert and Oriented
Data Reviewed
-
Date of Service: August 16, 2025
EKG: Other (Tele: SR 70s, PVC's)
Labs: Labs Reviewed by me
[2025-08-16 08:57] LABS: Blood Urea Nitrogen 27 mg/dl (9-20); Calcium 8.4 mg/dl (8.4-10.2); Carbon Dioxide 31 mmol/L (22-30); Chloride 97 mmol/L (98-107); Estimated Creatinine Clearance 64 ml/min; Glucose 126 mg/dl (70-99); Potassium 4.5 mmol/L (3.5-5.1); Sodium 135 mmol/L (135-145); eGFR > 60.00
[2025-08-16] MEDS: NEURONTIN 300 MG PO ×3 (08:58→21:12)
[2025-08-16] MEDS: PACERONE 200 MG PO (08:58)
[2025-08-16] MEDS: FARXIGA 10 MG PO (08:58)
[2025-08-16] MEDS: DEMADEX 40 MG PO (08:58)
[2025-08-16] MEDS: VITAMIN C 1000 MG PO ×2 (08:59→21:19)
[2025-08-16] MEDS: KCL 20 MEQ PO ×2 (08:59→21:19)
[2025-08-16] MEDS: ELIQUIS 5 MG PO ×2 (08:59→21:12)
[2025-08-16] MEDS: PROTONIX 40 MG PO (08:59)
[2025-08-16] MEDS: CRESTOR 20 MG PO (08:59)
[2025-08-16] MEDS: OMNICEF 300 MG PO ×2 (08:59→21:18)
[2025-08-16] MEDS: MIRALAX 17 GRAMS PO (09:00)
--- NOTE | 2025-08-16 09:49 | W.PN.ID1 ---
Date of Service
Date of Service: August 16, 2025
Today's Communication
- c/w cefdinir day 7 of effective therapy; for a 10 day course
- continue to follow up with oncology
Assessment / Plan
H Flu Bacteremia - beta lactamase positive
Pneumonia due to H Flu
MDS
Resolved Leukemoid Reaction
Stated allergy to Augmentin - unknown
- c/w cefdinir day 7 of effective therapy; for a 10 day course
- continue to follow up with oncology
Chief Complaint
-: Bacteremia
Subjective / Review of Systems
afebrile
bp stable
tolerating current therapies
no events overnight
Vital Signs / Physical Exam
Vital Signs
Vital Signs
Temp Pulse Resp BP Pulse Ox
98.2 F 73 18 110/68 99
08/16/25 07:55 08/16/25 08:58 08/16/25 07:55 08/16/25 08:58 08/16/25 07:55
Physical Exam
Constitutional: No Acute Distress and Chronically Ill
Cardiovascular: Regular Rate and S1/S2; Negative Murmur or Rub
Pulmonary: Clear and Symmetric; Negative Wheezes or Rales
Gastrointestinal: Soft, Non Tender, Non Distended and Normal Bowel Sounds
Skin: Warm and Dry; Negative Rash or Jaundice
Objective Data
Lab Data
Lab Results
08/15/25 07:47
08/16/25 07:46
PT 16.4 Sec (11.4-14.6) H 08/10/25 17:39
INR 1.29 08/10/25 17:39
APTT 32.4 Sec (23.4-35.0) 08/10/25 17:39
Estimated Creat Clear 64 ml/min 08/16/25 07:46
Lactic Acid 1.6 mmol/L (0.7-2.0) 08/10/25 21:47
Total Bilirubin 0.6 mg/dl (0.2-1.3) 08/12/25 03:57
AST 24 U/L (17-59) 08/12/25 03:57
ALT < 10 U/L (0-50) 08/12/25 03:57
Alkaline Phosphatase 58 U/L (38-126) 08/12/25 03:57
Most recent labs reviewed.
Micro Results:
08/11/25 22:38 Blood Culture - Preliminary
Blood/Venous No Growth in 4 days- Final report to follow
08/10/25 17:39 Blood Culture - Preliminary
Blood/Venous Haemophilus influenzae
Gram Stain - Preliminary
08/10/25 17:34 Blood Culture - Preliminary
Blood/Venous Haemophilus influenzae
Gram Stain - Preliminary
08/07/25 18:04 Urine Culture - Final
Urine Klebsiella oxytoca
Escherichia coli
Gram negative bacilli
--- NOTE | 2025-08-16 13:14 | CM ---
CM reviewed chart, patient seen bedside, agreeable to [facility] auth submitted to [facility], clinicals faxed to [phone], pending reference # [id number]. CM will continue to follow for all discharge planning needs.
Plan; [facility], auth pending
[facility]
Report: [phone]
--- NOTE | 2025-08-16 14:19 | W.DS.TRANS ---
DC Summary - Manager Orange
-
Discharge Instructions:
Sleep Apnea Risk Low
Discharge Diagnosis/Procedures Impression
Presented with exertional dyspnea likely
multifactorial.
MDS with pancytopenia�anemia chronic and
worsening anemia requiring transfusion
LEBRON likely secondary to anemia and loop
diuretics
Hypokalemia improved
Orthostatic hypotension in settings of low
volume/dehydration and anemia
Sepsis with haemophilus influenza bacteremia.
Left lower lobe pneumonia
Transient toxic metabolic encephalopathy in the
settings of sepsis with hemodynamic instability
Paroxysmal atrial fibrillation with recurrence
with A-fib with RVR
Hyponatremia
Other conditions
CAD.
Chronic CHF preserved EF.
Essential hypertension
Paroxysmal atrial fibrillation baseline
anticoagulation with Eliquis.
COPD
ILD/pulmonary fibrosis
Chronic mediastinal lymphadenopathy.
Prior history of pneumonia
Chronic pain syndrome with opiate dependence
Chronic bladder outlet obstruction with
indwelling Collins catheter
GERD
History of alcohol use disorder
Diet Regular
Instructions:
Stand-Alone Forms:
Changes to Home Medications: Yes
Discharge Medications:
DC Medications w/original date entered in [employer]
apixaban 5 mg tablet 5 mg PO BID Blood clot prevention/tx 09/22/22
ascorbic acid (vitamin C) 1,000 mg tablet (Vitamin C) 1,000 mg PO BID Supplement 11/19/22
gabapentin 300 mg capsule 300 mg PO TID Neurological Condition 11/07/24
budesonide 0.5 mg/2 mL suspension for nebulization 0.5 mg inhalation R DAILY Lung/Breathing Issues 03/22/25
ipratropium 0.5 mg-albuterol 3 mg (2.5 mg base)/3 mL nebulization soln 3 ml inhalation R DAILY Lung/Breathing Issues 03/22/25
polyethylene glycol 3350 17 gram oral powder packet 17 g PO DAILY Constipation 03/22/25
rosuvastatin 20 mg tablet 20 mg PO DAILY High Cholesterol 03/22/25
sennosides 8.6 mg-docusate sodium 50 mg tablet (Senna-S) 3 tab-cap PO HS Constipation 03/22/25
albuterol sulfate 90 mcg/actuation aerosol inhaler 2 puff inhalation R Q4HPRN PRN sob 08/07/25
dapagliflozin propanediol 10 mg tablet (Farxiga) 10 mg PO DAILY Heart Failure 08/07/25
pantoprazole 40 mg tablet,delayed release 40 mg PO DAILY Gastrointestinal Issue 08/07/25
potassium chloride 20 mEq tablet,extended release 20 meq PO BID Supplement 08/07/25
tamsulosin 0.4 mg capsule 0.4 mg PO DAILY Urinary Issue 08/07/25
amiodarone 200 mg tablet (Pacerone) 200 mg PO DAILY #30 tabs 08/16/25
cefdinir 300 mg capsule 300 mg PO Q12 #6 caps 08/16/25
oxycodone-acetaminophen 10 mg-325 mg tablet 1 tab PO TID@0500,1000,1400 Pain #20 tabs 08/16/25
torsemide 20 mg tablet 40 mg (2 x 20 mg) PO DAILY #30 tabs 08/16/25
Home Medication Changes
Torsemide decreased
Aldactone stopped
Amiodarone initiated
Pending Results: No
--- NOTE | 2025-08-16 16:32 | W.PN.HOSP.TC ---
Today's Communication/Plan
-
Transition to oral antibiotic
Volume status and rate control has been optimized
Stable CBC
Medically optimized for discharge to [facility] facility pending insurance
Assessment / Plan
Assessment / Plan
Impression
Presented with exertional dyspnea likely multifactorial.
MDS with pancytopenia�anemia chronic and worsening anemia requiring transfusion
LEBRON likely secondary to anemia and loop diuretics
Hypokalemia improved
Orthostatic hypotension in settings of low volume/dehydration and anemia
Sepsis with haemophilus influenza bacteremia.
Left lower lobe pneumonia
Transient toxic metabolic encephalopathy in the settings of sepsis with hemodynamic instability
Paroxysmal atrial fibrillation with recurrence with A-fib with RVR
Hyponatremia
Other conditions
CAD.
Chronic CHF preserved EF.
Essential hypertension
Paroxysmal atrial fibrillation baseline anticoagulation with Eliquis.
COPD
ILD/pulmonary fibrosis
Chronic mediastinal lymphadenopathy.
Prior history of pneumonia
Chronic pain syndrome with opiate dependence
Chronic bladder outlet obstruction with indwelling Collins catheter
GERD
History of alcohol use disorder
Plan:
Sepsis with haemophilus influenza bacteremia.
Follow-up chest x-ray with chronic interstitial changes and likely left lower lobe consolidation/pneumonia.
Empiric antibiotics cefepime narrowed to ceftriaxone (allergic to Augmentin). Now switched to p.o. cefdinir. Plan is for total of 10 days of appropriate antibiotic therapy.
Initial concern for catheter associated UTI ruled out
Collins catheter exchanged on 08/10
Septic shock requiring vasopressors. BP improved, off pressors.
Toxic metabolic encephalopathy in the settings of sepsis and hemodynamic instability/fever improved.
Exertional dyspnea likely multifactorial in the settings of overall deconditioning, worsening anemia
While presenting with dehydration and LEBRON has no evidence of decompensated heart failure. No evidence of COPD/pulmonary fibrosis flareup.
Overall improved with transfusion.
COPD/ILD/pulmonary fibrosis
Chest x-ray with no acute cardiopulmonary process. Chronic changes consistent with interstitial pulmonary fibrosis and emphysema similar to prior findings.
Stable respiratory status with no requirements for supplemental oxygen.
Continue nebulizers.
Continue Pulmicort
Cardiovascular
Chronic CHF preserved EF
Paroxysmal atrial fibrillation
With improved renal function
On Farxiga, started back on torsemide
Not on any AV steve blocking agents prior to presentation.
Resume Eliquis, although monitor platelet count closely. Consider to hold again if consistently below 50. plts 58 today
Given A-fib, started on IV amiodarone, now transitioned to p.o.
MDS
On Vidaza
Noted with chronic pancytopenia and worsening anemia requiring transfusion
Follow CBC baseline transfuse if hemoglobin falls consistently below 8�8.5
Leukemoid reaction with white count up to 40k
Chronic bladder outlet obstruction
Collins in place baseline
With consider not to resume tamsulosin given soft BP
General: Well Developed and No Apparent Distress
HEENT: Normocephalic, Atraumatic
Respiratory: Clear to Auscultation; Negative Wheezes
Cardiac: Regular Rhythm and S1/S2
GI: Soft, Nontender, Nondistended and Normal Bowel Sounds
Musculoskeletal: No Edema
Neuro: Nonfocal/Grossly Intact
Anticipated Discharge: Within 24 hours
Subjective/Interval History
-
Date of Service: August 16, 2025
Objective Data
-
Labs:
Laboratory Results
08/16/25
07:46
Sodium 135
Potassium 4.5
Chloride 97 L
Carbon Dioxide 31 H
BUN 27 H
Creatinine 0.9
Glucose 126 H
Calcium 8.4
Vital Signs:
Vital Signs
Temp Pulse Resp BP Pulse Ox
98.0 F 74 20 107/74 97
08/16/25 15:34 08/16/25 15:34 08/16/25 15:34 08/16/25 15:34 08/16/25 15:34
I&O
08/15/25 08/16/25 08/17/25
06:59 06:59 06:59
Intake Total 2400 / 2400 1440 / 1440
Output Total 3750 / 3750 3200 / 3200
Balance -1350 / -1350 -1760 / -1760
Physical Exam
-
General: Well Developed and No Apparent Distress
HEENT: Normocephalic, Atraumatic and Moist Mucous Membranes
Respiratory: Clear to Auscultation; Negative Wheezes
Cardiac: Regular Rhythm and S1/S2; Negative Murmur, Rub or Gallop
GI: Soft, Nontender, Nondistended and Normal Bowel Sounds; Negative Organomegaly
Rectal: Deferred by Provider
Genito-urinary: Collins
Musculoskeletal: No Clubbing, No Cyanosis and No Edema
Skin: Negative Rash
Neuro: Nonfocal/Grossly Intact
[2025-08-16] MEDS: SENOKOT-S PO ×2 (21:19→21:40)
[2025-08-17] MEDS: TYLENOL 650 MG PO (00:50)
[2025-08-17 03:38] VITALS: BP 101/62
[2025-08-17] MEDS: PERCOCET 5/325 2 TABLET PO ×3 (05:06→14:29)
[2025-08-17 06:00] VITALS: BMI 21.5
[2025-08-17] MEDS: DUONEB 3 ML INH (07:44)
[2025-08-17] MEDS: PULMICORT 0.5 MG INH (07:44)
[2025-08-17 07:50] VITALS: BP 119/60
[2025-08-17] MEDS: PACERONE 200 MG PO (08:03)
[2025-08-17] MEDS: OMNICEF 300 MG PO (08:04)
[2025-08-17] MEDS: VITAMIN C 1000 MG PO (08:05)
[2025-08-17] MEDS: KCL 20 MEQ PO (08:05)
[2025-08-17] MEDS: NEURONTIN 300 MG PO (08:05)
[2025-08-17] MEDS: PROTONIX 40 MG PO (08:06)
[2025-08-17] MEDS: MIRALAX 17 GRAMS PO (08:06)
[2025-08-17] MEDS: DEMADEX 40 MG PO (08:06)
[2025-08-17] MEDS: FARXIGA 10 MG PO (08:06)
[2025-08-17] MEDS: ELIQUIS 5 MG PO (08:06)
[2025-08-17] MEDS: CRESTOR 20 MG PO (08:06)
--- NOTE | 2025-08-17 08:46 | W.PN.ID1 ---
Date of Service
Date of Service: August 17, 2025
Today's Communication
- c/w cefdinir day 8 of effective therapy; for a 10 day course
Assessment / Plan
H Flu Bacteremia - beta lactamase positive
Pneumonia due to H Flu
MDS
Resolved Leukemoid Reaction
Stated allergy to Augmentin - unknown
- c/w cefdinir day 8 of effective therapy; for a 10 day course
- continue to follow up with oncology
Chief Complaint
-: Bacteremia
Subjective / Review of Systems
afebrile
bp stable
tolerating current therapies
Vital Signs / Physical Exam
Vital Signs
Vital Signs
Temp Pulse Resp BP Pulse Ox
97.4 F 61 18 119/60 100
08/17/25 07:50 08/17/25 08:03 08/17/25 07:50 08/17/25 08:03 08/17/25 07:50
Physical Exam
Constitutional: No Acute Distress
Cardiovascular: Regular Rate and S1/S2; Negative Murmur or Rub
Pulmonary: Clear and Symmetric; Negative Wheezes or Rales
Gastrointestinal: Soft, Non Tender, Non Distended and Normal Bowel Sounds
Skin: Warm and Dry; Negative Rash or Jaundice
Objective Data
Lab Data
Lab Results
08/15/25 07:47
08/16/25 07:46
PT 16.4 Sec (11.4-14.6) H 08/10/25 17:39
INR 1.29 08/10/25 17:39
APTT 32.4 Sec (23.4-35.0) 08/10/25 17:39
Estimated Creat Clear 64 ml/min 08/16/25 07:46
Lactic Acid 1.6 mmol/L (0.7-2.0) 08/10/25 21:47
Total Bilirubin 0.6 mg/dl (0.2-1.3) 08/12/25 03:57
AST 24 U/L (17-59) 08/12/25 03:57
ALT < 10 U/L (0-50) 08/12/25 03:57
Alkaline Phosphatase 58 U/L (38-126) 08/12/25 03:57
Most recent labs reviewed.
Micro Results:
08/11/25 22:38 Blood Culture - Final
Blood/Venous No Growth - Final Report
08/10/25 17:39 Blood Culture - Preliminary
Blood/Venous Haemophilus influenzae
Gram Stain - Preliminary
08/10/25 17:34 Blood Culture - Preliminary
Blood/Venous Haemophilus influenzae
Gram Stain - Preliminary
08/07/25 18:04 Urine Culture - Final
Urine Klebsiella oxytoca
Escherichia coli
Gram negative bacilli
--- NOTE | 2025-08-17 10:08 | CM ---
Addendum entered by Kathleen Olson 08/17/25 11:36:
Patient scheduled for 3:00 p.m. [employer], provided number to call for payment ($90). Updates to [facility]
Original Note:
CM reviewed chart, auth received via [facility], approved 08/16-08/18, reference #[id number], [employer] assigned Noelle Hercules, fax updates to [phone]. Updates provided to [facility]. Patient seen bedside, aware of d/c to [place]
[facility], will require transport via [employer], patient aware payment will be required. IMM verbally reviewed, provided with copy, placed in chart. CM will continue to follow for all discharge planning needs.
Plan; [facility], auth approved, [employer] transport
[facility]
Report: [phone]
[2025-08-17 11:16] VITALS: BP 107/63
[2025-08-17 14:00] VITALS: BP 100/56
== END 2025-08-17 15:35 | DRG 808 ==
LOC: 4 WEST ACU 14:11
PROVIDERS: Emergency Medicine; Internal Medicine; Internal Medicine Critical Care Medicine; Nurse Practitioner Acute Care; Nurse Practitioner Family; Physician Assistant; Radiology Diagnostic Radiology; ADMITTING PHYSICIAN Hospitalist; ATTENDING PHYSICIAN Internal Medicine; CONSULT PHYSICIAN Internal Medicine Critical Care Medicine; CONSULT PHYSICIAN Internal Medicine Hematology & Oncology; EMERGENCY PHYSICIAN Emergency Medicine; FAMILY PHYSICIAN Family Medicine; OTHER PHYSICIAN Internal Medicine Cardiovascular Disease; OTHER PHYSICIAN Student in an Organized Health Care Education/Training Program
PROC: 30233N1 Transfusion of Nonautologous Red Blood Cells into Peripheral Vein, Percutaneous Approach (ICD-10-PCS; 2025-08-08)
PROC: 02HV33Z Insertion of Infusion Device into Superior Vena Cava, Percutaneous Approach (ICD-10-PCS; 2025-08-10)
DX: D61.818 Other pancytopenia (principal); A41.3 Sepsis due to Hemophilus influenzae; J18.9 Pneumonia, unspecified organism; G92.8 Other toxic encephalopathy; N17.9 Acute kidney failure, unspecified; J44.0 Chronic obstructive pulmonary disease with (acute) lower respiratory infection; E87.1 Hypo-osmolality and hyponatremia; I50.32 Chronic diastolic (congestive) heart failure; F11.20 Opioid dependence, uncomplicated; D70.1 Agranulocytosis secondary to cancer chemotherapy; D69.59 Other secondary thrombocytopenia; D46.0 Refractory anemia without ring sideroblasts, so stated; D50.9 Iron deficiency anemia, unspecified; D51.9 Vitamin B12 deficiency anemia, unspecified; D46.20 Refractory anemia with excess of blasts, unspecified; I95.1 Orthostatic hypotension; I48.0 Paroxysmal atrial fibrillation; I25.10 Atherosclerotic heart disease of native coronary artery without angina pectoris; G89.4 Chronic pain syndrome; N32.0 Bladder-neck obstruction; K21.9 Gastro-esophageal reflux disease without esophagitis; F10.11 Alcohol abuse, in remission; I11.0 Hypertensive heart disease with heart failure; T50.1X5A Adverse effect of loop [high-ceiling] diuretics, initial encounter; E87.6 Hypokalemia; E86.0 Dehydration; Z82.5 Family history of asthma and other chronic lower respiratory diseases; Z87.01 Personal history of pneumonia (recurrent); E78.00 Pure hypercholesterolemia, unspecified; I27.20 Pulmonary hypertension, unspecified; J84.112 Idiopathic pulmonary fibrosis; Z87.891 Personal history of nicotine dependence; Z88.0 Allergy status to penicillin; Z88.8 Allergy status to other drugs, medicaments and biological substances; Z79.01 Long term (current) use of anticoagulants; Z79.51 Long term (current) use of inhaled steroids; Z82.49 Family history of ischemic heart disease and other diseases of the circulatory system; J43.9 Emphysema, unspecified; E86.1 Hypovolemia; I25.2 Old myocardial infarction; R09.02 Hypoxemia; R54 Age-related physical debility; Z91.148 Patient's other noncompliance with medication regimen for other reason; Z79.899 Other long term (current) drug therapy
CPT/HCPCS: 70450; 71045; 71046; 80048; 80053; 81003; 81015; 82570; 82607; 82746; 82962; 83036; 83605; 83735; 83880; 84100; 84443; 84484; 85025; 85027; 85610; 85730; 86850; 86900; 86901; 86920; 87040; 87077; 87086; 87154; 87186; 87205; 93005; 94640; 96360; 97530; 97535; 99285; P9016

== ENCOUNTER → 2025-08-19 10:50 | Outpatient (REF) | payer OTHER, MEDICARE, SELFPAY ==
[2025-08-19 11:50] LABS: Blood Urea Nitrogen 29 mg/dl (9-20); Calcium 8.5 mg/dl (8.4-10.2); Carbon Dioxide 31 mmol/L (22-30); Chloride 100 mmol/L (98-107); Glucose 83 mg/dl (70-99); Potassium 4.7 mmol/L (3.5-5.1); Sodium 137 mmol/L (135-145); eGFR > 60.00
[2025-08-19 11:51] LABS: Hematocrit 27.1 % (39.0-52.0); Hemoglobin 8.5 g/dL (13.0-18.0); Mean Corp Hgb Conc. 31.4 g/dL (33.0-37.0); Mean Corpuscular Volume 108.8 fL (80.0-94.0); Red Cell Dist. Width 20.1 % (11.5-14.5)
[2025-08-19 13:49] LABS: Platelet Count 99 10^3/uL (130-400)
[2025-08-20 10:31] LABS: Absolute Neutrophils -Man Diff 0.4 10^3/uL (1.4-6.5); Pathologist Reviewed Yes
[2025-08-20 10:32] LABS: Normal RBC Morphology Yes; Platelets Checked Yes; Total Cells Counted 100
== END ==
LOC: OLABP 10:50
PROVIDERS: ATTENDING PHYSICIAN Family Medicine
DX: A41.3 Sepsis due to Hemophilus influenzae (principal); A41.9 Sepsis, unspecified organism; D61.818 Other pancytopenia; D46.9 Myelodysplastic syndrome, unspecified; E78.5 Hyperlipidemia, unspecified; G89.29 Other chronic pain; G92.8 Other toxic encephalopathy; I10 Essential (primary) hypertension; J96.12 Chronic respiratory failure with hypercapnia; N39.0 Urinary tract infection, site not specified; I34.0 Nonrheumatic mitral (valve) insufficiency; I48.0 Paroxysmal atrial fibrillation; R26.2 Difficulty in walking, not elsewhere classified
CPT/HCPCS: 36415; 80048; 85025

== ENCOUNTER → 2025-08-24 11:39 | Outpatient (REF) | payer OTHER, MEDICARE, SELFPAY ==
[2025-08-24 12:28] LABS: Hematocrit 26.7 % (39.0-52.0); Hemoglobin 8.4 g/dL (13.0-18.0); Mean Corp Hgb Conc. 31.5 g/dL (33.0-37.0); Mean Corpuscular Volume 109.0 fL (80.0-94.0); Platelet Count 88 10^3/uL (130-400); Red Cell Dist. Width 20.5 % (11.5-14.5)
== END ==
LOC: OLABP 11:39
PROVIDERS: ATTENDING PHYSICIAN Family Medicine
DX: I11.0 Hypertensive heart disease with heart failure (principal); I10 Essential (primary) hypertension; J44.9 Chronic obstructive pulmonary disease, unspecified; J84.10 Pulmonary fibrosis, unspecified; A41.3 Sepsis due to Hemophilus influenzae; A41.9 Sepsis, unspecified organism; D46.9 Myelodysplastic syndrome, unspecified; D61.818 Other pancytopenia; E78.5 Hyperlipidemia, unspecified; G92.8 Other toxic encephalopathy; I25.10 Atherosclerotic heart disease of native coronary artery without angina pectoris; I34.0 Nonrheumatic mitral (valve) insufficiency; I48.0 Paroxysmal atrial fibrillation; I50.30 Unspecified diastolic (congestive) heart failure; I95.1 Orthostatic hypotension; J14 Pneumonia due to Hemophilus influenzae; R26.2 Difficulty in walking, not elsewhere classified; J96.21 Acute and chronic respiratory failure with hypoxia; N17.9 Acute kidney failure, unspecified; N39.0 Urinary tract infection, site not specified
CPT/HCPCS: 36415; 85027

== ENCOUNTER → 2025-08-25 11:22 | Outpatient (REF) | payer OTHER, MEDICARE, SELFPAY ==
[2025-08-25 11:40] LABS: Hematocrit 31.9 % (39.0-52.0); Hemoglobin 9.5 g/dL (13.0-18.0); Mean Corp Hgb Conc. 29.8 g/dL (33.0-37.0); Mean Corpuscular Volume 111.9 fL (80.0-94.0); Platelet Count 89 10^3/uL (130-400); Red Cell Dist. Width 20.8 % (11.5-14.5)
[2025-08-25 14:21] LABS: Absolute Neutrophils -Man Diff 2.0 10^3/uL (1.4-6.5); Normal RBC Morphology Yes; Platelets Checked Yes
[2025-08-25 14:22] LABS: Total Cells Counted 100
== END ==
LOC: OLABP 11:22
PROVIDERS: ATTENDING PHYSICIAN Family Medicine
DX: I10 Essential (primary) hypertension (principal); I11.0 Hypertensive heart disease with heart failure; I25.10 Atherosclerotic heart disease of native coronary artery without angina pectoris; I34.0 Nonrheumatic mitral (valve) insufficiency; I48.0 Paroxysmal atrial fibrillation; I50.30 Unspecified diastolic (congestive) heart failure; I95.1 Orthostatic hypotension; J14 Pneumonia due to Hemophilus influenzae; J44.9 Chronic obstructive pulmonary disease, unspecified; J96.21 Acute and chronic respiratory failure with hypoxia; N17.9 Acute kidney failure, unspecified; N39.0 Urinary tract infection, site not specified; R26.2 Difficulty in walking, not elsewhere classified; A41.3 Sepsis due to Hemophilus influenzae; A41.9 Sepsis, unspecified organism; D46.9 Myelodysplastic syndrome, unspecified; D61.818 Other pancytopenia; E78.5 Hyperlipidemia, unspecified; G89.29 Other chronic pain; G92.8 Other toxic encephalopathy; J84.10 Pulmonary fibrosis, unspecified
CPT/HCPCS: 36415; 85025

== ENCOUNTER → 2025-08-27 10:16 | Outpatient (REF) | payer OTHER, MEDICARE, SELFPAY ==
[2025-08-27 10:49] LABS: Blood Urea Nitrogen 16 mg/dl (9-20); Calcium 8.3 mg/dl (8.4-10.2); Carbon Dioxide 32 mmol/L (22-30); Chloride 99 mmol/L (98-107); Glucose 100 mg/dl (70-99); Potassium 3.6 mmol/L (3.5-5.1); Sodium 139 mmol/L (135-145); eGFR > 60.00
== END ==
LOC: OLABP 10:16
PROVIDERS: ATTENDING PHYSICIAN Family Medicine
DX: A41.3 Sepsis due to Hemophilus influenzae (principal); A41.9 Sepsis, unspecified organism; D46.9 Myelodysplastic syndrome, unspecified; D61.818 Other pancytopenia; E78.5 Hyperlipidemia, unspecified; G89.29 Other chronic pain; G92.8 Other toxic encephalopathy; I10 Essential (primary) hypertension; J96.21 Acute and chronic respiratory failure with hypoxia; N17.9 Acute kidney failure, unspecified; N39.0 Urinary tract infection, site not specified; I25.10 Atherosclerotic heart disease of native coronary artery without angina pectoris; I34.0 Nonrheumatic mitral (valve) insufficiency; I48.0 Paroxysmal atrial fibrillation; I50.30 Unspecified diastolic (congestive) heart failure; J44.9 Chronic obstructive pulmonary disease, unspecified; J14 Pneumonia due to Hemophilus influenzae; R26.2 Difficulty in walking, not elsewhere classified
CPT/HCPCS: 36415; 80048

== ENCOUNTER 2025-09-07 07:53 | Inpatient (IN) | payer MEDICARE, SELFPAY ==
[2025-09-01] VITALS (10 sets, daily range): BP systolic 82–115; BP diastolic 53–78; PULSE 69–85; BMI 22.2
--- NOTE | 2025-09-01 14:53 | ED.GENMED ---
History of Present Illness
<DORIS Lyons - Last Filed: 09/01/25 22:48>
General
Chief Complaint: Weakness
Source: patient
Exam Limitations: none
Time Seen by Provider: 09/01/25 14:41
Nursing documentation reviewed up to this point in time: agreed with
History of Present Illness
History of Present Illness:
74-year-old male presents to the ER for weakness. Patient has a history of MDS kidney injury orthostatic hypotension paroxysmal A-fib hyponatremia. Patient was recently admitted August 07 and discharged the for exertional dyspnea. He was
found to be pancytopenic and needed blood transfusions. Pt also developed sepsis and culture showed haemophilus influenza A patient was placed on antibiotics. He was discharged on cefdinir for 10-day course. Patient reports he went to [facility]
and stayed for about a week and came home on Saturday 3 days ago. Since then he has felt weak he feels overwhelmed at home by himself. He has had blurry vision this is ongoing for the past couple months.
He denies any fever or chills. He also reports his blood pressure has been on the lower side. With medications normally around 120/65 but has been running low.
Patient was seen by his family doctor and sent in patient will likely need to be admitted and then sent to rehab. PCP does not feel the patient is safe to live at home
Past History
<DORIS Lyons - Last Filed: 09/01/25 22:48>
Past History
ED Past Medical History: Arrthythmia, CAD, Cancer (Myelodysplastic Syndrome), CHF, COPD, HTN, Hypercholesterolemia, OR and Other (PNA)
ED Past Surgical History: Cardiac, Orthopedic (laminectomy) and Tonsilectomy
Social History
Tobacco: Former smoker
Alcohol: Occasional
Drug: None
Personal:
Living: alone
Employment: Employed
Family History
Family History: Other
Phy Exam
<DORIS Lyons - Last Filed: 09/01/25 22:48>
General Physical Exam
General Presentation: no apparent distress
General age: appears stated age
General Skin: warm, dry and pale
General Habitus: normal
General Mental: alert
General Hydration: appears well hydrated
Cardiovascular Exam
Cardiovascular Exam: regular rate/rhythm, no murmur and normal peripheral pulses
Pulmonary Exam
Pulmonary Exam: lungs clear and no respiratory distress
Neurological Exam
Neurological Exam: alert and oriented x3
Musculoskeletal Exam
Musculoskeletal Exam: full ROM
Skin Exam
Skin Exam: normal color and warm/dry
Psychiatric Exam
Psychiatric Exam: normal mood/affect
Course
<DORIS Lyons - Last Filed: 09/01/25 22:48>
Orders/Labs/Results
Orders:
Orders
09/01/25 Breakfast
Sodium, 2 Gram
At Your Request: Limited Participation
09/01/25 14:52
Electrocardiogram (*1) Stat
Reason for Study: Abdominal Pain
Cardiac Monitoring- Treatment ONCE
EKG- Treatment ONCE
IV Insert/Care/Rem.- Treatment PRN
09/01/25 14:55
Complete Blood Count/With Diff Urgent
Comprehensive Metabolic Panel Urgent
Manual Differential Urgent
NT-proBNP Urgent
Comment: ADD ON
09/01/25 15:09
Chest [CR Chest - 2 Views ] Urgent
Comment:
Reason For Exam: weakness
09/01/25 16:37
COVID-19 Antigen Urgent
Source: Nasal Swab
Urinalysis Reflex To Culture Urgent
Date Specimen was Collected: 09/01/25
Time Specimen was Collected: 15:49
Urine Microscopic Reflex Cult Urgent
Influenza A+B Rapid Molecular Urgent
BRENT Source: Nasal Swab
Specimen Description:
Urine Culture Urgent
BRENT Source: U
Specimen Description:
Date Specimen was Collected: 09/01/25
Time Specimen was Collected: 15:49
09/01/25 18:07
Oxycodone [Roxicodone] 10 mg PO NOW STA
09/01/25 20:02
CefTRIAXone [Rocephin] 1,000 mg IV NOW STA
09/01/25 20:57
Admit/Transfer Patient As Directed
Co-Sign Provider:
Level of Care: Observation services
Assign to:: Medical/Surgical
Physician / Group: Enma
Diagnosis: Weakness
09/01/25 20:58
PRN Pain Medication Management As Directed
May give lesser potent ordered pain med per pt: Yes
preference::
Protocol:: Medication orders for pain may be administered in a
manner that supports deferring to patient preference
when the pt is:
- Requesting an ordered lesser potent pain medication.
Least to most potent pain medications are defined
as: acetaminophen < NSAID < tramadol < opioids
(morphine, oxycodone, hydromorphone).
- Requesting a lesser dose of the same medication IF
ORDERED.
- Requesting a less intrusive route of administration
if both routes are prescribed by the provider (PO <
IV).
09/01/25 20:59
Code Status As Directed
Resuscitation Status: Full Code
09/01/25 22:21
Acetaminophen [Tylenol] 650 mg PO Q4HPRN PRN
Gabapentin [Neurontin] 300 mg PO TID
Ipratropium/Albuterol Sulfate [Duoneb] 3 ml INH R Q4HPRN PRN
Midodrine [ProAmatine] 5 mg PO TID
09/01/25 22:21
Case Management Consult Once
Case Management Consult: Discharge Planning
Activity As Directed
Activity Level: Out of Bed-Early Mobility
With Assistance
Collins Catheter [Catheter- Indwelling] As Directed
Reason for insertion: Chronic Collins on Admit
Orthostatic Vital Signs As Directed
Orthostatic VS Frequency: Daily
Vital Signs As Directed
Frequency: Per unit guidelines
Weight As Directed
Frequency: Daily
Oxygen Therapy [O2 Therapy] [RESP] Routine
Titrate/Wean O2 to maintain O2 sat greater than (%): 92
Ot Eval And Treat Routine
Pt Eval And Treat Routine
Activity Level: Out of Bed-Early Mobility
09/01/25 23:00
Oxycodone [Roxicodone] 10 mg PO QID
09/02/25 06:00
Basic Metabolic Panel IN AM
09/02/25 08:00
Amiodarone [Pacerone] 200 mg PO DAILY
Apixaban [Eliquis] 5 mg PO BID
Ascorbic Acid [Vitamin C] 1,000 mg PO BID
Dapagliflozin [Farxiga] 10 mg PO DAILY
Pantoprazole [Protonix] 40 mg PO DAILY
Polyethylene Glycol Powder [Miralax] 17 grams PO DAILY
Potassium Chloride [KCl] 20 meq PO BID
Rosuvastatin Calcium [Crestor] 20 mg PO DAILY
Spironolactone [Aldactone] 25 mg PO DAILY
Tamsulosin [Flomax] 0.4 mg PO DAILY
Torsemide [Demadex] 20 mg PO BID
Abnormal Lab Results
09/01/25 09/01/25
14:55 16:37
RBC 2.37 L 10^6/uL
(4.70-6.10)
Hgb 8.4 L g/dL
(13.0-18.0)
Hct 26.4 L %
(39.0-52.0)
MCV 111.4 H fL
(80.0-94.0)
MCH 35.4 H pg
(27.0-31.0)
MCHC 31.8 L g/dL
(33.0-37.0)
RDW 20.0 H %
(11.5-14.5)
Plt Count 75 L 10^3/uL
(130-400)
MPV 12.8 H fL
(7.4-10.4)
Segmented Neutrophils 40 L %
(42-75)
Lymphocytes (Manual) 14 L %
(20-51)
Monocytes (Manual) 42 H %
(2-9)
Carbon Dioxide 32 H mmol/L
(22-30)
BUN 36 H mg/dl
(9-20)
Leukocyte Esterase Rfl 2+ A
(Negative)
Urine WBC (Reflex) 11-15 A /HPF
(0-5)
Urine Bacteria (Reflex) Few A
(Negative)
Urine Glucose 2+ A
(Negative)
09/01/25 14:55
09/01/25 14:55
Vital Signs
Initial and Last Documented VS:
Initial Vital Signs
Temp Pulse Resp BP Pulse Ox
98.0 F 77 18 90/61 94
09/01/25 12:30 09/01/25 12:30 09/01/25 12:30 09/01/25 12:30 09/01/25 12:30
Last Documented Vital Signs
Temp Pulse Resp BP Pulse Ox
98.0 F 66 17 94/62 92
09/01/25 12:30 09/01/25 21:30 09/01/25 21:30 09/01/25 21:00 09/01/25 21:30
[employer] consulted with Physician
[employer] consulted with physician?: Yes (Dr Roca )
<Andrea Roca, DO - Last Filed: 09/01/25 17:08>
Orders/Labs/Results
Orders:
Orders
09/01/25 Breakfast
Sodium, 2 Gram
At Your Request: Limited Participation
09/01/25 14:52
Electrocardiogram (*1) Stat
Reason for Study: Abdominal Pain
Cardiac Monitoring- Treatment ONCE
EKG- Treatment ONCE
IV Insert/Care/Rem.- Treatment PRN
09/01/25 14:55
Complete Blood Count/With Diff Urgent
Comprehensive Metabolic Panel Urgent
Manual Differential Urgent
NT-proBNP Urgent
Comment: ADD ON
09/01/25 15:09
Chest [CR Chest - 2 Views ] Urgent
Comment:
Reason For Exam: weakness
09/01/25 16:37
COVID-19 Antigen Urgent
Source: Nasal Swab
Urinalysis Reflex To Culture Urgent
Date Specimen was Collected: 09/01/25
Time Specimen was Collected: 15:49
Urine Microscopic Reflex Cult Urgent
Influenza A+B Rapid Molecular Urgent
BRENT Source: Nasal Swab
Specimen Description:
Urine Culture Urgent
BRENT Source: U
Specimen Description:
Date Specimen was Collected: 09/01/25
Time Specimen was Collected: 15:49
09/01/25 18:07
Oxycodone [Roxicodone] 10 mg PO NOW STA
09/01/25 20:02
CefTRIAXone [Rocephin] 1,000 mg IV NOW STA
09/01/25 20:57
Admit/Transfer Patient As Directed
Co-Sign Provider:
Level of Care: Observation services
Assign to:: Medical/Surgical
Physician / Group: Enma
Diagnosis: Weakness
09/01/25 20:58
PRN Pain Medication Management As Directed
May give lesser potent ordered pain med per pt: Yes
preference::
Protocol:: Medication orders for pain may be administered in a
manner that supports deferring to patient preference
when the pt is:
- Requesting an ordered lesser potent pain medication.
Least to most potent pain medications are defined
as: acetaminophen < NSAID < tramadol < opioids
(morphine, oxycodone, hydromorphone).
- Requesting a lesser dose of the same medication IF
ORDERED.
- Requesting a less intrusive route of administration
if both routes are prescribed by the provider (PO <
IV).
09/01/25 20:59
Code Status As Directed
Resuscitation Status: Full Code
09/01/25 22:21
Acetaminophen [Tylenol] 650 mg PO Q4HPRN PRN
Gabapentin [Neurontin] 300 mg PO TID
Ipratropium/Albuterol Sulfate [Duoneb] 3 ml INH R Q4HPRN PRN
Midodrine [ProAmatine] 5 mg PO TID
09/01/25 22:21
Case Management Consult Once
Case Management Consult: Discharge Planning
Activity As Directed
Activity Level: Out of Bed-Early Mobility
With Assistance
Collins Catheter [Catheter- Indwelling] As Directed
Reason for insertion: Chronic Collins on Admit
Orthostatic Vital Signs As Directed
Orthostatic VS Frequency: Daily
Vital Signs As Directed
Frequency: Per unit guidelines
Weight As Directed
Frequency: Daily
Oxygen Therapy [O2 Therapy] [RESP] Routine
Titrate/Wean O2 to maintain O2 sat greater than (%): 92
Ot Eval And Treat Routine
Pt Eval And Treat Routine
Activity Level: Out of Bed-Early Mobility
09/01/25 23:00
Oxycodone [Roxicodone] 10 mg PO QID
09/02/25 06:00
Basic Metabolic Panel IN AM
09/02/25 08:00
Amiodarone [Pacerone] 200 mg PO DAILY
Apixaban [Eliquis] 5 mg PO BID
Ascorbic Acid [Vitamin C] 1,000 mg PO BID
Dapagliflozin [Farxiga] 10 mg PO DAILY
Pantoprazole [Protonix] 40 mg PO DAILY
Polyethylene Glycol Powder [Miralax] 17 grams PO DAILY
Potassium Chloride [KCl] 20 meq PO BID
Rosuvastatin Calcium [Crestor] 20 mg PO DAILY
Spironolactone [Aldactone] 25 mg PO DAILY
Tamsulosin [Flomax] 0.4 mg PO DAILY
Torsemide [Demadex] 20 mg PO BID
Abnormal Lab Results
09/01/25 09/01/25
14:55 16:37
RBC 2.37 L 10^6/uL
(4.70-6.10)
Hgb 8.4 L g/dL
(13.0-18.0)
Hct 26.4 L %
(39.0-52.0)
MCV 111.4 H fL
(80.0-94.0)
MCH 35.4 H pg
(27.0-31.0)
MCHC 31.8 L g/dL
(33.0-37.0)
RDW 20.0 H %
(11.5-14.5)
Plt Count 75 L 10^3/uL
(130-400)
MPV 12.8 H fL
(7.4-10.4)
Segmented Neutrophils 40 L %
(42-75)
Lymphocytes (Manual) 14 L %
(20-51)
Monocytes (Manual) 42 H %
(2-9)
Carbon Dioxide 32 H mmol/L
(22-30)
BUN 36 H mg/dl
(9-20)
Leukocyte Esterase Rfl 2+ A
(Negative)
Urine WBC (Reflex) 11-15 A /HPF
(0-5)
Urine Bacteria (Reflex) Few A
(Negative)
Urine Glucose 2+ A
(Negative)
09/01/25 14:55
09/01/25 14:55
Vital Signs
Initial and Last Documented VS:
Initial Vital Signs
Temp Pulse Resp BP Pulse Ox
98.0 F 77 18 90/61 94
09/01/25 12:30 09/01/25 12:30 09/01/25 12:30 09/01/25 12:30 09/01/25 12:30
Last Documented Vital Signs
Temp Pulse Resp BP Pulse Ox
98.0 F 66 17 94/62 92
09/01/25 12:30 09/01/25 21:30 09/01/25 21:30 09/01/25 21:00 09/01/25 21:30
<DORIS Lyons - Last Filed: 09/01/25 22:48>
MDM/Problems Addressed
Differential Diagnosis Includes:
Not limited to anemia dehydration electrolyte abnormality UTI
MDM/Problems Addressed:
As documented patient is a 74-year-old male with past medical history of MDS that was recently admitted August 07 discharged the for MDS with pancytopenia requiring transfusions and acute kidney injury. Patient was discharged to skilled
rehab but discharged Saturday and has felt very weak not able to care for himself at home. He was seen by his family doctor who sent him for admission and likely rehab again. he is having issues with hypotension and has not taken his midrodrine
yet today. he c/o of blurry vision however this is not new. He has no acute distress will likely need case management.
<DORIS Lyons - Last Filed: 09/01/25 22:48>
*Radiology
Radiology exam reviewed: preliminary read by ED provider
*Pulse Oximetry
SaO2: 94
Oxygen Mode of Delivery: Room air
Patient hypoxic: no
*Critical Care Note
Total Time (30-74mins, 75-104mins- exclusive of procedures): Not Applicable
ED Attending Note
<DORIS Lyons - Last Filed: 09/01/25 22:48>
-
Portions of this chart may have been created with voice recognition software.� Occasional wrong word or��sound alike� substitutions may have occurred due to the inherent limitations of voice recognition software.
<Andrea Roca DO - Last Filed: 09/01/25 17:08>
ED Attending Note
Patient seen and examined by attending physician: Yes
I performed the substantive portion of visit, reviewed & personally made and approve the management plan that is documented in note by myself or VJ.: Yes
ED Attending Note:
Seen with [employer] examined independently send information acute on chronic issues hypotensive here has not had his meds, some trouble seeing,
Discharge Plan
Departure
Patient Disposition: Admit
Admit to: Med/Surg
Admit to doctor: hospitalist
Presentation/result/management discussed w/ accepting MD/DO: Hospitalist
Patient with high blood pressure during this ER visit?: No
Condition: Fair
Covid-19: Not Applicable
Discharge Problem:
Weakness, Acute UTI
Interventions
Interventions:
*Risk Screen - Suicide Last Done: 09/01/25 22:00
*General Assessment Last Done: 09/01/25 12:30
*Neglect/Abuse Screening Last Done: 09/01/25 15:47
*ED- Fall Risk Assessment Last Done: 09/01/25 14:52
*ED COVID-19 Vaccine History Last Done: 09/01/25 22:00
*Nursing Disposition Last Done: 09/01/25 21:59
ED- Cardiac Assessment Last Done: 09/01/25 14:52
ED- Neurological Assessment Last Done: 09/01/25 14:52
ED- Pulmonary Assessment Last Done: 09/01/25 14:52
Discharge Date and Time
Discharge Date/Time: 09/01/25 22:12
[2025-09-01 15:53] LABS: ALT (SGPT) < 10 U/L (0-50); AST (SGOT) 21 U/L (17-59); Albumin 4.1 g/dl (3.5-5.0); Alkaline Phosphatase 68 U/L (38-126); Blood Urea Nitrogen 36 mg/dl (9-20); Calcium 9.0 mg/dl (8.4-10.2); Carbon Dioxide 32 mmol/L (22-30); Chloride 101 mmol/L (98-107); Glucose 88 mg/dl (70-99); Potassium 4.1 mmol/L (3.5-5.1); Sodium 140 mmol/L (135-145); Total Protein 7.0 g/dl (6.3-8.2); eGFR 57.29
[2025-09-01 16:12] LABS: Hematocrit 26.4 % (39.0-52.0); Hemoglobin 8.4 g/dL (13.0-18.0); Mean Corp Hgb Conc. 31.8 g/dL (33.0-37.0); Mean Corpuscular Volume 111.4 fL (80.0-94.0); Platelet Count 75 10^3/uL (130-400); Red Cell Dist. Width 20.0 % (11.5-14.5)
[2025-09-01 16:13] LABS: Absolute Neutrophils -Man Diff 2.5 10^3/uL (1.4-6.5); Anisocytosis 1+; Normal RBC Morphology No; Platelets Checked Yes
[2025-09-01 16:14] LABS: Macrocytosis 2+
[2025-09-01 16:15] LABS: Polychromasia Slight
[2025-09-01 16:16] LABS: Hypochromasia Slight; Stomatocytes Occasional
[2025-09-01 16:17] LABS: Total Cells Counted 100
[2025-09-01 17:02] LABS: Urine Character Clear (Clear)
[2025-09-01 17:08] LABS: COVID-19 Antigen Negative (Negative)
[2025-09-01 17:12] LABS: Urine Squamous Cell 0-2 /LPF (Few)
[2025-09-01 17:13] LABS: Urine Red Blood Cell 0-2 /HPF (0-2)
[2025-09-01] MEDS: ROXICODONE 10 MG PO ×2 (18:30→23:05)
[2025-09-01] MEDS: ROCEPHIN 1000 MG IV (20:14)
--- NOTE | 2025-09-01 20:22 | HPS.HSE ---
Family Physician
-
Family Physician: Edison Light PA-C
Chief Complaint
-
Weakness
History of Present Illness
Patient is a 74 y/o male past medical history of ASCVD, CHF, A-Fib, Pulmonary Fibrosis and MDS who presents with weakness. Patient was recently admitted to [facility] from Aug 07 to Aug 17 for sepsis secondary to H. influenza bacteremia
and pneumonia. He was initially discharged to a assisted facility and just return home three days ago. He continues with generalized weakness and feels overwhelmed at home as he lives alone. He was seen by his PCP today sent him to the
emergency department.
Medical History
Past Medical History
Past Medical History: Reports Other
Additional Past Medical History:
ASCVD
Chronic HFpEF
Paroxysmal Atrial Fibrillation
Essential Hypertension
Pulmonary Fibrosis
COPD
Myelodysplastic Syndrome
Chronic Pain with Opioid Dependence
Chronic Urinary Retention with Chronic Collins
BPH
Past Surgical History: Reports Other
Additional Past Surgical History:
Lumbar Laminectomy
Social History
Tobacco: Non-smoker
Alcohol: Occasional
Drug: None
Family History
Family History: Not pertinent
Allergies / Home Medications
Allergies reflects when Allergies were last updated in [facility].
Home Medications with original date entered in [facility]
Allergy/Medication List:
Allergies
Allergy/AdvReac Type Severity Reaction Status Date / Time
ALEXIS Inhibitors Allergy Cough Verified 09/01/25 12:33
amoxicillin Allergy Unknown Verified 09/01/25 12:33
carvedilol Allergy Hives Verified 09/01/25 12:33
clavulanic acid (From Allergy Unknown Verified 09/01/25 12:33
Augmentin)
diltiazem Allergy rash, all Verified 09/01/25 12:33
over body
itching
gabapentin Allergy Unknown Verified 09/01/25 12:33
hydrochlorothiazide Allergy Cramping Verified 09/01/25 12:33
propoxyphene (From Allergy Unknown Verified 09/01/25 12:33
Darvocet-N)
Tetanus Vaccines and Toxoid Allergy at age 4 Verified 09/01/25 12:33
(Tetanus) pt became
'sick with
fever'.
Home Medications
apixaban 5 mg tablet 5 mg PO BID Blood clot prevention/tx 09/22/22
ascorbic acid (vitamin C) 1,000 mg tablet (Vitamin C) 1,000 mg PO BID Supplement 11/19/22
gabapentin 300 mg capsule 300 mg PO TID Neurological Condition 11/07/24
budesonide 0.5 mg/2 mL suspension for nebulization 0.5 mg inhalation R DAILY Lung/Breathing Issues 03/22/25
ipratropium 0.5 mg-albuterol 3 mg (2.5 mg base)/3 mL nebulization soln 3 ml inhalation R BIDPRN PRN SOB 03/22/25
polyethylene glycol 3350 17 gram oral powder packet 17 g PO DAILY Constipation 03/22/25
rosuvastatin 20 mg tablet 20 mg PO DAILY High Cholesterol 03/22/25
sennosides 8.6 mg-docusate sodium 50 mg tablet (Senna-S) 1 tab-cap PO DAILYPRN PRN CONSTIPATION 03/22/25
albuterol sulfate 90 mcg/actuation aerosol inhaler 2 puff inhalation R Q4HPRN PRN sob 08/07/25
dapagliflozin propanediol 10 mg tablet (Farxiga) 10 mg PO DAILY Heart Failure 08/07/25
pantoprazole 40 mg tablet,delayed release 40 mg PO DAILY Gastrointestinal Issue 08/07/25
potassium chloride 20 mEq tablet,extended release 20 meq PO BID Supplement 08/07/25
tamsulosin 0.4 mg capsule 0.4 mg PO DAILY Urinary Issue 08/07/25
amiodarone 200 mg tablet (Pacerone) 200 mg PO DAILY #30 tabs 08/16/25
midodrine 5 mg tablet 5 mg PO TID 09/01/25
oxycodone-acetaminophen 10 mg-325 mg tablet 1 tab PO QID SEVERE Pain 09/01/25
spironolactone 25 mg tablet 25 mg PO DAILY 09/01/25
torsemide 20 mg tablet 20 mg PO BID 09/01/25
Review of Systems
-
History Source: Patient and Family
A 12 point ROS was completed and negative except as noted: Yes
Constitutional: Denies Fever, Fatigue or Chills
EENT: Denies Sore Throat
Respiratory: Reports Trouble Breathing; Denies Cough
Cardiac: Denies Chest Pain or Palpitations
Abdomen/GI: Denies Abdominal Pain, Nausea, Vomiting or Diarrhea
: Denies Dysuria, Frequency or Flank Pain
Musculoskeletal: Denies Edema
Neurological: Denies Dizzy or Headache
Psych: Reports Other (mild confusion)
Physical Exam
Vital Signs
Vital Signs
Temp Pulse Resp BP Pulse Ox
98.0 F 77 18 115/78 91
09/01/25 12:30 09/01/25 12:30 09/01/25 12:30 09/01/25 19:00 09/01/25 19:45
Physical Exam
General: Comfortable, Conversant and Other (72y M in no acute distress.)
HEENT: Moist mucous membranes, PERRLA and Other (no JVD.); No Oxygen
Respiratory: Other (Diffuse rales and scattered wheezes.)
Cardiac: S1/S2 and Regular Rhythm; No Murmur
GI: Soft, Non Tender, Non Distended and Normal Bowel Sounds
Rectal: Deferred by Provider
Genito-urinary: Clear Urine and Collins
Musculoskeletal: No Clubbing, No Cyanosis and No Edema
Skin: Warm and Dry
Neuro: Awake, Alert and Nonfocal/grossly intact
Psych: Calm; No Anxious or Depressed
Laboratory Results
-
09/01/25 14:55
09/01/25 14:55
Laboratory Results
Total Bilirubin 0.3 mg/dl (0.2-1.3) 09/01/25 14:55
AST 21 U/L (17-59) 09/01/25 14:55
ALT < 10 U/L (0-50) 09/01/25 14:55
Alkaline Phosphatase 68 U/L (38-126) 09/01/25 14:55
Data Reviewed
-
Lab Data: Labs Reviewed by me
Old Records: Reviewed
Impression/Plan
-
Generalized Weakness
-Consult PT/OT
-Consult Case Management
Chronic Urinary Retention with Chronic Collins
-Patient given ceftriaxone in ED for possible UTI
-UA with 11-15 WBC and Few bacteria
-Hold on further antibiotics
-Await urine culture
ASCVD
-Continue rosuvastatin
Chronic HFpEF
-Continue Farxiga, Torsemide and Spironolactone
-Monitor Daily Weights
Paroxysmal Atrial Fibrillation
-Continue amiodarone
-Continue Eliquis
Orthostatic Hypotension
-Continue midodrine
Pulmonary Fibrosis / COPD
-Patient uses oxygen as needed at home
-Continue budesonide
Myelodysplastic Syndrome
-Hgb and Platelet count stable compared to prior admissions
Chronic Pain with Opioid Dependence
-Continue gabapentin
-Continue oxycodone as prior to admission
BPH
-Continue Flomax
DVT proph: Eliquis
Code Status: Full Code
--- NOTE | 2025-09-01 20:30 | W.PN.UPDATE ---
Update Note
Progress Note Update
Patient seen in conjunction with nurse practitioner. I agree with the findings on history and physical. I concur with assessment plan listed otherwise.
Briefly, this is a 74-year-old male with past medical history significant for dependent pulmonary fibrosis, CHF with preserved EF, paroxysmal atrial fibrillation, myelodysplastic syndrome with history of transfusion dependence, orthostatic
hypotension, BPH who presents to the emergency department with ongoing weakness that started this is his hospitalization and intensive care unit stay for sepsis.
Patient was admitted about 3 weeks ago for weakness and was later found to have a pneumonia and sepsis with haemophilus influenza requiring a stay in the ICU but was not intubated. He required transfusion 1 send during that admission. He was
discharged to complete a course of antibiotics appropriately. Patient reports ongoing weakness since then and was seen by his PMD who sent him to the emergency department today.
Here in the emergency department patient was afebrile, blood pressure was at 115/78 with a pulse rate of 77 and was satting 91% on room air. Temperature was 98.0.
His chest x-ray seems similar to prior with chronic fibrotic changes possible atelectasis in the left lower lobe. ECG is nonischemic. BNP 450. Troponin negative.
CBC without leukocytosis, hemoglobin was 8.4 with platelet count of 75. These are baseline. Electrolytes were normal. BUN and creatinine were slightly increased at 36 and 1.3 respectively. Glucose was 88. UA shows some positivity with leukocyte
esterase and WBCs with few bacteria. COVID and flu were negative.
Assessment and plan
74-year-old with multiple medical comorbidities who was recently discharged from rehab following extensive stay there and findings independent living over 1 currently. He has no new focal findings on history and physical exam labs or imaging. UA
is slightly positive but patient has a chronic indwelling urinary catheter. He denies any lightheadedness dizziness fevers chills. No clear indications of overt dehydration or volume overload. No signs of acute infection pulmonary genitourinary
or otherwise. Appears to be overwhelmed by transition to independent living with management of his medications urinary catheter, ambulatory difficulties in the setting of chronic weakness and chronic shortness of breath.
- Admit to [facility] observation
- known orthostasis. Continue midodrine
- Continue his current medication
- given abx for + u/a in Ed. NO systemic symptoms. Hold further abx pending culture results
- PT consultation
- Case management
DVT PPX - on apixaban
Code status - Full Code
--- NOTE | 2025-09-01 22:35 | PTCARENOTE ---
Pt arrived to room 437-02. Pt ambulated from stretcher to bed x1 assist. Pt AAOx3, VSS. Pt oriented to room, call caceres placed within reach. Bed alarm in place.
[2025-09-01] MEDS: NEURONTIN 300 MG PO (23:04)
[2025-09-02 06:00] VITALS: BMI 22.1
[2025-09-02 07:00] VITALS: BP 102/66; BP 120/64; BP 86/58; PULSE 57; PULSE 72; PULSE 82
[2025-09-02 07:20] LABS: Blood Urea Nitrogen 27 mg/dl (9-20); Calcium 8.4 mg/dl (8.4-10.2); Carbon Dioxide 32 mmol/L (22-30); Chloride 103 mmol/L (98-107); Estimated Creatinine Clearance 58 ml/min; Glucose 89 mg/dl (70-99); Potassium 3.7 mmol/L (3.5-5.1); Sodium 139 mmol/L (135-145); eGFR > 60.00
[2025-09-02] MEDS: MIRALAX 17 GRAMS PO (08:14)
[2025-09-02] MEDS: CRESTOR 20 MG PO (08:16)
[2025-09-02] MEDS: VITAMIN C 1000 MG PO ×2 (08:16→21:06)
[2025-09-02] MEDS: FARXIGA 10 MG PO (08:17)
[2025-09-02] MEDS: PROTONIX 40 MG PO (08:17)
[2025-09-02] MEDS: NEURONTIN 300 MG PO ×3 (08:17→21:06)
[2025-09-02] MEDS: KCL 20 MEQ PO ×2 (08:18→21:05)
[2025-09-02] MEDS: DEMADEX 20 MG PO ×2 (08:18→21:05)
[2025-09-02] MEDS: ROXICODONE 10 MG PO ×4 (08:18→21:06)
[2025-09-02] MEDS: PACERONE 200 MG PO (08:19)
[2025-09-02] MEDS: ELIQUIS 5 MG PO ×2 (08:19→21:06)
[2025-09-02] MEDS: ALDACTONE 25 MG PO (08:19)
[2025-09-02] MEDS: FLOMAX 0.4 MG PO (08:19)
[2025-09-02 09:00] VITALS: BP 109/73; BP 114/77; PULSE 72; O2SAT 97
[2025-09-02 09:40] VITALS: BP 109/73; BP 114/77; O2SAT 94
--- NOTE | 2025-09-02 10:37 | W.PN.HOSP.TC ---
Today's Communication/Plan
-
PT/OT
Discharge planning
Assessment / Plan
Assessment / Plan
Gen-AAOx3, NAD
HEENT-NC, AT, anicteric, clear oral mm
Neck-supple
CV-reg, no M, +S1/S2
Lungs-clear B/L
Abd-soft, NT, ND
Ext-no edema
Musculoskeletal-no cyanosis, clubbing
Skin-warm and dry
Neuro-grossly non-focal
Psych-calm, cooperative
Failure to thrive -probably due to deconditioning and multiple medical conditions. I seen no flare of any acute conditions currently.
May have a component of volume depletion and contraction alkalosis given elevated bicarb, elevated BUN to creatinine ratio.
Weight on admission is relatively stable compared to discharge weight from 08/17.
PT/OT consulted. Anticipate discharge to SNF. Patient is motivated to improve his strength and his goal is to be independent again. Was independent to a certain degree prior to his hospitalization 4 weeks ago. The last time he drove was 4 weeks
ago. He does live alone.
Recent hospitalization for sepsis -discharge 08/17. Diagnosed with H influenza bacteremia, pneumonia. Went to rehab.
Paroxysmal atrial fibrillation -continue amiodarone, Eliquis.
MDS -counts are stable.
Chronic heart failure preserved EF -stable. Continue torsemide and other meds.
CAD -stable.
Essential hypertension -stable.
Hyperlipidemia -rosuvastatin.
COPD without exacerbation
ILD/pulmonary fibrosis
Chronic pain syndrome/chronic opioid dependence
Chronic orthostatic hypotension -continue midodrine.
Chronic urinary retention -with chronic Collins catheter. He sees Dr. Ni from urology. Collins was last changed 2 weeks ago.
GERD
History of alcohol use disorder
Full code
Anticipated Discharge: Within 24 hours
Subjective/Interval History
-
Date of Service: September 02, 2025
Patient seen and examined. No complaints.
Objective Data
-
Labs:
Laboratory Results
09/02/25
05:52
Sodium 139
Potassium 3.7
Chloride 103
Carbon Dioxide 32 H
BUN 27 H
Creatinine 1.0
Glucose 89
Calcium 8.4
Vital Signs:
Vital Signs
Temp Pulse Resp BP Pulse Ox
97.7 F 57 18 120/64 94
09/02/25 07:00 09/02/25 07:00 09/02/25 07:00 09/02/25 07:00 09/02/25 07:00
I&O
09/01/25 09/02/25 09/03/25
06:59 06:59 06:59
Output Total 2925 / 2925
Balance -2925 / -2925
Review of Systems
-
History Source: Patient
All other systems: Reviewed and negative
--- NOTE | 2025-09-02 12:41 | PTCARENOTE ---
Received pt awake and alert, very hard of hearing. Ordered breakfast. Lunch time pt stated he 'has trouble seeing at times' it comes and goes . Stated this was not a new problem and has been happening for a long time. Was seen by PT . is out of
bed to chair with steady gait. Able to make needs known.
--- NOTE | 2025-09-02 14:46 | CM ---
Addendum entered by Adele Segundo 09/02/25 15:56:
Patient was set up with [facility] after recent discharge from [facility], waiting on determination from [facility] will need Auth.
Original Note:
instrumentation manager reviewed patient's chart and patient was admitted under OBS, ENGEL letter completed and placed on chart, patient reports that he lives in an apartment with 24 steps to enter with another 10 steps to patient's bedroom. Patient lives alone
in the apartment, patient drives, was independent with adl's and used a cane with ambulation, patient has home oxygen from [employer], patient's oxygen is as needed and nocturnal, patient feels he needs rehab, options reviewed and patient has selected
[facility] referral sent to [facility]. instrumentation manager received calls from [facility] for PCP office [facility] cell [phone] and
PCP: [facility]STA
Pharmacy: [facility]
Plan; Skilled placement at [facility] referral sent
[2025-09-02 15:40] VITALS: BP 108/75
--- NOTE | 2025-09-02 15:52 | PTCARENOTE ---
Pt refused Midodrine at 1600 stated he was 'waiting for a call back from his doctor' I encouraged him to take it but he still refused.
[2025-09-02 23:19] VITALS: BP 107/61
[2025-09-03 06:00] VITALS: BMI 22.0
[2025-09-03 08:00] VITALS: BP 97/64
[2025-09-03] MEDS: NEURONTIN 300 MG PO ×3 (08:25→21:24)
[2025-09-03] MEDS: DEMADEX 20 MG PO ×2 (08:25→20:30)
[2025-09-03] MEDS: PROTONIX 40 MG PO (08:25)
[2025-09-03] MEDS: ROXICODONE 10 MG PO ×4 (08:25→21:24)
[2025-09-03] MEDS: VITAMIN C 1000 MG PO ×2 (08:25→20:30)
[2025-09-03] MEDS: FLOMAX 0.4 MG PO (08:25)
[2025-09-03] MEDS: KCL 20 MEQ PO ×2 (08:25→20:29)
[2025-09-03] MEDS: PACERONE 200 MG PO (08:25)
[2025-09-03] MEDS: ELIQUIS 5 MG PO ×2 (08:25→20:29)
[2025-09-03] MEDS: CRESTOR 20 MG PO (08:25)
[2025-09-03] MEDS: ALDACTONE 25 MG PO (08:25)
[2025-09-03] MEDS: FARXIGA 10 MG PO (08:25)
[2025-09-03] MEDS: MIRALAX 17 GRAMS PO (08:25)
--- NOTE | 2025-09-03 10:35 | CM ---
Addendum entered by Marilyn Dash 09/03/25 14:11:
Pending auth #[id number] clinicals faxed to [phone], pending response.
Addendum entered by Marilyn Dash 09/03/25 13:49:
[facility] willing to accept first available bed Saturday, pending auth. CM will send auth request to [facility] pending physician assessment and auth, patient for transfer to SNF.
Original Note:
[facility] willing to accept pending Therapy recommendations. Patient for auth with [facility]. If denied patient is willing to go home with [facility]. CM will continue to seek auth pending physician update. CM will continue to follow for discharge
planning needs.
Plan; SNF; pending auth approval
--- NOTE | 2025-09-03 10:38 | W.PN.HOSP.TC ---
Today's Communication/Plan
-
Stop midodrine
Teds
Discharge planning
Assessment / Plan
Assessment / Plan
Gen-AAOx3, NAD
HEENT-NC, AT, anicteric, clear oral mm
Neck-supple
CV-reg, no M, +S1/S2
Lungs-clear B/L
Abd-soft, NT, ND
Ext-no edema
Musculoskeletal-no cyanosis, clubbing
Skin-warm and dry
Neuro-grossly non-focal
Psych-calm, cooperative
Failure to thrive -probably due to deconditioning and multiple medical conditions. I seen no flare of any acute conditions currently.
May have a component of volume depletion and contraction alkalosis given elevated bicarb, elevated BUN to creatinine ratio.
Weight on admission is relatively stable compared to discharge weight from 08/17.
PT/OT consulted. Anticipate discharge to SNF. Patient is motivated to improve his strength and his goal is to be independent again. Was independent to a certain degree prior to his hospitalization 4 weeks ago. The last time he drove was 4 weeks
ago. He does live alone.
Blurry vision -unclear etiology. Patient states he saw his power sweeper operator, Dr. Mejias, no diagnosis was made.
He wants to come off of midodrine to see if it improves his vision. Can discontinue and use compression stockings and set up. Patient agreeable. If he fails, will need to resume midodrine.
Recent hospitalization for sepsis -discharge 08/17. Diagnosed with H influenza bacteremia, pneumonia. Went to rehab.
Paroxysmal atrial fibrillation -continue amiodarone, Eliquis.
MDS -counts are stable.
Chronic heart failure preserved EF -stable. Continue torsemide and other meds.
CAD -stable.
Essential hypertension -stable.
Hyperlipidemia -rosuvastatin.
COPD without exacerbation
ILD/pulmonary fibrosis
Chronic pain syndrome/chronic opioid dependence
Chronic orthostatic hypotension -as above, patient wants a trial off midodrine to see if it improves his vision. Compression stockings ordered.
Chronic urinary retention -with chronic Collins catheter. He sees Dr. Ni from urology. Collins was last changed 2 weeks ago.
GERD
History of alcohol use disorder
Full code
Dispo -stable for discharge to rehab. Case management aware.
Anticipated Discharge: Today
Subjective/Interval History
-
Date of Service: September 03, 2025
Patient seen and examined, complaining of blurry vision that has been off and on for a few months.
Objective Data
-
Vital Signs:
Vital Signs
Temp Pulse Resp BP Pulse Ox
97.6 F 70 16 97/64 93
09/03/25 08:00 09/03/25 08:00 09/03/25 08:00 09/03/25 08:24 09/03/25 08:00
I&O
09/02/25 09/03/25 09/04/25
06:59 06:59 06:59
Intake Total 1440 / 1440
Output Total 2925 / 2925 3400 / 3400
Balance -2925 / -2925 -1959 / -1959
Review of Systems
-
History Source: Patient
All other systems: Reviewed and negative
[2025-09-03 16:00] VITALS: BP 100/70; BP 88/56; BP 90/57; PULSE 66; PULSE 80; PULSE 85
--- NOTE | 2025-09-03 16:36 | PTCARENOTE ---
Assumed care of pt from previous RN @ 1500. Assessment remains unchanged.
[2025-09-03 23:18] VITALS: BP 100/61
[2025-09-04 06:00] VITALS: BMI 21.9
[2025-09-04 08:03] VITALS: BP 101/67; BP 105/64; BP 74/57; PULSE 71; PULSE 95; PULSE 97
[2025-09-04] MEDS: VITAMIN C 1000 MG PO ×2 (08:33→21:14)
[2025-09-04] MEDS: FLOMAX 0.4 MG PO (08:33)
[2025-09-04] MEDS: KCL 20 MEQ PO ×2 (08:33→21:15)
[2025-09-04] MEDS: ELIQUIS 5 MG PO ×2 (08:33→21:15)
[2025-09-04] MEDS: NEURONTIN 300 MG PO ×3 (08:33→21:09)
[2025-09-04] MEDS: CRESTOR 20 MG PO (08:34)
[2025-09-04] MEDS: ALDACTONE 25 MG PO (08:34)
[2025-09-04] MEDS: FARXIGA 10 MG PO (08:34)
[2025-09-04] MEDS: ROXICODONE 10 MG PO ×4 (08:34→21:09)
[2025-09-04] MEDS: PACERONE 200 MG PO (08:34)
[2025-09-04] MEDS: MIRALAX 17 GRAMS PO (08:34)
[2025-09-04] MEDS: PROTONIX 40 MG PO (08:34)
[2025-09-04] MEDS: DEMADEX 20 MG PO ×2 (08:34→21:10)
--- NOTE | 2025-09-04 10:10 | CM ---
Addendum entered by Adele Segundo 09/04/25 14:19:
artist's manager spoke with [facility] and request for care home has been sent to the ophthalmic medical technician.
Addendum entered by Adele Segundo 09/04/25 10:50:
Updated notes faxed to
Original Note:
All clinicals faxed to insurance and they are asking for updated physical therapy notes, call placed to PT this morning will fax when completed, [facility] has accepted patient.
Plan; Skilled placement at [facility] if approved, pending Auth/Ref # [id number]
[2025-09-04 10:14] VITALS: BP 103/64; BP_SYST 113; PULSE 72
--- NOTE | 2025-09-04 10:55 | W.PN.HOSP.TC ---
Addendum entered and electronically signed by Christopher Seay DO 09/04/25 11:12:
Patient okay with resuming midodrine.
Original Note:
Today's Communication/Plan
-
Nebs, budesonide
Resume midodrine if okay with patient
Discharge planning
Assessment / Plan
Assessment / Plan
Gen-AAOx3, NAD
HEENT-NC, AT, anicteric, clear oral mm
Neck-supple
CV-reg, no M, +S1/S2
Lungs-bilateral expiratory wheezing
Abd-soft, NT, ND
Ext-no edema
Musculoskeletal-no cyanosis, clubbing
Skin-warm and dry
Neuro-grossly non-focal
Psych-calm, cooperative
Failure to thrive -probably due to deconditioning and multiple medical conditions. I seen no flare of any acute conditions currently.
May have a component of volume depletion and contraction alkalosis given elevated bicarb, elevated BUN to creatinine ratio.
Weight on admission is relatively stable compared to discharge weight from 08/17.
PT/OT consulted. Anticipate discharge to SNF. Patient is motivated to improve his strength and his goal is to be independent again. Was independent to a certain degree prior to his hospitalization 4 weeks ago. The last time he drove was 4 weeks
ago. He does live alone.
Blurry vision -unclear etiology. Patient states he saw his tree inspector, Dr. Mejias, no diagnosis was made.
He wants to come off of midodrine to see if it improves his vision. Can discontinue and use compression stockings and set up. Patient agreeable. If he fails, will need to resume midodrine.
Recent hospitalization for sepsis -discharge 08/17. Diagnosed with H influenza bacteremia, pneumonia. Went to rehab.
Paroxysmal atrial fibrillation -continue amiodarone, Eliquis.
MDS -counts are stable.
Chronic heart failure preserved EF -stable. Continue torsemide and other meds.
CAD -stable.
Essential hypertension -stable.
Hyperlipidemia -rosuvastatin.
COPD without exacerbation -does have some wheezing today, continue nebs and resume budesonide. If no improvement, then we will add systemic steroids and treat for COPD exacerbation.
ILD/pulmonary fibrosis
Chronic pain syndrome/chronic opioid dependence
Chronic orthostatic hypotension -as above, patient wants a trial off midodrine to see if it improves his vision. Last dose of midodrine was 10/3 AM. Compression stockings ordered.
Still has orthostatic hypotension with drop in systolic pressure this morning from 105 supine to 74 standing. Would resume midodrine today if patient allows.
Chronic urinary retention -with chronic Collins catheter. He sees Dr. Ni from urology. Collins was last changed 2 weeks ago.
GERD
History of alcohol use disorder
Full code
Dispo -stable for discharge to rehab. Case management aware. Awaiting insurance authorization.
Anticipated Discharge: Within 24 hours
Subjective/Interval History
-
Date of Service: September 04, 2025
Patient seen and examined. No new complaints.
Objective Data
-
Vital Signs:
Vital Signs
Temp Pulse Resp BP Pulse Ox
98.2 F 65 16 100/61 97
09/04/25 07:00 09/03/25 23:18 09/03/25 23:18 09/03/25 23:18 09/04/25 07:00
I&O
09/03/25 09/04/25 09/05/25
06:59 06:59 06:59
Intake Total 1440 / 1440 1200 / 1200
Output Total 3400 / 3400 3900 / 3900
Balance -1960 / -1960 -2700 / -2700
Review of Systems
-
History Source: Patient
All other systems: Reviewed and negative
[2025-09-04] MEDS: PULMICORT 0.5 MG INH (11:17)
[2025-09-04] MEDS: DUONEB 3 ML INH (11:17)
[2025-09-04 15:00] VITALS: BP 122/76
[2025-09-04] MEDS: TYLENOL 650 MG PO (15:52)
[2025-09-04 23:39] VITALS: BP 98/63
[2025-09-05 06:00] VITALS: BMI 21.2
[2025-09-05] MEDS: PULMICORT 0.5 MG INH (07:38)
[2025-09-05 07:45] VITALS: BP 103/65
[2025-09-05] MEDS: DEMADEX 20 MG PO ×2 (08:40→21:01)
[2025-09-05] MEDS: PACERONE 200 MG PO (08:40)
[2025-09-05] MEDS: FLOMAX 0.4 MG PO (08:40)
[2025-09-05] MEDS: ALDACTONE 25 MG PO (08:40)
[2025-09-05] MEDS: NEURONTIN 300 MG PO ×3 (08:40→21:01)
[2025-09-05] MEDS: FARXIGA 10 MG PO (08:40)
[2025-09-05] MEDS: ELIQUIS 5 MG PO ×2 (08:40→21:00)
[2025-09-05] MEDS: VITAMIN C 1000 MG PO ×2 (08:40→21:01)
[2025-09-05] MEDS: KCL 20 MEQ PO ×2 (08:40→21:00)
[2025-09-05] MEDS: MIRALAX 17 GRAMS PO (08:41)
[2025-09-05] MEDS: CRESTOR 20 MG PO (08:41)
[2025-09-05] MEDS: ROXICODONE 10 MG PO ×4 (08:41→21:01)
[2025-09-05] MEDS: PROTONIX 40 MG PO (08:41)
--- NOTE | 2025-09-05 09:38 | CM ---
manager language reviewed patient's chart along with updated physical therapy notes patient is currently ambulating 75 feet X2 with a walker, patient did not need a walker prior to admission, multiple calls placed to patient's insurance and updated
clinicals faxed, per Shanna at patient's insurance, case is being reviewed by the medical parasitologist for final determination.
Plan; Await determination from insurance, patient has been accepted at [id number] but need Auth.
--- NOTE | 2025-09-05 13:10 | W.PN.HOSP.TC ---
Today's Communication/Plan
-
Continue current care
Assessment / Plan
Assessment / Plan
Gen-AAOx3, NAD
HEENT-NC, AT, anicteric, clear oral mm
Neck-supple
CV-reg, no M, +S1/S2
Lungs-bilateral expiratory wheezing
Abd-soft, NT, ND
Ext-no edema
Musculoskeletal-no cyanosis, clubbing
Skin-warm and dry
Neuro-grossly non-focal
Psych-calm, cooperative
Failure to thrive -probably due to deconditioning and multiple medical conditions. I seen no flare of any acute conditions currently.
May have a component of volume depletion and contraction alkalosis given elevated bicarb, elevated BUN to creatinine ratio.
Weight on admission is relatively stable compared to discharge weight from 08/17.
PT/OT consulted. Anticipate discharge to SNF. Patient is motivated to improve his strength and his goal is to be independent again. Was independent to a certain degree prior to his hospitalization 4 weeks ago. The last time he drove was 4 weeks
ago. He does live alone.
Blurry vision -unclear etiology. Patient states he saw his seafood fisherman, Dr. Mejias, no diagnosis was made.
Doubt midodrine is the cause of the blurry vision as symptoms started prior to initiation of midodrine.
Patient was scheduled to follow-up with Dr. Mejias in the office but ended up in the hospital.
Recent hospitalization for sepsis -discharge 08/17. Diagnosed with H influenza bacteremia, pneumonia. Went to rehab.
Paroxysmal atrial fibrillation -continue amiodarone, Eliquis.
MDS -counts are stable.
Chronic heart failure preserved EF -stable. Continue torsemide and other meds.
CAD -stable.
Essential hypertension -stable.
Hyperlipidemia -rosuvastatin.
COPD without exacerbation -does have some wheezing today, continue nebs and resume budesonide. If no improvement, then we will add systemic steroids and treat for COPD exacerbation.
ILD/pulmonary fibrosis
Chronic pain syndrome/chronic opioid dependence
Chronic orthostatic hypotension -continue midodrine, compression stockings.
Chronic urinary retention -with chronic Collins catheter. He sees Dr. Ni from urology. Collins was last changed 2 weeks ago.
GERD
History of alcohol use disorder
Full code
Dispo -stable for discharge to rehab. Case management aware. Awaiting insurance authorization.
Anticipated Discharge: Within 24 hours
Subjective/Interval History
-
Date of Service: September 05, 2025
Patient seen and examined, no new complaints.
Objective Data
-
Vital Signs:
Vital Signs
Temp Pulse Resp BP Pulse Ox
97.9 F 70 18 90/55 97
09/05/25 07:45 09/05/25 07:45 09/05/25 07:45 09/05/25 08:40 09/05/25 08:40
I&O
09/04/25 09/05/25 09/06/25
06:59 06:59 06:59
Intake Total 1200 / 1200 1440 / 1440
Output Total 3900 / 3900 3850 / 3850
Balance -2700 / -2700 -2410 / -2410
Review of Systems
-
History Source: Patient
All other systems: Reviewed and negative
[2025-09-05 13:30] VITALS: BP 105/65; BP 77/53; BP 89/64; PULSE 107; PULSE 86; PULSE 90
--- NOTE | 2025-09-05 13:30 | PTCARENOTE ---
09/05- Patient is anxious about his vision. He states he has 'floaters' which, 'cause my blurry vision. It goes in and out, and sometimes my vision is perfect. But sometimes it can take a whole day to get it back. I feel claustrophobic.' He also
stated, 'well, I thought it was the midodrine, but I ruled out that correlation. But I always believed and knew that the correlation was the low blood pressure. So therefore I conclude I need to call my insights analyst. [facility] and [facility]
both got my symptoms spot-on.' He is visibly anxious. Calming validating conversation and educatio nof what to ask his doctor and which types of doctors to call, ophthalmologists included. He requests oxygen because he'd like it to breathe better.
POX=99% on RA, RR=22, HR=95, Skin=pale/pink/dry. Applied O2 for comfort as requested. Will continue to monitor.
[2025-09-05 15:00] VITALS: BP 102/66
--- NOTE | 2025-09-05 15:15 | PTCARENOTE ---
09/05- Patient is still very anxious. After walking with assist with walker to bathroom, he returned to bed EVANS, requesting the O2 again. Current POX on RA upon ambulation is 95% with MM=257. Once sitting with 2L O2, Patient's POX=99% with HR=95.
He still states he sees the floaters BL. Denies flashes of light, binocular vision. Pupils equal/reactive. Continue to monitor.
[2025-09-05 15:20] VITALS: O2SAT 95; O2SAT 99
[2025-09-05] MEDS: DUONEB 3 ML INH (15:46)
[2025-09-05 23:00] VITALS: BP 95/59
[2025-09-05 23:32] VITALS: BP 95/59
[2025-09-06] VITALS (7 sets, daily range): BP systolic 72–107; BP diastolic 31–67; PULSE 74–114; BMI 21.2
[2025-09-06] MEDS: PULMICORT 0.5 MG INH (08:15)
[2025-09-06] MEDS: DUONEB 3 ML INH ×3 (08:17→21:05)
[2025-09-06] MEDS: VITAMIN C 1000 MG PO ×2 (08:57→20:40)
[2025-09-06] MEDS: FARXIGA 10 MG PO (08:57)
[2025-09-06] MEDS: PACERONE 200 MG PO (08:58)
[2025-09-06] MEDS: NEURONTIN 300 MG PO ×3 (08:58→22:47)
[2025-09-06] MEDS: PROTONIX 40 MG PO (08:58)
[2025-09-06] MEDS: KCL 20 MEQ PO ×2 (08:59→20:40)
[2025-09-06] MEDS: ELIQUIS 5 MG PO ×2 (08:59→20:40)
[2025-09-06] MEDS: FLOMAX 0.4 MG PO (08:59)
[2025-09-06] MEDS: ROXICODONE 10 MG PO ×4 (08:59→22:47)
[2025-09-06] MEDS: DEMADEX 20 MG PO ×2 (08:59→20:46)
[2025-09-06] MEDS: CRESTOR 20 MG PO (09:00)
[2025-09-06] MEDS: ALDACTONE 25 MG PO (09:00)
[2025-09-06] MEDS: MIRALAX 17 GRAMS PO (09:11)
--- NOTE | 2025-09-06 09:20 | CM ---
Addendum entered by Adele Segundo 09/06/25 13:50:
[facility]
[phone]

Addendum entered by Adele Segundo 09/06/25 13:31:
Patient has been denied skilled by insurance, plan will be to home with [facility] visiting nurses. Patient and physician also made aware.
Addendum entered by Adele Segundo 09/06/25 13:27:
Patient has been denied inpatient rehab by insurance, home with [facility] when stable.
Original Note:
pillowcase maker received a call from insurance that the are requesting a peer to peer with patient's physician, pillowcase maker reached out to the physician advisor who will proceed with peer to peer.
Plan; Await outcome of peer to peer with with physician advisor and insurance physician.
[2025-09-06] MEDS: SOLU-CORTEF 25 MG IV (10:43)
--- NOTE | 2025-09-06 16:23 | W.PN.HOSP.TC ---
Today's Communication/Plan
-
Assessment / Plan
Assessment / Plan
Gen-AAOx3, NAD
HEENT-NC, AT, anicteric, clear oral mm
Neck-supple
CV-reg, no M, +S1/S2
Lungs-mild rhonchi bilaterally
Abd-soft, NT, ND
Ext-no edema
Musculoskeletal-no cyanosis, clubbing
Skin-warm and dry
Neuro-grossly non-focal
Psych-calm, cooperative
Failure to thrive
- probably due to deconditioning and multiple medical conditions.
- May have a component of volume depletion and contraction alkalosis given elevated bicarb, elevated BUN to creatinine ratio.
- Weight on admission is relatively stable compared to discharge weight from 08/17.
- PT/OT recommending SNF however not covered by insurance, plan for discharge to home with home health when medically stable
- Patient is motivated to improve his strength and his goal is to be independent again. Was independent to a certain degree prior to his hospitalization 4 weeks ago. The last time he drove was 4 weeks ago. He does live alone.
- Is still having orthostatic hypotension, checking TSH and cortisol, continuing midodrine, reports feeling better after a trial of steroids
- Recheck labs tomorrow
Blurry vision
- Intermittent, associated with floaters
- unclear etiology. Patient states he saw his watch assembly inspector, Dr. Mejias, no diagnosis was made.
- May be contributed to by hypotension, doubt midodrine is the cause of the blurry vision as symptoms started prior to initiation of midodrine.
- Will need outpatient ophthalmology follow-up, was scheduled to follow-up with Dr. Mejias in the office but ended up in the hospital.
Recent hospitalization for sepsis
-discharged 08/17 after treatment for H influenza bacteremia, pneumonia. Went to rehab.
- Continue pulmonary toileting, still having productive cough
Paroxysmal atrial fibrillation -continue amiodarone, Eliquis.
MDS -counts are stable.
Chronic heart failure preserved EF -stable. Continue torsemide and other meds.
CAD -stable.
Essential hypertension -stable.
Hyperlipidemia -rosuvastatin.
COPD without exacerbation -does have some wheezing today, continue nebs and resume budesonide. If no improvement, then we will add systemic steroids and treat for COPD exacerbation.
ILD/pulmonary fibrosis
Chronic pain syndrome/chronic opioid dependence
Chronic orthostatic hypotension -continue midodrine, compression stockings.
Chronic urinary retention -with chronic Collins catheter. He sees Dr. Ni from urology. Collins was last changed 2 weeks ago.
GERD
History of alcohol use disorder
Full code
Dispo -stable for discharge to rehab. Case management aware. Awaiting insurance authorization.
Anticipated Discharge: 24 - 48 hours
Subjective/Interval History
-
Date of Service: September 06, 2025
Patient was seen and examined at bedside this morning. He reports ongoing fatigue but generally better today than when he first admitted. Still having a productive cough.
Objective Data
-
Vital Signs:
Vital Signs
Temp Pulse Resp BP Pulse Ox
98.7 F 82 20 86/57 90
09/06/25 15:00 09/06/25 15:00 09/06/25 15:00 09/06/25 15:00 09/06/25 16:05
I&O
09/05/25 09/06/25 09/07/25
06:59 06:59 06:59
Intake Total 1440 / 1440 1900 / 1900
Output Total 3850 / 3850 3550 / 3550
Balance -2410 / -2410 -1650 / -1650
Review of Systems
-
Constitutional: Reports Fatigue
Respiratory: Reports Cough
Physical Exam
-
General: No Apparent Distress
[2025-09-06] MEDS: TYLENOL 650 MG PO (20:10)
--- NOTE | 2025-09-06 21:18 | W.PN.UPDATE ---
Update Note
Progress Note Update
21:15 reported by the new onset of fever with temp 102.4, bp 104/73, hr in 80s. Patient with increase of O2 requirement Up to 5 L of O2
covid, cbc, bmp, blood cultures, chest x-ray vbg ordered
around 22:00 PREVENTION COORDINATOR called
the patient is hypotensive with SBP in 70s IVF bolus initiated first, sbp up to 90s but as the patient is complaining of sob now will d/c and order Levophed if bp dropped again.
Will check Pro BNP
Lactic acid is 2
Pro BNP 273
will transfer to IMU for close monitoring
chest x-ray result shows
Increasing parenchymal opacity in the left lower lung, suggesting pneumonia. Subtle increased reticular markings in the right upper midlung, also suggesting pneumonia.
Will start the patient on ceftriaxone
[2025-09-06] MEDS: ZOFRAN 4 MG IV (21:29)
[2025-09-06 21:55] LABS: Glucose - Point of Care 192 mg/dl (70-99)
[2025-09-06 22:05] LABS: COVID-19 Antigen Negative (Negative)
[2025-09-06 22:23] LABS: B.E. 3.3 mmol/L; HCO3 26.5 mmol/L (21-28); O2 Saturation % 95.8 % (94-98); PCO2 34 mmHg (35-48); PO2 74 mmHg (83-108)
[2025-09-06 22:27] LABS: Venous Blood Gas B.E. 3.4 mmol/L (-4 to +4); Venous Blood Gas O2 Sat % 99.1 %
--- NOTE | 2025-09-06 22:30 | RR ---
A Rapid Response was called on this patient, please see Rapid Response form.
At 1999, this RN entered pt's room and noticed pt was shivering and states he felt cold. This RN took oral temp that showed 102.4. Rectal temp was then taken and showed 102.7. This RN administered PRN Tylenol and applied ice packs to underarms and
inner thighs. At about 2129, this RN rechecked pt's rectal temp and showed 105.5. This RN checked VS, BP measured at 75/55, HR 110, O2 at 94 on 3L (pt was previously on 1L), and RR 20. RR called. Orders placed and pt transferred to IMU.
[2025-09-06 22:34] LABS: Hematocrit 27.6 % (39.0-52.0); Hemoglobin 9.0 g/dL (13.0-18.0); Mean Corp Hgb Conc. 32.6 g/dL (33.0-37.0); Mean Corpuscular Volume 106.2 fL (80.0-94.0); Platelet Count 92 10^3/uL (130-400); Red Cell Dist. Width 18.8 % (11.5-14.5)
[2025-09-06] MEDS: CALDOLOR 104 MG IV (22:38)
[2025-09-06 22:39] LABS: Blood Urea Nitrogen 40 mg/dl (9-20); Calcium 9.0 mg/dl (8.4-10.2); Carbon Dioxide 26 mmol/L (22-30); Chloride 94 mmol/L (98-107); Estimated Creatinine Clearance 37 ml/min; Glucose 117 mg/dl (70-99); Magnesium 1.7 mg/dl (1.6-2.3); Potassium 5.1 mmol/L (3.5-5.1); Sodium 131 mmol/L (135-145); eGFR 48.25
--- NOTE | 2025-09-06 23:11 | PTCARENOTE ---
received patient as a transfer from [facility]. Patient aaox3. recheck temp on arrival and it was 100.5. bp 103/64. assessment and vital signs charted. call caceres in reach.
[2025-09-07] VITALS (15 sets, daily range): BP systolic 86–108; BP diastolic 56–76; BMI 22.8
[2025-09-07] MEDS: TYLENOL 650 MG PO ×2 (05:13→21:38)
[2025-09-07 05:47] LABS: Hematocrit 27.4 % (39.0-52.0); Hemoglobin 8.7 g/dL (13.0-18.0); Mean Corp Hgb Conc. 31.8 g/dL (33.0-37.0); Mean Corpuscular Volume 107.9 fL (80.0-94.0); Platelet Count 89 10^3/uL (130-400); Red Cell Dist. Width 18.6 % (11.5-14.5)
[2025-09-07 05:51] LABS: Blood Urea Nitrogen 41 mg/dl (9-20); Calcium 9.0 mg/dl (8.4-10.2); Carbon Dioxide 29 mmol/L (22-30); Estimated Creatinine Clearance 37 ml/min; Glucose 105 mg/dl (70-99); Potassium 5.0 mmol/L (3.5-5.1); Sodium 133 mmol/L (135-145); eGFR 44.65
[2025-09-07 05:56] LABS: Chloride 94 mmol/L (98-107)
[2025-09-07 06:22] LABS: Cortisol, Random 13.8 ug/dl
[2025-09-07 06:53] LABS: Absolute Neutrophils -Man Diff 26.3 10^3/uL (1.4-6.5); Anisocytosis Slight; Hypochromasia 1+; Normal RBC Morphology No; Platelets Checked Yes; Polychromasia Slight; Total Cells Counted 100
[2025-09-07] MEDS: PULMICORT 0.5 MG INH (07:34)
[2025-09-07] MEDS: DUONEB 3 ML INH (07:35)
[2025-09-07] MEDS: ELIQUIS 5 MG PO ×2 (08:34→21:37)
[2025-09-07] MEDS: NEURONTIN 300 MG PO ×3 (08:34→21:37)
[2025-09-07] MEDS: PACERONE 200 MG PO (08:34)
[2025-09-07] MEDS: KCL 20 MEQ PO (08:35)
[2025-09-07] MEDS: FLOMAX 0.4 MG PO (08:35)
[2025-09-07] MEDS: DEMADEX 20 MG PO (08:35)
[2025-09-07] MEDS: FARXIGA 10 MG PO (08:35)
[2025-09-07] MEDS: VITAMIN C 1000 MG PO ×2 (08:35→21:37)
[2025-09-07] MEDS: ALDACTONE 25 MG PO (08:35)
[2025-09-07] MEDS: PROTONIX 40 MG PO (08:35)
[2025-09-07] MEDS: ROXICODONE 10 MG PO ×4 (08:36→21:37)
[2025-09-07] MEDS: CRESTOR 20 MG PO (08:36)
[2025-09-07] MEDS: ROCEPHIN 1000 MG IV (08:36)
[2025-09-07] MEDS: STERILE WATER FOR INJECTION 10 ML IV ×3 (08:36→21:39)
[2025-09-07] MEDS: MIRALAX 17 GRAMS PO (08:37)
--- NOTE | 2025-09-07 10:56 | PTCARENOTE ---
Patient AAOx3, forgetful. C/o chronic pain, cough which started before prior admission, constipation and constant floaters in his vision. 3L NC, sats 93%, BPs soft at times, NSR. Patient making needs known. Will continue to closely monitor.
[2025-09-07] MEDS: MAXIPIME 1000 MG IV ×2 (12:49→21:38)
--- NOTE | 2025-09-07 14:34 | W.PN.HOSP.TC ---
Today's Communication/Plan
-
Assessment / Plan
Assessment / Plan
Gen-AAOx3, NAD
HEENT-NC, AT, anicteric, clear oral mm
Neck-supple
CV-reg, no M, +S1/S2
Lungs-mild rhonchi bilaterally
Abd-soft, NT, ND
Ext-no edema
Musculoskeletal-no cyanosis, clubbing
Skin-warm and dry
Neuro-grossly non-focal
Psych-calm, cooperative
Sepsis secondary to pneumonia:
- Recent admission for treatment of pneumonia secondary to haemophilus influenza
- Rapid response overnight for hypotension, fever, and hypoxia
- Leukocytosis beau to 19,000 last night and up to 35,000 today
- Current presentation possibly also contributed to by urinary tract infection although difficult to discern considering Collins
- Antibiotics broadened to cefepime based on cultures
- Hypotension improved but also somewhat chronic, holding torsemide, continue midodrine, gentle IV fluids with NS at 80 cc/h x 500 cc
LEBRON:
- Potassium also slightly elevated at 5.0
- Creatinine jumped up to 1.6 today, baseline appears to be around 1.0
- Suspect this is due to hypotension
- Holding torsemide and potassium supplementation
- Will give gentle IV fluids, monitor
Hyponatremia:
- Mild with a serum sodium of 133 today, likely hypovolemic
- Holding torsemide
Failure to thrive
- probably due to deconditioning and multiple medical conditions.
- May have a component of volume depletion and contraction alkalosis given elevated bicarb, elevated BUN to creatinine ratio.
- Weight on admission is relatively stable compared to discharge weight from 08/17.
- PT/OT recommending SNF however not covered by insurance, plan for discharge to home with home health when medically stable
- Patient is motivated to improve his strength and his goal is to be independent again. Was independent to a certain degree prior to his hospitalization 4 weeks ago. The last time he drove was 4 weeks ago. He does live alone.
- Is still having orthostatic hypotension, TSH slightly low with normal free T4, cortisol within normal limits, continuing midodrine
Blurry vision
- Intermittent, associated with floaters
- unclear etiology. Patient states he saw his developmental electronics assembler, Dr. Mejias, no diagnosis was made.
- May be contributed to by hypotension, doubt midodrine is the cause of the blurry vision as symptoms started prior to initiation of midodrine.
- Will need outpatient ophthalmology follow-up, was scheduled to follow-up with Dr. Mejias in the office but ended up in the hospital.
Recent hospitalization for sepsis
-discharged 08/17 after treatment for H influenza bacteremia, pneumonia. Went to rehab.
- Continue pulmonary toileting, still having productive cough
Paroxysmal atrial fibrillation -continue amiodarone, Eliquis.
MDS -reports outpatient follow-up with director of planning associated with [facility]
Chronic heart failure preserved EF -stable. Holding torsemide due to hypotension
CAD -stable.
Hyperlipidemia -rosuvastatin.
COPD without exacerbation -continue nebs and resume budesonide. If no improvement, then we will add systemic steroids and treat for COPD exacerbation.
ILD/pulmonary fibrosis
Chronic pain syndrome/chronic opioid dependence
Chronic orthostatic hypotension -continue midodrine, compression stockings.
Chronic urinary retention -with chronic Collins catheter. He sees Dr. Ni from urology. Collins was last changed 2 weeks ago.
GERD
History of alcohol use disorder
Full code
Anticipated Discharge: > 48 hours
Subjective/Interval History
-
Date of Service: September 07, 2025
Patient was seen and examined at bedside this morning. Was upgraded to the IMU overnight after rapid response for fever, hypotension, and hypoxia. Feeling much better now and does not clearly remember the events from overnight.
Objective Data
-
Labs:
Laboratory Results
09/07/25
05:09
WBC 35.6 H
Hgb 8.7 L
Hct 27.4 L
Plt Count 89 L
Sodium 133 L
Potassium 5.0
Chloride 94 L
Carbon Dioxide 29
BUN 41 H
Creatinine 1.6 H
Glucose 105 H
Calcium 9.0
Vital Signs:
Vital Signs
Temp Pulse Resp BP Pulse Ox
97.4 F 82 19 96/66 93
09/07/25 11:15 09/07/25 13:45 09/07/25 13:45 09/07/25 12:49 09/07/25 13:45
I&O
09/06/25 09/07/25 09/08/25
06:59 06:59 06:59
Intake Total 1900 / 1900 2039 / 2039
Output Total 3550 / 3550 1999 / 1999 1849 / 1849
Balance -1650 / -1650 40 / 40 -1850 / -1850
Review of Systems
-
History Source: Patient
All other systems: Reviewed and negative
Constitutional: Reports Fatigue
Physical Exam
-
General: No Apparent Distress
[2025-09-07] MEDS: NSS 500 IV (15:02)
[2025-09-07] MEDS: LIDOCAINE 4% PATCH 1 PATCH TOPICAL (17:14)
[2025-09-07] MEDS: REMOVE LIDOCAINE PATCH 1 PATCH REMOVE (21:38)
[2025-09-08] VITALS (11 sets, daily range): BP systolic 95–115; BP diastolic 58–77; PULSE 67; O2SAT 94–97; BMI 22.7
[2025-09-08] MEDS: MAXIPIME 1000 MG IV ×3 (06:31→20:12)
[2025-09-08] MEDS: STERILE WATER FOR INJECTION 10 ML IV ×3 (06:31→20:12)
[2025-09-08 07:14] LABS: Hematocrit 25.4 % (39.0-52.0); Hemoglobin 8.2 g/dL (13.0-18.0); Mean Corp Hgb Conc. 32.3 g/dL (33.0-37.0); Mean Corpuscular Volume 108.1 fL (80.0-94.0); Platelet Count 73 10^3/uL (130-400); Red Cell Dist. Width 18.1 % (11.5-14.5)
--- NOTE | 2025-09-08 07:30 | PTCARENOTE ---
maintenance technician 3rd shift note, no acute events overnight. Pt aaox3 and [place]. NSR on the monitor. SpO2 95% on 3L NC. Chronic Stoner in place draining yellow urine. Hygiene completed including stoner wipes. Pt resting in bed with call caceres in reach.
[2025-09-08 07:32] LABS: Blood Urea Nitrogen 37 mg/dl (9-20); Calcium 8.7 mg/dl (8.4-10.2); Carbon Dioxide 26 mmol/L (22-30); Chloride 99 mmol/L (98-107); Estimated Creatinine Clearance 54 ml/min; Glucose 92 mg/dl (70-99); Potassium 4.3 mmol/L (3.5-5.1); Sodium 132 mmol/L (135-145); eGFR > 60.00
[2025-09-08 07:45] LABS: Absolute Neutrophils -Man Diff 13.8 10^3/uL (1.4-6.5); Anisocytosis Slight; Hypochromasia 1+; Normal RBC Morphology No; Platelets Checked Yes; Polychromasia Slight; Total Cells Counted 100
[2025-09-08] MEDS: MIRALAX 17 GRAMS PO (08:08)
[2025-09-08] MEDS: LIDOCAINE 4% PATCH 1 PATCH TOPICAL (08:08)
[2025-09-08] MEDS: CRESTOR 20 MG PO (08:09)
[2025-09-08] MEDS: PROTONIX 40 MG PO (08:09)
[2025-09-08] MEDS: ELIQUIS 5 MG PO ×2 (08:09→20:11)
[2025-09-08] MEDS: FARXIGA 10 MG PO (08:09)
[2025-09-08] MEDS: NEURONTIN 300 MG PO ×3 (08:09→21:18)
[2025-09-08] MEDS: ROXICODONE 10 MG PO ×4 (08:09→21:18)
[2025-09-08] MEDS: VITAMIN C 1000 MG PO ×2 (08:09→20:11)
[2025-09-08] MEDS: PACERONE 200 MG PO (08:10)
[2025-09-08] MEDS: ALDACTONE PO (08:41)
[2025-09-08] MEDS: FLOMAX 0.4 MG PO (09:38)
--- NOTE | 2025-09-08 10:08 | CM ---
Addendum entered by Kassie Freitas 09/08/25 16:04:
PT rec SNF - referral for [facility] updated
PLAN: SNF, pending bed availability, will need ins auth
Original Note:
patient chart reviewed
PT/OT to re-eval
patient now in IMU-rapid response
previously rec SNF
PLAN: TBD, Follow hospital progress, CM to follow for needs
[2025-09-08] MEDS: PULMICORT INH (10:47)
--- NOTE | 2025-09-08 11:28 | PN.CDI ---
CDI
- -
CDI:
Physician Documentation Request
Admit Date: 09/07/25 07:53
Dear Doctor Rigo,
Please review the following and provide your response in the progress notes.
Clinical Indicators:
The diagnosis of UTI was documented on 09/01 H&P but is not consistently noted in subsequent documentation.
- 09/01 H&P 'Chronic Urinary Retention with Chronic Collins...Patient given ceftriaxone in ED for possible UTI'
- 09/03 UC positive Enterobacter cloacae and Proteus mirabilis
- 09/07 PN with Sepsis
Please clarify the following:
____ - UTI was present on admission and is now resolved.
____ - UTI was present on admission and is still being monitored, evaluated or treated
____ - UTI was ruled out
____ - UTI is still a likely, suspected, probable diagnosis
____ - Other (please specify)
Use of terms such as suspected, likely, concern for, or probable (associated with a specific diagnosis that is being evaluated, monitored, or treated as if it exists) are acceptable and can be coded in the inpatient setting, when documented at the
time of discharge.
Thank you,
Radha Gaitan RN
CDI Specialist
Please use your independent medical judgment in providing your response.
--- NOTE | 2025-09-08 13:09 | PTCARENOTE ---
Pt downgraded to [facility]. transfer order. Pt tolerated OOB to chair for roughly 1 hr, very weak and deconditioned. x1 assist back to bed. attempted wean 02, unsuccessful. No change in physical assessment.
--- NOTE | 2025-09-08 16:15 | W.PN.HOSP.TC ---
Today's Communication/Plan
-
Assessment / Plan
Assessment / Plan
Gen-AAOx3, NAD
HEENT-NC, AT, anicteric, clear oral mm
Neck-supple
CV-reg, no M, +S1/S2
Lungs-mild rhonchi bilaterally
Abd-soft, NT, ND
Ext-no edema
Musculoskeletal-no cyanosis, clubbing
Skin-warm and dry
Neuro-grossly non-focal
Psych-calm, cooperative
Sepsis secondary to pneumonia:
- Recent admission for treatment of pneumonia secondary to haemophilus influenza
- Leukocytosis improving down to 21,000 this morning
- Current presentation possibly also contributed to by urinary tract infection which was present on admission and currently being treated, although UTI difficult to discern considering Collins
- Antibiotics broadened to cefepime based on cultures
- Hypotension improved but also somewhat chronic, holding torsemide, continue midodrine, have given gentle IV fluids with NS at 80 cc/h x 500 cc
- Follow-up sputum culture, blood cultures negative to date
- Continue pulmonary toileting
LEBRON:
- Now resolved
- Suspect this was due to hypotension
- Holding torsemide, spironolactone, and potassium supplementation
Hyponatremia:
- Mild with a serum sodium of 132 today, likely hypovolemic
- Holding diuretics
Failure to thrive
- probably due to deconditioning and multiple medical conditions.
- May have a component of volume depletion and contraction alkalosis given elevated bicarb, elevated BUN to creatinine ratio.
- Weight on admission is relatively stable compared to discharge weight from 08/17.
- PT/OT recommending SNF when medically stable
- Patient is motivated to improve his strength and his goal is to be independent again.
- Is still having orthostatic hypotension, TSH slightly low with normal free T4, cortisol within normal limits, continuing midodrine
Blurry vision
- Intermittent, associated with floaters
- unclear etiology. Patient states he saw his tow mate, Dr. Mejias, no diagnosis was made.
- May be contributed to by hypotension, doubt midodrine is the cause of the blurry vision as symptoms started prior to initiation of midodrine.
- Will need outpatient ophthalmology follow-up, was scheduled to follow-up with Dr. Mejias in the office but ended up in the hospital.
Paroxysmal atrial fibrillation -continue amiodarone, Eliquis.
MDS -reports outpatient follow-up with disciplinary hearing officer associated with [facility]
Chronic heart failure preserved EF -stable. Holding torsemide due to hypotension
CAD -stable.
Hyperlipidemia -rosuvastatin.
COPD without exacerbation -continue nebs and resume budesonide. If no improvement, then we will add systemic steroids and treat for COPD exacerbation.
ILD/pulmonary fibrosis
Chronic pain syndrome/chronic opioid dependence
Chronic orthostatic hypotension -continue midodrine, compression stockings.
Chronic urinary retention -with chronic Collins catheter. He sees Dr. Ni from urology. Collins was last changed 2 weeks ago.
GERD
History of alcohol use disorder
Full code
Anticipated Discharge: > 48 hours
Subjective/Interval History
-
Date of Service: September 08, 2025
Patient was seen and examined at bedside this morning. Feeling fatigued and with ongoing productive cough. Still intermittently febrile.
Objective Data
-
Labs:
Laboratory Results
09/08/25
06:28
WBC 21.0 H
Hgb 8.2 L
Hct 25.4 L
Plt Count 73 L
Sodium 132 L
Potassium 4.3
Chloride 99
Carbon Dioxide 26
BUN 37 H
Creatinine 1.1
Glucose 92
Calcium 8.7
Vital Signs:
Vital Signs
Temp Pulse Resp BP Pulse Ox
97.9 F 76 12 104/62 96
09/08/25 11:20 09/08/25 14:00 09/08/25 10:13 09/08/25 14:00 09/08/25 12:00
I&O
09/07/25 09/08/25 09/09/25
06:59 06:59 06:59
Intake Total 2039 / 2039 600 / 600 300 / 300
Output Total 1999 4150 / 4150
Balance 40 / 40 -3550 / -3550 300 / 300
Review of Systems
-
History Source: Patient
All other systems: Reviewed and negative
Constitutional: Reports Fatigue and Weakness
Respiratory: Reports Cough
Physical Exam
-
General: No Apparent Distress and Appears Chronically Ill
[2025-09-08] MEDS: TYLENOL 650 MG PO (16:33)
[2025-09-08] MEDS: NSS 500 IV (16:34)
--- NOTE | 2025-09-08 18:15 | PTCARENOTE ---
Received patient from IMU. Pulled over from stretcher to bed. Assessed and oriented to room. Incontinent of a small maroon BM. Dr Porfirio Dumas made aware. Orders placed.
[2025-09-08 20:10] LABS: Hematocrit 27.2 % (39.0-52.0); Hemoglobin 8.6 g/dL (13.0-18.0)
[2025-09-08] MEDS: REMOVE LIDOCAINE PATCH 1 PATCH REMOVE (20:14)
[2025-09-09] MEDS: MAXIPIME 1000 MG IV ×3 (04:46→20:50)
[2025-09-09] MEDS: STERILE WATER FOR INJECTION 10 ML IV ×3 (04:46→20:51)
[2025-09-09 07:33] VITALS: BP 102/64
[2025-09-09 08:15] LABS: Hematocrit 23.7 % (39.0-52.0); Hemoglobin 7.6 g/dL (13.0-18.0); Mean Corp Hgb Conc. 32.1 g/dL (33.0-37.0); Mean Corpuscular Volume 109.2 fL (80.0-94.0); Platelet Count 81 10^3/uL (130-400); Red Cell Dist. Width 17.8 % (11.5-14.5)
[2025-09-09] MEDS: PULMICORT 0.5 MG INH (08:22)
[2025-09-09] MEDS: DUONEB 3 ML INH (08:23)
[2025-09-09 08:38] LABS: Blood Urea Nitrogen 26 mg/dl (9-20); Calcium 8.7 mg/dl (8.4-10.2); Carbon Dioxide 27 mmol/L (22-30); Chloride 101 mmol/L (98-107); Estimated Creatinine Clearance 66 ml/min; Glucose 89 mg/dl (70-99); Potassium 4.5 mmol/L (3.5-5.1); Sodium 133 mmol/L (135-145); eGFR > 60.00
[2025-09-09 09:08] LABS: Absolute Neutrophils -Man Diff 8.9 10^3/uL (1.4-6.5)
[2025-09-09 09:09] LABS: Normal RBC Morphology Yes; Platelets Checked Yes; Total Cells Counted 100
[2025-09-09] MEDS: ROXICODONE 10 MG PO ×4 (09:25→20:53)
[2025-09-09] MEDS: FLOMAX 0.4 MG PO (09:25)
[2025-09-09] MEDS: FARXIGA 10 MG PO (09:25)
[2025-09-09] MEDS: PROTONIX 40 MG PO (09:25)
[2025-09-09] MEDS: NEURONTIN 300 MG PO ×3 (09:25→20:53)
[2025-09-09] MEDS: VITAMIN C 1000 MG PO ×2 (09:26→20:50)
[2025-09-09] MEDS: ELIQUIS 5 MG PO ×2 (09:26→20:49)
[2025-09-09] MEDS: PACERONE 200 MG PO (09:26)
[2025-09-09] MEDS: MIRALAX 17 GRAMS PO (09:27)
[2025-09-09] MEDS: CRESTOR 20 MG PO (09:27)
[2025-09-09] MEDS: LIDOCAINE 4% PATCH 1 PATCH TOPICAL (09:27)
[2025-09-09 10:58] LABS: Cortisol, Random 11.2 ug/dl
[2025-09-09 13:00] VITALS: BP 112/66
--- NOTE | 2025-09-09 13:41 | W.PN.HOSP.TC ---
Today's Communication/Plan
-
Assessment / Plan
Assessment / Plan
Gen-AAOx3, NAD
HEENT-NC, AT, anicteric, clear oral mm
Neck-supple
CV-reg, no M, +S1/S2
Lungs-mild rhonchi bilaterally
Abd-soft, NT, ND
Ext-no edema
Musculoskeletal-no cyanosis, clubbing
Skin-warm and dry
Neuro-grossly non-focal
Psych-calm, cooperative
Sepsis secondary to pneumonia:
- Recent admission for treatment of pneumonia secondary to haemophilus influenza
- Leukocytosis improving down to 13,000 this morning
- Current presentation possibly also contributed to by urinary tract infection which was present on admission and currently being treated, although UTI difficult to discern considering Collins
- Antibiotics broadened to cefepime based on cultures
- Hypotension improved but also somewhat chronic, holding torsemide, continue midodrine, have given gentle IV fluids with NS at 80 cc/h x 500 cc
- Follow-up sputum culture, blood cultures negative to date
- Continue pulmonary toileting
Acute on chronic anemia:
- Baseline hemoglobin appears to fluctuate between 8 and 11
- Hemoglobin dropped from 8.6 yesterday to 7.6 this morning
- He had a reportedly large bowel movement last night with maroon-colored stool, heme test pending
- Will repeat H&H this afternoon
- Currently hemodynamically stable
- Will get blood consent on chart in case hemoglobin drops further requiring transfusion
LEBRON:
- Now resolved
- Suspect this was due to hypotension
- Holding torsemide, spironolactone, and potassium supplementation
Hyponatremia:
- Mild and stable with a serum sodium of 133 today, likely hypovolemic
- Holding diuretics
Failure to thrive
- probably due to deconditioning and multiple medical conditions.
- May have a component of volume depletion and contraction alkalosis given elevated bicarb, elevated BUN to creatinine ratio.
- Weight on admission is relatively stable compared to discharge weight from 08/17.
- PT/OT recommending SNF when medically stable
- Patient is motivated to improve his strength and his goal is to be independent again.
- Is still having orthostatic hypotension, TSH slightly low with normal free T4, cortisol level was equivocal, will consider trial of steroids, continuing midodrine
Blurry vision
- Intermittent, associated with floaters
- unclear etiology. Patient states he saw his ambulance attendant, Dr. Mejias, no diagnosis was made.
- May be contributed to by hypotension, doubt midodrine is the cause of the blurry vision as symptoms started prior to initiation of midodrine.
- Will need outpatient ophthalmology follow-up, was scheduled to follow-up with Dr. Mejias in the office but ended up in the hospital.
Paroxysmal atrial fibrillation -continue amiodarone, Eliquis.
MDS -reports outpatient follow-up with cruise consultant associated with [facility]
Chronic heart failure preserved EF -stable. Holding torsemide due to hypotension
CAD -stable.
Hyperlipidemia -rosuvastatin.
COPD without exacerbation -continue nebs and budesonide.
ILD/pulmonary fibrosis
Chronic pain syndrome/chronic opioid dependence
Chronic orthostatic hypotension -continue midodrine, compression stockings.
Chronic urinary retention -with chronic Collins catheter. He sees Dr. Ni from urology. Collins was last changed 2 weeks prior to admission.
GERD
History of alcohol use disorder
Full code
Anticipated Discharge: > 48 hours
Subjective/Interval History
-
Date of Service: September 09, 2025
Patient was seen and examined at bedside this morning. Downgraded to [facility] yesterday afternoon. Had a large bowel movement yesterday evening that was maroon-colored. Hemoccult pending. Hemoglobin dropped this morning to 7.6. Blood pressure
stable.
Objective Data
-
Labs:
Laboratory Results
09/09/25 09/09/25
06:26 13:29
WBC 13.0 H
Hgb 7.6 L Pending
Hct 23.7 L Pending
Plt Count 81 L
Sodium 133 L
Potassium 4.5
Chloride 101
Carbon Dioxide 27
BUN 26 H
Creatinine 0.9
Glucose 89
Calcium 8.7
Vital Signs:
Vital Signs
Temp Pulse Resp BP Pulse Ox
98.5 F 72 16 112/66 96
09/09/25 07:33 09/09/25 13:02 09/09/25 08:29 09/09/25 13:02 09/09/25 08:29
I&O
09/08/25 09/09/25 09/10/25
06:59 06:59 06:59
Intake Total 600 / 600 300 / 300
Output Total 4150 / 4150 1300 / 1300
Balance -3550 / -3550 -1000 / -1000
Review of Systems
-
History Source: Patient
All other systems: Reviewed and negative
Constitutional: Reports Fatigue and Weakness
Physical Exam
-
General: No Apparent Distress and Appears Chronically Ill
[2025-09-09 14:00] LABS: Hematocrit 24.9 % (39.0-52.0); Hemoglobin 7.7 g/dL (13.0-18.0)
[2025-09-09] MEDS: DELTASONE 5 MG PO (14:13)
[2025-09-09 15:12] VITALS: BP 99/59
--- NOTE | 2025-09-09 16:46 | CM ---
PT OT indicated Snf .
As per care port [facility] accepted patient.
Pt will need auth with [facility] when medically ready .
PLAN To [facility] after auth
[2025-09-09] MEDS: REMOVE LIDOCAINE PATCH 1 PATCH REMOVE (20:51)
[2025-09-09 23:29] VITALS: BP 103/62
[2025-09-10] MEDS: MAXIPIME 1000 MG IV ×3 (02:57→20:18)
[2025-09-10] MEDS: STERILE WATER FOR INJECTION 10 ML IV ×3 (02:57→20:18)
[2025-09-10 06:00] VITALS: BMI 22.3
[2025-09-10] MEDS: TYLENOL 650 MG PO (06:21)
[2025-09-10 06:45] VITALS: BP 118/73
[2025-09-10 07:43] LABS: Hematocrit 25.4 % (39.0-52.0); Hemoglobin 8.1 g/dL (13.0-18.0); Mean Corp Hgb Conc. 31.9 g/dL (33.0-37.0); Mean Corpuscular Volume 110.0 fL (80.0-94.0); Platelet Count 83 10^3/uL (130-400); Red Cell Dist. Width 17.6 % (11.5-14.5)
[2025-09-10 07:46] LABS: Blood Urea Nitrogen 20 mg/dl (9-20); Calcium 8.7 mg/dl (8.4-10.2); Carbon Dioxide 27 mmol/L (22-30); Chloride 103 mmol/L (98-107); Estimated Creatinine Clearance 73 ml/min; Glucose 92 mg/dl (70-99); Potassium 4.7 mmol/L (3.5-5.1); Sodium 137 mmol/L (135-145); eGFR > 60.00
[2025-09-10] MEDS: LIDOCAINE 4% PATCH 1 PATCH TOPICAL (07:46)
[2025-09-10] MEDS: DELTASONE 5 MG PO (07:47)
[2025-09-10] MEDS: VITAMIN C 1000 MG PO ×2 (07:47→20:19)
[2025-09-10] MEDS: PROTONIX 40 MG PO (07:47)
[2025-09-10] MEDS: ROXICODONE 10 MG PO ×4 (07:47→21:09)
[2025-09-10] MEDS: FLOMAX 0.4 MG PO (07:48)
[2025-09-10] MEDS: MIRALAX 17 GRAMS PO (07:48)
[2025-09-10] MEDS: NEURONTIN 300 MG PO ×3 (07:48→21:09)
[2025-09-10] MEDS: FARXIGA 10 MG PO (07:48)
[2025-09-10] MEDS: PACERONE 200 MG PO (07:48)
[2025-09-10] MEDS: CRESTOR 20 MG PO (07:48)
[2025-09-10] MEDS: ELIQUIS 5 MG PO ×2 (07:48→20:18)
[2025-09-10] MEDS: PULMICORT 0.5 MG INH (08:13)
[2025-09-10 08:53] LABS: Absolute Neutrophils -Man Diff 4.1 10^3/uL (1.4-6.5); Platelets Checked Yes; Total Cells Counted 100
[2025-09-10 08:54] LABS: Anisocytosis 1+; Hypochromasia 1+; Macrocytosis 1+; Normal RBC Morphology No
[2025-09-10 10:38] VITALS: BP 107/66; BP 94/62; BP 97/65; PULSE 59; PULSE 72; PULSE 77
[2025-09-10 12:12] LABS: Hematocrit 23.9 % (39.0-52.0); Hemoglobin 7.6 g/dL (13.0-18.0)
[2025-09-10 13:13] VITALS: BP 132/63
--- NOTE | 2025-09-10 13:23 | W.PN.HOSP.TC ---
Today's Communication/Plan
-
Assessment / Plan
Assessment / Plan
Gen-AAOx3, NAD
HEENT-NC, AT, anicteric, clear oral mm
Neck-supple
CV-reg, no M, +S1/S2
Lungs-mild rhonchi bilaterally
Abd-soft, NT, ND
Ext-no edema
Musculoskeletal-no cyanosis, clubbing
Skin-warm and dry
Neuro-grossly non-focal
Psych-calm, cooperative
Sepsis secondary to pneumonia:
- Recent admission for treatment of pneumonia secondary to haemophilus influenza
- Current presentation possibly also contributed to by urinary tract infection which was present on admission and currently being treated, although UTI difficult to discern considering Collins
- Antibiotics broadened to cefepime based on cultures, leukocytosis resolved, will continue cefepime for 1 more day to complete 5-day course tomorrow 09/11/25
- Hypotension improved with steroids, suspect adrenal insufficiency, holding torsemide for now, continue midodrine for now will titrate off as able, have given gentle IV fluids with NS at 80 cc/h x 500 cc
- Follow-up sputum culture, blood cultures negative to date
- Continue pulmonary toileting
Acute on chronic anemia:
- Baseline hemoglobin appears to fluctuate between 8 and 11, history of MDS
- Hemoglobin has been fluctuating tween 7.5 and 9.0 during this admission
- Has had multiple bowel movements that were Hemoccult negative however 1 was Hemoccult positive today after which hemoglobin dropped from 8.1 this morning to 7.6 at noon
- Will repeat H&H this afternoon
- Currently hemodynamically stable
- Will transfuse if needed
- Currently unclear if this is actually significant GI bleeding versus blood in stool from oozing hemorrhoids or another relatively benign source, especially considering his history of MDS with associated thrombocytopenia, will hold off on inpatient
GI evaluation for the time being
LEBRON:
- Now resolved
- Suspect this was due to hypotension
- Holding torsemide, spironolactone, and potassium supplementation
Hyponatremia:
- Mild and stable with a serum sodium of 137 today, likely hypovolemic in the setting of adrenal insufficiency
- Holding diuretics
- Continue low-dose steroids with prednisone 5 mg daily
Failure to thrive
- probably due to deconditioning and multiple medical conditions.
- May have a component of volume depletion and contraction alkalosis given elevated bicarb, elevated BUN to creatinine ratio.
- Weight on admission is relatively stable compared to discharge weight from 08/17.
- PT/OT recommending SNF when medically stable
- Patient is motivated to improve his strength and his goal is to be independent again.
- Orthostatic hypotension now resolved with initiation of low-dose prednisone, TSH slightly low with normal free T4, cortisol level was equivocal, consider ACTH stim test at some point although for now we will consider clinically positive for
adrenal insufficiency based on overall response to prednisone, continuing midodrine and titrate as able
Blurry vision
- Intermittent, associated with floaters
- unclear etiology. Patient states he saw his senior environmental engineer, Dr. Mejias, no diagnosis was made.
- May be contributed to by hypotension, doubt midodrine is the cause of the blurry vision as symptoms started prior to initiation of midodrine.
- Will need outpatient ophthalmology follow-up, was scheduled to follow-up with Dr. Mejias in the office but ended up in the hospital.
Paroxysmal atrial fibrillation -continue amiodarone, Eliquis.
MDS -reports outpatient follow-up with senior case manager associated with [facility]
Chronic heart failure preserved EF -stable. Holding torsemide due to hypotension
CAD -stable.
Hyperlipidemia -rosuvastatin.
COPD without exacerbation -continue nebs and budesonide.
ILD/pulmonary fibrosis
Chronic pain syndrome/chronic opioid dependence
Chronic orthostatic hypotension -continue midodrine, compression stockings.
Chronic urinary retention -with chronic Collins catheter. He sees Dr. Ni from urology. Collins was last changed 2 weeks prior to admission.
GERD
History of alcohol use disorder
Full code
Anticipated Discharge: 24 - 48 hours
Subjective/Interval History
-
Date of Service: September 10, 2025
Patient was seen and examined at bedside this morning. Feeling better today after being started on steroids. Continuing antibiotics for treatment of pneumonia and possible UTI.
Objective Data
-
Labs:
Laboratory Results
09/10/25 09/10/25
05:48 12:04
WBC 7.6
Hgb 8.1 L 7.6 L
Hct 25.4 L 23.9 L
Plt Count 83 L
Sodium 137
Potassium 4.7
Chloride 103
Carbon Dioxide 27
BUN 20
Creatinine 0.8
Glucose 92
Calcium 8.7
Vital Signs:
Vital Signs
Temp Pulse Resp BP Pulse Ox
98.6 F 66 18 132/63 99
09/10/25 13:13 09/10/25 13:13 09/10/25 13:13 09/10/25 13:13 09/10/25 08:17
I&O
09/09/25 09/10/25 09/11/25
06:59 06:59 06:59
Intake Total 300 / 300 780 / 780
Output Total 1300 / 1300 3625 / 3625
Balance -1000 / -1000 -2845 / -2845
Review of Systems
-
History Source: Patient
All other systems: Reviewed and negative
Constitutional: Reports Fatigue
Respiratory: Reports Cough
Physical Exam
-
General: No Apparent Distress
[2025-09-10 14:39] VITALS: BP 102/67; BP 107/70
[2025-09-10 15:33] VITALS: BP 107/72
--- NOTE | 2025-09-10 16:18 | CM ---
pension fund manager reviewed patient's chart and met with patient and plan is for skilled placement at [facility], new Auth needs to be submitted to insurance.
Plan; Skilled placement at [facility].
[2025-09-10 17:02] LABS: Hematocrit 28.2 % (39.0-52.0); Hemoglobin 8.8 g/dL (13.0-18.0)
[2025-09-10] MEDS: REMOVE LIDOCAINE PATCH 1 PATCH REMOVE (21:09)
[2025-09-10 23:21] VITALS: BP 124/65
[2025-09-11] MEDS: STERILE WATER FOR INJECTION 10 ML IV ×3 (03:55→20:56)
[2025-09-11] MEDS: MAXIPIME 1000 MG IV ×3 (03:55→20:56)
[2025-09-11] MEDS: ROXICODONE 10 MG PO ×4 (04:48→21:00)
[2025-09-11 06:00] VITALS: BMI 22.3
[2025-09-11 07:00] VITALS: BP 107/71
[2025-09-11] MEDS: PULMICORT 0.5 MG INH (08:05)
[2025-09-11] MEDS: PACERONE 200 MG PO (09:09)
[2025-09-11] MEDS: FARXIGA 10 MG PO (09:09)
[2025-09-11] MEDS: DELTASONE 5 MG PO (09:09)
[2025-09-11] MEDS: FLOMAX 0.4 MG PO (09:09)
[2025-09-11] MEDS: NEURONTIN 300 MG PO ×3 (09:09→20:57)
[2025-09-11] MEDS: PROTONIX 40 MG PO (09:10)
[2025-09-11] MEDS: LIDOCAINE 4% PATCH 1 PATCH TOPICAL (09:10)
[2025-09-11] MEDS: CRESTOR 20 MG PO (09:10)
[2025-09-11] MEDS: ELIQUIS 5 MG PO ×2 (09:10→20:58)
[2025-09-11] MEDS: VITAMIN C 1000 MG PO ×2 (09:10→20:57)
[2025-09-11] MEDS: MIRALAX PO (09:47)
[2025-09-11 11:01] VITALS: BP 118/81; BP 126/70; BP 86/59; PULSE 58; PULSE 69; PULSE 93
[2025-09-11 12:50] VITALS: BP 107/69
[2025-09-11 13:27] VITALS: BP 108/66; BP 109/63; BP 96/60; PULSE 61; PULSE 72; PULSE 85
--- NOTE | 2025-09-11 13:51 | W.PN.HOSP.TC ---
Today's Communication/Plan
-
Assessment / Plan
Assessment / Plan
Gen-AAOx3, NAD
HEENT-NC, AT, anicteric, clear oral mm
Neck-supple
CV-reg, no M, +S1/S2
Lungs-mild rhonchi bilaterally
Abd-soft, NT, ND
Ext-no edema
Musculoskeletal-no cyanosis, clubbing
Skin-warm and dry
Neuro-grossly non-focal
Psych-calm, cooperative
Sepsis secondary to pneumonia:
- Recent admission for treatment of pneumonia secondary to haemophilus influenza
- Current presentation possibly also contributed to by urinary tract infection which was present on admission and currently being treated, although UTI difficult to discern considering Collins
- Antibiotics broadened to cefepime based on cultures, leukocytosis resolved, will continue cefepime for 1 more day to complete 5-day course tomorrow 09/11/25
- Hypotension improved with steroids, suspect adrenal insufficiency, holding torsemide and spironolactone, continue midodrine
- Follow-up sputum culture, blood cultures negative to date
- Continue pulmonary toileting
- Medically stable for discharge to SNF
Acute on chronic anemia:
- Baseline hemoglobin appears to fluctuate between 8 and 11, history of MDS
- Hemoglobin has been fluctuating tween 7.5 and 9.0 during this admission
- Has had multiple bowel movements that were Hemoccult negative however 1 was Hemoccult positive today after which hemoglobin dropped from 8.1 this morning to 7.6 at noon, subsequent hemoglobin jump back up to 8.8
- Do not suspect any current significant bleeding, remains hemodynamically stable
- Can follow-up with GI as outpatient
LEBRON:
- Now resolved
- Suspect this was due to hypotension
- Holding torsemide, spironolactone, and potassium supplementation
Hyponatremia:
- Mild and stable with a serum sodium of 137 yesterday, likely hypovolemic in the setting of adrenal insufficiency
- Holding diuretics
- Continue low-dose steroids
Failure to thrive
- probably due to deconditioning and multiple medical conditions.
- May have a component of volume depletion and contraction alkalosis given elevated bicarb, elevated BUN to creatinine ratio.
- Weight on admission is relatively stable compared to discharge weight from 08/17.
- PT/OT recommending SNF when medically stable
- Patient is motivated to improve his strength and his goal is to be independent again.
- Orthostatic hypotension now improved with initiation of low-dose steroids, TSH slightly low with normal free T4, cortisol level was equivocal, consider ACTH stim test at some point although for now we will consider clinically positive for adrenal
insufficiency based on overall response to steroids, continuing midodrine and titrate as able
Blurry vision
- Intermittent, associated with floaters
- unclear etiology. Patient states he saw his windows mobile developer, Dr. Mejias, no diagnosis was made.
- May be contributed to by hypotension, doubt midodrine is the cause of the blurry vision as symptoms started prior to initiation of midodrine.
- Will need outpatient ophthalmology follow-up, was scheduled to follow-up with Dr. Mejias in the office but ended up in the hospital.
Paroxysmal atrial fibrillation -continue amiodarone, Eliquis.
MDS -reports outpatient follow-up with commercial project manager associated with [facility]
Chronic heart failure preserved EF -stable. Holding torsemide due to hypotension
CAD -stable.
Hyperlipidemia -rosuvastatin.
COPD without exacerbation -continue nebs and budesonide.
ILD/pulmonary fibrosis
Chronic pain syndrome/chronic opioid dependence
Chronic orthostatic hypotension -continue midodrine, compression stockings.
Chronic urinary retention -with chronic Collins catheter. He sees Dr. Ni from urology. Collins was last changed 2 weeks prior to admission.
GERD
History of alcohol use disorder
Full code
Anticipated Discharge: 24 - 48 hours
Subjective/Interval History
-
Date of Service: September 11, 2025
Patient was seen and examined at bedside this morning. Feeling well after getting some good sleep last night. No floaters when he first woke up although they soon returned after waking.
Objective Data
-
Labs:
Laboratory Results
09/11/25
08:15
WBC Cancelled
Hgb Cancelled
Hct Cancelled
Plt Count Cancelled
Sodium Cancelled
Potassium Cancelled
Chloride Cancelled
Carbon Dioxide Cancelled
BUN Cancelled
Creatinine Cancelled
Glucose Cancelled
Calcium Cancelled
Vital Signs:
Vital Signs
Temp Pulse Resp BP Pulse Ox
98.7 F 71 16 107/69 95
09/11/25 07:00 09/11/25 09:09 09/11/25 08:08 09/11/25 12:50 09/11/25 12:56
I&O
09/10/25 09/11/25 09/12/25
06:59 06:59 06:59
Intake Total 780 / 780 1200 / 1200 960 / 960
Output Total 3625 / 3625 2825 / 2825 275 / 275
Balance -2845 / -2845 -1625 / -1625 685 / 685
Review of Systems
-
History Source: Patient
All other systems: Reviewed and negative
Physical Exam
-
General: No Apparent Distress and Appears Chronically Ill
[2025-09-11 15:00] VITALS: BP 131/70
[2025-09-11] MEDS: REMOVE LIDOCAINE PATCH 1 PATCH REMOVE (20:57)
[2025-09-11 23:34] VITALS: BP 114/70
[2025-09-12] MEDS: MAXIPIME 1000 MG IV ×2 (03:40→11:05)
[2025-09-12] MEDS: STERILE WATER FOR INJECTION 10 ML IV ×2 (03:44→11:06)
[2025-09-12] MEDS: ROXICODONE 10 MG PO ×4 (05:02→21:08)
[2025-09-12 06:00] VITALS: BMI 22.7
[2025-09-12 07:00] VITALS: BP 111/65
[2025-09-12] MEDS: ELIQUIS 5 MG PO ×2 (08:17→20:15)
[2025-09-12] MEDS: DELTASONE 5 MG PO (08:18)
[2025-09-12] MEDS: FLOMAX 0.4 MG PO (08:18)
[2025-09-12] MEDS: PROTONIX 40 MG PO (08:19)
[2025-09-12] MEDS: VITAMIN C 1000 MG PO ×2 (08:19→20:15)
[2025-09-12] MEDS: CRESTOR 20 MG PO (08:19)
[2025-09-12] MEDS: NEURONTIN 300 MG PO ×3 (08:19→21:08)
[2025-09-12] MEDS: FARXIGA 10 MG PO (08:19)
[2025-09-12] MEDS: LIDOCAINE 4% PATCH 1 PATCH TOPICAL (08:19)
[2025-09-12] MEDS: PACERONE 200 MG PO (08:19)
[2025-09-12] MEDS: MIRALAX 17 GRAMS PO (08:20)
[2025-09-12 10:00] VITALS: BP 115/70; BP 94/62; PULSE 63; PULSE 65
[2025-09-12 12:04] VITALS: BP 115/70; BP 94/60; PULSE 60; O2SAT 99
[2025-09-12 12:08] VITALS: BP 115/70; BP 94/62; PULSE 61; O2SAT 99
--- NOTE | 2025-09-12 13:56 | W.PN.HOSP.TC ---
Today's Communication/Plan
-
Assessment / Plan
Assessment / Plan
Gen-AAOx3, NAD
HEENT-NC, AT, anicteric, clear oral mm
Neck-supple
CV-reg, no M, +S1/S2
Lungs-mild rhonchi bilaterally
Abd-soft, NT, ND
Ext-no edema
Musculoskeletal-no cyanosis, clubbing
Skin-warm and dry
Neuro-grossly non-focal
Psych-calm, cooperative
Sepsis secondary to pneumonia:
- Recent admission for treatment of pneumonia secondary to haemophilus influenza
- Current presentation possibly also contributed to by urinary tract infection which was present on admission and currently being treated, although UTI difficult to discern considering Collins
- Antibiotics broadened to cefepime based on cultures, leukocytosis resolved, will continue cefepime for 1 more day to complete 5-day course tomorrow 09/11/25
- Hypotension improved with steroids, suspect adrenal insufficiency, holding torsemide and spironolactone, continue midodrine
- Follow-up sputum culture, blood cultures negative to date
- Continue pulmonary toileting
- Medically stable for discharge to SNF, placement pending
Acute on chronic anemia:
- Baseline hemoglobin appears to fluctuate between 8 and 11, history of MDS
- Hemoglobin has been fluctuating tween 7.5 and 9.0 during this admission
- Has had multiple bowel movements that were Hemoccult negative however 1 was Hemoccult positive after which hemoglobin dropped from 8.1 this morning to 7.6 at noon, subsequent hemoglobin jump back up to 8.8
- Do not suspect any current significant bleeding, remains hemodynamically stable
- Can follow-up with GI as outpatient
LEBRON:
- Now resolved
- Suspect this was due to hypotension
- Holding torsemide, spironolactone, and potassium supplementation
Hyponatremia:
- Mild and stable with most recent serum sodium of 137, likely hypovolemic in the setting of adrenal insufficiency
- Holding diuretics
- Continue low-dose steroids
Failure to thrive
- probably due to deconditioning and multiple medical conditions.
- May have had a component of volume depletion at time of admission
- Weight on admission is relatively stable compared to discharge weight from 08/17.
- PT/OT recommending SNF when medically stable
- Patient is motivated to improve his strength and his goal is to be independent again.
- Orthostatic hypotension now improved with initiation of low-dose steroids, TSH slightly low with normal free T4, cortisol level was equivocal, consider ACTH stim test at some point although for now we will consider clinically positive for adrenal
insufficiency based on overall response to steroids, continuing midodrine and titrate as able
Blurry vision
- Intermittent, associated with floaters
- unclear etiology. Patient states he saw his public events facilities rental manager, Dr. Mejias, no diagnosis was made.
- May be contributed to by hypotension, doubt midodrine is the cause of the blurry vision as symptoms started prior to initiation of midodrine.
- Will need outpatient ophthalmology follow-up, was scheduled to follow-up with Dr. Mejias in the office but ended up in the hospital.
Paroxysmal atrial fibrillation -continue amiodarone, Eliquis.
MDS -reports outpatient follow-up with english as a second language instructor associated with [facility]
Chronic heart failure preserved EF -stable. Holding torsemide due to hypotension
CAD -stable.
Hyperlipidemia -rosuvastatin.
COPD without exacerbation -continue nebs and budesonide.
ILD/pulmonary fibrosis
Chronic pain syndrome/chronic opioid dependence
Chronic orthostatic hypotension -continue midodrine, compression stockings.
Chronic urinary retention -with chronic Collins catheter. He sees Dr. Ni from urology. Collins was last changed 2 weeks prior to admission.
GERD
History of alcohol use disorder
Full code
Anticipated Discharge: 24 - 48 hours
Subjective/Interval History
-
Date of Service: September 12, 2025
Patient was seen and examined at bedside this morning. Feeling well. Awaiting SNF placement.
Objective Data
-
Vital Signs:
Vital Signs
Temp Pulse Resp BP Pulse Ox
98.4 F 64 16 115/70 2
09/12/25 07:00 09/12/25 07:00 09/12/25 07:00 09/12/25 12:05 09/12/25 09:30
I&O
09/11/25 09/12/25 09/13/25
06:59 06:59 06:59
Intake Total 1200 / 1200 1920 / 1920 780 / 780
Output Total 2825 / 2825 2175 / 2175 550 / 550
Balance -1625 / -1625 -255 / -255 230 / 230
Review of Systems
-
History Source: Patient
All other systems: Reviewed and negative
Physical Exam
-
General: No Apparent Distress
[2025-09-12 15:00] VITALS: BP 100/61
--- NOTE | 2025-09-12 15:20 | CM ---
Addendum entered by Marilin Nichols 09/12/25 18:29:
Received auth for [facility]. Approved for 09/12/25 through to and including 09/15/25. NRD and LCD is 09/15/25. ID# [id number], Auth reference # [id number]. Fax updates to Noelle Salmeron @ . Call DON with info @ [phone] (cell).
[facility] is accepting on 09/13/25. This CM specifically requested SOC to be 09/13/25, Discussed with person who called with auth. She is unable to change dates. She said no problem for [facility] to call and change when admitted.
Nurse to Nurse Report #: [phone]
Fax #: [phone]
Original Note:
Discharge POC: [facility]. Needed PT/OT updates and completed. Insurance auth initiated. Pending auth # [id number]. Documents faxed. [facility] has a bed for tomorrow. Call DON @ [phone] (cell). Awaiting insurance review.
[2025-09-12] MEDS: REMOVE LIDOCAINE PATCH 1 PATCH REMOVE (20:15)
[2025-09-12] MEDS: COLACE 100 MG PO (21:08)
[2025-09-12 23:38] VITALS: BP 111/62
[2025-09-13] MEDS: ROXICODONE 10 MG PO ×3 (05:10→16:04)
[2025-09-13 06:00] VITALS: BMI 22.6
[2025-09-13 07:25] VITALS: BP 114/70
[2025-09-13 08:30] VITALS: BP 101/59; BP 85/63; BP 95/56; PULSE 63; PULSE 85; PULSE 99
[2025-09-13] MEDS: NEURONTIN 300 MG PO ×2 (09:19→16:04)
[2025-09-13] MEDS: DELTASONE 5 MG PO (09:19)
[2025-09-13] MEDS: FARXIGA 10 MG PO (09:21)
[2025-09-13] MEDS: ELIQUIS 5 MG PO (09:21)
[2025-09-13] MEDS: VITAMIN C 1000 MG PO (09:21)
[2025-09-13] MEDS: PROTONIX 40 MG PO (09:21)
[2025-09-13] MEDS: CRESTOR 20 MG PO (09:21)
[2025-09-13] MEDS: FLOMAX 0.4 MG PO (09:22)
[2025-09-13] MEDS: MIRALAX 17 GRAMS PO (09:22)
[2025-09-13] MEDS: PACERONE 200 MG PO (09:22)
[2025-09-13] MEDS: LIDOCAINE 4% PATCH 1 PATCH TOPICAL (09:22)
--- NOTE | 2025-09-13 10:09 | W.PN.HOSP.TC ---
Addendum entered and electronically signed by Christopher Seay DO 09/13/25 13:35:
Based on results of ACTH stimulation test, adrenal insufficiency has been ruled out. Stop prednisone.
Original Note:
Today's Communication/Plan
-
ACTH stimulation test
Change Collins catheter
Discharge to SNF
Assessment / Plan
Assessment / Plan
Gen-AAOx3, NAD
HEENT-NC, AT, anicteric, clear oral mm
Neck-supple
CV-reg, no M, +S1/S2
Lungs-mild rhonchi bilaterally
Abd-soft, NT, ND
Ext-no edema
Musculoskeletal-no cyanosis, clubbing
Skin-warm and dry
Neuro-grossly non-focal
Psych-calm, cooperative
Sepsis secondary to pneumonia -completed course of antibiotics, last dose 09/12. Blood cultures negative. Sepsis resolved.
Doubt UTI. Suspect asymptomatic pyuria/bacteriuria as noted on urinalysis and urine culture. This is most likely due to chronic Collins catheter.
Acute on chronic anemia:
- Baseline hemoglobin appears to fluctuate between 8 and 11, history of MDS
- Hemoglobin has been fluctuating tween 7.5 and 9.0 during this admission
- Has had multiple bowel movements that were Hemoccult negative however 1 was Hemoccult positive after which hemoglobin dropped from 8.1 this morning to 7.6 at noon, subsequent hemoglobin jump back up to 8.8
- Do not suspect any current significant bleeding, remains hemodynamically stable
- Can follow-up with GI as outpatient
LEBRON:
- Now resolved
- Suspect this was due to hypotension
- Holding torsemide, spironolactone, and potassium supplementation
Hyponatremia -resolved.
Doubt adrenal insufficiency -started on low-dose prednisone this admission. Will check ACTH stimulation test despite getting prednisone.
Failure to thrive
- probably due to deconditioning and multiple medical conditions.
- May have had a component of volume depletion at time of admission
- Weight on admission is relatively stable compared to discharge weight from 08/17.
- PT/OT recommending SNF when medically stable
- Patient is motivated to improve his strength and his goal is to be independent again.
Blurry vision
- Intermittent, associated with floaters
- unclear etiology. Patient states he saw his shop mechanic helper, Dr. Mejias, no diagnosis was made.
- May be contributed to by hypotension, doubt midodrine is the cause of the blurry vision as symptoms started prior to initiation of midodrine.
- Will need outpatient ophthalmology follow-up, was scheduled to follow-up with Dr. Mejias in the office but ended up in the hospital.
Paroxysmal atrial fibrillation -continue amiodarone, Eliquis.
MDS -reports outpatient follow-up with phlebotomy services representative associated with [facility]
Chronic heart failure preserved EF -stable. Holding torsemide due to hypotension
CAD -stable.
Hyperlipidemia -rosuvastatin.
COPD without exacerbation -continue nebs and budesonide.
ILD/pulmonary fibrosis
Chronic pain syndrome/chronic opioid dependence
Chronic orthostatic hypotension -continue midodrine, compression stockings.
Chronic urinary retention -with chronic Collins catheter. He sees Dr. Ni from urology. Collins to be changed prior to discharge.
GERD
History of alcohol use disorder
Full code
Dispo -stable for discharge to SNF. Case management aware.
Anticipated Discharge: Today
Subjective/Interval History
-
Date of Service: September 13, 2025
Patient seen and examined. No complaints.
Objective Data
-
Vital Signs:
Vital Signs
Temp Pulse Resp BP Pulse Ox
97.9 F 61 16 114/70 97
09/13/25 07:25 09/13/25 07:25 09/13/25 07:25 09/13/25 09:19 09/13/25 07:25
I&O
10/11/2509/13/25 09/14/25
06:59 06:59 06:59
Intake Total 1919 / 1919 2460 / 2459
Output Total 2174 / 2174 240 / 2399
Balance -255 / -255 60 / 60
Review of Systems
-
History Source: Patient
All other systems: Reviewed and negative
[2025-09-13] MEDS: CORTROSYN 0.25 MG IV (11:41)
[2025-09-13] MEDS: NSS (PRESERVATIVE FREE) 1 ML IV (11:41)
[2025-09-13 11:46] LABS: ACTH Stim Cortisol 0 Min 15.9 ug/dl
[2025-09-13 13:17] LABS: ACTH Stim Cortisol 30 Min 30.5 ug/dl
--- NOTE | 2025-09-13 13:34 | W.DS.TRANS ---
DC Summary - Local Superintendent
-
Discharge Instructions:
Discharge Diagnosis/Procedures Sepsis secondary to pneumonia, orthostatic
hypotension
Diet 2 Gram Sodium
Activity With assistance
Driving Restrictions No driving
Bathing Restrictions None
Instructions:
Stand-Alone Forms:
Changes to Home Medications: No
Discharge Medications:
DC Medications w/original date entered in [employer]
apixaban 5 mg tablet 5 mg PO BID Blood clot prevention/tx 09/22/22
ascorbic acid (vitamin C) 1,000 mg tablet (Vitamin C) 1,000 mg PO BID Supplement 11/19/22
gabapentin 300 mg capsule 300 mg PO TID Neurological Condition 11/07/24
budesonide 0.5 mg/2 mL suspension for nebulization 0.5 mg inhalation R DAILY Lung/Breathing Issues 03/22/25
ipratropium 0.5 mg-albuterol 3 mg (2.5 mg base)/3 mL nebulization soln 3 ml inhalation R BIDPRN PRN SOB 03/22/25
polyethylene glycol 3350 17 gram oral powder packet 17 g PO DAILY Constipation 03/22/25
rosuvastatin 20 mg tablet 20 mg PO DAILY High Cholesterol 03/22/25
sennosides 8.6 mg-docusate sodium 50 mg tablet (Senna-S) 1 tab-cap PO DAILYPRN PRN CONSTIPATION 03/22/25
albuterol sulfate 90 mcg/actuation aerosol inhaler 2 puff inhalation R Q4HPRN PRN sob 08/07/25
dapagliflozin propanediol 10 mg tablet (Farxiga) 10 mg PO DAILY Heart Failure 08/07/25
pantoprazole 40 mg tablet,delayed release 40 mg PO DAILY Gastrointestinal Issue 08/07/25
potassium chloride 20 mEq tablet,extended release 20 meq PO BID Supplement 08/07/25
Held on 09/13/25. Instructions: Hold for now, monitor serum potassium levels and restart as needed
tamsulosin 0.4 mg capsule 0.4 mg PO DAILY Urinary Issue 08/07/25
amiodarone 200 mg tablet (Pacerone) 200 mg PO DAILY #30 tabs 08/16/25
midodrine 5 mg tablet 5 mg PO TID Blood Pressure 09/01/25
spironolactone 25 mg tablet 25 mg PO DAILY Fluid Retention/Swelling 09/01/25
Held on 09/13/25. Instructions: Hold for now, can restart if needed after monitoring serum potassium levels
torsemide 20 mg tablet 20 mg PO BID Fluid Retention/Swelling 09/01/25
Held on 09/13/25. Instructions: Can restart as needed for volume overload/lower extremity swelling
oxycodone 10 mg tablet 10 mg PO QID@0500,1100,1700,2200 #10 tabs 09/13/25
Home Medication Changes
Pending Results: No
[2025-09-13 14:10] LABS: ACTH Stim Cortisol 60 Min 38.6 ug/dl
--- NOTE | 2025-09-13 15:01 | CM ---
entered order for discharge.
LM with [facility] . Bernie [phone] covering [facility] given [facility] approval and accepted patient today.
Approved for 09/12/25 through to and including 09/15/25. NRD and LCD is 09/15/25. ID# [id number], Auth reference # [id number]. Fax updates to Noelle Salmeron @ . Bernie aware.
IMM reviewed with patient and he agreed with dc to [facility] [employer] .
Pt on oxygen amb dysfunction and orthostasis hypotension. Ambulance set up . Medical nec form completed.
[facility]
report [phone]

PLan To [facility]
[2025-09-13 15:28] VITALS: BP 149/85
[2025-09-13] MEDS: FLUZONE HIGH-DOSE 2025-26 0.5 ML IM (15:31)
== END 2025-09-13 19:00 | DRG 871 ==
LOC: 4 EAST ACU 07:53
PROVIDERS: Internal Medicine; Nurse Practitioner; Nurse Practitioner Family; Physician Assistant Medical; ADMITTING PHYSICIAN Internal Medicine; ATTENDING PHYSICIAN Hospitalist; EMERGENCY PHYSICIAN Emergency Medicine; FAMILY PHYSICIAN Physician Assistant Medical
PROC: 3E02340 Introduction of Influenza Vaccine into Muscle, Percutaneous Approach (ICD-10-PCS; 2025-09-13)
DX: A41.9 Sepsis, unspecified organism (principal); J18.9 Pneumonia, unspecified organism; I50.32 Chronic diastolic (congestive) heart failure; F11.20 Opioid dependence, uncomplicated; J44.0 Chronic obstructive pulmonary disease with (acute) lower respiratory infection; N17.9 Acute kidney failure, unspecified; E87.1 Hypo-osmolality and hyponatremia; D46.9 Myelodysplastic syndrome, unspecified; I25.10 Atherosclerotic heart disease of native coronary artery without angina pectoris; I48.0 Paroxysmal atrial fibrillation; I95.1 Orthostatic hypotension; N40.1 Benign prostatic hyperplasia with lower urinary tract symptoms; R33.8 Other retention of urine; H53.8 Other visual disturbances; K21.9 Gastro-esophageal reflux disease without esophagitis; G89.29 Other chronic pain; J84.10 Pulmonary fibrosis, unspecified; F10.10 Alcohol abuse, uncomplicated; E78.00 Pure hypercholesterolemia, unspecified; Z11.52 Encounter for screening for COVID-19; Z23 Encounter for immunization; Z79.899 Other long term (current) drug therapy; Z79.01 Long term (current) use of anticoagulants; Z87.891 Personal history of nicotine dependence
CPT/HCPCS: 36600; 71045; 71046; 80048; 80053; 81003; 81015; 82533; 82805; 82962; 83605; 83735; 83880; 84439; 84443; 85014; 85018; 85025; 85027; 87040; 87077; 87086; 87186; 87502; 87811; 90662; 93005; 94640; 96374; 97110; 97116; 97163; 97167; 97168; 97530; 97535; 99285; G0008

== ENCOUNTER → 2025-09-15 11:37 | Outpatient (REF) | payer OTHER, MEDICARE, SELFPAY ==
[2025-09-15 13:21] LABS: Hematocrit 22.6 % (39.0-52.0); Hemoglobin 7.1 g/dL (13.0-18.0); Mean Corp Hgb Conc. 31.4 g/dL (33.0-37.0); Mean Corpuscular Volume 107.6 fL (80.0-94.0); Platelet Count 100 10^3/uL (130-400); Red Cell Dist. Width 18.1 % (11.5-14.5)
[2025-09-15 13:40] LABS: Blood Urea Nitrogen 20 mg/dl (9-20); Calcium 7.8 mg/dl (8.4-10.2); Carbon Dioxide 26 mmol/L (22-30); Chloride 104 mmol/L (98-107); Glucose 90 mg/dl (70-99); Potassium 4.0 mmol/L (3.5-5.1); Sodium 138 mmol/L (135-145); eGFR > 60.00
[2025-09-15 14:06] LABS: Absolute Neutrophils -Man Diff 1.2 10^3/uL (1.4-6.5)
[2025-09-15 14:07] LABS: Anisocytosis 2+; Hypochromasia 2+; Normal RBC Morphology No; Platelets Checked Yes; Polychromasia 2+
[2025-09-15 14:08] LABS: Acanthocytes FEW; Ovalocytes FEW; Schistocytes FEW; Target Cells FEW; Total Cells Counted 100
== END ==
LOC: OLABP 11:37
PROVIDERS: ATTENDING PHYSICIAN Family Medicine
DX: J18.9 Pneumonia, unspecified organism (principal); D63.8 Anemia in other chronic diseases classified elsewhere; K21.9 Gastro-esophageal reflux disease without esophagitis; D46.9 Myelodysplastic syndrome, unspecified; E78.5 Hyperlipidemia, unspecified; I10 Essential (primary) hypertension; I25.10 Atherosclerotic heart disease of native coronary artery without angina pectoris; I48.0 Paroxysmal atrial fibrillation; I50.30 Unspecified diastolic (congestive) heart failure
CPT/HCPCS: 36415; 80048; 85025

== ENCOUNTER → 2025-09-20 09:47 | Outpatient (REF) | payer OTHER, MEDICARE, SELFPAY ==
[2025-09-20 12:10] LABS: Hematocrit 31.0 % (39.0-52.0); Hemoglobin 9.9 g/dL (13.0-18.0); Mean Corp Hgb Conc. 31.9 g/dL (33.0-37.0); Mean Corpuscular Volume 102.0 fL (80.0-94.0); Platelet Count 68 10^3/uL (130-400); Red Cell Dist. Width 20.7 % (11.5-14.5)
== END ==
LOC: OLABP 09:47
PROVIDERS: ATTENDING PHYSICIAN Family Medicine
DX: J44.9 Chronic obstructive pulmonary disease, unspecified (principal); J84.10 Pulmonary fibrosis, unspecified; J18.9 Pneumonia, unspecified organism; D63.8 Anemia in other chronic diseases classified elsewhere; A41.9 Sepsis, unspecified organism; K21.9 Gastro-esophageal reflux disease without esophagitis; E78.5 Hyperlipidemia, unspecified; D46.9 Myelodysplastic syndrome, unspecified; N39.0 Urinary tract infection, site not specified; I48.0 Paroxysmal atrial fibrillation; I25.10 Atherosclerotic heart disease of native coronary artery without angina pectoris; I50.30 Unspecified diastolic (congestive) heart failure
CPT/HCPCS: 36415; 85027

== ENCOUNTER → 2025-09-28 10:20 | Outpatient (REF) | payer OTHER, MEDICARE, SELFPAY ==
[2025-09-28 11:04] LABS: Hematocrit 31.0 % (39.0-52.0); Hemoglobin 10.0 g/dL (13.0-18.0); Mean Corp Hgb Conc. 31.9 g/dL (33.0-37.0); Mean Corpuscular Volume 103.0 fL (80.0-94.0); Nucleated Red Blood Cells % 0 % (-); Platelet Count 56 10^3/uL (130-400); Red Cell Dist. Width 19.9 % (11.5-14.5)
[2025-09-28 11:14] LABS: Blood Urea Nitrogen 25 mg/dl (9-20); Calcium 8.2 mg/dl (8.4-10.2); Carbon Dioxide 35 mmol/L (22-30); Chloride 91 mmol/L (98-107); Glucose 115 mg/dl (70-99); Potassium 3.7 mmol/L (3.5-5.1); Sodium 134 mmol/L (135-145); eGFR > 60.00
== END ==
LOC: OLABP 10:20
PROVIDERS: ATTENDING PHYSICIAN Family Medicine
DX: E78.5 Hyperlipidemia, unspecified (principal); N39.0 Urinary tract infection, site not specified; A41.9 Sepsis, unspecified organism; K21.9 Gastro-esophageal reflux disease without esophagitis; I48.0 Paroxysmal atrial fibrillation; I50.30 Unspecified diastolic (congestive) heart failure; J44.9 Chronic obstructive pulmonary disease, unspecified
CPT/HCPCS: 36415; 80048; 85025

== ENCOUNTER → 2025-09-29 10:48 | Outpatient (REF) | payer OTHER, MEDICARE, SELFPAY ==
[2025-09-29 10:57] LABS: Procalcitonin 0.15 ng/ml (0.0-0.25)
== END ==
LOC: OLABP 10:48
PROVIDERS: ATTENDING PHYSICIAN Family Medicine
DX: J18.9 Pneumonia, unspecified organism (principal); D63.8 Anemia in other chronic diseases classified elsewhere; A41.9 Sepsis, unspecified organism; D46.9 Myelodysplastic syndrome, unspecified; E78.5 Hyperlipidemia, unspecified; G89.29 Other chronic pain; I10 Essential (primary) hypertension; I11.0 Hypertensive heart disease with heart failure; I25.10 Atherosclerotic heart disease of native coronary artery without angina pectoris; I34.0 Nonrheumatic mitral (valve) insufficiency; I48.0 Paroxysmal atrial fibrillation; I50.30 Unspecified diastolic (congestive) heart failure; I95.1 Orthostatic hypotension; J44.9 Chronic obstructive pulmonary disease, unspecified; J84.10 Pulmonary fibrosis, unspecified; K21.9 Gastro-esophageal reflux disease without esophagitis; N19 Unspecified kidney failure; N39.0 Urinary tract infection, site not specified
CPT/HCPCS: 36415; 84145